=== PATIENT | female | born 1950 | race Caucasian/White ===

== ENCOUNTER 2024-09-19 17:59 | Emergency (ER) | payer MEDICARE, BC, SELFPAY ==
[2024-09-19 18:16] VITALS: BP 142/82; PULSE 77; RESP 18; TEMP 36.6; O2SAT 99
--- NOTE | 2024-09-19 18:19 | EKG_ITS ---
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 [place]) Order Number: [id number] Reading MD: Jim Meyer ([facility] [place]) Measurements Intervals [place] Rate: 68 P: 35 ME: 155 QRS: 8 QRSD: 140 T: 16 QT: 427 QTc: 454 Interpretive Statements SINUS RHYTHM RIGHT BUNDLE BRANCH BLOCK [120+ ms QRS DURATION, UPRIGHT V1, 40+ ms S IN I/aVL/V4/V5/V6] No previous ECG available for comparison /store/S0/[id number].pdf
--- NOTE | 2024-09-19 18:19 | XR_ITS ---
Examination: PA lateral chest 2 views Technique: Upright PA lateral chest 2 views Exam date and time: September 19, 2024 at 1940 6:00 PM Indications: Chest pain today. Findings: Prominent opacity in the right lower lung zone obscuring detail right cardiac contour Normal heart size Left lung clear Impression: Prominent dense consolidation in the right middle lobe most consistent with pneumonia, underlying pulmonary mass not excluded Consider CT chest post intravenous contrast follow-up
--- NOTE | 2024-09-19 18:21 | EDRME_ITS ---
Rapid Medical Screening Exam [facility] Arrival date/time: 09/19/24 17:59 74-year-old female past medical history of liver disease on blood thinner with recent surgical procedure at [facility] presents to the emergency department complaining of right upper quadrant abdominal mass. Patient reports contacted [facility] and was advised to go to the emergency department to rule out internal bleed. Chief Complaint: Abdominal Pain Vital signs: Vital Signs Temperature 97.8 F 09/19/24 18:16 Pulse Rate 77 09/19/24 18:16 Respiratory Rate 18 09/19/24 18:16 Blood Pressure 142/82 H 09/19/24 18:16 Pulse Oximetry (%) 99 09/19/24 18:16 Oxygen Delivery Method Room Air 09/19/24 18:16 Vital signs reviewed by provider: Yes
[2024-09-19 19:36] LABS: Collection Type, Urine Clean Catch
[2024-09-19 19:45] LABS: Bacteria,Urine Rare; Bilirubin,Urine Negative (Negative); Blood,Urine Negative (Negative); Clarity,Urine Clear (Clear/Hazy); Color,Urine Yellow (Lt Yel-Yel); Glucose, Urine Negative (Negative); Hyaline Casts,Urine < 1 /hpf (0-1); Ketones,Urine Negative (Negative); Leukocyte Esterase,Urine Negative (Negative); Nitrite,Urine Negative (Negative); Protein,Urine Negative (Neg - Trace); RBC,Urine 3 /hpf (0-3); Specific Gravity,Urine 1.023 (1.001-1.035); Squamous Epithelial Cell,Urine 1 /hpf (0-5); Urobilinogen,Urine Negative mg/dL (0.0-1.0); WBC,Urine 13 /hpf (0-5)
[2024-09-19 19:51] LABS: Culture Indicated,Urine Yes
[2024-09-19 20:01] VITALS: BP 139/64; PULSE 70; RESP 20; TEMP 36.6; O2SAT 99
[2024-09-19 20:03] VITALS: BMI 26.6
--- NOTE | 2024-09-19 20:22 | EDNOTE_ITS ---
ED General RME/HPI General Chief complaint: Abdominal Pain Stated complaint: POST PORTAL VEIN SURGEY COMPLICATIONS FRI AT [facility] Time Seen by Provider: 09/19/24 20:14 Arrival date/time: 09/19/24 17:59 CC: Mild nausea with mild swelling of the right upper quadrant HPI patient was recently discharged from [facility] 1 week ago for portal duct stent, as well as a splenic vein stent secondary to cirrhosis. The patient was also given an iron infusion x 2 before being discharged to drive back to [place]. Patient has been unremarkable in recovery until today when the patient states she can started to feel mild nausea without any diarrhea or vomiting and noticed that there was a mild enlargement on her abdomen. Patient called [facility] speaking to the mold shaker Connie Menjivar [phone] who advised her to come to the emergency room for a workup and to be called back with the results. The patient is currently awake alert oriented x 3 no focal deficits not in any acute distress. 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 RME / HPI RME / HPI narrative: 09/19/24 17:59 74-year-old female past medical history of liver disease on blood thinner with recent surgical procedure at [facility] presents to the emergency department complaining of right upper quadrant abdominal mass. Patient reports contacted [facility] and was advised to go to the emergency department to rule out internal bleed. Related Data Home Medications ?Medication ?Instructions ?Recorded ?Confirmed Diphenoxylate Hcl/Atrop Sulf * 1 tab GT QIDPRN ##0 08/23/10 (LOMOTIL *) HYDROCODONE BITARTRATE/APAP 1 tab GT Q4-6HRPRN ##1 08/23/10 (VICODIN 5/500) clonazepam 0.5 mg tablet (Klonopin) 0.5 mg PO BID ##1 08/23/10 Allergies Allergy/AdvReac Type Severity Reaction Status Date / Time Sulfa (Sulfonamide Allergy Intermediate Rash Verified 09/19/24 18:03 Antibiotics) Review of Systems Review of Systems Narrative Review of Systems: GEN: No fever, no chills, no weight loss EYES: No discharge, no visual changes, no pain HEENT: No ear pain, no congestion, no sore throat PULM: No shortness of breath, no cough, no congestion CV: No chest pain, no dyspnea on exertion, no palpitations GI: + nausea, no vomiting, no diarrhea, no pain, no constipation : No frequency, no urgency, no dysuria MUSC/SKEL: No joint pain, no back pain SKIN: No rash PSYCH: No hallucinations, no depression HEME/LYMPH: No easy bleeding or bruising tendencies NEURO: No weakness, no headache Past Medical History Past Medical History CARDIAC: Negative Congestive Heart Failure RESPIRATORY: Negative Chronic Obstructive Pulmonary Disease (COPD) GENITOURINARY: Negative Renal Disease ENT: Positive Cataracts ENDOCRINE: Positive Hypothyroidism; Negative Diabetes Mellitus Type 1 or Diabetes Mellitus Type 2 HEMATOLOGIC: Positive Anemia PSYCHO/SOCIAL: Positive Depression and Anxiety OTHER HISTORY: Negative Anesthesia Reactions Surgical History SURGICAL: Positive Abdominal Surgery, Gastric Bypass Surgery and of Back Surgery Social History SMOKING STATUS: Never smoker ED Exam Narrative Physical exam: [General: Not in any acute distress Head normocephalic HEENT: Within acceptable limits Neck is supple nontender Chest equal chest rise nontender to palpation Respiratory: Clear to auscultation no wheezes crackles or rubs CV: Rate rhythm is regular no murmurs rubs or clicks Abdomen is distended secondary to body habitus mild subtle enlargement to the right upper quadrant, soft, mild right upper quadrant tenderness with palpation no reflexive guarding no rebound tenderness. Back: No CVA tenderness no spinous process tenderness from cervical spine thoracic and lumbar spine Skin: Intact no petechiae rash induration ulceration or crepitus Extremities: Moving all extremity against resistance cap refill less than 2 seconds neurosensory intact. No lower extremity edema. Neuro: Awake alert oriented x3 Glascow coma 15 no focal deficits] Course Quality Measures none Orders Category Date Time Status CT Screening NOW Care 09/19/24 22:38 Completed EKG (ED ONLY) *Do not use* NOW Care 09/19/24 18:19 Completed Insert IV NOW Care 09/19/24 20:[address] abdomen pelvis w con Stat Exams 09/19/24 22:38 Completed EKG (ED Only) Stat Exams 09/19/24 18:19 Draft XR chest 2V Stat Exams 09/19/24 18:19 Completed B-Type Natriuretic Peptide Stat Lab 09/19/24 20:34 Completed CBC Stat Lab 09/19/24 20:34 Completed Comprehensive Metabolic Panel Stat Lab 09/19/24 20:34 Completed LDH (Lactate Dehydrogenase) Stat Lab 09/19/24 20:34 Completed Magnesium Stat Lab 09/19/24 20:34 Completed Partial Thromboplastin Time Stat Lab 09/19/24 20:34 Completed Prothrombin Time with INR Stat Lab 09/19/24 20:34 Completed Troponin I Stat Lab 09/19/24 20:34 Completed Urinalysis, C/S if Indicated Stat Lab 09/19/24 18:53 Completed Urine Culture Stat Lab 09/19/24 18:53 Received Vital Signs Vital signs: Vital Signs Temperature 97.8 F 09/19/24 18:16 Pulse Rate 77 09/19/24 18:16 Respiratory Rate 18 09/19/24 18:16 Blood Pressure 142/82 H 09/19/24 18:16 Pulse Oximetry (%) 99 09/19/24 18:16 Oxygen Delivery Method Room Air 09/19/24 18:16 [facility] Patient data External records reviewed:: [facility] previous records Clinical information provided by:: patient Social determinants that could affect healthcare access:: none Patient has the following chronic illnesses:: Cirrhosis, read recent portal vein dilation, and stent placed in the splenic vein. How is presenting disease/condition affected by chronic disease/condition?: u neffected by Evaluation data The following diagnostics were reviewed and interpreted by me:: lab results and radiology exam(s) Lab and/or radiology exams considered but not ordered:: EKG performed at 1835 shows a ventricular rate of 68 ME interval 155 QRS of 140 QTc of 444 this is sinus rhythm right bundle branch block. No old EKG for comparison. Interpretation Summary: See call note Medications Medications considered but not ordered:: See quad note Medication administrations:: None Consultations Consultation(s) initiated? (list below): No Diagnosis Differential Diagnosis ED Complaint MDM: Cirrhosis portal hypertension Most likely diagnosis given after review of the tests above:: Cirrhosis anemia Admission Indicated Admission indicated?: indicated Explain why admission is indicated or not indicated:: Stable for outpatient follow-up Admission Request Was there a request for admission?: No Disposition Plan Disposition Plan: Discharge Discharge Attestation Discharge Attestation: The patient and all family members were given an opportunity to ask questions and understood the discharge instructions. Discharge instructions specifically effects, indications for sooner follow up or return to the emergency department, and the expected course of current diagnosis. Patient condition: Stable Medical Decision Making Differential Diagnosis Differential Diagnosis: Cirrhosis portal hypertension Lab Data 09/19/24 20:34 09/19/24 20:34 Labs: Lab Results 09/19/24 09/19/24 Range/Units 18:53 20:34 WBC 3.6 (3.6-11.0) Thou/mm3 RBC 3.80 L (4.00-5.20) Miln/mm3 Hgb 9.1 L (12.0-16.0) g/dL Hct 30.3 L (36.0-46.0) % MCV 80 (80-100) fL MCH 23.9 L (25.0-35.0) pg MCHC 30.0 L (31.0-37.0) g/dl RDW Std Deviation 44.0 (36.4-46.3) fL Plt Count 120 L (140-440) Thou/mm3 Neut % (Auto) 79 (37-80) % Lymph % (Auto) 9 L (10-50) % Ware % (Auto) 8 (0-12) % Eos % (Auto) 4 (0-10) % Baso % (Auto) 1 (0-2.5) % Neut # (Auto) 2.8 (1.8-7.7) Thou/mm3 Lymph # (Auto) 0.3 L (1.0-4.8) Thou/mm3 Ware # (Auto) 0.3 (0.0-0.8) Thou/mm3 Eos # (Auto) 0.1 (0.0-0.5) Thou/mm3 Baso # (Auto) 0.0 (0.0-0.2) Thou/mm3 Immature Gran # (Auto) 0.01 H (0.00-0.00) Thou/mm3 Absolute Nucleated RBC 0.00 (0.00-0.00) Thou/mm3 Immature Gran % 0 (0-0) % Nucleated RBC % 0 (0) /100 WBC PT 11.4 (9.0-12.2) Seconds INR 1.0 (0.9-1.3) APTT 24.9 (22.0-36.0) Seconds Sodium 140 (136-145) mMol/L Potassium 4.4 (3.4-5.1) mMol/L Chloride 107 (98-107) mMol/L Carbon Dioxide 26.8 (20.0-31.0) mMol/L Anion Gap 6 L (7-16) BUN 21 (9-23) mg/dL Creatinine 0.9 (0.6-1.3) mg/dL Estim Creat Clear Calc 58.4 L (>60) mL/min eGFR > 60 (60 - ) See Note BUN/Creatinine Ratio 23 H (12-20) Ratio Glucose 91 (74-106) mg/dL Calculated Osmolality 282 (275-295) Calcium 9.8 (8.3-10.6) mg/dL Corrected Calcium 9.8 (8.5-10.1) mg/dL Magnesium 1.9 (1.6-2.6) mg/dL Total Bilirubin 0.8 (0.3-1.2) mg/dL AST 41 H (0-34) U/L ALT 25 (10-49) U/L Alkaline Phosphatase 115 (46-116) U/L Lactate Dehydrogenase 315 H (120-246) U/L Troponin I < 0.020 (0.0-0.045) ng/mL B-Natriuretic Peptide 163 H (0-100) pg/mL Total Protein 7.0 (5.7-8.2) gm/dL Albumin 4.1 (3.4-4.8) gm/dL Globulin 2.9 (2.3-3.5) gm/dL Albumin/Globulin Ratio 1.4 (1.2-2.2) Ur Collection Type Clean Catch Urine Color Yellow (Lt Yel-Yel) Urine Clarity Clear (Clear/Hazy) Urine pH 6.0 (5.0-7.0) Ur Specific [place] 1.023 (1.001-1.035) Urine Protein Negative (Neg - Trace) Urine Glucose (UA) Negative (Negative) Urine Ketones Negative (Negative) Urine Blood Negative (Negative) Urine Nitrite Negative (Negative) Urine Bilirubin Negative (Negative) Urine Urobilinogen (Auto) Negative (0.0-1.0) mg/dL Ur Leukocyte Esterase Negative (Negative) Urine RBC 3 (0-3) /hpf Urine WBC 13 H (0-5) /hpf Ur Squamous Epith Cells 1 (0-5) /hpf Urine Bacteria Rare (None) Hyaline Casts < 1 (0-1) /hpf Ur Culture Indicated? Yes Discharge Plan Plan Patient Disposition: HOME (Self Care) Patient condition on transfer: Stable Prescriptions/Referrals Prescriptions/Med Rec: No Action Diphenoxylate Hcl/Atrop Sulf * (LOMOTIL *) 1 TAB tablet 1 tab GT QIDPRN Qty: 0 HYDROCODONE BITARTRATE/APAP (VICODIN 5/500) 1 TAB tablet 1 tab GT Q4-6HRPRN Qty: 1 clonazepam [Klonopin] 0.5 MG tablet 0.5 mg PO BID Qty: 1 Referrals: Ted Anton MD [Primary Care Provider] - In 1 week Problem List Clinical Impression: Abdominal pain, Cirrhosis, Anemia, chronic disease, Thrombocytopenia Patient/Caregiver Discharge Instructions Education Materials: ED Anemia Type Not Specified, ED Cirrhosis Additional Instructions: Follow-up with your PMD in 2-3 days for recheck. You can continue with your normal video visit with Dr. Preciado on the . Feel free to return to the emergency department sooner if symptoms worsen or for any problems Print Language: Upper Sorbian Stand Alone Forms: [employer] Award Info., Patient Portal Info Letter Attestation Attestation The patient was seen by the midlevel practitioner. I, the co-signing physician, was present during the entire ER visit. While I did not physically examine the patient, I was available for consultation as needed.
[2024-09-19 21:02] LABS: Basophils % (Auto) 1 % (0-2.5); Eosinophils # (Auto) 0.1 Thou/mm3 (0.0-0.5); Eosinophils % (Auto) 4 % (0-10); Hematocrit 30.3 % (36.0-46.0); Hemoglobin 9.1 g/dL (12.0-16.0); Immature Granulocytes % (Auto) 0 % (0-0); Immature Granulocytes Auto 0.01 Thou/mm3 (0.00-0.00); Lymphocytes # (Auto) 0.3 Thou/mm3 (1.0-4.8); Lymphocytes % (Auto) 9 % (10-50); Mean Corpuscular Hemoglobin 23.9 pg (25.0-35.0); Mean Corpuscular Volume 80 fL (80-100); Monocytes # (Auto) 0.3 Thou/mm3 (0.0-0.8); Monocytes % (Auto) 8 % (0-12); Neutrophils # (Auto) 2.8 Thou/mm3 (1.8-7.7); Neutrophils % (Auto) 79 % (37-80); Nucleated Red Blood Cell % 0 /100 WBC (0); Platelet Count 120 Thou/mm3 (140-440); White Blood Count 3.6 Thou/mm3 (3.6-11.0)
[2024-09-19 21:18] LABS: Partial Thromboplastin Time 24.9 Seconds (22.0-36.0); Prothrombin Time 11.4 Seconds (9.0-12.2)
[2024-09-19 21:22] LABS: B-Type Natriuretic Peptide 163 pg/mL (0-100)
[2024-09-19 22:15] LABS: Alanine Aminotransferase 25 U/L (10-49); Albumin, Serum 4.1 gm/dL (3.4-4.8); Albumin/Globulin Ratio 1.4 (1.2-2.2); Alkaline Phosphatase 115 U/L (46-116); Anion Gap 6 (7-16); Aspartate Amino Transferase 41 U/L (0-34); BUN/Creatinine Ratio 23 Ratio (12-20); Bilirubin,Total 0.8 mg/dL (0.3-1.2); Blood Urea Nitrogen 21 mg/dL (9-23); Calcium 9.8 mg/dL (8.3-10.6); Calcium (Corrected) 9.8 mg/dL (8.5-10.1); Carbon Dioxide 26.8 mMol/L (20.0-31.0); Chloride 107 mMol/L (98-107); Creatinine (Component) 0.9 mg/dL (0.6-1.3); Estimated Creatinine Clearance 58.4 mL/min (>60); Globulin 2.9 gm/dL (2.3-3.5); Glucose 91 mg/dL (74-106); Magnesium 1.9 mg/dL (1.6-2.6); Osmolality,Calculated 282 (275-295); Potassium 4.4 mMol/L (3.4-5.1); Sodium 140 mMol/L (136-145); Troponin I < 0.020 ng/mL (0.0-0.045); eGFR > 60 See Note
--- NOTE | 2024-09-19 22:38 | XR_ITS ---
Examination: CT abdomen with intravenous contrast CT pelvis with intravenous contrast 2-D coronal reconstructions 2-D sagittal reconstructions Date and time of exam:September 19, 2024 at 11:12 PM Indications: History post portal vein surgery last week, abdominal pain, splenic artery stenting right-sided pain and swelling. CTDI: vol (mGy) 10.61 DLP: (mGycm) 610 Technique: Multiple axial sections of the abdomen and pelvis have been obtained. 64 slice high-resolution scanner used. 3 mm axial sections have been obtained, post intravenous injection 60 cc [id number] 2-D sagittal, coronal reconstructions obtained. Low dose protocols were performed. One or more of the following dose reduction techniques were used; automated exposure control, adjustment of the mA and/or KV according to patient size, use of iterative reconstruction technique. Findings: Atelectasis versus pneumonia in the right middle lobe Large right pleural effusion with atelectasis right lower lobe Liver irregular in contour with surgical clips Mild ascites Cholelithiasis Significant splenomegaly also with surgical clips Splenic vein stent which appears patent however this is not a CTA study Aorta normal size No hydronephrosis Diffuse wall thickening involving the colon, hepatic colopathy pattern Aorta is not enlarged No pelvic mass Urinary bladder intact Anasarca Severe osteopenia with advanced degenerative disc disease L4-L5, L5-S1 Impression: Atelectasis versus pneumonia in the right middle lobe Large right pleural effusion Cirrhosis Mild ascites Significant splenomegaly Splenic vein stent which appears patent however this is not a CTA study Hepatic colopathy Cholelithiasis
[2024-09-19 23:26] VITALS: BP 121/70; PULSE 71; RESP 17; TEMP 36.7; O2SAT 100
--- NOTE | 2024-09-19 23:50 | EDNOTE_ITS ---
Emergency Room Addendum Addendum Narrative: 220: Care assumed from Gui Roberts NP. Past medical, surgical, social and family history reviewed. Vitals and home medications reviewed. Results and treatment plan discussed. I will assume the care of the patient at this time and will follow the patient, pending CT abdomen pelvis. Please refer to the emergency department record for history and examination. 74yo female presents to the ED for a chief complaint of abdominal fullness. Patient states she has had persistent abdominal pain since she drove home from [place] 2-3 days ago, reporting she developed abdominal fullness. She called the impregnator operator from [place], and was told to come to the ED for evaluation. Patient does not have a post-op appointment until 10/02/[address] Preciado. Physical exam by me shows patient under no acute distress at this time. 0045: Spoke with Dr. Connie Menjivar, impregnator operator from [facility], regarding consultation and reviewing results. Discussed patient?s HPI, PMHx, lab and/or radiology results. Treatment plan was discussed. States the patient is stable to be discharged home and can continue with her f/u appointment as scheduled. RADIOLOGY RESULTS: [facility] Report Signed Patient: WADE DEE. Record#: [id number] Birthdate: 1950 Age/Sex: 74 / F Location: [facility] Attending Dr: Ordering Physician: Matti Rodriguez MD Date of Service: 09/19/24 Procedure(s): CT abdomen pelvis w con Accession Number(s): [id number] cc: Matti Rodriguez MD; Meño Cortes MD; Ted Anton MD~ Examination: CT abdomen with intravenous contrast CT pelvis with intravenous contrast 2-D coronal reconstructions 2-D sagittal reconstructions Date and time of exam:September 19, 2024 at 11:12 PM Indications: History post portal vein surgery last week, abdominal pain, splenic artery stenting right-sided pain and swelling. CTDI: vol (mGy) 10.61 DLP: (mGycm) 610 Technique: Multiple axial sections of the abdomen and pelvis have been obtained. 64 slice high-resolution scanner used. 3 mm axial sections have been obtained, post intravenous injection 60 cc [id number] 2-D sagittal, coronal reconstructions obtained. Low dose protocols were performed. One or more of the following dose reduction techniques were used; automated exposure control, adjustment of the mA and/or KV according to patient size, use of iterative reconstruction technique. Findings: Atelectasis versus pneumonia in the right middle lobe Large right pleural effusion with atelectasis right lower lobe Liver irregular in contour with surgical clips Mild ascites Cholelithiasis Significant splenomegaly also with surgical clips Splenic vein stent which appears patent however this is not a CTA study Aorta normal size No hydronephrosis Diffuse wall thickening involving the colon, hepatic colopathy pattern Aorta is not enlarged No pelvic mass Urinary bladder intact Anasarca Severe osteopenia with advanced degenerative disc disease L4-L5, L5-S1 Impression: Atelectasis versus pneumonia in the right middle lobe Large right pleural effusion Cirrhosis Mild ascites Significant splenomegaly Splenic vein stent which appears patent however this is not a CTA study Hepatic colopathy Cholelithiasis Dictated By: Meño Cortes MD Signed By: <Electronically signed by Meño Cortes MD in [place]> 09/19/24 [id number]
[2024-09-20 00:55] LABS: LDH (Lactate Dehydrogenase) 315 U/L (120-246)
[2024-09-20 01:10] VITALS: BP 111/60; PULSE 72; RESP 18; TEMP 36.7; O2SAT 99
== END 2024-09-20 01:25 | disposition home or self-care (01) ==
PROVIDERS: Emergency Provider Emergency Medicine; PCP Family Medicine
DX: K74.60 Unspecified cirrhosis of liver (principal); D69.6 Thrombocytopenia, unspecified; D63.8 Anemia in other chronic diseases classified elsewhere; J90 Pleural effusion, not elsewhere classified; R18.8 Other ascites; R16.1 Splenomegaly, not elsewhere classified; K80.20 Calculus of gallbladder without cholecystitis without obstruction; I45.10 Unspecified right bundle-branch block
CPT/HCPCS: 36415; 71046; 74177; 80053; 81001; 83615; 83735; 83880; 84484; 85025; 85610; 85730; 87086; 93005; 99284; 99285; A4649; Q9967

== ENCOUNTER 2024-11-14 11:54 | Inpatient (IN) | payer MEDICARE, BC, SELFPAY ==
[2024-11-14] VITALS (8 sets, daily range): BP systolic 118–169; BP diastolic 62–97; PULSE 77–92; RESP 17–26; TEMP 36.2–38.2; O2SAT 91–99; BMI 25.8
--- NOTE | 2024-11-14 12:09 | PD.EDURI ---
Upper Respiratory Inf. RME/HPI General Chief Complaint: Flu Like Symptoms Stated Complaint: SOB, COUGH, FEVER X5DAYS Time Seen by Provider: 11/14/24 12:03 Arrival date/time: 11/14/24 11:54 RME / HPI RME / HPI Narrative: This section includes all my notes and documentations, including HPI, PE, and ED course.? Kelvin Boogie MD HPI: 74-year-old female here with about a week history of worsening cough, productive cough, purulent sputum, and dyspnea. With fever and chills and bodyaches and malaise. No other complaints. ROS: All negative except as documented in HPI. Physical Exam: General:? Alert and oriented.? Hacking cough noted with hypoxia needing oxygen. Eyes:? Conjunctivae and lids clear.? ENT:? No nasal congestion.??Pharynx normal. TM normal bilaterally. Neck:? Supple.? Heart:? RRR.? Lungs: Mild respiratory distress.? Moderately decreased air movement with bilateral rales. Abdomen:? Soft with equivocal tenderness, difficult to localize. Legs:? No clubbing, cyanosis, edema.? Skin:? Warm and dry.?? Neuro:? Alert and oriented X 3.?? I reviewed all diagnostic test results. My interpretation of the EKG is?sinus rhythm with no acute ST?T changes. My interpretation of the chest x-ray is bilateral infiltrates. My review of the CT scan report is?no PE. Blood tests and urine tests?remarkable for WBC 13, D-dimer 2970. At this point, diagnoses include?acute respiratory failure with hypoxia and pneumonia. Treatment here included?Rocephin and Zithromax and Tylenol and morphine. Significant improvement not noted. I discussed the case with our hospitalist.? About the presentation and exam and diagnostics and treatments here.? And need of further care in the hospital.? Will accept the patient. Kelvin Boogie MD Related Data Home Medications ?Medication ?Instructions ?Recorded ?Confirmed Diphenoxylate Hcl/Atrop Sulf * 1 tab GT QIDPRN ##0 08/23/10 (LOMOTIL *) HYDROCODONE BITARTRATE/APAP 1 tab GT Q4-6HRPRN ##1 08/23/10 (VICODIN 5/500) clonazepam 0.5 mg tablet (Klonopin) 0.5 mg PO BID ##1 08/23/10 Allergies Allergy/AdvReac Type Severity Reaction Status Date / Time Sulfa (Sulfonamide Allergy Intermediate Rash Verified 11/14/24 11:57 Antibiotics) Review of Systems Review of Systems Systems Reviewed: All systems reviewed, normal except as documented Past Medical History Past Medical History ENT: Positive Cataracts ENDOCRINE: Positive Hypothyroidism HEMATOLOGIC: Positive Anemia PSYCHO/SOCIAL: Positive Depression and Anxiety Surgical History SURGICAL: Positive Abdominal Surgery and Gastric Bypass Surgery Social History SMOKING STATUS: Never smoker ED Exam Narrative Physical exam: As noted in HPI Course Quality Measures none Orders Category Date Time Status Bedside COVID-19 Antigen Test NOW Care 11/14/24 12:17 Active Bedside Influenza A&B Antigen Test NOW Care 11/14/24 12:17 Active COVID-19 Screening Questionnaire NOW Care 11/14/24 17:[address] Screening NOW Care 11/14/24 16:[address] Screening NOW Care 11/14/24 16:05 Active Decision to Admit X1 Care 11/14/24 17:11 Active EKG (ED ONLY) *Do not use* NOW Care 11/14/24 12:17 Completed Saline [Insert IV] NOW Care 11/14/24 12:17 Active Straight [In and Out Catheter] X1 Care 11/14/24 15:[address] abdomen pelvis w con Stat Exams 11/14/24 16:[address] angio chest Stat Exams 11/14/24 16:05 Completed EKG (ED Only) Stat Exams 11/14/24 12:17 Draft XR chest 1V portable Stat Exams 11/14/24 12:17 Completed ABG [Arterial Blood Gas] Stat Lab 11/14/24 13:16 Completed BNP [B-Type Natriuretic Peptide] Stat Lab 11/14/24 15:14 Completed CBC Stat Lab 11/14/24 15:14 Completed CMP [Comprehensive Metabolic Panel] Stat Lab 11/14/24 15:14 Completed D-Dimer Stat Lab 11/14/24 15:14 Completed Magnesium Stat Lab 11/14/24 15:14 Completed TSH [Thyroid Stimulating Hormone] Stat Lab 11/14/24 15:14 Completed Troponin I Stat Lab 11/14/24 15:14 Completed UA, C/S IF [Urinalysis, C/S if Indicated] Stat Lab 11/14/24 16:52 Completed Acetaminophen Ivpb [Ofirmev Inj] Med 11/14/24 17:10 Active 1,000 mg in 100 ml IV NOW Azithromycin Inj [Zithromax Inj] 500 mg Med 11/14/24 13:33 Discontinued Sodium Chloride 0.9% 250 ml [Ns] 250 ml IV X1 Ketorolac Inj [Toradol Inj] Med 11/14/24 17:10 Discontinued 7.5 mg IVP X1 ONE Morphine Inj Med 11/14/24 16:32 Discontinued 4 mg IVP X1 ONE Ondansetron Inj [Zofran Inj] Med 11/14/24 16:32 Discontinued 4 mg IV X1 ONE Sodium Chloride 0.9% 1000 ml [Ns] 1,000 ml Med 11/14/24 16:32 Active IV 999 mls/hr cefTRIAXone [Rocephin] 1,000 mg Med 11/14/24 13:33 Discontinued Sodium Chloride 0.9% (P) [Ns 0.9% (P)] 50 ml IV X1 Vital Signs Vital signs: Vital Signs Temperature 98.4 F 11/14/24 12:10 Pulse Rate 80 11/14/24 12:10 Respiratory Rate 20 11/14/24 12:10 Blood Pressure 136/82 H 11/14/24 12:10 Pulse Oximetry (%) 91 L 11/14/24 12:10 Oxygen Delivery Method Room Air 11/14/24 12:10 Pulse ox is 91% on room air which is adequate. Upper Respiratory Infection Patient data External records reviewed:: [facility] previous records (I reviewed ED visit on 09/19/2024) Clinical information provided by:: patient and spouse Social determinants that could affect healthcare access:: none Patient has the following chronic illnesses:: See chart How is presenting disease/condition affected by chronic disease/condition?: uneffected by Evaluation data The following diagnostics were reviewed and interpreted by me:: lab results, radiology exam(s) and EKG tracing(s) (My interpretation of the EKG is: Sinus rhythm (84 bpm) with nonspecific ST-T changes. Kelvin Boogie MD) Lab and/or radiology exams considered but not ordered:: None Interpretation Summary: Acute respiratory failure and pneumonia Medications / Prescriptions Medications or Prescriptions considered but not ordered:: None Medication administrations:: Medication Administration History Sodium Chloride (Ns) 1,000 mls @ 999 mls/hr IV .Q1H1M ONE Stop: 11/14/24 17:32 Acetaminophen (Ofirmev Inj) 1,000 mg in 100 mls @ 250 mls/hr IV NOW ONE Stop: 11/14/24 17:33 Last Admin: 11/14/24 17:20 Dose: 250 mls/hr Documented By: SALLY Discontinued Medications Azithromycin 500 mg/ Sodium (Chloride) 250 mls @ 250 mls/hr IV X1 ONE Stop: 11/14/24 14:32 Last Admin: 11/14/24 17:19 Dose: 250 mls/hr Documented By: SALLY Ceftriaxone Sodium 1,000 mg/ (Sodium Chloride) 50 mls @ 100 mls/hr IV X1 ONE Stop: 11/14/24 14:02 Last Admin: 11/14/24 15:11 Dose: 100 mls/hr Documented By: SALLY Ketorolac Tromethamine (Ketorolac Inj 30 Mg/Ml Vial) 7.5 mg IVP X1 ONE Stop: 11/14/24 17:11 Morphine Sulfate (Morphine Sulf Inj 10 Mg/Ml Vial) 4 mg IVP X1 ONE Stop: 11/14/24 16:33 Last Admin: 11/14/24 17:19 Dose: 4 mg Documented By: SALLY Ondansetron HCl (Ondansetron Inj 2 Mg/Ml Inj 2 Ml) 4 mg IV X1 ONE; Protocol Stop: 11/14/24 16:33 Rocephin and Zithromax and Tylenol and morphine Consultations Consultation(s) initiated? (list below): Yes Consultation #1 (Physician, Specialty, Details): I spoke with hospitalist team regarding admission. Time: 17:10 Diagnosis Upper Respiratory Differential Diagnosis: upper respiratory infection, viral infection, bronchitis, influenza and other (Pneumonia, COVID, [place], PE, CHF) Most likely diagnosis given after review of the tests above:: Respiratory failure and pneumonia Admission Indicated Admission indicated?: indicated Explain why admission is indicated or not indicated:: Respiratory failure with hypoxia and pneumonia Admission Request Was there a request for admission?: Yes Admission Attestation Admission request attestation: Discussed case with [] from Hospitalist service regarding admission. Discussed patients ED course, exam findings, labs, and radiology results. The Hospitalist [agrees,declines] to accept the patient for admission. Disposition Plan Disposition Plan: Admit Discharge Plan Plan Patient Disposition: Admit Acute Care w/in Hospital Prescriptions/Referrals Prescriptions/Med Rec: No Action Diphenoxylate Hcl/Atrop Sulf * (LOMOTIL *) 1 TAB tablet 1 tab GT QIDPRN Qty: 0 HYDROCODONE BITARTRATE/APAP (VICODIN 5/500) 1 TAB tablet 1 tab GT Q4-6HRPRN Qty: 1 clonazepam [Klonopin] 0.5 MG tablet 0.5 mg PO BID Qty: 1 Referrals: Ted Anton MD [Primary Care Provider] - In 1 week Problem List Clinical Impression: Acute respiratory failure with hypoxia, Pneumonia Patient/Caregiver Discharge Instructions Print Language: Tajik Stand Alone Forms: [employer] Award Info., Patient Portal Info Letter
--- NOTE | 2024-11-14 12:17 | XR_ITS ---
Examination: PA chest single view TECHNIQUE: Upright PA chest single view Exam date and time: October 14, 2025 1229 hours Comparison September 09, 2024 INDICATIONS: Shortness of breath chest pain beginning 2 weeks ago. FINDINGS: Bilateral pneumonia, severe in the left lung Large right pleural effusion Normal heart size Prominent osteopenia IMPRESSION: Extensive bilateral pneumonia Large right pleural effusion
--- NOTE | 2024-11-14 12:17 | EKG_ITS ---
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
[2024-11-14 13:21] LABS: Base Excess -3 (-3-3); HCO3 20 mEq/L (20-26); Inspired O2, VO2 Liters 3 L/min; O2 Saturation 95 % (91-98); PCO2 27 mmHg (32.0-48.0); PO2 68 mmHg (83-108); pH, Arterial 7.47 (7.35-7.45)
[2024-11-14 13:22] LABS: Allen Test Performed/OK; Puncture Site Right Femoral
[2024-11-14] MEDS: cefTRIAXone 1,000 MG in SODIUM CHLORIDE 0.9% (P) 50 ML 100 MG IV (15:11)
[2024-11-14 15:25] LABS: Basophils # (Auto) 0.1 Thou/mm3 (0.0-0.2); Basophils % (Auto) 0 % (0-2.5); Eosinophils # (Auto) 0.3 Thou/mm3 (0.0-0.5); Eosinophils % (Auto) 3 % (0-10); Hematocrit 28.5 % (36.0-46.0); Hemoglobin 9.3 g/dL (12.0-16.0); Immature Granulocytes % (Auto) 2 % (0-0); Immature Granulocytes Auto 0.27 Thou/mm3 (0.00-0.00); Lymphocytes # (Auto) 0.4 Thou/mm3 (1.0-4.8); Lymphocytes % (Auto) 3 % (10-50); Mean Corpuscular HGB Conc 32.6 g/dl (31.0-37.0); Mean Corpuscular Hemoglobin 25.6 pg (25.0-35.0); Mean Corpuscular Volume 79 fL (80-100); Monocytes # (Auto) 0.6 Thou/mm3 (0.0-0.8); Monocytes % (Auto) 4 % (0-12); Neutrophils # (Auto) 11.5 Thou/mm3 (1.8-7.7); Neutrophils % (Auto) 88 % (37-80); Nucleated Red Blood Cell # 0.02 Thou/mm3 (0.00-0.00); Nucleated Red Blood Cell % 0 /100 WBC (0); Platelet Count 262 Thou/mm3 (140-440); RDW Standard Deviation 54.7 fL (36.4-46.3); Red Blood Count 3.63 Miln/mm3 (4.00-5.20)
[2024-11-14 15:39] LABS: B-Type Natriuretic Peptide 74 pg/mL (0-100)
[2024-11-14 15:43] LABS: Alanine Aminotransferase 49 U/L (10-49); Albumin, Serum 3.5 gm/dL (3.4-4.8); Alkaline Phosphatase 266 U/L (46-116); Anion Gap 10 (7-16); Aspartate Amino Transferase 47 U/L (0-34); BUN/Creatinine Ratio 43 Ratio (12-20); Bilirubin,Total 0.7 mg/dL (0.3-1.2); Blood Urea Nitrogen 39 mg/dL (9-23); Calcium (Corrected) 9.4 mg/dL (8.5-10.1); Carbon Dioxide 22.3 mMol/L (20.0-31.0); Chloride 98 mMol/L (98-107); Creatinine (Component) 0.9 mg/dL (0.6-1.3); D-Dimer 2970 ng/mL (<600); Estimated Creatinine Clearance 57.6 mL/min (>60); Globulin 3.5 gm/dL (2.3-3.5); Glucose 98 mg/dL (74-106); Magnesium 2.3 mg/dL (1.6-2.6); Osmolality,Calculated 270 (275-295); Potassium 4.4 mMol/L (3.4-5.1); Sodium 130 mMol/L (136-145); Thyroid Stimulating Hormone 4.11 uIU/mL (0.55-4.78); Troponin I < 0.020 ng/mL (0.0-0.045); eGFR > 60 See Note
--- NOTE | 2024-11-14 16:05 | XR_ITS ---
Examination: CT abdomen with intravenous contrast CT pelvis with intravenous contrast 2-D coronal reconstructions 2-D sagittal reconstructions Date and time of exam:November 14, 2024 1607 hours INDICATIONS: Generalized abdominal pain today. CTDI: vol (mGy) 10.1 DLP: (mGycm) 600 Technique: Multiple axial sections of the abdomen and pelvis have been obtained. 64 slice high-resolution scanner used. 3 mm axial sections have been obtained, post intravenous injection 100 cc Isovue-370 2-D sagittal, coronal reconstructions obtained. Low dose protocols were performed. One or more of the following dose reduction techniques were used; automated exposure control, adjustment of the mA and/or KV according to patient size, use of iterative reconstruction technique. Findings: Cirrhosis, liver nodular in contour Mild ascites Cholelithiasis Mild splenomegaly Patent splenic vein stent Aorta normal size No hydronephrosis Diffuse wall thickening involving the colon, hepatic colopathy pattern Fluid-filled small bowel loops with wall thickening, hepatic enteropathy pattern No bowel obstruction 10 mm umbilical hernia containing fluid No diverticulitis Intact urinary bladder Severe osteopenia Advanced disc narrowing L5-S1 Advanced narrowing hip joints IMPRESSION: Cirrhosis Mild splenomegaly Mild ascites Cholelithiasis Hepatic colopathy Hepatic enteropathy No bowel obstruction
--- NOTE | 2024-11-14 16:05 | XR_ITS ---
Examination: CTA chest with intravenous contrast 2-D reconstructions 3-D reconstructions, vascular Date and time of exam: November 14, 2024 1607 hours INDICATIONS: Onset SOB chest pain today CTDI: vol (mGy) 8.52 DLP: (mGycm) 300 Technique: Multiple axial sections of the thorax have been obtained. 3 mm slice thickness, from below the hemidiaphragms to above the apices of the lungs. Mediastinal and lung density settings have been obtained. 2-D sagittal and coronal reconstructions. 3-D angiographic renderings, 3-D volume renderings, 3D post processing, vascular maximum intensity projections obtained. Contrast administered is 100 cc Isovue-370. Low dose protocols were performed. One or more of the following dose reduction techniques were used; automated exposure control, adjustment of the mA and/or KV according to patient size, use of iterative reconstruction technique. Findings: No thoracic aortic aneurysm dilatation or dissection No pulmonary artery emboli Large right pleural effusion Extensive opacities throughout both lungs Dense consolidation versus pulmonary mass in the right lower lobe, coronal image 51, measuring 6 x 5.8 cm Cirrhosis Splenic vein stent No pancreatic mass IMPRESSION: Negative for pulmonary artery emboli Large right pleural effusion Extensive pneumonic consolidation bilaterally Dense consolidation versus pulmonary mass in the right lower lobe, 6 x 5.8 cm, follow-up chest imaging during treatment recommended Cirrhosis
[2024-11-14 17:11] LABS: Collection Type, Urine Clean Catch
[2024-11-14 17:16] LABS: Bilirubin,Urine 1+ (Negative); Blood,Urine Trace (Negative); Clarity,Urine Clear (Clear/Hazy); Color,Urine Yellow (Lt Yel-Yel); Culture Indicated,Urine Not Indicated; Glucose, Urine Negative (Negative); Ketones,Urine 2+ (Negative); Leukocyte Esterase,Urine Negative (Negative); Nitrite,Urine Negative (Negative); Protein,Urine 1+ (Neg - Trace); RBC,Urine 2 /hpf (0-3); Specific Gravity,Urine 1.029 (1.001-1.035); Squamous Epithelial Cell,Urine < 1 /hpf (0-5); WBC,Urine < 1 /hpf (0-5)
[2024-11-14] MEDS: AZITHROMYCIN INJ 500 MG in SODIUM CHLORIDE 0.9% 250 ML 250 ML 250 MG IV (17:19)
[2024-11-14] MEDS: MORPHINE SULF INJ 10 MG/ML VIAL 4 MG IVP (17:19)
[2024-11-14] MEDS: ACETAMINOPHEN IVPB 1,000 MG/100 ML VIAL 250 MG IV (17:20)
[2024-11-14] MEDS: KETOROLAC INJ 30 MG/ML VIAL 7.5 MG IVP (17:46)
[2024-11-14] MEDS: SODIUM CHLORIDE 0.9% 1000 ML 1,000 ML 999 ML IV (17:46)
[2024-11-14] MEDS: ONDANSETRON INJ 2 MG/ML INJ 2 ML 4 MG IV (17:46)
--- NOTE | 2024-11-14 17:59 | ESHP_ITS ---
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 She was prescribed LASIX which she takes daily. However she discontinued taking LASIX 2 weeks ago secondary to frequent urination. Apparently, about a week ago she started developing weakness, fever and chills, any new cough. Her last thoracentesis was about a month ago. Last paracentesis was about 2 months ago. She follows up with [facility] hepatology. 2 years ago. She was admitted for liver transplant however [facility] did not believe patient had cirrhosis at that time, she was not a candidate for liver transplant, she was treated for hepatic vein thrombosis at that time. Denies headaches, loss of consciousness, chest pain, sick exposure, recent travel, abdominal pain, N/V/D/C, abnormal bleed, dysuria or hematuria. ED COURSE: T 100.8, HR 92, BP 169/89, RR 22, satting mid 90s on 6 L NC. ABG pH 7.47, pCO2 27, PaO2 68, bicarb 23. WBC 13, Hgb 9.3 around baseline, PLT 262. Sodium 130, creatinine 0.9, AST 47, ALT 49, ALP 266. Troponin negative, BNP 74, EKG sinus rhythm without acute ST changes. CXR extensive bilateral pneumonia, large right pleural effusion. CT AP cirrhosis, mild splenomegaly, mild ascites, cholelithiasis. CTA chest right large pleural effusion, extensive bilateral pneumonic consolidation, dense consolidation versus pulmonary mass in right lower lobe measuring 6X 5.8 cm, cirrhosis. Patient was given 1 L normal saline bolus, and AZITHROMYCIN times X1 plus VANCOMYCIN X1. Patient admitted to hospital service for AHRF in settings of pneumonia and pleural effusion. PMHx: Liver disease, possible cirrhosis PSHx: s/p stenting of hepatic vein and splenic vein MEDS: Pending med rec, patient says she is on blood thinner and LASIX ALLERGIES: SULFA DRUG rash SH: Denies alcohol, tobacco or drug use Exam Vital Signs Temp Pulse Resp BP Pulse Ox O2 Del Method O2 Flow Rate 100.8 F H 92 22 H 169/89 H 95 Nasal Cannula 6 11/14/24 17:02 11/14/24 17:02 11/14/24 17:02 11/14/24 17:02 11/14/24 17:02 11/14/24 17:02 11/14/24 17:02 Narrative Exam GENERAL * Ill-appearing elderly female, in moderate distress, speaks in short sentences, on nasal cannula 7 L HEENT * NCAT.?SHELLY. Oral mucosa is moist. Patent Nares NECK * Supple, nontender, no thyromegaly, no meningismus, no JVD, no step offs CHEST * Tachycardic, regular rhythm, no m/g/r * Coarse breath sound bilaterally, crackles of right lung, no wheezing. * Symmetrical chest rise. No intercostal subcostal retraction * Atraumatic, nontender, no crepitus, symmetrical expansion. ABDOMEN * Soft, flat, nontender. No guarding/rebound tenderness/masses. * Bowel sounds presents EXTREMITIES * Nontender, no cyanosis. * Bilateral lower extremity 2+ pitting edema SKIN * Warm and dry, no jaundice/rashes. NEUROMUSCULAR * No lumbar or midline, no CVA, no paraspinal muscle spasm or tenderness. * Moves all 4 extremities well, with full ROM and good CSM. * MARTIN x4, CN II-XII grossly intact. * No focal neurologic deficits. PSYCHIATRY * Normal mood and affect, cooperative, no SI or HI or hallucinations. Results: Labs 11/14/24 15:14 11/14/24 15:14 Labs: Short CBC 11/14/24 Range/Units 15:14 WBC 13.0 H (3.6-11.0) Thou/mm3 Hgb 9.3 L (12.0-16.0) g/dL Hct 28.5 L (36.0-46.0) % Plt Count 262 (140-440) Thou/mm3 BMP 11/14/24 15:14 Sodium 130 L Potassium 4.4 Chloride 98 Carbon Dioxide 22.3 BUN 39 H Creatinine 0.9 Glucose 98 Calcium 9.0 Cardiac Enzymes 11/14/24 Range/Units 15:14 Troponin I < 0.020 (0.0-0.045) ng/mL Liver Function 11/14/24 Range/Units 15:14 Total Bilirubin 0.7 (0.3-1.2) mg/dL AST 47 H (0-34) U/L ALT 49 (10-49) U/L Alkaline Phosphatase 266 H (46-116) U/L Albumin 3.5 (3.4-4.8) gm/dL Urine 11/14/24 Range/Units 16:52 Urine Color Yellow (Lt Yel-Yel) Urine Clarity Clear (Clear/Hazy) Urine pH 6.0 (5.0-7.0) Ur Specific [place] 1.029 (1.001-1.035) Urine Protein 1+ A (Neg - Trace) Urine Glucose (UA) Negative (Negative) ABG Interpretation ABG results: 11/14/24 13:16 ABG pH 7.47 H ABG pCO2 27 L ABG pO2 68 L ABG HCO3 20 ABG O2 Saturation 95 ABG Base Excess -3 Quality Measures Quality Measures none Advance care planning discussed with:: patient Medications Home Medications and Allergies Home Medications ?Medication ?Instructions ?Recorded ?Confirmed ?Type Diphenoxylate Hcl/Atrop Sulf * 1 tab GT QIDPRN ##0 08/23/10 History (LOMOTIL *) HYDROCODONE BITARTRATE/APAP 1 tab GT Q4-6HRPRN ##1 08/23/10 History (VICODIN 5/500) clonazepam 0.5 mg tablet (Klonopin) 0.5 mg PO BID ##1 08/23/10 History Allergies Allergy/AdvReac Type Severity Reaction Status Date / Time Sulfa (Sulfonamide Allergy Intermediate Rash Verified 11/14/24 11:57 Antibiotics) Visit Medications Acetaminophen (Acetaminophen 325 Mg Tablet) 650 mg PO Q6H PRN PRN Reason: PAIN SCALE 1-3 (mild Stop: 12/14/24 17:46 Acetaminophen (Acetaminophen 325 Mg Tablet) 650 mg PO Q6H PRN PRN Reason: Fever >100 Stop: 12/14/24 17:46 Hydrocodone Bitart/Acetaminophen (Hydrocodone/Apap 10/325 Tab) 1 tab PO Q4HR PRN PRN Reason: PAIN SCALE 7-10 (Severe Stop: 11/19/24 17:46 Azithromycin (Azithromycin 250 Mg Tablet) 250 mg PO QDAY YOAN Stop: 11/22/24 08:59 Ceftriaxone Sodium/Dextrose (Rocephin/D5w 1gm Iv Premix) 50 mls @ 100 mls/hr IV QDAY YOAN Stop: 11/21/24 17:59 Ondansetron HCl (Ondansetron Inj 2 Mg/Ml Inj 2 Ml) 4 mg IV Q6H PRN; Protocol PRN Reason: NAUSEA OR VOMITING Stop: 12/14/24 17:46 Oxycodone/Acetaminophen (Oxycodone/Apap 5/325 Tablet) 1 tab PO Q6H PRN PRN Reason: PAIN SCALE 4-6 (Moderate Stop: 11/19/24 17:46 Pantoprazole Sodium (Pantoprazole Inj 40 Mg Vial) 40 mg IVP QDAY [facility] Stop: 12/15/24 08:59 Discontinued Medications Azithromycin 500 mg/ Sodium (Chloride) 250 mls @ 250 mls/hr IV X1 ONE Stop: 11/14/24 14:32 Last Admin: 11/14/24 17:19 Dose: 250 mls/hr Ceftriaxone Sodium 1,000 mg/ (Sodium Chloride) 50 mls @ 100 mls/hr IV X1 ONE Stop: 11/14/24 14:02 Last Admin: 11/14/24 15:11 Dose: 100 mls/hr Sodium Chloride (Ns) 1,000 mls @ 999 mls/hr IV .Q1H1M ONE Stop: 11/14/24 17:32 Last Admin: 11/14/24 17:46 Dose: 999 mls/hr Acetaminophen (Ofirmev Inj) 1,000 mg in 100 mls @ 250 mls/hr IV NOW ONE Stop: 11/14/24 17:33 Last Admin: 11/14/24 17:20 Dose: 250 mls/hr Ketorolac Tromethamine (Ketorolac Inj 30 Mg/Ml Vial) 7.5 mg IVP X1 ONE Stop: 11/14/24 17:11 Last Admin: 11/14/24 17:46 Dose: 7.5 mg Morphine Sulfate (Morphine Sulf Inj 10 Mg/Ml Vial) 4 mg IVP X1 ONE Stop: 11/14/24 16:33 Last Admin: 11/14/24 17:19 Dose: 4 mg Ondansetron HCl (Ondansetron Inj 2 Mg/Ml Inj 2 Ml) 4 mg IV X1 ONE; Protocol Stop: 11/14/24 16:33 Last Admin: 11/14/24 17:46 Dose: 4 mg Assessment & Plan Plan In summary: 74-year-old female with PMHx of liver cirrhosis?, Hepatic vein thrombosis, 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 She was admitted for AHRF secondary to sepsis pneumonia and right pleural effusion. She was given 1 L normal saline bolus. We started ANTIBIOTICS. Will continue with self fluids. Holding LASIX in settings of sepsis. Pending right thoracentesis and pleural analysis. Acute hypoxemic respiratory failure Sepsis 2/2 extensive bilateral pneumonia Large right-sided pleural effusion Respiratory alkalosis Presenting with worsening SOB, productive cough, fever and chills. SOB started 2 weeks ago when patient stopped taking her home dose LASIX. She states she was tired of having to pee frequently. Cough started about a week ago and became productive since. Met sepsis on admission with fever, tachycardia, tachypnea, and leukocytosis, with pneumonia. CXR and CTA showed large right-sided pleural effusion, extensive pneumonia, consolidation, dense mass versus pulmonary mass in the lower lobe 6x5.8 cm, no pulmonary embolism. ABG showed respiratory alkalosis with pH 7.47, pCO2 27, pO2 68, bicarb 23. Currently on 6 L NC. ED give 1 L normal saline. Will hold off on more fluids for sepsis given pleural effusion and ascites. Will hold home LASIX as well. ? Admission telemetry ? Holding home LASIX in settings of sepsis ? Continue AZITHROMYCIN (11/14 to [present]) ? Continue CEFTRIAXONE (11/14 to [present]) ? DuoNebs ? Oxygen PRN ? Pending pancultures: Blood, sputum, urine ? Pending paracentesis with fluid analysis ? Liver cirrhosis Mild ascites Hx of hepatic vein thrombosis S/p stenting of hepatic/splenic vein Frequent thoracentesis and paracentesis Previously suspected liver cirrhosis. Patient was admitted for liver transplant at [facility] 2 years ago however she was found to have thrombosis of hepatic vein for which she under went stenting along with stenting of splenic vein. No transplant was done at the time. Since patient has been having frequent thoracentesis and paracentesis. She continued on LASIX which she electively stopped taking 2 weeks ago. Workup showed AST 47, ALT 49, ALP 266. Lactic dehydrogenase 48. Imaging showed cirrhosis and mild splenomegaly along with cholelithiasis. 2+ pitting edema bilateral lower extremity on exam. No jaundice. No scleral icterus. Nontender abdomen, less likely SBP. ? Holding LASIX in settings of sepsis ? Pending paracentesis and fluid analysis ? Consider GI consult Mild hyponatremia Sodium 130, likely in settings of volume depletion. ? Daily CMP Health maintenance Diet: NPO GI prophylaxis: Not indicated DVT prophylaxis: SCDs Antibiotics: CEFTRIAXONE, AZITHROMYCIN CODE STATUS: Full code Disposition: Pending pneumonia improvement, thoracentesis. Patient case was discussed with attending, Kong Wiggins MD and senior residents Dr. Petersen and Dr. Porter. Julius Ocasio DO PGYI Attending Provider Attestation/Addendum I reviewed labs, imaging, EKG, home medications and prior available records. Face to face evaluation was performed by me. I have personally examined the patient and discussed assessment and plan with the IM team. I reviewed the resident note and agree with the plan with exceptions as below. Sepsis Acute hypoxic respiratory failure Extensive right-sided pneumonia Possible pulmonary mass Large right-sided pleural effusion Portal vein thrombosis status post stenting Start IV ceftriaxone/azithromycin IR guided pleurocentesis. Hold Eliquis prior to the procedure Trend WBC Follow-up cultures Wean off oxygen as tolerated Repeat imaging studies to check interval changes of the possible mass Follow-up with hepatology as outpatient
[2024-11-14 18:22] LABS: LDH (Lactate Dehydrogenase) 448 U/L (120-246)
[2024-11-14] MEDS: ALBUTEROL/IPRATROPIUM (Duoneb) RT SOL 3 ML NEBU INH (20:02)
--- NOTE | 2024-11-14 20:02 | PC.NURSE ---
IV was US guided
--- NOTE | 2024-11-14 20:18 | PC.RT ---
No Sputum induction done due to Pt's presence of abdominal hernia. RN and MD made aware. Specimen cup left at bedside for any productive cough that the Patient may have.
[2024-11-14] MEDS: cefTRIAXone/D5w 1gm IV premix 50 ML IV (20:21)
[2024-11-15] VITALS (11 sets, daily range): BP systolic 108–155; BP diastolic 57–98; PULSE 70–99; RESP 17–31; TEMP 36.3–37.1; O2SAT 94–99; BMI 27.3
--- NOTE | 2024-11-15 | XR_ITS ---
Examination: AP chest single view TECHNIQUE: AP portable chest single view Exam date and time: November 15, 2024 1325 hours Comparison September 12, 2024 INDICATIONS: Post right thoracentesis FINDINGS: No pneumothorax post thoracentesis Extensive bilateral lung opacity Normal heart size The osseous structures are intact IMPRESSION: No pneumothorax post right thoracentesis
[2024-11-15] MEDS: ALBUTEROL/IPRATROPIUM (Duoneb) RT SOL 3 ML NEBU INH ×3 (00:06→20:32)
[2024-11-15 06:44] LABS: Basophils # (Auto) 0.1 Thou/mm3 (0.0-0.2); Basophils % (Auto) 1 % (0-2.5); Eosinophils # (Auto) 0.5 Thou/mm3 (0.0-0.5); Eosinophils % (Auto) 3 % (0-10); Hematocrit 27.7 % (36.0-46.0); Hemoglobin 8.9 g/dL (12.0-16.0); Immature Granulocytes % (Auto) 3 % (0-0); Immature Granulocytes Auto 0.41 Thou/mm3 (0.00-0.00); Lymphocytes # (Auto) 0.4 Thou/mm3 (1.0-4.8); Lymphocytes % (Auto) 3 % (10-50); Mean Corpuscular HGB Conc 32.1 g/dl (31.0-37.0); Mean Corpuscular Hemoglobin 25.7 pg (25.0-35.0); Mean Corpuscular Volume 80 fL (80-100); Monocytes # (Auto) 0.6 Thou/mm3 (0.0-0.8); Monocytes % (Auto) 4 % (0-12); Neutrophils # (Auto) 12.1 Thou/mm3 (1.8-7.7); Neutrophils % (Auto) 87 % (37-80); Nucleated Red Blood Cell # 0.03 Thou/mm3 (0.00-0.00); Nucleated Red Blood Cell % 0 /100 WBC (0); Platelet Count 271 Thou/mm3 (140-440); RDW Standard Deviation 56.1 fL (36.4-46.3); Red Blood Count 3.46 Miln/mm3 (4.00-5.20); White Blood Count 13.9 Thou/mm3 (3.6-11.0)
[2024-11-15 07:17] LABS: Alanine Aminotransferase 42 U/L (10-49); Albumin, Serum 3.3 gm/dL (3.4-4.8); Alkaline Phosphatase 290 U/L (46-116); Anion Gap 10 (7-16); Aspartate Amino Transferase 43 U/L (0-34); BUN/Creatinine Ratio 37 Ratio (12-20); Bilirubin,Total 0.5 mg/dL (0.3-1.2); Blood Urea Nitrogen 33 mg/dL (9-23); Calcium 8.7 mg/dL (8.3-10.6); Calcium (Corrected) 9.3 mg/dL (8.5-10.1); Carbon Dioxide 20.4 mMol/L (20.0-31.0); Chloride 101 mMol/L (98-107); Creatinine (Component) 0.9 mg/dL (0.6-1.3); Estimated Creatinine Clearance 59.1 mL/min (>60); Globulin 3.4 gm/dL (2.3-3.5); Glucose 98 mg/dL (74-106); Magnesium 2.1 mg/dL (1.6-2.6); Osmolality,Calculated 269 (275-295); Potassium 4.1 mMol/L (3.4-5.1); Sodium 131 mMol/L (136-145); Total Protein 6.7 gm/dL (5.7-8.2); eGFR > 60 See Note
[2024-11-15] MEDS: PANTOPRAZOLE INJ 40 MG VIAL IVP (08:32)
[2024-11-15] MEDS: AZITHROMYCIN 250 MG TABLET PO (08:32)
[2024-11-15] MEDS: cefTRIAXone/D5w 1gm IV premix 50 ML IV (08:36)
[2024-11-15 09:46] LABS: INR 1.2 (0.9-1.3); Prothrombin Time 12.6 Seconds (9.0-12.2)
[2024-11-15] MEDS: HYDROcodone/APAP 10/325 TAB PO (10:57)
--- NOTE | 2024-11-15 14:39 | ESPR_ITS ---
Documentation for date of: 11/15/24 Subjective Subjective Interval history: No acute overnight events. Continue on a 5L NC, still tachypneic. Denies fever, chills, headaches, chest pain, worsening sob, cough, GI or urinary symptoms. Exam Vital Signs Temp Pulse Resp BP Pulse Ox O2 Del Method O2 Flow Rate 97.4 F 80 19 122/60 95 Nasal Cannula 5 11/15/24 12:00 11/15/24 12:00 11/15/24 12:00 11/15/24 12:11/15/24 12:11/15/24 12:11/15/24 12:00 Narrative Exam GENERAL * Ill-appearing elderly female, in moderate distress, speaks in short sentences, on nasal cannula 7 L HEENT * NCAT.?SHELLY. Oral mucosa is moist. Patent Nares NECK * Supple, nontender, no thyromegaly, no meningismus, no JVD, no step offs CHEST * Tachycardic, regular rhythm, no m/g/r * Tachypneic, coarse breath sound bilaterally, crackles of right lung, no wheezing. * Symmetrical chest rise. No intercostal subcostal retraction * Atraumatic, nontender, no crepitus, symmetrical expansion. ABDOMEN * Soft, flat, nontender. No guarding/rebound tenderness/masses. * Bowel sounds presents EXTREMITIES * Nontender, no cyanosis. * Bilateral lower extremity 1+ pitting edema SKIN * Warm and dry, no jaundice/rashes. NEUROMUSCULAR * No lumbar or midline, no CVA, no paraspinal muscle spasm or tenderness. * Moves all 4 extremities well, with full ROM and good CSM. * MARTIN x4, CN II-XII grossly intact. * No focal neurologic deficits. PSYCHIATRY * Normal mood and affect, cooperative, no SI or HI or hallucinations. Objective Labs 11/15/24 05:10 11/16/24 04:47 Labs: Laboratory Results - last 24 hr 11/14/24 11/14/24 11/15/24 15:14 16:52 05:10 WBC 13.0 H 13.9 H RBC 3.63 L 3.46 L Hgb 9.3 L 8.9 L Hct 28.5 L 27.7 L MCV 79 L 80 MCH 25.6 25.7 MCHC 32.6 32.1 RDW Std Deviation 54.7 H 56.1 H Plt Count 262 271 Neut % (Auto) 88 H 87 H Lymph % (Auto) 3 L 3 L [place] % (Auto) 4 4 Eos % (Auto) 3 3 Baso % (Auto) 0 1 Neut # (Auto) 11.5 H 12.1 H Lymph # (Auto) 0.4 L 0.4 L [place] # (Auto) 0.6 0.6 Eos # (Auto) 0.3 0.5 Baso # (Auto) 0.1 0.1 Immature Gran # (Auto) 0.27 H 0.41 H Absolute Nucleated RBC 0.02 H 0.03 H Immature Gran % 2 H 3 H Nucleated RBC % 0 0 PT INR D-Dimer 2970 H Sodium 130 L 131 L Potassium 4.4 4.1 Chloride 98 101 Carbon Dioxide 22.3 20.4 Anion Gap 10 10 BUN 39 H 33 H Creatinine 0.9 0.9 Estim Creat Clear Calc 57.6 L 59.1 L eGFR > 60 > 60 BUN/Creatinine Ratio 43 H 37 H Glucose 98 98 Calculated Osmolality 270 L 269 L Calcium 9.0 8.7 Corrected Calcium 9.4 9.3 Phosphorus 3.0 Magnesium 2.3 2.1 Total Bilirubin 0.7 0.5 AST 47 H 43 H ALT 49 42 Alkaline Phosphatase 266 H 290 H D Lactate Dehydrogenase 448 H Troponin I < 0.020 B-Natriuretic Peptide 74 Total Protein 7.0 6.7 Albumin 3.5 3.3 L Globulin 3.5 3.4 Albumin/Globulin Ratio 1.0 L 1.0 L TSH 4.11 Ur Collection Type Clean Catch Urine Color Yellow Urine Clarity Clear Urine pH 6.0 Ur Specific [place] 1.029 Urine Protein 1+ A Urine Glucose (UA) Negative Urine Ketones 2+ A Urine Blood Trace Urine Nitrite Negative Urine Bilirubin 1+ A Urine Urobilinogen (Auto) 2.0 Ur Leukocyte Esterase Negative Urine RBC 2 Urine WBC < 1 Ur Squamous Epith Cells < 1 Urine Bacteria None Ur Culture Indicated? Not Indicated 11/15/24 09:03 WBC RBC Hgb Hct MCV MCH MCHC RDW Std Deviation Plt Count Neut % (Auto) Lymph % (Auto) [place] % (Auto) Eos % (Auto) Baso % (Auto) Neut # (Auto) Lymph # (Auto) [place] # (Auto) Eos # (Auto) Baso # (Auto) Immature Gran # (Auto) Absolute Nucleated RBC Immature Gran % Nucleated RBC % PT 12.6 H INR 1.2 D-Dimer Sodium Potassium Chloride Carbon Dioxide Anion Gap BUN Creatinine Estim Creat Clear Calc eGFR BUN/Creatinine Ratio Glucose Calculated Osmolality Calcium Corrected Calcium Phosphorus Magnesium Total Bilirubin AST ALT Alkaline Phosphatase Lactate Dehydrogenase Troponin I B-Natriuretic Peptide Total Protein Albumin Globulin Albumin/Globulin Ratio TSH Ur Collection Type Urine Color Urine Clarity Urine pH Ur Specific [place] Urine Protein Urine Glucose (UA) Urine Ketones Urine Blood Urine Nitrite Urine Bilirubin Urine Urobilinogen (Auto) Ur Leukocyte Esterase Urine RBC Urine WBC Ur Squamous Epith Cells Urine Bacteria Ur Culture Indicated? ABG Interpretation ABG results: 11/14/24 13:16 ABG pH 7.47 H ABG pCO2 27 L ABG pO2 68 L ABG HCO3 20 ABG O2 Saturation 95 ABG Base Excess -3 Quality Measures Quality Measures none Advance care planning discussed with:: patient Assessment & Plan Assessment Current Active Medications: Generic Name Dose Route Start Last Admin Trade Name Freq PRN Reason Stop Dose Admin Acetaminophen 650 mg 11/14/24 17:47 Acetaminophen 325 Mg Tablet PO 12/14/24 17:46 Q6H PRN PAIN SCALE 1-3 (mild Acetaminophen 650 mg 11/14/24 17:47 Acetaminophen 325 Mg Tablet PO 12/14/24 17:46 Q6H PRN Fever >100 Hydrocodone Bitart/Acetaminophen 1 tab 11/14/24 17:47 11/15/24 10:57 Hydrocodone/Apap 10/325 Tab PO 11/19/24 17:46 1 tab Q4HR PRN Administration PAIN SCALE 7-10 (Severe Albuterol/Ipratropium 3 ml 11/14/24 19:00 11/15/24 07:04 Albuterol/Ipratropium (Duoneb) Rt Janene 3 Ml Nebu INH 12/14/24 18:59 3 ml Q6HRRT YOAN Administration Azithromycin 250 mg 11/15/24 09:00 11/15/24 08:32 Azithromycin 250 Mg Tablet PO 11/22/24 08:59 250 mg QDAY YOAN Administration Ceftriaxone Sodium/Dextrose 50 mls @ 100 mls/hr 11/14/24 18:00 11/15/24 09:06 Rocephin/D5w 1gm Iv Premix IV 11/21/24 17:59 Infused QDAY YOAN Infusion Levothyroxine Sodium 125 mcg 11/16/24 06:00 Levothyroxine Sodium 125 Mcg Tablet PO 12/16/24 05:59 ACBR YOAN Ondansetron HCl 4 mg 11/14/24 17:47 Ondansetron Inj 2 Mg/Ml Inj 2 Ml IV 12/14/24 17:46 Q6H PRN NAUSEA OR VOMITING Protocol Oxycodone/Acetaminophen 1 tab 11/14/24 17:47 Oxycodone/Apap 5/325 Tablet PO 11/19/24 17:46 Q6H PRN PAIN SCALE 4-6 (Moderate Pantoprazole Sodium 40 mg 11/15/24 09:00 11/15/24 08:32 Pantoprazole Inj 40 Mg Vial IVP 12/15/24 08:59 40 mg QDAY YOAN Administration Plan In summary: 74-year-old female with PMHx of liver cirrhosis?, Hepatic vein thrombosis, 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 She was admitted for AHRF secondary to sepsis pneumonia and right pleural effusion. She was given 1 L normal saline bolus. We started ANTIBIOTICS. Will continue with self fluids. Holding LASIX in settings of sepsis.. Completed right thoracentesis with 2 L fluid removed. Acute hypoxemic respiratory failure Sepsis 2/2 extensive bilateral pneumonia Large right-sided pleural effusion Respiratory alkalosis Presenting with worsening SOB, productive cough, fever and chills. SOB started 2 weeks ago when patient stopped taking her home dose LASIX. She states she was tired of having to pee frequently. Cough started about a week ago and became productive since. Met sepsis on admission with fever, tachycardia, tachypnea, and leukocytosis, with pneumonia. CXR and CTA showed large right-sided pleural effusion, extensive pneumonia, consolidation, dense mass versus pulmonary mass in the lower lobe 6x5.8 cm, no pulmonary embolism. ABG showed respiratory alkalosis with pH 7.47, pCO2 27, pO2 68, bicarb 23. Currently on 6 L NC. ED give 1 L normal saline. Will hold off on more fluids for sepsis given pleural effusion and ascites. Will hold home LASIX as well. 2 L fluid removed with right thoracentesis. ? Holding home LASIX in settings of sepsis ? Continue AZITHROMYCIN (11/14 to [present]) ? Continue CEFTRIAXONE (11/14 to [present]) ? DuoNebs ? Oxygen PRN ? Pending pancultures: Blood, sputum, urine ? Pending paracentesis with fluid analysis ? Pending repeat CXR prior to discharge to evaluate pulmonary density. ? Liver cirrhosis Mild ascites Hx of hepatic vein thrombosis S/p stenting of hepatic/splenic vein Frequent thoracentesis and paracentesis Previously suspected liver cirrhosis. Patient was admitted for liver transplant at [facility] 2 years ago however she was found to have thrombosis of hepatic vein for which she under went stenting along with stenting of splenic vein. No transplant was done at the time. Since patient has been having frequent thoracentesis and paracentesis. She continued on LASIX which she electively stopped taking 2 weeks ago. Workup showed AST 47, ALT 49, ALP 266. Lactic dehydrogenase 48. Imaging showed cirrhosis and mild splenomegaly along with cholelithiasis. 2+ pitting edema bilateral lower extremity on exam. No jaundice. No scleral icterus. Nontender abdomen, less likely SBP. ? Resumed home ELIQUIS 5 mg BID ? Resumed home LASIX 20 mg daily ? Holding home SPIRONOLACTONE until blood pressure allows ? Pending fluid analysis ? Consider GI consult Hypothyroidism ? Continue home LEVOTHYROXINE 125 mcg AC BR Mild hyponatremia Sodium 130, likely in settings of volume depletion. ? Daily CMP Health maintenance Diet: NPO GI prophylaxis: Not indicated DVT prophylaxis: SCDs Antibiotics: CEFTRIAXONE, AZITHROMYCIN CODE STATUS: Full code Disposition: Pending pneumonia improvement, thoracentesis. Patient case was discussed with attending, Brien Love MD and senior residents Dr. Petersen and Dr. Porter. Julius Ocasio, DO PGYI Senior Resident Attestation: The patient reported doing little better this morning, but wanted to go home. The patient was taken to IR and about 2.05 L of pleural fluid was removed from right lower hemithorax. Pleural fluid analysis was transudative. We will continue the patient on Lasix 20 mg daily and was started on spironolactone 25 mg daily at night. The patient continues to be on 3 to 4 L NC. We will continue the patient on ceftriaxone and azithromycin. Cultures are pending. I discussed with and supervised the research program intern physician involved in the care of this patient. I personally saw and examined the patient and discussed the assessment and plan with the entire medicine team, including my attending. I agree with the assessment and plan as documented above. Lionel Porter MD PGY2 Internal Medicine Attending Provider Attestation/Addendum I have examined the patient, reviewed labs and imaging findings, discussed the case with the resident(s), and reviewed entered orders. I agree with the plan of care as outlined in this note, with these additional summaries/recommendations: Patient seen at bedside. No acute overnight events. Patient was seen post right thoracentesis and reports significant improvement in her shortness of breath. 2049 pleural fluid removed and sent for analysis. Patient reports she usually gets thoracentesis once monthly in [place]. Patient was also noted to have extensive bilateral pneumonia most likely secondary to gram-negative rods and continue IV antibiotics. Leukocytosis still present and repeat hematology panel in AM. Imaging noted dense consolidation versus pulmonary mass in right lower lobe 6X 5.8 cm and we will repeat chest x-ray prior to discharge to evaluate for clearing. 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 Preciado precipitation equipment tender at [facility]. 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 Per patient she has received liver biopsies. Patient also has history of hepatic vein thrombosis and resume home Eliquis. We will reinstitute home medicines Lasix and spironolactone at lower doses and patient should follow-up for outpatient titration. Blood, urine, and pleural fluid cultures pending. Dr. Love
[2024-11-15 15:13] LABS: Pleural Fluid WBC 201 /cmm
--- NOTE | 2024-11-15 15:16 | PC.SS ---
Initial assessment: this is 74 year old female admitted for dyspnea, pnemonia. Patient appeared alert and oriented. Patient lives at home with her . Patient confirmed demographic information. Patient assigned her , Kishore Headley as her alternate medical decision maker. Patient currently on 4L of oxygen. Patient denies use of DME at home, denies having home O2. No preferred DME vendor if O2 is needed before discharge. Patient informs she has been non-ambulatory for the last two weeks. Patient states she is followed by Dr. Ted Anton for primary care. Patient pharmacy is [facility] in [place]. Patient plans to return home upon discharge. Family able to assist transporting home. D/c plan: Home Contact: spouse, Kishore Headley [phone] or daughter Poly [phone]
[2024-11-15 15:17] LABS: Pleural Fluid Appearance Hazy; Pleural Fluid Color Yellow; Pleural Fluid Mononuclear 64 %; Pleural Fluid Polynuclear 36 %; Pleural Fluid RBC 1000 /cmm
--- NOTE | 2024-11-15 15:20 | PC.SS ---
Rounding note: pending thorasenthesis.
[2024-11-15 15:35] LABS: Amylase,Pleural Fluid 29 IU/L; Glucose,Pleural Fluid 111 mg/dL; LDH,Pleural Fluid 57 IU/L; Protein Total,Pleural Fluid < 2.0 g/dL
[2024-11-15 17:39] LABS: LDH (Lactate Dehydrogenase) 454 U/L (120-246)
--- NOTE | 2024-11-15 17:54 | XR_ITS ---
Examination: Ultrasound guided right thoracentesis Ultrasound right hemithorax Exam date and time: November 15 2024 to 36 hours INDICATIONS: Chest pain this week, dense consolidation versus pulmonary mass in the right lower lobe on CT chest November 14, 2024, recurrent large right pleural effusions, shortness of breath today TECHNIQUE AND FINDINGS: Grayscale sonographic images right hemithorax Large right pleural effusion Informed consent provided. Timeout performed. Skin prepped over the posterior right chest and sterile drape applied hand hygiene ultrasound sterile technique Utilizing ultrasonographic guidance 5 [place] catheter placed in the right pleural space 2050 cc pleural fluid removed IMPRESSION: Successful ultrasound-guided right thoracentesis, 2050 cc pleural fluid removed
[2024-11-15] MEDS: ACETAMINOPHEN 325 MG TABLET 650 MG PO (19:22)
[2024-11-16] VITALS (16 sets, daily range): BP systolic 113–127; BP diastolic 61–69; PULSE 76–103; RESP 17–29; TEMP 36.1–37.1; O2SAT 93–100
[2024-11-16] MEDS: ALBUTEROL/IPRATROPIUM (Duoneb) RT SOL 3 ML NEBU INH ×4 (01:02→19:22)
[2024-11-16] MEDS: HYDROcodone/APAP 10/325 TAB PO ×2 (05:00→16:53)
[2024-11-16] MEDS: LEVOTHYROXINE SODIUM 125 MCG TABLET PO (05:01)
[2024-11-16 06:22] LABS: Basophils # (Auto) 0.1 Thou/mm3 (0.0-0.2); Basophils % (Auto) 1 % (0-2.5); Eosinophils # (Auto) 0.5 Thou/mm3 (0.0-0.5); Eosinophils % (Auto) 4 % (0-10); Hematocrit 27.6 % (36.0-46.0); Hemoglobin 8.9 g/dL (12.0-16.0); Immature Granulocytes % (Auto) 2 % (0-0); Immature Granulocytes Auto 0.26 Thou/mm3 (0.00-0.00); Lymphocytes # (Auto) 0.4 Thou/mm3 (1.0-4.8); Lymphocytes % (Auto) 4 % (10-50); Mean Corpuscular HGB Conc 32.2 g/dl (31.0-37.0); Mean Corpuscular Hemoglobin 25.8 pg (25.0-35.0); Mean Corpuscular Volume 80 fL (80-100); Monocytes # (Auto) 0.5 Thou/mm3 (0.0-0.8); Monocytes % (Auto) 5 % (0-12); Neutrophils # (Auto) 9.2 Thou/mm3 (1.8-7.7); Neutrophils % (Auto) 84 % (37-80); Nucleated Red Blood Cell # 0.03 Thou/mm3 (0.00-0.00); Nucleated Red Blood Cell % 0 /100 WBC (0); Platelet Count 186 Thou/mm3 (140-440); RDW Standard Deviation 56.1 fL (36.4-46.3); Red Blood Count 3.45 Miln/mm3 (4.00-5.20); White Blood Count 10.9 Thou/mm3 (3.6-11.0)
[2024-11-16 07:16] LABS: Alanine Aminotransferase 33 U/L (10-49); Albumin, Serum 3.4 gm/dL (3.4-4.8); Albumin/Globulin Ratio 1.1 (1.2-2.2); Alkaline Phosphatase 255 U/L (46-116); Anion Gap 12 (7-16); Aspartate Amino Transferase 39 U/L (0-34); BUN/Creatinine Ratio 41 Ratio (12-20); Bilirubin,Total 0.4 mg/dL (0.3-1.2); Blood Urea Nitrogen 29 mg/dL (9-23); Calcium 8.5 mg/dL (8.3-10.6); Carbon Dioxide 20.2 mMol/L (20.0-31.0); Chloride 100 mMol/L (98-107); Creatinine (Component) 0.7 mg/dL (0.6-1.3); Estimated Creatinine Clearance 76.2 mL/min (>60); Globulin 3.2 gm/dL (2.3-3.5); Glucose 106 mg/dL (74-106); Magnesium 2.3 mg/dL (1.6-2.6); Osmolality,Calculated 270 (275-295); Potassium 4.8 mMol/L (3.4-5.1); Sodium 132 mMol/L (136-145); Total Protein 6.6 gm/dL (5.7-8.2); eGFR > 60 See Note
[2024-11-16] MEDS: PANTOPRAZOLE INJ 40 MG VIAL IVP (09:19)
--- NOTE | 2024-11-16 09:22 | ESPR_ITS ---
<Statement entered by Adriane Petersen MD - 11/16/24 18:31> Patient examined bedside this morning, we tried ambulatory oxygen on, she desaturates to 80s might need home oxygen. pending blood and urine culture , will continue iv antibiotics , repeat xr tomorrow morning and DC her with home O2 . I discussed with and supervised my co-resident involved in the care of this patient. I agree with the assessment and plan as documented above. Adriane Petersen,PGY-3 Disclaimer: Despite multiple revisions, due to the dictation software being used, the document below may not be free of grammatical errors including phonetic/typographic errors. However, this does not deter from our commitment to providing health care in the patient's best interest in mind Documentation for date of: 11/16/24 Subjective Subjective Interval history: No acute overnight events. Continued on 5 L nasal cannula, reports improvement in respiratory effort. Tolerating oral intake without nausea, vomiting or constipation. Denies fever, chills, headaches, chest pain, sob, cough, GI or urinary symptoms. Exam Vital Signs Temp Pulse Resp BP Pulse Ox O2 Del Method O2 Flow Rate 98.8 F 89 20 127/65 99 Nasal Cannula 5 11/16/24 08:00 11/16/24 08:00 11/16/24 08:00 11/16/24 08:00 11/16/24 08:00 11/16/24 08:00 11/16/24 08:00 Narrative Exam GENERAL * Ill-appearing elderly female, in moderate distress, speaks in short sentences, on nasal cannula 7 L HEENT * NCAT.?SHELLY. Oral mucosa is moist. Patent Nares NECK * Supple, nontender, no thyromegaly, no meningismus, no JVD, no step offs CHEST * RRR, no m/g/r * Tachypneic, coarse breath sounds bilaterally, left basilar crackles. No wheezing * Symmetrical chest rise. No intercostal subcostal retraction * Atraumatic, nontender, no crepitus, symmetrical expansion. ABDOMEN * Soft, flat, nontender. No guarding/rebound tenderness/masses. * Bowel sounds presents EXTREMITIES * Nontender, no cyanosis. * Trace edema bilateral lower extremity SKIN * Warm and dry, no jaundice/rashes. NEUROMUSCULAR * No lumbar or midline, no CVA, no paraspinal muscle spasm or tenderness. * Moves all 4 extremities well, with full ROM and good CSM. * MARTIN x4, CN II-XII grossly intact. * No focal neurologic deficits. PSYCHIATRY * Normal mood and affect, cooperative, no SI or HI or hallucinations. Objective Labs 11/17/24 04:09 11/17/24 04:09 Labs: Laboratory Results - last 24 hr 11/15/24 11/15/24 11/16/24 09:03 13:30 04:47 WBC 10.9 RBC 3.45 L Hgb 8.9 L Hct 27.6 L MCV 80 MCH 25.8 MCHC 32.2 RDW Std Deviation 56.1 H Plt Count 186 D Neut % (Auto) 84 H Lymph % (Auto) 4 L [place] % (Auto) 5 Eos % (Auto) 4 Baso % (Auto) 1 Neut # (Auto) 9.2 H Lymph # (Auto) 0.4 L [place] # (Auto) 0.5 Eos # (Auto) 0.5 Baso # (Auto) 0.1 Immature Gran # (Auto) 0.26 H Absolute Nucleated RBC 0.03 H Immature Gran % 2 H Nucleated RBC % 0 PT 12.6 H INR 1.2 Sodium 132 L Potassium 4.8 D Chloride 100 Carbon Dioxide 20.2 Anion Gap 12 BUN 29 H Creatinine 0.7 Estim Creat Clear Calc 76.2 eGFR > 60 BUN/Creatinine Ratio 41 H Glucose 106 Calculated Osmolality 270 L Calcium 8.5 Corrected Calcium 9.0 Phosphorus 3.0 Magnesium 2.3 Total Bilirubin 0.4 AST 39 H ALT 33 Alkaline Phosphatase 255 H D Lactate Dehydrogenase 454 H Total Protein 6.6 Albumin 3.4 Globulin 3.2 Albumin/Globulin Ratio 1.1 L Pleural Color Yellow Pleural Appearance Hazy Pleural WBC 201 Pleural RBC 1000 Pleural Polynuclear WBC 36 Pleural Mononuclear WBC 64 Pleural Total Protein < 2.0 Pleural LDH 57 Pleural Glucose 111 Pleural Amylase 29 ABG Interpretation ABG results: 11/14/24 13:16 ABG pH 7.47 H ABG pCO2 27 L ABG pO2 68 L ABG HCO3 20 ABG O2 Saturation 95 ABG Base Excess -3 Quality Measures Quality Measures none Advance care planning discussed with:: patient Assessment & Plan Assessment Current Active Medications: Generic Name Dose Route Start Last Admin Trade Name Freq PRN Reason Stop Dose Admin Acetaminophen 650 mg 11/14/24 17:47 11/15/24 19:22 Acetaminophen 325 Mg Tablet PO 12/14/24 17:46 650 mg Q6H PRN Administration PAIN SCALE 1-3 (mild Acetaminophen 650 mg 11/14/24 17:47 Acetaminophen 325 Mg Tablet PO 12/14/24 17:46 Q6H PRN Fever >100 Hydrocodone Bitart/Acetaminophen 1 tab 11/14/24 17:47 11/16/24 05:00 Hydrocodone/Apap 10/325 Tab PO 11/19/24 17:46 1 tab Q4HR PRN Administration PAIN SCALE 7-10 (Severe Albuterol/Ipratropium 3 ml 11/14/24 19:00 11/16/24 06:35 Albuterol/Ipratropium (Duoneb) Rt Janene 3 Ml Nebu INH 12/14/24 18:59 3 ml Q6HRRT YOAN Administration Apixaban 5 mg 11/16/24 09:00 Apixaban 2.5 Mg Tablet PO 12/07/24 08:59 BID YOAN Azithromycin 250 mg 11/15/24 09:00 11/15/24 08:32 Azithromycin 250 Mg Tablet PO 11/22/24 08:59 250 mg QDAY YOAN Administration Furosemide 20 mg 11/16/24 09:00 Furosemide 20 Mg Tablet PO 12/16/24 08:59 QAM YOAN Ceftriaxone Sodium/Dextrose 50 mls @ 100 mls/hr 11/14/24 18:00 11/15/24 09:06 Rocephin/D5w 1gm Iv Premix IV 11/21/24 17:59 Infused QDAY YOAN Infusion Levothyroxine Sodium 125 mcg 11/16/24 06:00 11/16/24 05:01 Levothyroxine Sodium 125 Mcg Tablet PO 12/16/24 05:59 125 mcg ACBR YOAN Administration Ondansetron HCl 4 mg 11/14/24 17:47 Ondansetron Inj 2 Mg/Ml Inj 2 Ml IV 12/14/24 17:46 Q6H PRN NAUSEA OR VOMITING Protocol Oxycodone/Acetaminophen 1 tab 11/14/24 17:47 Oxycodone/Apap 5/325 Tablet PO 11/19/24 17:46 Q6H PRN PAIN SCALE 4-6 (Moderate Pantoprazole Sodium 40 mg 11/15/24 09:00 11/15/24 08:32 Pantoprazole Inj 40 Mg Vial IVP 12/15/24 08:59 40 mg QDAY YOAN Administration Spironolactone 25 mg 11/16/24 21:00 Spironolactone 25 Mg Tablet PO 12/16/24 20:59 HS [facility] Plan In summary: 74-year-old female with PMHx of liver cirrhosis?, Hepatic vein thrombosis, 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 She was admitted for AHRF secondary to sepsis pneumonia and right pleural effusion. Sepsis resolved. S/p thoracentesis right lung, 2 L transudative pleural fluid removed. Oxygen requirement improving, on 5 L NC. Continued with diuresis and ANTIBIOTICS. Acute hypoxemic respiratory failure (improving) Sepsis (resolved) Extensive bilateral pneumonia (improving) Large right-sided pleural effusion Respiratory alkalosis Presenting with worsening SOB, productive cough, fever and chills. SOB started 2 weeks ago when patient stopped taking her home dose LASIX. She states she was tired of having to pee frequently. Cough started about a week ago and became productive since. Met sepsis on admission with fever, tachycardia, tachypnea, and leukocytosis, with pneumonia. CXR and CTA showed large right-sided pleural effusion, extensive pneumonia, consolidation, dense mass versus pulmonary mass in the lower lobe 6x5.8 cm, no pulmonary embolism. ABG showed respiratory alkalosis. S/p right Thora, 2 L transudative (as expected settings of active hepatopathy) fluid removed. Oxygenation improving, currently on 5 L. Not dyspneic. Left basal crackles on exam. Trace edema of lower extremity. Management as below. Overall 2.2 L fluid positive. Will likely benefit from diuresis at this point since sepsis have resolved. ? Continue LASIX to 20 mg daily ? Continue SPIRONOLACTONE 25 mg daily ? Continue AZITHROMYCIN (11/14 to [present]) ? Continue CEFTRIAXONE (11/14 to [present]) ? DuoNebs ? Oxygen PRN ? Pending pancultures: Blood, sputum, urine ? Pending repeat CXR prior to discharge to evaluate pulmonary density. ? Liver cirrhosis Mild ascites Hx of hepatic vein thrombosis S/p stenting of hepatic/splenic vein Frequent thoracentesis and paracentesis Previously suspected liver cirrhosis. Patient was admitted for liver transplant at [facility] 2 years ago however she was found to have thrombosis of hepatic vein for which she under went stenting along with stenting of splenic vein. No transplant was done at the time. Since patient has been having frequent thoracentesis and paracentesis. She was on LASIX which she electively stopped taking 2 weeks ago. Workup showed AST 47, ALT 49, ALP 266. Lactic dehydrogenase 48. Imaging showed cirrhosis and mild splenomegaly along with cholelithiasis. No jaundice. No scleral icterus. Nontender abdomen, less likely SBP. LE edema, improving with LASIX. ? Continue home ELIQUIS 5 mg BID ? Continue LASIX and SPIRONOLACTONE as above Hypothyroidism ? Continue home LEVOTHYROXINE 125 mcg AC BR Mild hyponatremia (improving) Sodium 130, likely in settings of volume depletion. Currently sodium 132. ? Daily CMP Health maintenance Diet: NPO GI prophylaxis: Not indicated DVT prophylaxis: SCDs Antibiotics: CEFTRIAXONE, AZITHROMYCIN CODE STATUS: Full code Disposition: Pending pneumonia improvement, thoracentesis. Patient case was discussed with attending, Brien Love MD and senior residents Dr. Petersen and Dr. Porter. Julius Ocasio DO PGYI Attending Provider Attestation/Addendum I have examined the patient, reviewed labs and imaging findings, discussed the case with the resident(s), and reviewed entered orders. I agree with the plan of care as outlined in this note, with these additional summaries/recommendations: Patient seen at bedside. No acute overnight events. Today patient went for ambulation test and noted to desat to mid 80s as well as at rest in bed. Patient is status post right thoracentesis. 2049 pleural fluid removed and sent for analysis indicating transudative effusion most likely secondary to liver disease. Patient reports she usually gets thoracentesis once monthly in [place]. Patient was also noted to have extensive bilateral pneumonia most likely secondary to gram-negative rods and continue IV antibiotics. Imaging noted dense consolidation versus pulmonary mass in right lower lobe 6X 5.8 cm and we will repeat chest x-ray the am to evaluate clearing. 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 Preciado building maintenance engineer at [facility]. 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 Per patient she has received liver biopsies. Patient also has history of hepatic vein thrombosis and continue home Eliquis. Continue home Lasix and spironolactone. Blood cultures show no growth at 24 hours. Urine culture pending. Pleural fluid Gram stain pending. Given patient has extensive bilateral pneumonia and still requiring oxygen we will keep patient hospitalized for continued IV antibiotics and follow-up final culture results. Repeat hematology and chemistry panel in AM. Dr. Love
[2024-11-16] MEDS: Furosemide 20 MG TABLET PO (09:24)
[2024-11-16] MEDS: cefTRIAXone/D5w 1gm IV premix 50 ML IV (09:24)
[2024-11-16] MEDS: AZITHROMYCIN 250 MG TABLET PO (09:24)
[2024-11-16] MEDS: APIXABAN 2.5 MG TABLET 5 MG PO ×2 (09:24→21:01)
--- NOTE | 2024-11-16 09:43 | PC.SS ---
SS follow up: attempted contact with patient's spouse, no answer and voicemail provided.
--- NOTE | 2024-11-16 09:44 | PC.NURSE ---
Pt ambulating on RA O2SATS 87%. Pt ambulating on 1L O2 SATS 95%
--- NOTE | 2024-11-16 11:45 | PC.NURSE ---
Pt asleep on 1L O2 SATS 81%. Turned O2 to 3L while sleeping, O2 SATS 96%. Dr. Love notified.
[2024-11-16] MEDS: SPIRONOLACTONE 25 MG TABLET PO (21:01)
[2024-11-17] VITALS (14 sets, daily range): BP systolic 118–130; BP diastolic 65–88; PULSE 75–97; RESP 18–33; TEMP 36.3–36.6; O2SAT 93–100; BMI 27.4
[2024-11-17] MEDS: ALBUTEROL/IPRATROPIUM (Duoneb) RT SOL 3 ML NEBU INH ×4 (00:58→19:31)
[2024-11-17] MEDS: HYDROcodone/APAP 10/325 TAB PO ×2 (04:02→16:38)
[2024-11-17 05:49] LABS: Basophils # (Auto) 0.1 Thou/mm3 (0.0-0.2); Basophils % (Auto) 0 % (0-2.5); Eosinophils # (Auto) 0.8 Thou/mm3 (0.0-0.5); Eosinophils % (Auto) 5 % (0-10); Hematocrit 29.9 % (36.0-46.0); Hemoglobin 9.6 g/dL (12.0-16.0); Immature Granulocytes % (Auto) 3 % (0-0); Immature Granulocytes Auto 0.42 Thou/mm3 (0.00-0.00); Lymphocytes # (Auto) 0.7 Thou/mm3 (1.0-4.8); Lymphocytes % (Auto) 4 % (10-50); Mean Corpuscular HGB Conc 32.1 g/dl (31.0-37.0); Mean Corpuscular Hemoglobin 25.5 pg (25.0-35.0); Mean Corpuscular Volume 79 fL (80-100); Monocytes # (Auto) 0.6 Thou/mm3 (0.0-0.8); Monocytes % (Auto) 4 % (0-12); Neutrophils # (Auto) 13.8 Thou/mm3 (1.8-7.7); Neutrophils % (Auto) 84 % (37-80); Nucleated Red Blood Cell # 0.02 Thou/mm3 (0.00-0.00); Nucleated Red Blood Cell % 0 /100 WBC (0); Platelet Count 325 Thou/mm3 (140-440); RDW Standard Deviation 55.3 fL (36.4-46.3); Red Blood Count 3.77 Miln/mm3 (4.00-5.20); White Blood Count 16.3 Thou/mm3 (3.6-11.0)
[2024-11-17 06:31] LABS: Alanine Aminotransferase 19 U/L (10-49); Albumin, Serum 3.6 gm/dL (3.4-4.8); Alkaline Phosphatase 272 U/L (46-116); Anion Gap 12 (7-16); Aspartate Amino Transferase 31 U/L (0-34); BUN/Creatinine Ratio 30 Ratio (12-20); Bilirubin,Total 0.5 mg/dL (0.3-1.2); Blood Urea Nitrogen 24 mg/dL (9-23); Calcium 8.8 mg/dL (8.3-10.6); Calcium (Corrected) 9.1 mg/dL (8.5-10.1); Carbon Dioxide 23.5 mMol/L (20.0-31.0); Chloride 97 mMol/L (98-107); Creatinine (Component) 0.8 mg/dL (0.6-1.3); Estimated Creatinine Clearance 66.7 mL/min (>60); Globulin 3.6 gm/dL (2.3-3.5); Glucose 75 mg/dL (74-106); Magnesium 2.2 mg/dL (1.6-2.6); Osmolality,Calculated 267 (275-295); Phosphorous 3.1 mg/dL (2.4-5.1); Sodium 132 mMol/L (136-145); Total Protein 7.2 gm/dL (5.7-8.2); eGFR > 60 See Note
--- NOTE | 2024-11-17 07:00 | XR_ITS ---
Examination: AP chest single view Technique one AP portable semiupright chest single view Exam date and time: November 17, 2024 0645 hrs. Comparison November 14, 2024 Indications: Congestion shortness of breath beginning 2 weeks ago,, severe bilateral pneumonia ARDS pattern on chest film November 14, 2024 Findings: Worsening severe bilateral lung opacity No major cardiac enlargement Significant fluid layered along the right lateral thoracic wall Significant osteopenia Impression: Worsening severe bilateral lung opacity, pneumonia ARDS pattern
[2024-11-17] MEDS: LEVOTHYROXINE SODIUM 125 MCG TABLET PO (08:55)
[2024-11-17] MEDS: Furosemide 20 MG TABLET PO (08:56)
[2024-11-17] MEDS: APIXABAN 2.5 MG TABLET 5 MG PO ×2 (08:56→20:05)
[2024-11-17] MEDS: AZITHROMYCIN 250 MG TABLET PO (08:56)
[2024-11-17] MEDS: cefTRIAXone/D5w 1gm IV premix 50 ML IV (08:56)
[2024-11-17] MEDS: PANTOPRAZOLE INJ 40 MG VIAL IVP (08:56)
[2024-11-17 13:51] LABS: Cocci Serology, IgM Positive (Negative)
[2024-11-17 13:52] LABS: Cocid Sro, CF/ID (UCD) NO CHG* See Sep Rpt
--- NOTE | 2024-11-17 14:47 | PC.SS ---
Rounding note: pulmonary for consulting of patient.
--- NOTE | 2024-11-17 15:41 | PD.RESPRO ---
Documentation for date of: 11/17/24 Subjective Subjective Interval history: Patient was examined bedside this morning, chest x-ray this morning shows worsening pneumonia and ARDS pattern. Dr. Head criminal research specialist consulted appreciate recommendation. Clinically improving her oxygen requirement decreasing. Exam Vital Signs Temp Pulse Resp BP Pulse Ox O2 Del Method O2 Flow Rate 97.7 F 83 33 H 126/80 100 Nasal Cannula 2 11/17/24 12:00 11/17/24 13:15 11/17/24 13:15 11/17/24 12:00 11/17/24 13:15 11/17/24 12:00 11/17/24 13:15 Narrative Exam GENERAL: Comfortable adult seen resting comfortably in hospital bed, mild anxious HEENT: Normocephalic, atraumatic. Pupils are equal and reactive. Oral mucosa is moist. NECK: Supple, nontender, no JVD CHEST: Symmetrical, atraumatic and with equal expansion ,Nontender on palpation CARDIOVASCULAR: Heart regular rhythm & rate. S1/S2. no murmur or gallop rub or extra beats. LUNGS: coarse breath sounds bilaterally, left basilar crackles. No wheezing ABDOMEN: Soft, flat, nontender to palpation, no guarding or rebound tenderness. Active and normal bowel sounds. EXTREMITIES:Moves all 4 extremities,No B/L LE edema. SKIN: Warm and dry, no jaundice or rashes noted. NEURO: Patient is AO x 3, Cranial nerves II through XII grossly intact. There is no focal neurologic deficits noted. PSYCHIATRIC: Patient is in normal mood, cooperative, no SI or HI or hallucinations. Objective Labs 11/17/24 04:09 11/17/24 04:09 Labs: Laboratory Results - last 24 hr 11/17/24 11/17/24 04:09 11:00 WBC 16.3 H D RBC 3.77 L Hgb 9.6 L Hct 29.9 L MCV 79 L MCH 25.5 MCHC 32.1 RDW Std Deviation 55.3 H Plt Count 325 D Neut % (Auto) 84 H Lymph % (Auto) 4 L [place] % (Auto) 4 Eos % (Auto) 5 Baso % (Auto) 0 Neut # (Auto) 13.8 H Lymph # (Auto) 0.7 L [place] # (Auto) 0.6 Eos # (Auto) 0.8 H Baso # (Auto) 0.1 Immature Gran # (Auto) 0.42 H Absolute Nucleated RBC 0.02 H Immature Gran % 3 H Nucleated RBC % 0 Sodium 132 L Potassium 4.0 D Chloride 97 L Carbon Dioxide 23.5 Anion Gap 12 BUN 24 H Creatinine 0.8 Estim Creat Clear Calc 66.7 eGFR > 60 BUN/Creatinine Ratio 30 H Glucose 75 Calculated Osmolality 267 L Calcium 8.8 Corrected Calcium 9.1 Phosphorus 3.1 Magnesium 2.2 Total Bilirubin 0.5 AST 31 ALT 19 Alkaline Phosphatase 272 H Total Protein 7.2 Albumin 3.6 Globulin 3.6 H Albumin/Globulin Ratio 1.0 L Coccidioides IgM Ab Positive A ABG Interpretation ABG results: 11/14/24 13:16 ABG pH 7.47 H ABG pCO2 27 L ABG pO2 68 L ABG HCO3 20 ABG O2 Saturation 95 ABG Base Excess -3 Quality Measures Quality Measures none Advance care planning discussed with:: patient Assessment & Plan Assessment Current Active Medications: Generic Name Dose Route Start Last Admin Trade Name Freq PRN Reason Stop Dose Admin Acetaminophen 650 mg 11/14/24 17:47 11/15/24 19:22 Acetaminophen 325 Mg Tablet PO 12/14/24 17:46 650 mg Q6H PRN Administration PAIN SCALE 1-3 (mild Acetaminophen 650 mg 11/14/24 17:47 Acetaminophen 325 Mg Tablet PO 12/14/24 17:46 Q6H PRN Fever >100 Hydrocodone Bitart/Acetaminophen 1 tab 11/14/24 17:47 11/17/24 04:02 Hydrocodone/Apap 10/325 Tab PO 11/19/24 17:46 1 tab Q4HR PRN Administration PAIN SCALE 7-10 (Severe Albuterol/Ipratropium 3 ml 11/14/24 19:00 11/17/24 13:30 Albuterol/Ipratropium (Duoneb) Rt Janene 3 Ml Nebu INH 12/14/24 18:59 3 ml Q6HRRT YOAN Administration Apixaban 5 mg 11/16/24 09:00 11/17/24 08:56 Apixaban 2.5 Mg Tablet PO 12/07/24 08:59 5 mg BID YOAN Administration Azithromycin 250 mg 11/15/24 09:00 11/17/24 08:56 Azithromycin 250 Mg Tablet PO 11/22/24 08:59 250 mg QDAY YOAN Administration Furosemide 20 mg 11/16/24 09:00 11/17/24 08:56 Furosemide 20 Mg Tablet PO 12/16/24 08:59 20 mg QAM YOAN Administration Ceftriaxone Sodium/Dextrose 50 mls @ 100 mls/hr 11/14/24 18:00 11/17/24 08:56 Rocephin/D5w 1gm Iv Premix IV 11/21/24 17:59 100 mls/hr QDAY YOAN Administration Levothyroxine Sodium 125 mcg 11/16/24 06:00 11/17/24 08:55 Levothyroxine Sodium 125 Mcg Tablet PO 12/16/24 05:59 125 mcg ACBR YOAN Administration Ondansetron HCl 4 mg 11/14/24 17:47 Ondansetron Inj 2 Mg/Ml Inj 2 Ml IV 12/14/24 17:46 Q6H PRN NAUSEA OR VOMITING Protocol Oxycodone/Acetaminophen 1 tab 11/14/24 17:47 Oxycodone/Apap 5/325 Tablet PO 11/19/24 17:46 Q6H PRN PAIN SCALE 4-6 (Moderate Pantoprazole Sodium 40 mg 11/15/24 09:00 11/17/24 08:56 Pantoprazole Inj 40 Mg Vial IVP 12/15/24 08:59 40 mg QDAY YOAN Administration Spironolactone 50 mg 11/17/24 21:00 Spironolactone 25 Mg Tablet PO 12/17/24 20:59 HS YOAN Plan In summary: 74-year-old female with PMHx of liver cirrhosis?, Hepatic vein thrombosis, 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 She was admitted for AHRF secondary to sepsis pneumonia and right pleural effusion. Sepsis resolved. S/p thoracentesis right lung, 2 L transudative pleural fluid removed. Oxygen requirement improving, on 5 L NC. Continued with diuresis and ANTIBIOTICS. Acute hypoxemic respiratory failure (improving) Sepsis (resolved) Extensive bilateral pneumonia Large right-sided pleural effusion s/p thoracocentesis Respiratory alkalosis Presenting with worsening SOB, productive cough, fever and chills. SOB started 2 weeks ago when patient stopped taking her home dose LASIX. She states she was tired of having to pee frequently. Cough started about a week ago and became productive since. Met sepsis on admission with fever, tachycardia, tachypnea, and leukocytosis, with pneumonia. CXR and CTA showed large right-sided pleural effusion, extensive pneumonia, consolidation, dense mass versus pulmonary mass in the lower lobe 6x5.8 cm, no pulmonary embolism. ABG showed respiratory alkalosis. S/p right Thora, 2 L transudative (as expected settings of active hepatopathy) fluid removed. Oxygenation improving, currently on 2 L. Not dyspneic. Left basal crackles on exam. Trace edema of lower extremity. Management as below. ? Continue LASIX to 20 mg daily ? Continue SPIRONOLACTONE 50 mg daily ? Continue AZITHROMYCIN (11/14 to [present]) ? Continue CEFTRIAXONE (11/14 to [present]) ? DuoNebs ? Oxygen PRN ? Blood culture and urine culture were negative -Repeat chest Xray today showed worsening B/l pneumonia ARDS pattern. -Final Gram stain pending. -Pending cocci -Consulted Dr Head pulmolologist , pending ress #Leucocytosis -today her wbc was 16.3, most likely reactive , she did not had any raise in temprature. -Will continue to monitor , clinically doing better ? Liver cirrhosis Mild ascites Hx of hepatic vein thrombosis S/p stenting of hepatic/splenic vein Frequent thoracentesis and paracentesis Previously suspected liver cirrhosis. Patient was admitted for liver transplant at [facility] 2 years ago however she was found to have thrombosis of hepatic vein for which she under went stenting along with stenting of splenic vein. No transplant was done at the time. Since patient has been having frequent thoracentesis and paracentesis. She was on LASIX which she electively stopped taking 2 weeks ago. Workup showed AST 47, ALT 49, ALP 266. Lactic dehydrogenase 48. Imaging showed cirrhosis and mild splenomegaly along with cholelithiasis. No jaundice. No scleral icterus. Nontender abdomen, less likely SBP. LE edema, improving with LASIX. 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 Preciado back hand at [facility]. ? Continue home ELIQUIS 5 mg BID ? Continue LASIX and SPIRONOLACTONE as above Hypothyroidism ? Continue home LEVOTHYROXINE 125 mcg AC BR Mild hyponatremia (improving) Sodium 130, likely in settings of volume depletion. Currently sodium 132. ? Daily CMP Health maintenance Diet: Regular GI prophylaxis: Not indicated DVT prophylaxis: SCDs Antibiotics: CEFTRIAXONE, AZITHROMYCIN CODE STATUS: Full code Disposition: Pending pneumonia improvement, s/p thoracentesis, pulm reccs Discussed the patient with my attending Dr Ivan Petersen MD,PGY-3 Attending Provider Attestation/Addendum I have examined the patient, reviewed labs and imaging findings, discussed the case with the resident(s), and reviewed entered orders. I agree with the plan of care as outlined in this note, with these additional summaries/recommendations: Patient seen at bedside. No acute overnight events. Patient reports some improvement in her shortness of breath. Patient failed ambulation 02 test yesterday and appears to desat even at rest requiring 1-4L NC at times. Repeat CXR today showed worsening severe bilateral lung opacities with ARDS pattern. Findings discussed with pulmonology and likely findings are secondary to pleural fluid. Patient's WBC count was also noted to increase today and for these reasons patient will remain hospitalized. Case management arranging home oxygen. Patient is status post right thoracentesis. 2049 pleural fluid removed and sent for analysis indicating transudative effusion most likely secondary to liver disease. Patient reports she usually gets thoracentesis once monthly in [place]. Patient was also noted to have extensive bilateral pneumonia most likely secondary to gram-negative rods and continue IV antibiotics. 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 Preciado back hand at [facility]. 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 Per patient she has received liver biopsies that were negative for cirrhosis. Patient also has history of hepatic vein thrombosis and continue home Eliquis. Continue home Lasix and spironolactone. Blood cultures show no growth at 48 hours. Urine culture no growth. Pleural fluid Gram stain & cx pending. Repeat hematology and chemistry panel in AM. Dr. Love
[2024-11-17] MEDS: SPIRONOLACTONE 25 MG TABLET 50 MG PO (20:05)
[2024-11-18] VITALS (13 sets, daily range): BP systolic 111–122; BP diastolic 55–67; PULSE 72–88; RESP 16–36; TEMP 36.1–36.9; O2SAT 90–100; BMI 27.4; BMI 27.3
[2024-11-18] MEDS: ALBUTEROL/IPRATROPIUM (Duoneb) RT SOL 3 ML NEBU INH ×4 (01:00→18:43)
[2024-11-18] MEDS: LEVOTHYROXINE SODIUM 125 MCG TABLET PO (05:08)
[2024-11-18 06:31] LABS: Basophils # (Auto) 0.1 Thou/mm3 (0.0-0.2); Basophils % (Auto) 0 % (0-2.5); Eosinophils # (Auto) 0.8 Thou/mm3 (0.0-0.5); Eosinophils % (Auto) 6 % (0-10); Hematocrit 24.8 % (36.0-46.0); Hemoglobin 7.9 g/dL (12.0-16.0); Immature Granulocytes % (Auto) 2 % (0-0); Immature Granulocytes Auto 0.24 Thou/mm3 (0.00-0.00); Lymphocytes # (Auto) 0.5 Thou/mm3 (1.0-4.8); Lymphocytes % (Auto) 4 % (10-50); Mean Corpuscular HGB Conc 31.9 g/dl (31.0-37.0); Mean Corpuscular Hemoglobin 25.3 pg (25.0-35.0); Mean Corpuscular Volume 80 fL (80-100); Monocytes # (Auto) 0.7 Thou/mm3 (0.0-0.8); Monocytes % (Auto) 5 % (0-12); Neutrophils # (Auto) 11.6 Thou/mm3 (1.8-7.7); Neutrophils % (Auto) 84 % (37-80); Nucleated Red Blood Cell % 0 /100 WBC (0); Platelet Count 241 Thou/mm3 (140-440); RDW Standard Deviation 55.4 fL (36.4-46.3); Red Blood Count 3.12 Miln/mm3 (4.00-5.20)
[2024-11-18 07:03] LABS: Alanine Aminotransferase 23 U/L (10-49); Albumin, Serum 3.1 gm/dL (3.4-4.8); Alkaline Phosphatase 229 U/L (46-116); Anion Gap 7 (7-16); Aspartate Amino Transferase 24 U/L (0-34); BUN/Creatinine Ratio 27 Ratio (12-20); Bilirubin,Total 0.5 mg/dL (0.3-1.2); Blood Urea Nitrogen 19 mg/dL (9-23); Calcium 8.1 mg/dL (8.3-10.6); Calcium (Corrected) 8.8 mg/dL (8.5-10.1); Carbon Dioxide 25.5 mMol/L (20.0-31.0); Chloride 98 mMol/L (98-107); Creatinine (Component) 0.7 mg/dL (0.6-1.3); Estimated Creatinine Clearance 76.2 mL/min (>60); Globulin 3.2 gm/dL (2.3-3.5); Glucose 99 mg/dL (74-106); Osmolality,Calculated 263 (275-295); Potassium 4.4 mMol/L (3.4-5.1); Sodium 130 mMol/L (136-145); Total Protein 6.3 gm/dL (5.7-8.2); eGFR > 60 See Note
--- NOTE | 2024-11-18 07:53 | ESPR_ITS ---
Documentation for date of: 11/18/24 Subjective Subjective Interval history: No acute overnight events. Continued on 2 L NC. Reports improvement in breathing. Denies fever, chills, headaches, chest pain, worsening sob, cough, GI or urinary symptoms. Exam Vital Signs Temp Pulse Resp BP Pulse Ox O2 Del Method O2 Flow Rate 97.8 F 81 30 H 117/59 L 99 Nasal Cannula 2 11/18/24 04:00 11/18/24 06:57 11/18/24 06:57 11/18/24 04:00 11/18/24 06:57 11/18/24 04:00 11/18/24 06:57 Narrative Exam GENERAL * Ill-appearing elderly female, in moderate distress, speaks in short sentences, on nasal cannula 7 L HEENT * NCAT.?SHELLY. Oral mucosa is moist. Patent Nares NECK * Supple, nontender, no thyromegaly, no meningismus, no JVD, no step offs CHEST * RRR, no m/g/r * Tachypneic, improving coarse breath sounds bilaterally, left basilar crackles. No wheezing * Symmetrical chest rise. No intercostal subcostal retraction * Atraumatic, nontender, no crepitus, symmetrical expansion. ABDOMEN * Soft, flat, nontender. No guarding/rebound tenderness/masses. * Bowel sounds presents EXTREMITIES * Nontender, no cyanosis. * No lower extremity edema SKIN * Warm and dry, no jaundice/rashes. NEUROMUSCULAR * No lumbar or midline, no CVA, no paraspinal muscle spasm or tenderness. * Moves all 4 extremities well, with full ROM and good CSM. * MARTIN x4, CN II-XII grossly intact. * No focal neurologic deficits. PSYCHIATRY * Normal mood and affect, cooperative, no SI or HI or hallucinations. Objective Labs 11/19/24 04:26 11/19/24 04:26 Labs: Laboratory Results - last 24 hr 11/17/24 11/18/24 11:00 06:00 WBC 14.0 H RBC 3.12 L Hgb 7.9 L Hct 24.8 L MCV 80 MCH 25.3 MCHC 31.9 RDW Std Deviation 55.4 H Plt Count 241 D Neut % (Auto) 84 H Lymph % (Auto) 4 L [place] % (Auto) 5 Eos % (Auto) 6 Baso % (Auto) 0 Neut # (Auto) 11.6 H Lymph # (Auto) 0.5 L [place] # (Auto) 0.7 Eos # (Auto) 0.8 H Baso # (Auto) 0.1 Immature Gran # (Auto) 0.24 H Absolute Nucleated RBC 0.00 Immature Gran % 2 H Nucleated RBC % 0 Sodium 130 L Potassium 4.4 Chloride 98 Carbon Dioxide 25.5 Anion Gap 7 BUN 19 Creatinine 0.7 Estim Creat Clear Calc 76.2 eGFR > 60 BUN/Creatinine Ratio 27 H Glucose 99 Calculated Osmolality 263 L Calcium 8.1 L Corrected Calcium 8.8 Phosphorus 3.0 Magnesium 2.0 Total Bilirubin 0.5 AST 24 ALT 23 Alkaline Phosphatase 229 H D Total Protein 6.3 Albumin 3.1 L D Globulin 3.2 Albumin/Globulin Ratio 1.0 L Coccidioides IgM Ab Positive A ABG Interpretation ABG results: 11/14/24 13:16 ABG pH 7.47 H ABG pCO2 27 L ABG pO2 68 L ABG HCO3 20 ABG O2 Saturation 95 ABG Base Excess -3 Quality Measures Quality Measures none Advance care planning discussed with:: patient Assessment & Plan Assessment Current Active Medications: Generic Name Dose Route Start Last Admin Trade Name Freq PRN Reason Stop Dose Admin Acetaminophen 650 mg 11/14/24 17:47 11/15/24 19:22 Acetaminophen 325 Mg Tablet PO 12/14/24 17:46 650 mg Q6H PRN Administration PAIN SCALE 1-3 (mild Acetaminophen 650 mg 11/14/24 17:47 Acetaminophen 325 Mg Tablet PO 12/14/24 17:46 Q6H PRN Fever >100 Hydrocodone Bitart/Acetaminophen 1 tab 11/14/24 17:47 11/17/24 16:38 Hydrocodone/Apap 10/325 Tab PO 11/19/24 17:46 1 tab Q4HR PRN Administration PAIN SCALE 7-10 (Severe Albuterol/Ipratropium 3 ml 11/14/24 19:00 11/18/24 06:57 Albuterol/Ipratropium (Duoneb) Rt Janene 3 Ml Nebu INH 12/14/24 18:59 3 ml Q6HRRT YOAN Administration Apixaban 5 mg 11/16/24 09:00 11/17/24 20:05 Apixaban 2.5 Mg Tablet PO 12/07/24 08:59 5 mg BID YOAN Administration Azithromycin 250 mg 11/15/24 09:00 11/17/24 08:56 Azithromycin 250 Mg Tablet PO 11/22/24 08:59 250 mg QDAY YOAN Administration Furosemide 20 mg 11/16/24 09:00 11/17/24 08:56 Furosemide 20 Mg Tablet PO 12/16/24 08:59 20 mg QAM YOAN Administration Ceftriaxone Sodium/Dextrose 50 mls @ 100 mls/hr 11/14/24 18:00 11/17/24 09:26 Rocephin/D5w 1gm Iv Premix IV 11/21/24 17:59 Infused QDAY YOAN Infusion Levothyroxine Sodium 125 mcg 11/16/24 06:00 11/18/24 05:08 Levothyroxine Sodium 125 Mcg Tablet PO 12/16/24 05:59 125 mcg ACBR YOAN Administration Ondansetron HCl 4 mg 11/14/24 17:47 Ondansetron Inj 2 Mg/Ml Inj 2 Ml IV 12/14/24 17:46 Q6H PRN NAUSEA OR VOMITING Protocol Oxycodone/Acetaminophen 1 tab 11/14/24 17:47 Oxycodone/Apap 5/325 Tablet PO 11/19/24 17:46 Q6H PRN PAIN SCALE 4-6 (Moderate Pantoprazole Sodium 40 mg 11/15/24 09:00 11/17/24 08:56 Pantoprazole Inj 40 Mg Vial IVP 12/15/24 08:59 40 mg QDAY YOAN Administration Spironolactone 50 mg 11/17/24 21:00 11/17/24 20:05 Spironolactone 25 Mg Tablet PO 12/17/24 20:59 50 mg HS YOAN Administration Plan In summary: 74-year-old female with PMHx of liver cirrhosis?, Hepatic vein thrombosis, 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 She was admitted for AHRF secondary to sepsis pneumonia and right pleural effusion. Sepsis resolved. S/p thoracentesis right lung, 2 L transudative pleural fluid removed. Continued on 2 L nasal cannula. Positive cocci IgM. Started FLUCONAZOLE, continued ANTIBIOTICS. No overnight events Afebrile, normotensive, HR normal, tachypneic at 30, 99% on 2 L NC WBC 16 > 14, Hgb 7.9, PLT okay. Sodium 130 Output not recorded, shows 5 L positive Acute hypoxemic respiratory failure (improving) Sepsis (resolved) Extensive bilateral pneumonia Large right-sided pleural effusion s/p thoracocentesis Respiratory alkalosis Presenting with worsening SOB, productive cough, fever and chills. SOB started 2 weeks ago when patient stopped taking her home dose LASIX. CXR and CTA showed large right-sided pleural effusion, extensive pneumonia, consolidation, dense mass versus pulmonary mass in the lower lobe 6x5.8 cm, no pulmonary embolism. S/p right thoracentesis with 2 L transudative (as expected settings of active hepatopathy) fluid removed. Oxygen demand improving currently on 2 L NC. 11/17 CXR showed worsening bilateral pneumonia, ARDS pattern 48-hour blood culture negative, pleural fluid culture pending Cocci IgM positive, started FLUCONAZOLE 400 daily ? Started FLUCONAZOLE 400 mg daily ? Continue LASIX to 20 mg daily ? Continue SPIRONOLACTONE 50 mg daily ? Continue AZITHROMYCIN (11/14 to [present]) ? Continue CEFTRIAXONE (11/14 to [present]) ? Continue TESSALON q.8h. PRN for cough ? Continue DuoNebs ? Continue oxygen PRN ? Blood culture and urine culture were negative. ? Physical therapy ? Pending repeat chest x-ray 11/19 ? Liver cirrhosis Mild ascites Hx of hepatic vein thrombosis S/p stenting of hepatic/splenic vein Frequent thoracentesis and paracentesis Previously suspected liver cirrhosis. Patient was admitted for liver transplant at [facility] 2 years ago however she was found to have thrombosis of hepatic vein for which she under went stenting along with stenting of splenic vein. No transplant was done at the time. Since patient has been having frequent thoracentesis and paracentesis. She was on LASIX which she electively stopped taking 2 weeks ago. Workup showed AST 47, ALT 49, ALP 266. Lactic dehydrogenase 48. Imaging showed cirrhosis and mild splenomegaly along with cholelithiasis. No jaundice. No scleral icterus. Nontender abdomen, less likely SBP. LE edema, improving with LASIX. 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 ? Continue home ELIQUIS 5 mg BID ? Continue LASIX and SPIRONOLACTONE as above ? Upper GI bleed Reports dark sticky stool. Hgb 9.7 on admission, then 7.9 today. ? Pending FOBT Hypothyroidism ? Continue home LEVOTHYROXINE 125 mcg AC BR Mild hyponatremia (improving) Sodium 130, likely in settings of volume depletion. Currently sodium 132. ? Daily CMP Health maintenance Diet: Regular GI prophylaxis: Not indicated DVT prophylaxis: SCDs Antibiotics: CEFTRIAXONE, AZITHROMYCIN CODE STATUS: Full code Disposition: Pending pneumonia improvement, s/p thoracentesis, FOBT Patient case was discussed with attending, Brien Love MD and senior resident Dr. Porter. Julius Ocasio DO PGYI Attending Provider Attestation/Addendum I have examined the patient, reviewed labs and imaging findings, discussed the case with the resident(s), and reviewed entered orders. I agree with the plan of care as outlined in this note, with these additional summaries/recommendations: Patient seen at bedside. No acute overnight events. Patient reports some improvement in shortness of breath although significant tachypnea present and intermittently into the 30s at times. Repeat CXR today yesterday revealed worsening severe bilateral lung opacities with ARDS pattern. Findings discussed with pulmonology and likely findings are secondary to pleural fluid. Patient's WBC count was also noted to increase with minor improvement today. Case management arranging home oxygen. Patient endorsing significant weakness and will obtain PT evalulation. Patient is status post right thoracentesis. 2049 pleural fluid removed and sent for analysis indicating transudative effusion most likely secondary to liver disease. Patient reports she usually gets thoracentesis once monthly in [place]. Pleural fluid cx pending and will follow- up results when available. Patient was also noted to have extensive bilateral pneumonia most likely secondary to gram-negative rods and continue IV antibiotics. 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 Per patient she has received liver biopsies that were negative for cirrhosis. Patient also has history of hepatic vein thrombosis and continue home Eliquis. Continue home Lasix and spironolactone. Blood cultures show no growth at 48 hours. Urine culture no growth. Pleural fluid Gram stain & cx pending. Patient was noted to have significant drop in hemoglobin today to 7.9 from 9.6 and FOBT pending. Repeat hematology and chemistry panel in AM. Dr. Love
[2024-11-18] MEDS: FLUCONAZOLE 100 MG TABLET 400 MG PO (08:58)
[2024-11-18] MEDS: FUROSEMIDE INJ 10 MG/ML VIAL 2 ML 20 MG IVP (08:58)
[2024-11-18] MEDS: APIXABAN 2.5 MG TABLET 5 MG PO (08:58)
[2024-11-18] MEDS: SPIRONOLACTONE 25 MG TABLET 50 MG PO ×3 (08:58→21:10)
[2024-11-18] MEDS: cefTRIAXone/D5w 1gm IV premix 50 ML IV (08:58)
[2024-11-18] MEDS: AZITHROMYCIN 250 MG TABLET PO (08:58)
[2024-11-18] MEDS: PANTOPRAZOLE INJ 40 MG VIAL IVP (08:59)
[2024-11-18] MEDS: ACETAMINOPHEN 325 MG TABLET 650 MG PO (14:01)
[2024-11-18] MEDS: BENZONATATE 100 MG CAPSULE 200 MG PO (14:01)
[2024-11-18 20:26] LABS: OBS Card Lot # 22002; OBS Developer Lot # 23003; OBS Performed By buncc1; OBS QC OK? Yes; Occult Blood, Stool Positive (Negative)
[2024-11-19] VITALS (18 sets, daily range): BP systolic 108–130; BP diastolic 56–69; PULSE 68–81; RESP 16–33; TEMP 36.2–36.5; O2SAT 92–100; BMI 27.3
[2024-11-19] MEDS: ALBUTEROL/IPRATROPIUM (Duoneb) RT SOL 3 ML NEBU INH ×4 (00:10→18:49)
[2024-11-19 05:36] LABS: Basophils % (Auto) 0 % (0-2.5); Eosinophils # (Auto) 0.9 Thou/mm3 (0.0-0.5); Eosinophils % (Auto) 7 % (0-10); Hematocrit 24.9 % (36.0-46.0); Immature Granulocytes % (Auto) 1 % (0-0); Immature Granulocytes Auto 0.15 Thou/mm3 (0.00-0.00); Lymphocytes # (Auto) 0.4 Thou/mm3 (1.0-4.8); Lymphocytes % (Auto) 3 % (10-50); Mean Corpuscular HGB Conc 31.3 g/dl (31.0-37.0); Mean Corpuscular Hemoglobin 25.4 pg (25.0-35.0); Mean Corpuscular Volume 81 fL (80-100); Monocytes # (Auto) 0.6 Thou/mm3 (0.0-0.8); Monocytes % (Auto) 5 % (0-12); Neutrophils % (Auto) 83 % (37-80); Nucleated Red Blood Cell % 0 /100 WBC (0); Platelet Count 226 Thou/mm3 (140-440); RDW Standard Deviation 56.9 fL (36.4-46.3); Red Blood Count 3.07 Miln/mm3 (4.00-5.20); White Blood Count 12.1 Thou/mm3 (3.6-11.0)
[2024-11-19 05:37] LABS: Hemoglobin 7.8 g/dL (12.0-16.0)
[2024-11-19] MEDS: LEVOTHYROXINE SODIUM 125 MCG TABLET PO (05:37)
[2024-11-19] MEDS: SPIRONOLACTONE 25 MG TABLET 50 MG PO ×3 (05:38→21:04)
[2024-11-19] MEDS: ACETAMINOPHEN 325 MG TABLET 650 MG PO ×2 (05:53→21:02)
[2024-11-19 06:06] LABS: Alanine Aminotransferase 21 U/L (10-49); Albumin, Serum 3.2 gm/dL (3.4-4.8); Albumin/Globulin Ratio 0.9 (1.2-2.2); Alkaline Phosphatase 214 U/L (46-116); Anion Gap 8 (7-16); Aspartate Amino Transferase 40 U/L (0-34); BUN/Creatinine Ratio 24 Ratio (12-20); Bilirubin,Total 0.4 mg/dL (0.3-1.2); Blood Urea Nitrogen 19 mg/dL (9-23); Calcium 8.4 mg/dL (8.3-10.6); Carbon Dioxide 26.7 mMol/L (20.0-31.0); Chloride 98 mMol/L (98-107); Creatinine (Component) 0.8 mg/dL (0.6-1.3); Estimated Creatinine Clearance 66.7 mL/min (>60); Globulin 3.4 gm/dL (2.3-3.5); Glucose 91 mg/dL (74-106); Osmolality,Calculated 268 (275-295); Phosphorous 3.8 mg/dL (2.4-5.1); Potassium 4.8 mMol/L (3.4-5.1); Sodium 133 mMol/L (136-145); Total Protein 6.6 gm/dL (5.7-8.2); eGFR > 60 See Note
--- NOTE | 2024-11-19 07:00 | XR_ITS ---
Examination: AP chest single view Technique: AP portable upright chest single view Exam date and time: November 19, 2024 0648 hrs. Comparison November 17, 2024 Indications: Shortness of breath today. Findings: Severe bilateral lung opacity, edema and/or pneumonia Significant layering right pleural fluid Mild enlargement cardiac contour Prominent vascular congestion Impression: Extensive bilateral pulmonary edema and/or pneumonia, clinical correlation advised Again noted significant layered right pleural fluid
--- NOTE | 2024-11-19 07:59 | ESPR_ITS ---
Documentation for date of: 11/19/24 Subjective Subjective Interval history: No acute overnight events. Patient currently n.p.o. for EGD later to rule out active GI bleed. Otherwise respiration is better, on 2 L NC, no shortness of breath, satting okay. Denies fever, chills, headaches, chest pain, sob, cough, GI or urinary symptoms. Exam Vital Signs Temp Pulse Resp BP Pulse Ox O2 Del Method O2 Flow Rate 97.6 F 73 20 124/62 98 Nasal Cannula 2 11/19/24 07:32 11/19/24 07:32 11/19/24 07:32 11/19/24 07:32 11/19/24 07:32 11/19/24 07:32 11/19/24 07:32 Narrative Exam GENERAL * Ill-appearing elderly female, in moderate distress, speaks in short sentences, on nasal cannula 7 L HEENT * NCAT.?SHELLY. Oral mucosa is moist. Patent Nares NECK * Supple, nontender, no thyromegaly, no meningismus, no JVD, no step offs CHEST * RRR, no m/g/r * Bibasilar crackles, no wheezing * Symmetrical chest rise. No intercostal subcostal retraction * Atraumatic, nontender, no crepitus, symmetrical expansion. ABDOMEN * Soft, flat, nontender. No guarding/rebound tenderness/masses. * Bowel sounds presents EXTREMITIES * Nontender, no cyanosis. * No lower extremity edema SKIN * Warm and dry, no jaundice/rashes. NEUROMUSCULAR * No lumbar or midline, no CVA, no paraspinal muscle spasm or tenderness. * Moves all 4 extremities well, with full ROM and good CSM. * MARTIN x4, CN II-XII grossly intact. * No focal neurologic deficits. PSYCHIATRY * Normal mood and affect, cooperative, no SI or HI or hallucinations. Objective Labs 11/20/24 04:49 11/20/24 04:49 Labs: Laboratory Results - last 24 hr 11/18/24 11/19/24 18:00 04:26 WBC 12.1 H RBC 3.07 L Hgb 7.8 L Hct 24.9 L MCV 81 MCH 25.4 MCHC 31.3 RDW Std Deviation 56.9 H Plt Count 226 Neut % (Auto) 83 H Lymph % (Auto) 3 L [place] % (Auto) 5 Eos % (Auto) 7 Baso % (Auto) 0 Neut # (Auto) 10.0 H Lymph # (Auto) 0.4 L [place] # (Auto) 0.6 Eos # (Auto) 0.9 H Baso # (Auto) 0.0 Immature Gran # (Auto) 0.15 H Absolute Nucleated RBC 0.00 Immature Gran % 1 H Nucleated RBC % 0 Sodium 133 L Potassium 4.8 Chloride 98 Carbon Dioxide 26.7 Anion Gap 8 BUN 19 Creatinine 0.8 Estim Creat Clear Calc 66.7 eGFR > 60 BUN/Creatinine Ratio 24 H Glucose 91 Calculated Osmolality 268 L Calcium 8.4 Corrected Calcium 9.0 Phosphorus 3.8 Magnesium 2.0 Total Bilirubin 0.4 AST 40 H ALT 21 Alkaline Phosphatase 214 H Total Protein 6.6 Albumin 3.2 L Globulin 3.4 Albumin/Globulin Ratio 0.9 L Stool Occult Blood Positive A ABG Interpretation ABG results: 11/14/24 13:16 ABG pH 7.47 H ABG pCO2 27 L ABG pO2 68 L ABG HCO3 20 ABG O2 Saturation 95 ABG Base Excess -3 Quality Measures Quality Measures none Advance care planning discussed with:: patient Assessment & Plan Assessment Current Active Medications: Generic Name Dose Route Start Last Admin Trade Name Freq PRN Reason Stop Dose Admin Acetaminophen 650 mg 11/14/24 17:47 11/19/24 05:53 Acetaminophen 325 Mg Tablet PO 12/14/24 17:46 650 mg Q6H PRN Administration PAIN SCALE 1-3 (mild Acetaminophen 650 mg 11/14/24 17:47 Acetaminophen 325 Mg Tablet PO 12/14/24 17:46 Q6H PRN Fever >100 Albuterol/Ipratropium 3 ml 11/14/24 19:00 11/19/24 07:00 Albuterol/Ipratropium (Duoneb) Rt Janene 3 Ml Nebu INH 12/14/24 18:59 3 ml Q6HRRT YOAN Administration Apixaban 5 mg 11/16/24 09:00 11/18/24 20:49 Apixaban 2.5 Mg Tablet PO 12/07/24 08:59 Not Given BID YOAN Azithromycin 250 mg 11/15/24 09:00 11/18/24 08:58 Azithromycin 250 Mg Tablet PO 11/22/24 08:59 250 mg QDAY YOAN Administration Benzonatate 200 mg 11/18/24 09:58 11/18/24 14:01 Benzonatate 100 Mg Capsule PO 12/18/24 09:57 200 mg Q8HR PRN Administration COUGH Protocol Fluconazole 400 mg 11/18/24 09:00 11/18/24 08:58 Fluconazole 100 Mg Tablet PO 11/25/24 08:59 400 mg QDAY YOAN Administration Furosemide 40 mg 11/19/24 09:00 Furosemide 40 Mg Tablet PO 12/18/24 08:59 QAM YOAN Ceftriaxone Sodium/Dextrose 50 mls @ 100 mls/hr 11/14/24 18:00 11/18/24 08:58 Rocephin/D5w 1gm Iv Premix IV 11/21/24 17:59 100 mls/hr QDAY YOAN Administration Levothyroxine Sodium 125 mcg 11/16/24 06:00 11/19/24 05:37 Levothyroxine Sodium 125 Mcg Tablet PO 12/16/24 05:59 125 mcg ACBR YOAN Administration Ondansetron HCl 4 mg 11/14/24 17:47 Ondansetron Inj 2 Mg/Ml Inj 2 Ml IV 12/14/24 17:46 Q6H PRN NAUSEA OR VOMITING Protocol Pantoprazole Sodium 40 mg 11/15/24 09:00 11/18/24 08:59 Pantoprazole Inj 40 Mg Vial IVP 12/15/24 08:59 40 mg QDAY YOAN Administration Spironolactone 50 mg 11/18/24 08:15 11/19/24 05:38 Spironolactone 25 Mg Tablet PO 12/18/24 08:14 50 mg TID YOAN Administration Plan In summary: 74-year-old female with PMHx of liver cirrhosis?, Hepatic vein thrombosis, 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 She was admitted for AHRF secondary to sepsis pneumonia and right pleural effusion. Sepsis resolved. S/p thoracentesis right lung, 2 L transudative pleural fluid removed. Continued on 2 L nasal cannula. Positive cocci IgM. Continued on FLUCONAZOLE and ANTIBIOTICS. Pending EGD for positive FOBT. Holding ELIQUIS in settings of GI bleed. Appreciate recommendations from GI. Acute hypoxemic respiratory failure (improving) Sepsis (resolved) Extensive bilateral pneumonia Large right-sided pleural effusion s/p thoracocentesis Respiratory alkalosis Presenting with worsening SOB, productive cough, fever and chills. SOB started 2 weeks ago when patient stopped taking her home dose LASIX. CXR and CTA showed large right-sided pleural effusion, extensive pneumonia, consolidation, dense mass versus pulmonary mass in the lower lobe 6x5.8 cm, no pulmonary embolism. S/p right thoracentesis with 2 L transudative (as expected settings of active hepatopathy) fluid removed. Oxygen demand improving currently on 2 L NC. 11/17 CXR showed worsening bilateral pneumonia, ARDS pattern 48-hour blood culture negative, pleural fluid culture pending Cocci IgM positive, started FLUCONAZOLE 400 daily Repeat CXR showed significant right pleural effusion as well as pneumonia. ? Started FLUCONAZOLE 400 mg daily ? Continue LASIX to 20 mg daily ? Continue SPIRONOLACTONE 50 mg daily ? Continue AZITHROMYCIN (11/14 to [present]) ? Continue CEFTRIAXONE (11/14 to [present]) ? Continue TESSALON q.8h. PRN for cough ? Continue DuoNebs ? Continue oxygen PRN ? Blood culture and urine culture were negative. ? Physical therapy Acute GI bleed Reports dark sticky stool. Hgb 9.7 on admission, then 7.8 today. FOBT positive. GI consulted. ? Started OCTREOTIDE drip (11/19 to [present]) ? Started PROTONIX BID ? EGD with Dr. Moore later today ? Liver cirrhosis Mild ascites Hx of hepatic vein thrombosis S/p stenting of hepatic/splenic vein Frequent thoracentesis and paracentesis Previously suspected liver cirrhosis. Patient was admitted for liver transplant at [facility] 2 years ago however she was found to have thrombosis of hepatic vein for which she under went stenting along with stenting of splenic vein. No transplant was done at the time. Since patient has been having frequent thoracentesis and paracentesis. She was on LASIX which she electively stopped taking 2 weeks ago. Workup showed AST 47, ALT 49, ALP 266. Lactic dehydrogenase 48. Imaging showed cirrhosis and mild splenomegaly along with cholelithiasis. No jaundice. No scleral icterus. Nontender abdomen, less likely SBP. LE edema, improving with LASIX. 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 Preciado ui application developer at [facility]. ? HOLDING home ELIQUIS 5 mg BID ? Continue LASIX and SPIRONOLACTONE as above Hypothyroidism ? Continue home LEVOTHYROXINE 125 mcg AC BR Mild hyponatremia (improving) Sodium 130, likely in settings of volume depletion. Currently sodium 132. ? Daily CMP Health maintenance Diet: Regular GI prophylaxis: Not indicated DVT prophylaxis: SCDs Antibiotics: CEFTRIAXONE, AZITHROMYCIN CODE STATUS: Full code Disposition: Pending EGD Patient case was discussed with attending, Brien Love MD and senior resident Dr. Petersen. Julius Ocasio DO PGYI Attending Provider Attestation/Addendum I have examined the patient, reviewed labs and imaging findings, discussed the case with the resident(s), and reviewed entered orders. I agree with the plan of care as outlined in this note, with these additional summaries/recommendations: Patient seen at bedside. No acute overnight events. Patient has had down down- trending hemoglobin and FOBT was obtained which is positive. We will consult gastroenterology, recommendations appreciated. Patient made NPO, hold anticoagulation, START PPI, Octreotide gtt, and IV rocephin. Patient reports some improvement in shortness of breath. Repeat CXR today again shows extensive bl pneumonia and right pleural effusion appears to be reaccumulating. Leukocytosis improving. Case management arranging home oxygen. Patient endorsing significant weakness and will obtain PT evaluation. Patient is status post right thoracentesis. 2049 pleural fluid removed and sent for analysis indicating transudative effusion most likely secondary to liver disease. Patient reports she usually gets thoracentesis once monthly in [place]. Pleural fluid cx pending and will follow-up results when available. Patient was also noted to have extensive bilateral pneumonia most likely secondary to gram- negative rods and continue IV antibiotics. 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 Preciado ui application developer at [facility]. 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 Per patient she has received liver biopsies that were negative for cirrhosis. Patient also has history of hepatic vein thrombosis and hold home Eliquis for now. Continue home Lasix and spironolactone. Blood cultures show no growth at 48 hours. Urine culture no growth. Pleural fluid Gram stain & cx pending. Repeat hematology and chemistry panel in AM. Dr. Love
[2024-11-19] MEDS: cefTRIAXone/D5w 1gm IV premix 50 ML IV (08:19)
[2024-11-19] MEDS: FLUCONAZOLE 100 MG TABLET 400 MG PO (08:20)
[2024-11-19] MEDS: Furosemide 40 MG TABLET PO (08:20)
[2024-11-19] MEDS: AZITHROMYCIN 250 MG TABLET PO (08:20)
[2024-11-19] MEDS: PANTOPRAZOLE INJ 40 MG VIAL IVP (08:20)
--- NOTE | 2024-11-19 10:55 | ESCONSULT_ITS ---
HPI Data of Consult Requesting Physician: Biren Love MD Primary Care Provider: Ted Anton MD Consult Narrative Reason for consult: Dropping hemoglobin hematocrit to 7.9 and 24.8 chronic liver disease ascite History of present illness: 74 years of female who was admitted on 11/14/2023 with acute hypoxic respiratory failure bilateral pneumonia fluid retention She has a history of chronic liver disease/cirrhosis requiring frequent thoracentesis and paracentesis She stopped taking her diuretic such as Lasix about 2 weeks ago as she was having frequent urination and then start getting weaker shortness of breath Came into the emergency room where she had a CT scan of the abdomen pelvis done with contrast which showed ascites patent hepatic and splenic vein stent and ascites Chest x-ray also shows bilateral pneumonia and extensive right pleural effusion He was followed at [facility] and had a stenting done there she was considered for a liver test at 1 point but then [facility] decided that she is not bleeding a transplant at the moment cc:: cc: Brien Love MD Review of Systems Review of Systems Systems Reviewed: All systems reviewed, normal except as documented Past Medical History Surgical History OTHER SURGICAL HX: As in the history of present illness Meds Home Medications and Allergies Home Medications ?Medication ?Instructions ?Recorded ?Confirmed ?Type HYDROCODONE BITARTRATE/APAP 1 tab GT Q4-6HRPRN ##1 08/23/10 11/14/24 History (VICODIN 5/500) apixaban 5 mg tablet (Eliquis) 5 mg PO BID 11/14/24 11/14/24 History Allergies Allergy/AdvReac Type Severity Reaction Status Date / Time Sulfa (Sulfonamide Allergy Intermediate Rash Verified 11/14/24 11:57 Antibiotics) Exam Vital Signs Temp Pulse Resp BP Pulse Ox O2 Del Method O2 Flow Rate 97.6 F 73 20 124/62 98 Nasal Cannula 2 11/19/24 07:32 11/19/24 08:20 11/19/24 07:32 11/19/24 08:20 11/19/24 07:32 11/19/24 07:32 11/19/24 07:32 Constitutional Comments: Chronically ill-appearing patient Routine Respiratory Exam Comments: Decreased breath sounds at the bases Routine Abdominal Exam Comments: Soft nontender positive ascites Results Labs 11/20/24 04:49 11/20/24 04:49 Labs: Short CBC 11/19/24 Range/Units 04:26 WBC 12.1 H (3.6-11.0) Thou/mm3 Hgb 7.8 L (12.0-16.0) g/dL Hct 24.9 L (36.0-46.0) % Plt Count 226 (140-440) Thou/mm3 BMP 11/19/24 04:26 Sodium 133 L Potassium 4.8 Chloride 98 Carbon Dioxide 26.7 BUN 19 Creatinine 0.8 Glucose 91 Calcium 8.4 Liver Function 11/19/24 Range/Units 04:26 Total Bilirubin 0.4 (0.3-1.2) mg/dL AST 40 H (0-34) U/L ALT 21 (10-49) U/L Alkaline Phosphatase 214 H (46-116) U/L Albumin 3.2 L (3.4-4.8) gm/dL ABG Interpretation ABG results: 11/14/24 13:16 ABG pH 7.47 H ABG pCO2 27 L ABG pO2 68 L ABG HCO3 20 ABG O2 Saturation 95 ABG Base Excess -3 Assessment and Plan Additional Assessment & Plan Additional Plan: # Posthemorrhagic anemia Will schedule upper endoscopy with possible therapeutic intervention under intravenous moderate sedation which has been scheduled for tomorrow consent has been obtained # 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
[2024-11-19] MEDS: OCTREOTIDE ACET INJ 1,000 MCG in SODIUM CHLORIDE 0.9% 100 ML 5.1 MCG IV (12:03)
[2024-11-19] MEDS: BENZONATATE 100 MG CAPSULE 200 MG PO (21:04)
[2024-11-19] MEDS: PANTOPRAZOLE INJ 40 MG VIAL IV (21:09)
[2024-11-20] VITALS (24 sets, daily range): BP systolic 98–126; BP diastolic 53–70; PULSE 6–85; RESP 16–28; TEMP 36.1–36.7; O2SAT 93–100; BMI 26.9
[2024-11-20] MEDS: ALBUTEROL/IPRATROPIUM (Duoneb) RT SOL 3 ML NEBU INH ×4 (00:33→19:07)
[2024-11-20] MEDS: ACETAMINOPHEN 325 MG TABLET 650 MG PO (05:54)
[2024-11-20] MEDS: SPIRONOLACTONE 25 MG TABLET 50 MG PO (05:55)
[2024-11-20] MEDS: LEVOTHYROXINE SODIUM 125 MCG TABLET PO (05:55)
[2024-11-20 05:56] LABS: Basophils % (Auto) 0 % (0-2.5); Eosinophils % (Auto) 12 % (0-10); Hematocrit 23.6 % (36.0-46.0); Immature Granulocytes % (Auto) 1 % (0-0); Lymphocytes # (Auto) 0.4 Thou/mm3 (1.0-4.8); Lymphocytes % (Auto) 4 % (10-50); Mean Corpuscular HGB Conc 30.9 g/dl (31.0-37.0); Mean Corpuscular Hemoglobin 24.7 pg (25.0-35.0); Mean Corpuscular Volume 80 fL (80-100); Monocytes # (Auto) 0.6 Thou/mm3 (0.0-0.8); Monocytes % (Auto) 7 % (0-12); Neutrophils # (Auto) 6.4 Thou/mm3 (1.8-7.7); Neutrophils % (Auto) 75 % (37-80); Nucleated Red Blood Cell % 0 /100 WBC (0); Platelet Count 217 Thou/mm3 (140-440); Red Blood Count 2.95 Miln/mm3 (4.00-5.20); White Blood Count 8.5 Thou/mm3 (3.6-11.0)
[2024-11-20] MEDS: BENZONATATE 100 MG CAPSULE 200 MG PO (05:56)
[2024-11-20 05:57] LABS: Hemoglobin 7.3 g/dL (12.0-16.0)
[2024-11-20 06:21] LABS: Alanine Aminotransferase 17 U/L (10-49); Albumin, Serum 2.9 gm/dL (3.4-4.8); Albumin/Globulin Ratio 0.8 (1.2-2.2); Alkaline Phosphatase 194 U/L (46-116); Anion Gap 9 (7-16); Aspartate Amino Transferase 27 U/L (0-34); BUN/Creatinine Ratio 20 Ratio (12-20); Bilirubin,Total 0.4 mg/dL (0.3-1.2); Blood Urea Nitrogen 20 mg/dL (9-23); Calcium 8.3 mg/dL (8.3-10.6); Calcium (Corrected) 9.2 mg/dL (8.5-10.1); Carbon Dioxide 26.1 mMol/L (20.0-31.0); Chloride 98 mMol/L (98-107); Globulin 3.5 gm/dL (2.3-3.5); Glucose 133 mg/dL (74-106); Osmolality,Calculated 270 (275-295); Phosphorous 4.1 mg/dL (2.4-5.1); Potassium 4.4 mMol/L (3.4-5.1); Sodium 133 mMol/L (136-145); Total Protein 6.4 gm/dL (5.7-8.2); eGFR 60 See Note
--- NOTE | 2024-11-20 08:04 | ESPR_ITS ---
Documentation for date of: 11/20/24 Subjective Subjective Interval history: No acute overnight events. EGD yesterday was rescheduled for today. Currently n.p.o. Denies new complaints. Denies fever, chills, headaches, chest pain, sob, cough, GI or urinary symptoms. Denies fever, chills, headaches, chest pain, sob, cough, GI or urinary symptoms. Exam Vital Signs Temp Pulse Resp BP Pulse Ox O2 Del Method O2 Flow Rate 97.7 F 71 20 109/58 L 100 Room Air 2 11/20/24 04:00 11/20/24 07:19 11/20/24 07:19 11/20/24 05:55 11/20/24 07:19 11/20/24 04:00 11/20/24 07:19 Narrative Exam GENERAL * Ill-appearing elderly female, in moderate distress, speaks in short sentences, on nasal cannula 7 L HEENT * NCAT.?SHELLY. Oral mucosa is moist. Patent Nares NECK * Supple, nontender, no thyromegaly, no meningismus, no JVD, no step offs CHEST * RRR, no m/g/r * Bibasilar crackles present, no wheezing * Symmetrical chest rise. No intercostal subcostal retraction * Atraumatic, nontender, no crepitus, symmetrical expansion. ABDOMEN * Soft, flat, nontender. No guarding/rebound tenderness/masses. * Bowel sounds presents EXTREMITIES * Nontender, no cyanosis. * No lower extremity edema SKIN * Warm and dry, no jaundice/rashes. NEUROMUSCULAR * No lumbar or midline, no CVA, no paraspinal muscle spasm or tenderness. * Moves all 4 extremities well, with full ROM and good CSM. * MARTIN x4, CN II-XII grossly intact. * No focal neurologic deficits. PSYCHIATRY * Normal mood and affect, cooperative, no SI or HI or hallucinations. Objective Labs 11/21/24 04:40 11/21/24 04:40 Labs: Laboratory Results - last 24 hr 11/20/24 04:49 WBC 8.5 RBC 2.95 L Hgb 7.3 L Hct 23.6 L MCV 80 MCH 24.7 L MCHC 30.9 L RDW Std Deviation 56.0 H Plt Count 217 Neut % (Auto) 75 Lymph % (Auto) 4 L [place] % (Auto) 7 Eos % (Auto) 12 H Baso % (Auto) 0 Neut # (Auto) 6.4 Lymph # (Auto) 0.4 L [place] # (Auto) 0.6 Eos # (Auto) 1.0 H Baso # (Auto) 0.0 Immature Gran # (Auto) 0.10 H Absolute Nucleated RBC 0.00 Immature Gran % 1 H Nucleated RBC % 0 Sodium 133 L Potassium 4.4 Chloride 98 Carbon Dioxide 26.1 Anion Gap 9 BUN 20 Creatinine 1.0 Estim Creat Clear Calc 53.0 L eGFR 60 BUN/Creatinine Ratio 20 Glucose 133 H Calculated Osmolality 270 L Calcium 8.3 Corrected Calcium 9.2 Phosphorus 4.1 Magnesium 2.0 Total Bilirubin 0.4 AST 27 ALT 17 Alkaline Phosphatase 194 H D Total Protein 6.4 Albumin 2.9 L Globulin 3.5 Albumin/Globulin Ratio 0.8 L ABG Interpretation ABG results: 11/14/24 13:16 ABG pH 7.47 H ABG pCO2 27 L ABG pO2 68 L ABG HCO3 20 ABG O2 Saturation 95 ABG Base Excess -3 Quality Measures Quality Measures none Advance care planning discussed with:: patient Assessment & Plan Assessment Current Active Medications: Generic Name Dose Route Start Last Admin Trade Name Freq PRN Reason Stop Dose Admin Acetaminophen 650 mg 11/14/24 17:47 11/20/24 05:54 Acetaminophen 325 Mg Tablet PO 12/14/24 17:46 650 mg Q6H PRN Administration PAIN SCALE 1-3 (mild Acetaminophen 650 mg 11/14/24 17:47 Acetaminophen 325 Mg Tablet PO 12/14/24 17:46 Q6H PRN Fever >100 Albuterol/Ipratropium 3 ml 11/14/24 19:00 11/20/24 07:18 Albuterol/Ipratropium (Duoneb) Rt Janene 3 Ml Nebu INH 12/14/24 18:59 3 ml Q6HRRT YOAN Administration Azithromycin 250 mg 11/15/24 09:00 11/19/24 08:20 Azithromycin 250 Mg Tablet PO 11/22/24 08:59 250 mg QDAY YOAN Administration Benzonatate 200 mg 11/18/24 09:58 11/20/24 05:56 Benzonatate 100 Mg Capsule PO 12/18/24 09:57 200 mg Q8HR PRN Administration COUGH Protocol Fluconazole 400 mg 11/18/24 09:00 11/19/24 08:20 Fluconazole 100 Mg Tablet PO 11/25/24 08:59 400 mg QDAY YOAN Administration Furosemide 40 mg 11/19/24 09:00 11/19/24 08:20 Furosemide 40 Mg Tablet PO 12/18/24 08:59 40 mg QAM YOAN Administration Ceftriaxone Sodium/Dextrose 50 mls @ 100 mls/hr 11/14/24 18:00 11/19/24 08:19 Rocephin/D5w 1gm Iv Premix IV 11/21/24 17:59 100 mls/hr QDAY YOAN Administration Octreotide Acetate 1,000 mcg/ 102 mls @ 5.1 mls/hr 11/19/24 10:56 11/19/24 12:03 Sodium Chloride IV 11/24/24 10:56 50 mcg/hr .Q20H YOAN 5.1 mls/hr Administration Protocol 50 MCG/HR Levothyroxine Sodium 125 mcg 11/16/24 06:00 11/20/24 05:55 Levothyroxine Sodium 125 Mcg Tablet PO 12/16/24 05:59 125 mcg ACBR YOAN Administration Ondansetron HCl 4 mg 11/14/24 17:47 Ondansetron Inj 2 Mg/Ml Inj 2 Ml IV 12/14/24 17:46 Q6H PRN NAUSEA OR VOMITING Protocol Pantoprazole Sodium 40 mg 11/19/24 21:00 11/19/24 21:09 Pantoprazole Inj 40 Mg Vial IV 12/19/24 20:59 40 mg BID YOAN Administration Spironolactone 50 mg 11/18/24 08:15 11/20/24 05:55 Spironolactone 25 Mg Tablet PO 12/18/24 08:14 50 mg TID YOAN Administration Plan In summary: 74-year-old female with PMHx of liver cirrhosis?, Hepatic vein thrombosis, 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 She was admitted for AHRF secondary to sepsis pneumonia and right pleural effusion. Sepsis resolved. S/p thoracentesis right lung, 2 L transudative pleural fluid removed. Continued on 2 L nasal cannula. Positive cocci IgM. Continued on FLUCONAZOLE and ANTIBIOTICS. I spoke with lab who reported that pleural fluid culture still pending. Will likely have results tomorrow or the following day. Acute hypoxemic respiratory failure (improving) Sepsis (resolved) Extensive bilateral pneumonia Large right-sided pleural effusion s/p thoracocentesis Respiratory alkalosis Presenting with worsening SOB, productive cough, fever and chills. SOB started 2 weeks ago when patient stopped taking her home dose LASIX. CXR and CTA showed large right-sided pleural effusion, extensive pneumonia, consolidation, dense mass versus pulmonary mass in the lower lobe 6x5.8 cm, no pulmonary embolism. S/p right thoracentesis with 2 L transudative (as expected settings of active hepatopathy) fluid removed. Oxygen demand improving currently on 2 L NC. 11/17 CXR showed worsening bilateral pneumonia, ARDS pattern 48-hour blood culture negative, pleural fluid culture pending Cocci IgM positive, started FLUCONAZOLE 400 daily Repeat CXR showed significant right pleural effusion as well as pneumonia. Afebrile, leukocytosis resolved. ? Started FLUCONAZOLE 400 mg daily ? Continue LASIX to 20 mg daily ? Continue SPIRONOLACTONE 50 mg daily ? Continue AZITHROMYCIN (11/14 to [present]) ? Continue CEFTRIAXONE (11/14 to [present]) ? Continue TESSALON q.8h. PRN for cough ? Continue DuoNebs ? Continue oxygen PRN ? Blood culture and urine culture were negative. ? Physical therapy Acute GI bleed Reports dark sticky stool. Hgb 9.7 on admission, then 7.8 today. FOBT positive. GI consulted. ? Started OCTREOTIDE drip (11/19 to [present]) ? Started PROTONIX BID ? EGD with Dr. Moore later today ? Liver cirrhosis Mild ascites Hx of hepatic vein thrombosis S/p stenting of hepatic/splenic vein Frequent thoracentesis and paracentesis Previously suspected liver cirrhosis. Patient was admitted for liver transplant at [facility] 2 years ago however she was found to have thrombosis of hepatic vein for which she under went stenting along with stenting of splenic vein. No transplant was done at the time. Since patient has been having frequent thoracentesis and paracentesis. She was on LASIX which she electively stopped taking 2 weeks ago. Workup showed AST 47, ALT 49, ALP 266. Lactic dehydrogenase 48. Imaging showed cirrhosis and mild splenomegaly along with cholelithiasis. No jaundice. No scleral icterus. Nontender abdomen, less likely SBP. LE edema, improving with LASIX. 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 Preciado lint cleaner at [facility]. ? HOLDING home ELIQUIS 5 mg BID ? Continue LASIX and SPIRONOLACTONE as above Hypothyroidism ? Continue home LEVOTHYROXINE 125 mcg AC BR Mild hyponatremia (improving) Sodium 130, likely in settings of volume depletion. Currently sodium 132. ? Daily CMP Health maintenance Diet: Regular GI prophylaxis: Not indicated DVT prophylaxis: SCDs Antibiotics: CEFTRIAXONE, AZITHROMYCIN CODE STATUS: Full code Disposition: Pending EGD Patient case was discussed with attending, Brien Love MD and senior resident Dr. Charlotte Ocasio, PGYI Senior Resident Attestation: The patient reported doing okay, as usual. She denied any severe SOB, chest pain, lightheadedness, headache, any fever or chills. Physical exam was again significant for decreased breath sound over bibasilar lung lozano. Vitals were stable. Her labs were significant for white count trending down to 7.3. The patient is undergoing EGD this evening with GI Dr. Moore. 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 Will continue to monitor daily labs. The patient is still pending culture of pleural fluid. I discussed with and supervised the merchandising intern physician involved in the care of this patient. I personally saw and examined the patient and discussed the assessment and plan with the entire medicine team, including my attending. I agree with the assessment and plan as documented above. Lionel Porter MD PGY2 Internal Medicine Attending Provider Attestation/Addendum I have examined the patient, reviewed labs and imaging findings, discussed the case with the resident(s), and reviewed entered orders. I agree with the plan of care as outlined in this note, with these additional summaries/recommendations: Patient seen at bedside. No acute overnight events. Hemoglobin continues to down-trend and FOBT positive. Gastroenterology consulted with plans for EGD todat 11/20. NPO, hold anticoagulation, PPI, Octreotide gtt, and IV rocephin. Patient reports some improvement in shortness of breath. Repeat CXR showed extensive bl pneumonia and right pleural effusion appears to be reaccumulating. Leukocytosis improving and now resolved. Case management arranging home oxygen.. Patient is status post right thoracentesis. 2049 pleural fluid removed and sent for analysis indicating transudative effusion most likely secondary to liver disease. Patient reports she usually gets thoracentesis once monthly in [place]. Pleural fluid cx pending and will follow-up results when available. Patient was also noted to have extensive bilateral pneumonia most likely secondary to gram-negative rods and continue IV antibiotics. 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 Preciado lint cleaner at [facility]. 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 Per patient she has received liver biopsies that were negative for cirrhosis. Patient also has history of hepatic vein thrombosis and hold home Eliquis for now. Continue home Lasix and spironolactone. Blood cultures show no growth at 48 hours. Urine culture no growth. Pleural fluid Gram stain & cx pending. Repeat hematology and chemistry panel in AM. Dr. Love
[2024-11-20] MEDS: Furosemide 40 MG TABLET PO (08:11)
[2024-11-20] MEDS: FLUCONAZOLE 100 MG TABLET 400 MG PO (08:11)
[2024-11-20] MEDS: AZITHROMYCIN 250 MG TABLET PO (08:11)
[2024-11-20] MEDS: PANTOPRAZOLE INJ 40 MG VIAL IV ×2 (08:12→20:56)
[2024-11-20] MEDS: cefTRIAXone/D5w 1gm IV premix 50 ML IV (08:12)
[2024-11-20] MEDS: OCTREOTIDE ACET INJ 1,000 MCG in SODIUM CHLORIDE 0.9% 100 ML 5.1 MCG IV (09:05)
--- NOTE | 2024-11-20 15:34 | SUR.PHASEI ---
1534 Patient arrived to recovery, report received from Casie RESENDIZ
--- NOTE | 2024-11-20 16:05 | SUR.PHASEI ---
1558 Report given to Lucy RN, patient meets discharge criteria from recovery, drowsy and resting with her eye closed, on oxygen 5L via nasal cannula, breathing unlabored, vital signs stable, denies pain, patient eating ice chips; tolerating well 1605 Patient transported via gurney to room 361 without incident, patient able to stand and ambulate from rney to bed with stand by assist, Lucy ramos RN in room and assisted with positioning patient comfortably in bed, patient sister and at bedside with Lucy ramos remainded in room when this investigative writer left patients room
[2024-11-20] MEDS: SUCRALFATE SUSP 1 GM/10 ML UDC PO ×2 (16:26→20:56)
--- NOTE | 2024-11-20 21:04 | PC.NURSE ---
97% O2 sat on 3L/min/nc- Decreased to 2L/min.
[2024-11-21] VITALS (12 sets, daily range): BP systolic 96–117; BP diastolic 57–62; PULSE 64–74; RESP 16–27; TEMP 36.2–36.6; O2SAT 92–100
[2024-11-21] MEDS: MG HYD/AL HYD/SIME (Maalox Reg) SUSP 30 ML UDC 15 ML PO ×4 (00:19→09:54)
[2024-11-21] MEDS: SPIRONOLACTONE 25 MG TABLET 50 MG PO ×2 (00:19→06:05)
[2024-11-21] MEDS: ALBUTEROL/IPRATROPIUM (Duoneb) RT SOL 3 ML NEBU INH (00:23)
[2024-11-21] MEDS: ACETAMINOPHEN 325 MG TABLET 650 MG PO (02:36)
--- NOTE | 2024-11-21 02:40 | PC.NURSE ---
97% O2 sat on 3L/min/nc- Decreased to 1L/min.
[2024-11-21 05:46] LABS: Basophils % (Auto) 1 % (0-2.5); Eosinophils # (Auto) 1.3 Thou/mm3 (0.0-0.5); Eosinophils % (Auto) 14 % (0-10); Hematocrit 24.3 % (36.0-46.0); Immature Granulocytes % (Auto) 1 % (0-0); Immature Granulocytes Auto 0.07 Thou/mm3 (0.00-0.00); Lymphocytes # (Auto) 0.4 Thou/mm3 (1.0-4.8); Lymphocytes % (Auto) 5 % (10-50); Mean Corpuscular HGB Conc 31.7 g/dl (31.0-37.0); Mean Corpuscular Hemoglobin 25.4 pg (25.0-35.0); Mean Corpuscular Volume 80 fL (80-100); Monocytes # (Auto) 0.7 Thou/mm3 (0.0-0.8); Monocytes % (Auto) 8 % (0-12); Neutrophils # (Auto) 6.4 Thou/mm3 (1.8-7.7); Neutrophils % (Auto) 72 % (37-80); Nucleated Red Blood Cell % 0 /100 WBC (0); Platelet Count 265 Thou/mm3 (140-440); RDW Standard Deviation 55.7 fL (36.4-46.3); Red Blood Count 3.03 Miln/mm3 (4.00-5.20); White Blood Count 8.9 Thou/mm3 (3.6-11.0)
[2024-11-21 05:52] LABS: Hemoglobin 7.7 g/dL (12.0-16.0)
[2024-11-21] MEDS: LEVOTHYROXINE SODIUM 125 MCG TABLET PO (06:05)
[2024-11-21] MEDS: SUCRALFATE SUSP 1 GM/10 ML UDC PO ×2 (06:06→11:49)
[2024-11-21 06:36] LABS: Alanine Aminotransferase 14 U/L (10-49); Albumin, Serum 3.1 gm/dL (3.4-4.8); Albumin/Globulin Ratio 0.9 (1.2-2.2); Alkaline Phosphatase 185 U/L (46-116); Anion Gap 11 (7-16); Aspartate Amino Transferase 15 U/L (0-34); BUN/Creatinine Ratio 19 Ratio (12-20); Bilirubin,Total 0.4 mg/dL (0.3-1.2); Blood Urea Nitrogen 19 mg/dL (9-23); Calcium 8.4 mg/dL (8.3-10.6); Calcium (Corrected) 9.1 mg/dL (8.5-10.1); Carbon Dioxide 26.3 mMol/L (20.0-31.0); Chloride 98 mMol/L (98-107); Estimated Creatinine Clearance 52.8 mL/min (>60); Globulin 3.4 gm/dL (2.3-3.5); Glucose 95 mg/dL (74-106); Magnesium 1.8 mg/dL (1.6-2.6); Osmolality,Calculated 272 (275-295); Phosphorous 3.6 mg/dL (2.4-5.1); Potassium 4.1 mMol/L (3.4-5.1); Sodium 135 mMol/L (136-145); Total Protein 6.5 gm/dL (5.7-8.2); eGFR 60 See Note
--- NOTE | 2024-11-21 07:57 | PD.RESPRO ---
Documentation for date of: 11/21/24 Exam Vital Signs Temp Pulse Resp BP Pulse Ox O2 Del Method O2 Flow Rate 97.4 F 70 22 H 96/57 L 93 L Nasal Cannula 2 11/21/24 04:00 11/21/24 07:51 11/21/24 07:42 11/21/24 06:05 11/21/24 07:42 11/21/24 04:00 11/21/24 07:42 Objective Labs 11/21/24 04:40 11/21/24 04:40 Labs: Laboratory Results - last 24 hr 11/21/24 04:40 WBC 8.9 RBC 3.03 L Hgb 7.7 L Hct 24.3 L MCV 80 MCH 25.4 MCHC 31.7 RDW Std Deviation 55.7 H Plt Count 265 D Neut % (Auto) 72 Lymph % (Auto) 5 L [place] % (Auto) 8 Eos % (Auto) 14 H Baso % (Auto) 1 Neut # (Auto) 6.4 Lymph # (Auto) 0.4 L [place] # (Auto) 0.7 Eos # (Auto) 1.3 H Baso # (Auto) 0.0 Immature Gran # (Auto) 0.07 H Absolute Nucleated RBC 0.00 Immature Gran % 1 H Nucleated RBC % 0 Sodium 135 L Potassium 4.1 Chloride 98 Carbon Dioxide 26.3 Anion Gap 11 BUN 19 Creatinine 1.0 Estim Creat Clear Calc 52.8 L eGFR 60 BUN/Creatinine Ratio 19 Glucose 95 Calculated Osmolality 272 L Calcium 8.4 Corrected Calcium 9.1 Phosphorus 3.6 Magnesium 1.8 Total Bilirubin 0.4 AST 15 ALT 14 Alkaline Phosphatase 185 H Total Protein 6.5 Albumin 3.1 L Globulin 3.4 Albumin/Globulin Ratio 0.9 L ABG Interpretation ABG results: 11/14/24 13:16 ABG pH 7.47 H ABG pCO2 27 L ABG pO2 68 L ABG HCO3 20 ABG O2 Saturation 95 ABG Base Excess -3 Quality Measures Quality Measures none Assessment & Plan Assessment Current Active Medications: Generic Name Dose Route Start Last Admin Trade Name Freq PRN Reason Stop Dose Admin Acetaminophen 650 mg 11/14/24 17:47 11/21/24 02:36 Acetaminophen 325 Mg Tablet PO 12/14/24 17:46 650 mg Q6H PRN Administration PAIN SCALE 1-3 (mild Acetaminophen 650 mg 11/14/24 17:47 Acetaminophen 325 Mg Tablet PO 12/14/24 17:46 Q6H PRN Fever >100 Al Hydrox/Mg Hydrox/Simethicone 15 ml 11/20/24 22:00 11/21/24 06:06 Mg Hyd/Al Hyd/Eryn (Maalox Reg) Susp 30 Ml Udc PO 12/20/24 21:59 15 ml Q4HR YOAN Administration Albuterol/Ipratropium 3 ml 11/14/24 19:00 11/21/24 07:41 Albuterol/Ipratropium (Duoneb) Rt Janene 3 Ml Nebu INH 12/14/24 18:59 Not Given Q6HRRT YOAN Benzonatate 200 mg 11/18/24 09:58 11/20/24 05:56 Benzonatate 100 Mg Capsule PO 12/18/24 09:57 200 mg Q8HR PRN Administration COUGH Protocol Fluconazole 400 mg 11/18/24 09:00 11/20/24 08:11 Fluconazole 100 Mg Tablet PO 11/25/24 08:59 400 mg QDAY YOAN Administration Furosemide 40 mg 11/19/24 09:00 11/20/24 08:11 Furosemide 40 Mg Tablet PO 12/18/24 08:59 40 mg QAM YOAN Administration Ceftriaxone Sodium/Dextrose 50 mls @ 100 mls/hr 11/14/24 18:00 11/20/24 08:12 Rocephin/D5w 1gm Iv Premix IV 11/21/24 17:59 100 mls/hr QDAY YOAN Administration Levothyroxine Sodium 125 mcg 11/16/24 06:00 11/21/24 06:05 Levothyroxine Sodium 125 Mcg Tablet PO 12/16/24 05:59 125 mcg ACBR YOAN Administration Ondansetron HCl 4 mg 11/14/24 17:47 Ondansetron Inj 2 Mg/Ml Inj 2 Ml IV 12/14/24 17:46 Q6H PRN NAUSEA OR VOMITING Protocol Pantoprazole Sodium 40 mg 11/19/24 21:00 11/20/24 20:56 Pantoprazole Inj 40 Mg Vial IV 12/19/24 20:59 40 mg BID YOAN Administration Spironolactone 50 mg 11/18/24 08:15 11/21/24 06:05 Spironolactone 25 Mg Tablet PO 12/18/24 08:14 50 mg TID YOAN Administration Sucralfate 1 gm 11/20/24 17:00 11/21/24 06:06 Sucralfate Susp 1 Gm/10 Ml Udc PO 12/20/24 16:59 1 gm QID YOAN Administration Plan In summary: 74-year-old female with PMHx of liver cirrhosis?, Hepatic vein thrombosis, 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 She was admitted for AHRF secondary to sepsis pneumonia and right pleural effusion. Sepsis resolved. S/p thoracentesis right lung, 2 L transudative pleural fluid removed. Continued on 2 L nasal cannula. Positive cocci IgM. Continued on FLUCONAZOLE and ANTIBIOTICS. BP 96/57, HR 70, RR 20, 93% on 2 L Hgb 7.3 > 7.7, CMP okay, no new micro EGD showed esophagitis, 1+ esophageal varices, 3 ulcers, no visible bleed Continue PROTONIX 40 BID, MAALOX 15 q.4 hours, SUCRALFATE suspension 1 g QID, peptic ulcer diet Acute hypoxemic respiratory failure (improving) Sepsis (resolved) Extensive bilateral pneumonia Large right-sided pleural effusion s/p thoracocentesis Respiratory alkalosis Presenting with worsening SOB, productive cough, fever and chills. SOB started 2 weeks ago when patient stopped taking her home dose LASIX. CXR and CTA showed large right-sided pleural effusion, extensive pneumonia, consolidation, dense mass versus pulmonary mass in the lower lobe 6x5.8 cm, no pulmonary embolism. S/p right thoracentesis with 2 L transudative (as expected settings of active hepatopathy) fluid removed. Oxygen demand improving currently on 2 L NC. 11/17 CXR showed worsening bilateral pneumonia, ARDS pattern 48-hour blood culture negative, pleural fluid culture pending Cocci IgM positive, started FLUCONAZOLE 400 daily Repeat CXR showed significant right pleural effusion as well as pneumonia. Afebrile, leukocytosis resolved. ? Started FLUCONAZOLE 400 mg daily ? Continue LASIX to 20 mg daily ? Continue SPIRONOLACTONE 50 mg daily ? Continue AZITHROMYCIN (11/14 to [present]) ? Continue CEFTRIAXONE (11/14 to [present]) ? Continue TESSALON q.8h. PRN for cough ? Continue DuoNebs ? Continue oxygen PRN ? Blood culture and urine culture were negative. ? Physical therapy Acute GI bleed improving Reports dark sticky stool. Hgb 9.7 on admission, currently stable around 7.8. FOBT positive. EGD showed esophagitis, 1+ esophageal varices, 3 ulcers, no visible bleed. OCTREOTIDE discontinued. GI recommendations as below: Okay to resume ELIQUIS. ? Continue PROTONIX BID ? Continue SUCRALFATE suspension 1 g QID ? Continue MAALOX 15 mg Q4H ? Peptic ulcer diet ? Liver cirrhosis Mild ascites Hx of hepatic vein thrombosis S/p stenting of hepatic/splenic vein Frequent thoracentesis and paracentesis Previously suspected liver cirrhosis. Patient was admitted for liver transplant at [facility] 2 years ago however she was found to have thrombosis of hepatic vein for which she under went stenting along with stenting of splenic vein. No transplant was done at the time. Since patient has been having frequent thoracentesis and paracentesis. She was on LASIX which she electively stopped taking 2 weeks ago. Workup showed AST 47, ALT 49, ALP 266. Lactic dehydrogenase 48. Imaging showed cirrhosis and mild splenomegaly along with cholelithiasis. No jaundice. No scleral icterus. Nontender abdomen, less likely SBP. LE edema, improving with LASIX. 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 Preciado heat treater at [facility]. ? Continue home ELIQUIS 5 mg BID ? Continue LASIX and SPIRONOLACTONE as above Hypothyroidism ? Continue home LEVOTHYROXINE 125 mcg AC BR Mild hyponatremia (improving) Sodium 130, likely in settings of volume depletion. Currently sodium 132. ? Daily CMP Health maintenance Diet: Peptic ulcer diet GI prophylaxis: Not indicated DVT prophylaxis: ELIQUIS Antibiotics: CEFTRIAXONE, AZITHROMYCIN CODE STATUS: Full code Disposition: Pending EGD Patient case was discussed with attending, Brien Love MD and senior resident Dr. Charlotte Ocasio, PGYI
[2024-11-21] MEDS: PANTOPRAZOLE INJ 40 MG VIAL IV (09:05)
[2024-11-21] MEDS: FLUCONAZOLE 100 MG TABLET 400 MG PO (09:05)
[2024-11-21] MEDS: cefTRIAXone/D5w 1gm IV premix 50 ML IV (09:05)
[2024-11-21] MEDS: APIXABAN 2.5 MG TABLET 5 MG PO (09:06)
[2024-11-21] MEDS: Furosemide 40 MG TABLET PO (09:06)
--- NOTE | 2024-11-21 09:23 | XR_ITS ---
Examination: AP chest single view Technique one AP portable upright chest single view Exam date and time: November 21, 2024 0931 hours Comparison November 19, 2024 INDICATIONS: Shortness of breath today, history pneumonia ARDS FINDINGS: Severe bilateral lung opacity again noted Pulmonary mass right lower lobe again depicted, please see the CT chest report November 14, 2024 Normal heart size Significant osteopenia IMPRESSION: No significant change in severe bilateral pneumonia ARDS pattern Pulmonary mass right lower lobe, please see the CT chest report November 14, 2024
--- NOTE | 2024-11-21 09:26 | PC.NURSE ---
Resting sp02 room air 85% Resting sp02 2L NC 94%
--- NOTE | 2024-11-21 10:10 | PC.SS ---
SS follow up: patient will need home oxygen. No preferred DME vendor. Patient's spouse at bed side requesting shower chair, informed him medicare does not cover shower equipment would need to be purchased privately, spouse verbalized understanding. Spouse is requesting home health for physical therapy, no preferred agency.
--- NOTE | 2024-11-21 10:13 | PC.SS ---
Addendum entered by LILLY Coley 11/21/24 12:27: Confirmed DME delivered at bed side. Addendum entered by LILLY Coley 11/21/24 11:30: [facility] DME booked. Confirmed with Ana at [facility], DME in route to patient. Addendum entered by LILLY Coley 11/21/24 10:43: DME referral sent. Pending delivery for DME. Original Note: Patient will need home oxygen before hospital discharge. OXYGEN Patient is discharged in a chronic stable state and has been treated optimally and has other respiratory needs. Oxygen has been ordered due to Acute hypoxemic respiratory failure.
--- NOTE | 2024-11-21 13:21 | ESDS_ITS ---
Planned Discharge Date 11/21/24 DS: Providers Provider Date of admission: 11/14/24 17:47 Primary care physician: Ted Anton MD Admitting Provider: Kong Wiggins MD Attending Provider on Admission: Brien Love MD Consults: 11/17/24 13:28 Consult to Pulmonology Routine Comment: ARDS vs Pulm edema Consulting Provider: Atif Head I 11/18/24 13:07 Referral Physical Therapy Urgent Comment: Physician Instructions: 11/19/24 08:04 Consult to Gastroenterology Routine Comment: Consulting Provider: Emery Moore Attending Provider on DC: Brien Love MD Discharging Provider: Brien Love MD DS: Diagnosis Problem List Completed Was Problem List Reviewed/Reconciled?: Yes Hospital Course Hospital Course Hospital course: This is a pleasant 74-year-old female with PMHx of liver cirrhosis?, Hepatic vein thrombosis, 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 She was admitted for AHRF secondary to sepsis pneumonia and right pleural effusion. CXR revealed extensive bilateral pneumonia, large right pleural effusion. CT AP cirrhosis, mild splenomegaly, mild ascites, cholelithiasis. CTA chest right large pleural effusion, extensive bilateral pneumonic consolidation, dense consolidation versus pulmonary mass in right lower lobe measuring 6X 5.8 cm, cirrhosis. Sepsis resolved. S/p thoracentesis right lung, 2 L transudative pleural fluid removed, and continued on home LASIX and SPIRONOLACTONE. She tested positive for cocci IgM and started on FLUCONAZOLE, completed full course of ANTIBIOTICS. Influenza and COVID were negative. Blood plus urine cultures and pleural fluid showed no growth after 7 days. Continued afebrile, leukocytosis resolved. She was on 1 L nasal cannula at the time of discharge, satting in mid 90s, without shortness of breath. She will continue home oxygen and FLUCONAZOLE She underwent EGD for acute anemia, positive FOBT, which showed esophagitis, 1+ esophageal varices, 3 ulcers, no visible bleed. A biopsy was taken. She will follow-up with GI, Dr. Moore, outpatient. PATIENT INSTRUCTIONS: Please follow-up with your Primary Care Physician within 1 week of discharge, please ask for labs for valley fever from hospital Please follow-up with GI Dr. Moore within 10 days of discharge for discussing biopsy result Please follow-up with Dr. Anton for reevaluation, possible continued thoracentesis. You have been started on: -Pantoprazole 40 Mg twice daily, please take this medicine 45 minutes to 1 hour before food -Carafate 1 g / 5 mL 4 times daily, please take this medicine 15 to 30 minutes before food -Maalox 15 mL 3 times daily after meals -Fluconazole 400 Mg daily Continue with all other medicines as prescribed Recommended to return back to emergency department if your symptoms persist or does not improve ADMISSION DIAGNOSES: Acute hypoxemic respiratory failure (improving) Sepsis (resolved) Extensive bilateral pneumonia Large right-sided pleural effusion s/p thoracocentesis Respiratory alkalosis Acute GI bleed improving Chronic liver disease Mild ascites Hx of hepatic vein thrombosis S/p stenting of hepatic/splenic vein Frequent thoracentesis and paracentesis Hypothyroidism Mild hyponatremia Patient case was discussed with attending, Brien Love MD and senior residents Dr. Petersen and Dr. Porter. Julius Ocasio, PGYI Senior Resident Attestation: I discussed with and supervised the kinesiology internship physician involved in the care of this patient. I personally saw and examined the patient and discussed the assessment and plan with the entire medicine team, including my attending. I agree with the discharge plan as documented above. Lionel Porter MD PGY2 Internal Medicine Time Spent with Patient Time attestation: Total time spent providing and/or coordinating discharge services: Greater than 35 minutes. Home Health Home Health Referral Orders: 11/21/24 10:36 Home Health Referral Routine Reason For Exam: PT Home-Bound The patient must either because of illness or injury, need the aid of supportive devices such as crutches, canes, wheelchairs, and walkers; the use of special transportation; or the assistance of another person in order to leave their place of residence; OR have a condition such that leaving his or her home is medically contraindicated. In addition, the patient also meets the following criteria: patient is normally unable to leave the home and leaving home requires considerable taxing effort. Addendum to Home Health Certification Practitioner's Certification: I certify that the patient has been under my care in the hospital and the care of attending physician (see below). We had a [id number] encounter on (see date below). My clinical findings indicate that the patient is home bound per the above criteria and the Home Health Services noted in these orders are medically necessary. The primary reason for the [id number] encounter is related to the fact that the patient requires home health services. Date Certifying [id number] Physician Encounter: 11/14/24 Physician's Name who will Assume Oversight for Services: Ted Anton Physician's Phone No.who will Assume Oversight for Service: FINGER [employer]S ASSEMBLER - Community Resources: No PT to Evaluate: Yes PT to evaluate and provide a treatmnet plan to increase patient's mobility and strength. Wound Care: No IV Therapy: No RN Safety Evaluation: Yes RN to evaluate and create a plan of care that will produce positive outcomes. Palliative Treatment: No Palliative treatment and evaluate the need for hospice. Home Health Aide - Personal Care: Yes Home Health Aide to assist with any ADL's. Exam Vital Signs Temp Pulse Resp BP Pulse Ox O2 Del Method O2 Flow Rate 97.1 F 64 23 H 111/58 L 92 L Nasal Cannula 2 11/21/24 12:00 11/21/24 12:11 11/21/24 12:00 11/21/24 12:00 11/21/24 12:00 11/21/24 12:11/21/24 12:00 Narrative Exam GENERAL * Ill-appearing elderly female, in moderate distress, speaks in short sentences, on nasal cannula 7 L HEENT * NCAT.?SHELLY. Oral mucosa is moist. Patent Nares NECK * Supple, nontender, no thyromegaly, no meningismus, no JVD, no step offs CHEST * RRR, no m/g/r * Bibasilar crackles present, no wheezing * Symmetrical chest rise. No intercostal subcostal retraction * Atraumatic, nontender, no crepitus, symmetrical expansion. ABDOMEN * Soft, flat, nontender. No guarding/rebound tenderness/masses. * Bowel sounds presents EXTREMITIES * Nontender, no cyanosis. * No lower extremity edema SKIN * Warm and dry, no jaundice/rashes. NEUROMUSCULAR * No lumbar or midline, no CVA, no paraspinal muscle spasm or tenderness. * Moves all 4 extremities well, with full ROM and good CSM. * MARTIN x4, CN II-XII grossly intact. * No focal neurologic deficits. PSYCHIATRY * Normal mood and affect, cooperative, no SI or HI or hallucinations. Discharge Plan Plan Patient Disposition: Home w/HOME HEALTH Disposition Comment: Home health for PT Care Plan Goals: Please follow-up with your Primary Care Physician within 1 week of discharge, please ask for labs for valley fever from hospital Please follow-up with GI Dr. Moore within 10 days of discharge for discussing biopsy result Please follow-up with Dr. Anton for reevaluation, possible continued thoracentesis. You have been started on: -Pantoprazole 40 Mg twice daily, please take this medicine 45 minutes to 1 hour before food -Carafate 1 g / 5 mL 4 times daily, please take this medicine 15 to 30 minutes before food -Maalox 15 mL 3 times daily after meals -Fluconazole 400 Mg daily Continue with all other medicines as prescribed Recommended to return back to emergency department if your symptoms persist or does not improve Prescriptions/Referrals Prescriptions/Med Rec: New levothyroxine 150 mcg Tablet 150 mcg PO ACBR 30 Days Qty: 30 0RF furosemide [Lasix] 40 mg tablet 40 mg PO QDAY 30 Days Qty: 30 0RF spironolactone 50 mg tablet 50 mg PO TID Qty: 90 0RF fluconazole 200 mg tablet 400 mg PO QDAY 30 Days Qty: 60 3RF alum-mag hydroxide-simeth [Mag-Al Plus] 200-200-20 mg/5 mL Suspension 15 ml PO TID Qty: 1800 0RF sucralfate 100 mg/mL Suspension 1 g PO QID Qty: 1000 2RF pantoprazole 40 mg tablet,delayed release (DR/EC) 40 mg PO QDAY Qty: 60 1RF Continued HYDROCODONE BITARTRATE/APAP (VICODIN 5/500) 1 TAB tablet 1 tab GT Q4-6HRPRN Qty: 1 Eliquis 5 mg Tablet 5 mg PO BID Referrals: Emery Moore MD [Physician] - Ted Anton MD [Primary Care Provider] - Patient/Caregiver Discharge Instructions Discharge Activity: activity as tolerated Education Materials: Esophageal Ulcer, Thoracentesis Dc, Upper GI Endoscopy, When You Have Pneumonia Print Language: French Stand Alone Forms: [employer] Award Info., Patient Portal Info Letter Discharge Order Discharge Orders: Discharge (Routine); Ordered 11/21/24 Ordered By: Lionel Porter Quality Discharge Quality Measures VTE prophylaxis
--- NOTE | 2024-11-21 21:53 | ESPR_ITS ---
Documentation for date of: 11/21/24 Subjective Subjective Interval history: Late entry for the note Case discussed with internal medicine team Hemoglobin hematocrit 7.7 and 24.3 Okay to discharge patient home on the current meds Exam Vital Signs Temp Pulse Resp BP Pulse Ox O2 Del Method O2 Flow Rate 97.1 F 64 23 H 111/58 L 92 L Nasal Cannula 2 11/21/24 12:00 11/21/24 12:11 11/21/24 12:00 11/21/24 12:00 11/21/24 12:00 11/21/24 12:00 11/21/24 12:00 Objective Labs 11/21/24 04:40 11/21/24 04:40 Labs: Laboratory Results - last 24 hr 11/21/24 04:40 WBC 8.9 RBC 3.03 L Hgb 7.7 L Hct 24.3 L MCV 80 MCH 25.4 MCHC 31.7 RDW Std Deviation 55.7 H Plt Count 265 D Neut % (Auto) 72 Lymph % (Auto) 5 L [place] % (Auto) 8 Eos % (Auto) 14 H Baso % (Auto) 1 Neut # (Auto) 6.4 Lymph # (Auto) 0.4 L [place] # (Auto) 0.7 Eos # (Auto) 1.3 H Baso # (Auto) 0.0 Immature Gran # (Auto) 0.07 H Absolute Nucleated RBC 0.00 Immature Gran % 1 H Nucleated RBC % 0 Sodium 135 L Potassium 4.1 Chloride 98 Carbon Dioxide 26.3 Anion Gap 11 BUN 19 Creatinine 1.0 Estim Creat Clear Calc 52.8 L eGFR 60 BUN/Creatinine Ratio 19 Glucose 95 Calculated Osmolality 272 L Calcium 8.4 Corrected Calcium 9.1 Phosphorus 3.6 Magnesium 1.8 Total Bilirubin 0.4 AST 15 ALT 14 Alkaline Phosphatase 185 H Total Protein 6.5 Albumin 3.1 L Globulin 3.4 Albumin/Globulin Ratio 0.9 L Impressions Impression: # Anastomotic site ulceration Okay to discharge patient home to be followed by the PCP ABG Interpretation ABG results: 11/14/24 13:16 ABG pH 7.47 H ABG pCO2 27 L ABG pO2 68 L ABG HCO3 20 ABG O2 Saturation 95 ABG Base Excess -3 Assessment & Plan A&P Narrative # Posthemorrhagic anemia Will schedule upper endoscopy with possible therapeutic intervention under intravenous moderate sedation which has been scheduled for tomorrow consent has been obtained # Chronic liver disease status post 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
--- NOTE | 2024-11-22 09:05 | PC.CM ---
Addendum entered by Brendan Paiz RN 11/22/24 09:12: [facility] accepted the pt. Booked [facility]. Pending start of care date. Original Note: No preference of HH agency per SS notes. HH referral sent on [facility]. Awaiting responses. Pending Start of care date.
--- NOTE | 2024-11-22 17:22 | PC.CM ---
Noemy KRAUSE sent message to [facility] for start of care date.
--- NOTE | 2024-11-23 12:40 | PC.CM ---
Patient was opened [facility] for resumption of care on 11/22.
== END 2024-11-21 14:45 | disposition home health service (06) | DRG 871 ==
LOC: SERX 17:11 → SERHOLD 18:59 → S3NX 20:43
PROVIDERS: Specialist; Student in an Organized Health Care Education/Training Program; Admitting Provider Student in an Organized Health Care Education/Training Program; Emergency Provider Emergency Medicine; PCP Family Medicine; Visit Provider Student in an Organized Health Care Education/Training Program
PROC: 0DB38ZX Excision of Lower Esophagus, Via Natural or Artificial Opening Endoscopic, Diagnostic (ICD-10-PCS; CPT 43239; principal; 2024-11-20 15:00)
DX: A41.9 Sepsis, unspecified organism (principal); I85.11 Secondary esophageal varices with bleeding; J18.9 Pneumonia, unspecified organism; J96.01 Acute respiratory failure with hypoxia; E87.1 Hypo-osmolality and hyponatremia; J91.8 Pleural effusion in other conditions classified elsewhere; R18.8 Other ascites; E87.3 Alkalosis; E86.9 Volume depletion, unspecified; K74.60 Unspecified cirrhosis of liver; E03.9 Hypothyroidism, unspecified; Z79.890 Hormone replacement therapy; K20.90 Esophagitis, unspecified without bleeding; Z86.718 Personal history of other venous thrombosis and embolism; D50.0 Iron deficiency anemia secondary to blood loss (chronic); K80.20 Calculus of gallbladder without cholecystitis without obstruction
CPT/HCPCS: 36415; 36600; 71045; 71275; 74177; 80053; 81001; 82150; 82270; 82803; 82945; 83615; 83735; 83880; 84100; 84157; 84443; 84484; 85025; 85379; 85610; 86635; 87040; 87070; 87075; 87086; 87205; 87400; 87811; 89051; 93005; 93225; 94640; 94664; 96365; 96366; 96367; 99285; A4649; A9270; C1729; J0131; J0456; J0696; J1200; J1885; J1940; J2250; J2270; J2354; J2405; J2470; J3010; J7030; J7050; Q9967

== ENCOUNTER → 2024-12-13 | Outpatient (CLI) | payer MEDICARE, BC, SELFPAY ==
[2024-12-13 17:02] LABS: Collection Type, Urine Clean Catch
[2024-12-13 17:35] LABS: Basophils # (Auto) 0.1 Thou/mm3 (0.0-0.2); Basophils % (Auto) 2 % (0-2.5); Eosinophils # (Auto) 0.4 Thou/mm3 (0.0-0.5); Eosinophils % (Auto) 9 % (0-10); Hematocrit 30.9 % (36.0-46.0); Hemoglobin 9.5 g/dL (12.0-16.0); Immature Granulocytes % (Auto) 0 % (0-0); Immature Granulocytes Auto 0.01 Thou/mm3 (0.00-0.00); Lymphocytes # (Auto) 0.6 Thou/mm3 (1.0-4.8); Lymphocytes % (Auto) 13 % (10-50); Mean Corpuscular HGB Conc 30.7 g/dl (31.0-37.0); Mean Corpuscular Hemoglobin 25.2 pg (25.0-35.0); Mean Corpuscular Volume 82 fL (80-100); Monocytes # (Auto) 0.5 Thou/mm3 (0.0-0.8); Monocytes % (Auto) 10 % (0-12); Neutrophils # (Auto) 3.2 Thou/mm3 (1.8-7.7); Neutrophils % (Auto) 66 % (37-80); Nucleated Red Blood Cell % 0 /100 WBC (0); Platelet Count 199 Thou/mm3 (140-440); RDW Standard Deviation 55.7 fL (36.4-46.3); Red Blood Count 3.77 Miln/mm3 (4.00-5.20); White Blood Count 4.8 Thou/mm3 (3.6-11.0)
[2024-12-13 17:49] LABS: Bilirubin,Urine Negative (Negative); Blood,Urine Negative (Negative); Clarity,Urine Clear (Clear/Hazy); Color,Urine Yellow (Lt Yel-Yel); Culture Indicated,Urine Not Indicated; Glucose, Urine Negative (Negative); Hyaline Casts,Urine < 1 /hpf (0-1); Ketones,Urine Negative (Negative); Leukocyte Esterase,Urine Negative (Negative); Nitrite,Urine Negative (Negative); Protein,Urine Negative (Neg - Trace); RBC,Urine < 1 /hpf (0-3); Specific Gravity,Urine 1.022 (1.001-1.035); Squamous Epithelial Cell,Urine < 1 /hpf (0-5); Urobilinogen,Urine Negative mg/dL (0.0-1.0); WBC,Urine 3 /hpf (0-5)
[2024-12-13 18:00] LABS: Sed Rate (ESR) 81 mm/hr (0-30)
[2024-12-13 18:09] LABS: Alanine Aminotransferase 19 U/L (10-49); Albumin, Serum 3.6 gm/dL (3.4-4.8); Alkaline Phosphatase 176 U/L (46-116); Anion Gap 11 (7-16); Aspartate Amino Transferase 23 U/L (0-34); BUN/Creatinine Ratio 25 Ratio (12-20); Bilirubin,Total 0.4 mg/dL (0.3-1.2); Blood Urea Nitrogen 28 mg/dL (9-23); Calcium 8.9 mg/dL (8.3-10.6); Calcium (Corrected) 9.2 mg/dL (8.5-10.1); Carbon Dioxide 27.9 mMol/L (20.0-31.0); Chloride 101 mMol/L (98-107); Creatinine (Component) 1.1 mg/dL (0.6-1.3); Globulin 3.7 gm/dL (2.3-3.5); Glucose 62 mg/dL (74-106); Osmolality,Calculated 282 (275-295); Potassium 4.1 mMol/L (3.4-5.1); Sodium 140 mMol/L (136-145); Total Protein 7.3 gm/dL (5.7-8.2); eGFR 53 See Note
[2024-12-14 12:02] LABS: Cocci Serology, IgM Positive (Negative)
[2024-12-14 12:03] LABS: Cocid Sro, CF/ID (UCD) NO CHG* See Sep Rpt
== END | disposition home or self-care (01) ==
LOC: SLDO 16:24
PROVIDERS: PCP Family Medicine; Referring Provider Family Medicine; Visit Provider Family Medicine
DX: J18.9 Pneumonia, unspecified organism (principal); K74.69 Other cirrhosis of liver; D64.9 Anemia, unspecified; I95.9 Hypotension, unspecified
CPT/HCPCS: 36415; 80053; 81001; 85025; 85652; 86635; 87086

== ENCOUNTER 2025-01-04 09:26 | Inpatient (IN) | payer MEDICARE, BC, SELFPAY ==
[2025-01-04] VITALS (9 sets, daily range): BP systolic 101–132; BP diastolic 70–92; PULSE 63–86; RESP 16–20; TEMP 36.3–36.6; O2SAT 94–100; BMI 22.6; BMI 21.2
--- NOTE | 2025-01-04 09:27 | PC.NURSE ---
PT BIB [facility] FOR NEAR SYNCOPE AND HYPOTENSION. PT WAS PLACED ON MONITOR AND EKG. PT HAS HISTORY OF SURGERY 2 WEEKS AGO FOR RENAL STENT. 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 PT FELL 2 WEEKS AGO WITH ANOTHER SYNCOPAL EPISODE AND HIT HEAD WITH LOC. PT HAS A CONTUSION TO FOREHEAD, RIGHT TEMPORAL, AND RIGHT POSTERIOR FOREARM HAS AN ABRASION FROM PREVIOUS FALL.
--- NOTE | 2025-01-04 10:16 | XR_ITS ---
Examination: AP chest single view Technique one AP portable upright chest single view Exam date and time: January 04, 2025 1023 hrs. Indications: Onset chest pain today Findings: Mild elevation left hemidiaphragm Normal heart size Mild interstitial scarring at the right lung base No lobar pneumonia or pulmonary edema Prominent osteopenia Impression: No pneumonia or pulmonary edema
--- NOTE | 2025-01-04 10:47 | PD.EDWEAK ---
ED Weakness RME/HPI General Chief complaint: Syncope / Near Syncope Stated complaint: SYNCOPE Time Seen by Provider: 01/04/25 10:15 Arrival date/time: 01/04/25 09:26 RME / HPI RME / HPI Narrative: 74 year old female with history of bariatric surgery 20 years ago, hepatic vein thrombosis, s/p stenting of hepatic/splenic vein, frequent paracentesis/thoracentesis presents to the ED BIBA from home for evaluation of global weakness. Accompanied by syncopal episodes that occur shortly after standing from a sitting position. States she last fell 5 days ago. Reports history of postural hypotension and is followed by PCP Dr. Anton. Patient additionally reports weight loss, unable to specify amount lost, stating food is not appetizing . Denies chest pain, cough, shortness of breath, abdominal pain, vomiting, diarrhea, or urinary symptoms. Related Data Home Medications ?Medication ?Instructions ?Recorded ?Confirmed HYDROCODONE BITARTRATE/APAP 1 tab GT Q4-6HRPRN ##1 08/23/10 01/04/25 (VICODIN 5/500) apixaban 5 mg tablet (Eliquis) 5 mg PO BID 11/14/24 01/04/25 SLOW FE See Rx Instructions .Route .COMPLEX 01/04/25 01/04/25 levothyroxine 150 mcg tablet 150 mcg PO QDAY 01/04/25 01/04/25 midodrine 5 mg tablet 5 mg PO TID 01/04/25 01/04/25 spironolactone 50 mg tablet 25 mg PO .COMPLEX 01/04/25 01/04/25 Previous Rx's ?Medication ?Instructions ?Recorded aluminum-mag hydroxide-simethicone 15 ml PO TID #1,800 mL 11/20/24 200 mg-200 mg-20 mg/5 mL oral susp (Mag-Al Plus) fluconazole 200 mg tablet 400 mg (2 x 200 mg) PO QDAY 30 11/20/24 days #60 tabs pantoprazole 40 mg tablet,delayed 40 mg PO QDAY #60 tabs 11/20/24 release sucralfate 100 mg/mL oral 1 g (10 mL) PO QID #1,000 mL 11/20/24 suspension Allergies Allergy/AdvReac Type Severity Reaction Status Date / Time Sulfa (Sulfonamide Allergy Intermediate Rash Verified 01/04/25 09:33 Antibiotics) Iodinated Contrast Media Allergy Verified 01/04/25 09:33 Review of Systems Review of Systems Narrative Review of Systems: Constitutional: DENIES; Fevers Eyes: DENIES; Loss of vision Head/Ear/Nose: DENIES; Loss of hearing Throat: DENIES; Dysphagia Cardiovascular: SEE HPI +syncope. DENIES; Chest pain, dyspnea Respiratory: DENIES; Shortness of breath Gastrointestinal: DENIES; Rectal bleeding or melena. Genitourinary: DENIES; Dysuria (painful or difficult urination) Musculoskeletal: DENIES; Arthralgia (pain in a joint),; Skin: DENIES; Rash Neurological: SEE HPI +global weakness. DENIES; Loss of function or movement Psychiatric: DENIES; recent major life stressor, emotional problem, illicit drug use or abuse Endocrinology: SEE HPI +weight loss. Hematologic/Lymphatic: DENIES; Abnormal bruising Allergic/Immunologic: DENIES; Urticaria (hives) Past Medical History Past Medical History NEUROLOGIC: Negative Neurological Disorders or Seizures CARDIAC: Negative Cardiac Disorders or Congestive Heart Failure RESPIRATORY: Positive Respiratory Disorders (+ [facility] ( [facility]) 11/2024) and Pneumonia; Negative Chronic Obstructive Pulmonary Disease (COPD) or Asthma GASTROINTESTINAL: Positive Gastrointestinal Disorders (Possible cirrhosis.) GENITOURINARY: Positive Genitourinary Disorders (RENAL STENT IN RENAL VEIN); Negative Renal Disease MUSCULOSKELETAL: Negative Musculoskeletal Disorders ENT: Negative Cataracts ENDOCRINE: Positive Endocrine Disorders and Hypothyroidism; Negative Diabetes Mellitus Type 1 or Diabetes Mellitus Type 2 HEMATOLOGIC: Positive Blood Disorders and Anemia; Negative Sickle Cell Disease PSYCHO/SOCIAL: Positive Depression and Anxiety OTHER HISTORY: Positive Blood Transfusion Reaction; Negative Blood Transfusions or Anesthesia Reactions Surgical History SURGICAL: Positive Abdominal Surgery and Gastric Bypass Surgery Social History SMOKING STATUS: Never smoker ED Exam Narrative Physical exam: Physical Exam: General: The vital signs were reviewed. Cachectic looking patient's blood pressure is 116 lying flat and sits up with drops to 95 on the gurney. The patient is non-toxic, in no apparent distress and appears healthy with a patent airway, no respiratory distress and has no apparent circulatory problems. Head & Scalp: Normocephalic, atraumatic. Face: Appears normal and is without lesions, deformity. Ears: Left external pinna appears normal. Right external pinna appears normal. Eyes: The sclera is anicteric. No obvious photophobia. The Left and Right Orbit/Lid/Conjunctiva appears normal without swelling, discoloration or injection. Nose: The nose is without deformity, discharge or tenderness; Throat: Appears normal. The mucous membranes are pink and moist without exudates, redness or mass seen. The tongue appears normal. Neck: The neck is supple and no apparent mass or adenopathy. Chest: The chest wall is normal in size and symmetry and has no chest wall tenderness or crepitus. The patient displays normal ventilator effort without retractions, accessory muscle use and has adequate air movement bilaterally with no wheezes and no rales. Cardiovascular: Regular rate and rhythm; No murmurs, rubs, or gallops; Gastrointestinal: The abdomen appears normal. No obvious hernias or mass. The abdomen is soft and benign, non-distended, with no pain, no guarding and no rebound tenderness. Bowel sounds are present and normal sounding. No CVA tenderness. Genitourinary: Back/Spine: Thin nontender Extremities/Musculoskeletal/lymphatic: The bilateral upper and lower extremities are warm. There is no evidence of arterial insufficiency. There is no evidence of venous insufficiency/edema. The patient spontaneously moves bilateral upper and lower extremities with no pain and no limitation of movement. There is no apparent, injury or trauma. Skin: The skin is warm, dry and intact. No rashes. No petechia. No purpura. No abnormal bruising. The color is appropriate with no cyanosis. Mental status/Psychiatric: Mental status is appropriate for age. The patient has no apparent delusions, visual hallucinations, no apparent audible hallucinations. The patient has no apparent suicidal thoughts/ideation and no apparent homicidal thoughts/ideation. Neurological: The patient is awake, alert, interactive, cordial, cooperative and is oriented to name and situation. The patient follows commands and answers historical question with no impairment. There is no visual disturbance apparent. The pupils are equal and reactive bilaterally with normal eye movements and no diplopia The bilateral upper and lower extremities have normal strength, normal range of motion and normal functioning. The gait, station and balance appear to be baseline with no acute change Course Quality Measures none Orders Category Date Time Status EKG (ED ONLY) *Do not use* NOW Care 01/04/25 10:16 Completed In and Out Catheter X1 Care 01/04/25 12:[address] chest abdomen pelvis wo Stat Exams 01/04/25 16:23 Completed EKG (ED Only) Stat Exams 01/04/25 10:16 Ordered XR chest 1V portable Stat Exams 01/04/25 10:16 Completed B-Type Natriuretic Peptide Stat Lab 01/04/25 10:50 Completed Blood Culture (Lab) Stat Lab 01/04/25 10:50 Received CBC Stat Lab 01/04/25 10:50 Results Comprehensive Metabolic Panel Stat Lab 01/04/25 10:50 Completed Drug Screen,Urine Stat Lab 01/04/25 12:47 Completed Lactate (Lactic Acid) Stat Lab 01/04/25 10:50 Completed Lipase Stat Lab 01/04/25 10:50 Completed Magnesium Stat Lab 01/04/25 10:50 Completed Path Review Blood Smear Stat Lab 01/04/25 10:50 Results Troponin I Stat Lab 01/04/25 10:50 Completed Urinalysis Stat Lab 01/04/25 12:47 Completed Urinalysis, C/S if Indicated Stat Lab 01/04/25 12:47 Completed Venous Blood Gas Stat Lab 01/04/25 10:50 Completed Aspirin Med 01/04/25 10:15 Discontinued 325 mg PO X1 ONE Ringers Lactated 1000 ml [Lactated Ringers] 1,000 ml Med 01/04/25 16:04 Discontinued IV 999 mls/hr Sodium Chloride 0.9% 1000 ml [Ns] 1,000 ml Med 01/04/25 16:04 Discontinued IV 150 mls/hr Vital Signs Vital signs: Vital Signs Temperature 97.7 F 01/04/25 09:37 Pulse Rate 69 01/04/25 09:37 Respiratory Rate 20 01/04/25 09:37 Blood Pressure 123/89 H 01/04/25 09:37 Pulse Oximetry (%) 100 01/04/25 09:37 Oxygen Delivery Method Room Air 01/04/25 09:37 Pulse ox is 100% on room air which is adequate. Weakness MDM Narrative MDM Narrative:: IJaci am scribing for and in the presence of Dr. Vitale. Patient is a 74-year-old comes in with episode of slumping over and weakness and on arrival she states she has history of postural hypotension unfortunately patient been losing weight for the last 6 months 30 pounds and appears cachectic. The etiology this is unclear. Should be noted that this patient has a complex history with some complication of bariatric surgery 25 years ago in [place] with Dr. Bradley. Evidently there was some complication and they were concerned about cirrhosis. But evidently they consider doing a TIPS procedure but found that the pressures were equalized in the portal vein thrombosis which they believed was present was minimal or not a serious issue. Patient has also recently found to have a small pleural effusion that was worked up and then was started on diuretics. Etiology of this is unclear. Extensive review of the chart and the labs reveals no explanation for her cachexia weight loss white count came back at 6.7 hemoglobin 11.4 platelet count is 168,000. VBG pH of 7.57 pCO2 of 24 consistent with a respiratory alkalosis. Sodium 133 potassium 4.4 chloride 94 BUN is acutely elevated at 74 and was normal to 3 weeks ago. Creatinine is acutely elevated at 2.4 and was 1.12 weeks ago. Calcium is elevated 13.0 was normal to 3 weeks ago. Magnesium is 2.7 today. Lipase is 61 urinalysis is got 6 white cells otherwise negative urine drug screen came back negative. Chest x-ray has no acute finding. There is no mass lesion seen. There are some COPD looking changes with no evidence of effusion at this time there is no pneumonia or infiltrate seen. This was read by myself. Dr Taylor was called and will be consulting. Hospitalist was contacted and they will be admitting for hypercalcemia. Patient data External records reviewed:: [facility] previous records (I reviewed admission from 11/14/2024 through 11/22/2024 for AHRF secondary to sepsis pneumonia and right pleural effusion. ) and EMS form Clinical information provided by:: patient Social determinants that could affect healthcare access:: none Patient has the following chronic illnesses:: hepatic vein thrombosis, s/p stenting of hepatic/splenic vein, frequent paracentesis/thoracentesis How is presenting disease/condition affected by chronic disease/condition?: exacerbated by Evaluation data The following diagnostics were reviewed and interpreted by me:: lab results, radiology exam(s) and EKG tracing(s) (Sinus rhythm, rate right bundle branch block, rate 66, no STEMI ) Lab and/or radiology exams considered but not ordered:: None Interpretation Summary: Ordering Physician: Giovany Vitale MD Date of Service: 01/04/25 Procedure(s): XR chest 1V portable Accession Number(s): [id number] cc: Giovany Vitale MD; Meño Cortes MD~ Examination: AP chest single view Technique one AP portable upright chest single view Exam date and time: January 04, 2025 1023 hrs. Indications: Onset chest pain today Findings: Mild elevation left hemidiaphragm Normal heart size Mild interstitial scarring at the right lung base No lobar pneumonia or pulmonary edema Prominent osteopenia Impression: No pneumonia or pulmonary edema Dictated By: Meño Cortes MD Signed By: <Electronically signed by Meño Cortes MD in OV> 01/04/25 1045 Medications / Prescriptions Medications or Prescriptions considered but not ordered:: None Medication administrations:: Medication Administration History Al Hydrox/Mg Hydrox/Simethicone (Mg Hyd/Al Hyd/Eryn (Maalox Reg) Susp 30 Ml Udc) 15 ml PO TID YOAN Stop: 02/03/25 21:59 Apixaban (Apixaban 2.5 Mg Tablet) 5 mg PO BID YOAN Stop: 01/25/25 20:59 Fluconazole (Fluconazole 100 Mg Tablet) 400 mg PO QDAY YOAN Stop: 01/11/25 18:29 Sodium Chloride (Ns) 1,000 mls @ 100 mls/hr IV .Q10H YOAN Stop: 01/05/25 14:53 Levothyroxine Sodium 125 mcg/ (Levothyroxine Sodium 25 mcg) 150 mcg PO ACBR YOAN Stop: 02/04/25 05:59 Megestrol Acetate (Megestrol Acet Susp 400 Mg/10 Ml Udc) 200 mg PO BID YOAN Stop: 02/03/25 20:59 Midodrine (Midodrine 5 Mg Tablet) 5 mg PO TID YOAN Stop: 02/03/25 21:59 Ondansetron HCl (Ondansetron Inj 2 Mg/Ml Inj 2 Ml) 4 mg IV Q6H PRN; Protocol PRN Reason: NAUSEA OR VOMITING Stop: 02/03/25 18:10 Pantoprazole Sodium (Pantoprazole Inj 40 Mg Vial) 40 mg IVP QDAY YOAN Stop: 02/03/25 18:14 Last Admin: 01/04/25 18:34 Dose: 40 mg Documented By: [facility] Discontinued Medications Aspirin (Aspirin 325 Mg Tablet) 325 mg PO X1 ONE Stop: 01/04/25 10:16 Last Admin: 01/04/25 12:05 Dose: Not Given Documented By: KDTarah Non-Admin Reason: Cancelled by Provider Lactated Ringer's (Lactated Ringers) 1,000 mls @ 999 mls/hr IV .Q1H1M ONE Stop: 01/04/25 17:04 Last Infusion: 01/04/25 18:14 Dose: Infused Documented By: Admin: 01/04/25 16:15 Dose: 999 mls/hr Documented By: BD Sodium Chloride (Ns) 1,000 mls @ 150 mls/hr IV .Q6H40M ONE Stop: 01/04/25 22:43 Last Admin: 01/04/25 18:14 Dose: 150 mls/hr Documented By: [facility] Sodium Chloride (Ns) 1,000 mls @ 75 mls/hr IV .[id number] YOAN Stop: 01/05/25 20:54 See above Consultations Consultation(s) initiated? (list below): Yes Consultation #1 (Physician, Specialty, Details): I spoke with utilization review specialist Dr. Taylor. Discussed patients PMHx, HPI, ED course, exam findings, labs, results. She agrees to consult. Time: 15:45 Consultation #2 (Physician, Specialty, Details): I spoke with resident Dr. King working with Dr. Robles. Discussed patients PMHx, HPI, ED course, exam findings, labs, and radiology results. The hospitalist agree to accept the patient for admission. Diagnosis Weakness Differential Diagnosis: acute myocardial infarction, anemia, hypoglycemia, hypothyroidism, sepsis and dehydration Most likely diagnosis given after review of the tests above:: Hypercalcemia Abnormal weight loss Cachexia Postural hypotension Admission Indicated Admission indicated?: indicated Admission Request Was there a request for admission?: Yes Admission Attestation Admission request attestation: Discussed case with [] from Hospitalist service regarding admission. Discussed patients ED course, exam findings, labs, and radiology results. The Hospitalist [agrees,declines] to accept the patient for admission. Disposition Plan Disposition Plan: Admit Critical Care Time Critical Care Time Critical Care Time: Yes Total Critical Care Time (min.): 50 Attestation: The high probability of sudden, clinically significant deterioration in the patient's condition required the highest level of my preparedness to intervene urgently. The services I provided to this patient were to treat and/or prevent clinically significant deterioration. Services included the following: chart data review, reviewing nursing notes and/or old charts, documentation time, internal consultant collaboration regarding findings and treatment options, medication orders and management, direct patient care, vital sign assessments and ordering, interpreting and reviewing diagnostic studies and lab tests. Aggregate critical care time includes only time during which I was engaged in work directly related to the patient's care, as described above, whether at bedside or elsewhere in the Emergency Department. It did not include time spent performing other reported procedures or the services of residents, students, nurses or physician assistants. Discharge Plan Plan Patient Disposition: Admit Acute Care w/in Hospital Disposition Comment: Hospitalist admit Dr Taylor to consult Problem List Clinical Impression: Hypercalcemia, Abnormal weight loss, Cachexia, Postural hypotension, Acute kidney injury, Acute dehydration
[2025-01-04 11:09] LABS: Basophils # (Auto) 0.1 Thou/mm3 (0.0-0.2); Basophils % (Auto) 1 % (0-2.5); Eosinophils # (Auto) 0.2 Thou/mm3 (0.0-0.5); Eosinophils % (Auto) 3 % (0-10); Hematocrit 34.9 % (36.0-46.0); Hemoglobin 11.4 g/dL (12.0-16.0); Immature Granulocytes % (Auto) 0 % (0-0); Immature Granulocytes Auto 0.02 Thou/mm3 (0.00-0.00); Lymphocytes # (Auto) 0.5 Thou/mm3 (1.0-4.8); Lymphocytes % (Auto) 7 % (10-50); Mean Corpuscular HGB Conc 32.7 g/dl (31.0-37.0); Mean Corpuscular Hemoglobin 26.1 pg (25.0-35.0); Mean Corpuscular Volume 80 fL (80-100); Monocytes # (Auto) 0.6 Thou/mm3 (0.0-0.8); Monocytes % (Auto) 9 % (0-12); Neutrophils # (Auto) 5.4 Thou/mm3 (1.8-7.7); Neutrophils % (Auto) 80 % (37-80); Nucleated Red Blood Cell % 0 /100 WBC (0); Platelet Count 168 Thou/mm3 (140-440); RDW Standard Deviation 50.9 fL (36.4-46.3); Red Blood Count 4.37 Miln/mm3 (4.00-5.20); White Blood Count 6.7 Thou/mm3 (3.6-11.0)
[2025-01-04 11:11] LABS: Lactate (Lactic Acid) 1.9 mMol/L (0.4-2.0)
[2025-01-04 11:53] LABS: B-Type Natriuretic Peptide 32 pg/mL (0-100)
[2025-01-04 12:08] LABS: Alanine Aminotransferase < 7 U/L (10-49); Albumin, Serum 4.6 gm/dL (3.4-4.8); Albumin/Globulin Ratio 1.1 (1.2-2.2); Alkaline Phosphatase 137 U/L (46-116); Anion Gap 15 (7-16); Aspartate Amino Transferase 19 U/L (0-34); BUN/Creatinine Ratio 31 Ratio (12-20); Bilirubin,Total 0.6 mg/dL (0.3-1.2); Blood Urea Nitrogen 74 mg/dL (9-23); Carbon Dioxide 24.2 mMol/L (20.0-31.0); Chloride 94 mMol/L (98-107); Creatinine (Component) 2.4 mg/dL (0.6-1.3); Estimated Creatinine Clearance 19.8 mL/min (>60); Globulin 4.1 gm/dL (2.3-3.5); Glucose 123 mg/dL (74-106); Lipase 61 U/L (12-53); Magnesium 2.7 mg/dL (1.6-2.6); Osmolality,Calculated 289 (275-295); Potassium 4.4 mMol/L (3.4-5.1); Sodium 133 mMol/L (136-145); Total Protein 8.7 gm/dL (5.7-8.2); Troponin I < 0.020 ng/mL (0.0-0.045); eGFR 21 See Note
--- NOTE | 2025-01-04 12:35 | PC.NURSE ---
AT BEDSIDE AND PROVIDED MEDICATION HE STATED HES CONCERNED THE LAST TIMES SHE HAD A SYNCOPE EPISODE WAS NOT USUAL HE STATED THAT HER BACK ARCHED AND THAT HER HANDS STIFFENED AND WENT TO SIDE WHAT HE FEELS AND LOOKS LIKE A SEIZURE.
--- NOTE | 2025-01-04 12:40 | PC.LAC ---
NOTIFIED DR. TOBIAS OF CONCERN THAT HER LAST SYNCOPE EPISODES HE STATED LOOKED A SEIZURE
[2025-01-04 12:50] LABS: Collection Type, Urine Clean Catch; Squamous Epithelial Cell,Urine 0 /hpf (0-5)
[2025-01-04 13:01] LABS: Bacteria,Urine Rare; Bilirubin,Urine Negative (Negative); Blood,Urine Negative (Negative); Clarity,Urine Clear (Clear/Hazy); Color,Urine Yellow (Lt Yel-Yel); Culture Indicated,Urine Not Indicated; Glucose, Urine Negative (Negative); Hyaline Casts,Urine < 1 /hpf (0-1); Ketones,Urine 1+ (Negative); Leukocyte Esterase,Urine Negative (Negative); Nitrite,Urine Negative (Negative); Protein,Urine Trace (Neg - Trace); RBC,Urine 1 /hpf (0-3); Specific Gravity,Urine 1.022 (1.001-1.035); Urobilinogen,Urine Negative mg/dL (0.0-1.0); WBC,Urine 6 /hpf (0-5)
[2025-01-04 13:04] LABS: Amphetamine/Methamp Scrn,U Negative (Negative); Barbiturate Screen,Urine Negative (Negative); Benzodiazepines Screen,Urine Negative (Negative); Benzoylecgonine Screen, Ur Negative (Negative); Fentanyl Screen,Urine Negative (Negative); Opiate Screen,Urine Negative (Negative); THC Screen,Urine Negative (Negative)
[2025-01-04 13:41] LABS: Base Excess, Venous 1 (-3-3); O2 Saturation, Venous 79 % (96-97); PCO2, Venous 24 mmHg (36-56); PO2, Venous 46 mmHg (15-58); pH, Venous 7.57 (7.33-7.66)
--- NOTE | 2025-01-04 15:54 | PC.NURSE ---
PT FULLY AWAKE AND ORIENTED
[2025-01-04] MEDS: RINGERS LACTATED 1000 ML 1,000 ML 999 ML IV (16:15)
--- NOTE | 2025-01-04 16:23 | XR_ITS ---
Examination: CT chest, without intravenous contrast. CT abdomen, without intravenous contrast. CT pelvis, without intravenous contrast. 2-D sagittal and coronal reconstructions. 3-D reconstructions. Date and time of exam:January 04, 2025 1630 hrs. Indications: Weight loss hypercalcemia, 40 pound weight loss in 5 months CTDI vol (mgy) 6.40 DLP (MGycm)167 Technique: Multiple CT images, 3.0 mm slice thickness, obtained chest, abdomen, pelvis, with the high-resolution 64 slice scanner.. Sagittal and coronal 2-D reconstructions are obtained. 3-D reconstructions Low dose protocols were performed. One or more of the following dose reduction techniques were used; automated exposure control, adjustment of the mA and/or KV according to patient size, use of iterative reconstruction technique. Findings: AP dimension ascending thoracic aorta 3.3 cm Pulmonary artery segments are not enlarged No paratracheal tracheobronchial or bronchopulmonary adenopathy 4 mm pulmonary nodule right upper lobe image 113 2 mm pulmonary nodule left lower lobe image 179 Dilated bronchi with parenchymal disease in the lateral right lung for instance image 218 5 mm pleural-based nodule right lower lobe image 237 2 mm pulmonary nodule right lower lobe image 2 7 Liver irregular in contour, multiple opacities in the liver unclear etiology Splenomegaly, 13 cm AP dimension Gastric sutures Multiple gallstones No pancreatic mass Splenic vascular stent No hydronephrosis 22 mm fat-containing umbilical hernia defect No bowel obstruction Diffuse wall thickening involving the colon No diverticulitis Abundant stool in the rectosigmoid Prominent thickening of the contracted urinary bladder wall, at least 11 mm Severe osteopenia with advanced disc narrowing L5-S1 Impression: Pulmonary nodular infectious disease in the right lung and bilateral subcentimeter pulmonary nodules, all of which may be infectious, follow-up imaging suggested Primary hepatocellular disease No splenomegaly Cholelithiasis Nonspecific diffuse colitis pattern Thickening of urinary bladder wall, differential would include cystitis
--- NOTE | 2025-01-04 16:23 | PC.NURSE ---
NOTIFIED DR. TOBIAS THAT PT STATED SHE IS ALLERGIC TO CONTRAST. HE WILL CANCEL CT WITH CONTRAST
--- NOTE | 2025-01-04 16:57 | PC.CC ---
Patient is a 74 year-old female who presents to the hospital for Syncope. Noemy KRAUSE made [id number] contact with patient. ASW introduced self, role, and reason for visit. Patient appeared alert and oriented to self, location, and situation. Patient was pleasant and engaged in initial assessment. Patient confirmed information on demographics and reports to living at home with her , Kishore Headley . Patient reports that should something happen to her her medical decision maker would be her . At home patient has been using a walker for the past 5 days as she is struggling with ambulation. Patient needs assistance with completing her ADLs. Patient's has been assisting with ADLs. Patient receives primary care with Ted Anton and her pharmacy of choice is [facility]. Upon discharge the patient plans to return back home. management services technician to follow up with any discharge needs.
--- NOTE | 2025-01-04 17:24 | ESHP_ITS ---
<Statement entered by Keron King MD - 01/05/25 08:58> Senior Resident Attestation: I supervised/discussed management plan with grad intern physician Dr. Alanis, and was involved in the care of this patient. I personally saw and examined the patient and discussed the assessment and plan with the entire medicine team, including my attending. I agree with the assessment and plan as documented. Patient is a 74 years old female with history of cirrhosis, hepatic vein stenting and multiple paracenthesis was admitted due to syncope and near syncope episodes work up. Patient's care was discussed with attending physician, Dr. Robles. Keron King MD PGY-2. Documentation for date of: 01/04/25 HPI History of Present Illness History of present illness: Alma Rosa is a 74 y/o female with PMHx liver cirrhosis?, Hepatic vein thrombosis, s/p stenting of hepatic/splenic vein with recurrent stent failure, frequent paracentesis/thoracentesis, on LASIX who comes in for an evaluation of syncope and generalized weakness that has been going on for about a month since her last discharge in early November. She reports stop since her last discharge in November she has been feeling weak and has been trouble getting up without passing out. She says that she has a history of orthostatic hypotension and has been trying to get up slowly using midodrine as needed. She says that she uses a walker as well. She endorses a 40 pound weight loss within the past 5 months. She says she is passed out several times within the past month. She also says that she hit her head couple of days ago when trying to get up from the restroom. She says prior to arrival she had a syncopal episode but not fall or hit her head. She endorses poor oral intake for a while now and says that she does not crave any food. She says she tries to drink a lot of liquids, and drink protein shakes but does not crave to eat food. She has no chest pain, NVD, shortness of breath at this time. No other complaints at this time. ED Course: She arrived to the ED and normotensive was, afebrile and unremarkable vitals. She was worked up and was found to have a white count of 6.7, hemoglobin 9.4, sodium 133, potassium 4.4, chloride 94, bicarb of 24, BUN/creatinine of 74 2.4, glucose of 123, lactate of 1.9, calcium of 13, magnesium 2.7, lipase 61. Urinalysis was done and was unremarkable. U tox is negative. She was given a 2 L bolus, medicine was consulted and patient was admitted to floors PMHx: As above Surgical Hx: Bariatric surgery in [place] 27 y/o ago, Hepatic stent and splenic stent Allergies: Sulfa and Iodine Meds: Protonix 40 mg, Eliquis 5 mg twice daily, midodrine 5 mg 3 times daily, Synthroid 150 mcg daily, Lasix 40 mg once a day, Diflucan 200 mg twice a day, spironolactone 25 mg 3 times a day, Carafate 1 g 4 times a day, Slow Fe 45 mg Family Hx: Brother of prostate cancer at 75 years old, dad of a heart attack at 65 year old, mother lived until 99 years old Social Hx: Lives in [place], moved to [place]. 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 Has never been a heavy drinker, no smoking history, no history of drug use. Tries to eat all her most meals at home, however does not eat much nowadays. Lives with her in [place] and he takes care of her. Review of Systems Review of Systems Narrative Review of Systems: Constitutional: No fever, chills, + fatigue, + weakness, + weight loss HEENT: No eye pain, vision loss, ear pain, hearing loss, dysphagia, Cardiovascular: No chest pain, palpitations, edema, pain with walking Respiratory: No cough, shortness of breath, wheezing GI: No NVD, abdominal pain, constipation, blood in stool, loss of appetite, heartburn Extremities: No presence of pitting edema MSK: No back pain, joint pain, joint swelling Neuro: No dizziness, numbness, weakness, headaches, seizures, tremors, +syncope Psych: No anxiety, depression Exam Vital Signs Temp Pulse Resp BP Pulse Ox O2 Del Method 97.7 F 73 18 122/74 100 Room Air 01/04/25 16:13 01/04/25 16:13 01/04/25 16:13 01/04/25 16:13 01/04/25 16:13 01/04/25 16:13 Narrative Exam General: AAOx3, frail elderly woman, is covered in blankets, appears to be weak, looks older than she is, little musculature, her voice is not that strong HEENT: Alopecia and hair thinning diffusely, dry mucous membranes, conjunctiva clear, EOMI, PERRLA, clavicles present pronouncedly as patient has little muscle Cardiovascular: S1, S2, radial pulses +2 bilat, RRR, Pulmonary: CTAB bilat no cough, no wheezing GI: No tenderness to light or deep palpitation, no guarding, rigidity, rebound tenderness or distension Extremities: No presence of trace or pitting edema in lower extremities bilaterally, dorsalis pedis pulses +2 bilaterally Neuro: AAOx3, no focal motor or sensory deficits in the UE or LE bilat Psych: Cooperative. Results: Labs 01/05/25 04:41 01/05/25 04:41 Labs: Short CBC 01/04/25 Range/Units 10:50 WBC 6.7 (3.6-11.0) Thou/mm3 Hgb 11.4 L (12.0-16.0) g/dL Hct 34.9 L (36.0-46.0) % Plt Count 168 D (140-440) Thou/mm3 BMP 01/04/25 10:50 Sodium 133 L Potassium 4.4 Chloride 94 L Carbon Dioxide 24.2 BUN 74 H Creatinine 2.4 H Glucose 123 H Calcium 13.0 H* Cardiac Enzymes 01/04/25 Range/Units 10:50 Troponin I < 0.020 (0.0-0.045) ng/mL Liver Function 01/04/25 Range/Units 10:50 Total Bilirubin 0.6 (0.3-1.2) mg/dL AST 19 (0-34) U/L ALT < 7 L (10-49) U/L Alkaline Phosphatase 137 H (46-116) U/L Albumin 4.6 (3.4-4.8) gm/dL Urine 01/04/25 Range/Units 12:47 Urine Color Yellow (Lt Yel-Yel) Urine Clarity Clear (Clear/Hazy) Urine pH 5.0 (5.0-7.0) Ur Specific [place] 1.022 (1.001-1.035) Urine Protein Trace (Neg - Trace) Urine Glucose (UA) Negative (Negative) ABG Interpretation ABG results: 01/04/25 10:50 VBG pH 7.57 VBG pCO2 24 L VBG pO2 46 VBG Base Excess 1 Quality Measures Quality Measures none Advance care planning discussed with:: patient and spouse Medications Home Medications and Allergies Home Medications ?Medication ?Instructions ?Recorded ?Confirmed ?Type HYDROCODONE BITARTRATE/APAP 1 tab GT Q4-6HRPRN ##1 23/0801/04/25 History (VICODIN 5/500) apixaban 5 mg tablet (Eliquis) 5 mg PO BID 11/14/24 History SLOW FE See Rx Instructions .Route . COMPLEX 01/04/25 01/04/25 History levothyroxine 150 mcg tablet 150 mcg PO QDAY 01/04/25 01/04/25 History midodrine 5 mg tablet 5 mg PO TID 01/04/25 5 History spironolactone 50 mg tablet 25 mg PO .COMPLEX 01/04/25 01/04/25 History Allergies Allergy/AdvReac Type Severity Reaction Status Date / Time Sulfa (Sulfonamide Allergy Intermediate Rash Verified 01/04/25 09:33 Antibiotics) Iodinated Contrast Media Allergy Verified 01/04/25 09:33 Visit Medications Sodium Chloride (Ns) 1,000 mls @ 150 mls/hr IV .Q6H40M ONE Stop: 01/04/25 22:43 Discontinued Medications Aspirin (Aspirin 325 Mg Tablet) 325 mg PO X1 ONE Stop: 01/04/25 10:16 Last Admin: 01/04/25 12:05 Dose: Not Given Lactated Ringer's (Lactated Ringers) 1,000 mls @ 999 mls/hr IV .Q1H1M ONE Stop: 01/04/25 17:04 Last Admin: 01/04/25 16:15 Dose: 999 mls/hr Assessment & Plan Plan Assessment Alma Rosa is a 74 y/o female with PMHx liver cirrhosis?, Hepatic vein thrombosis, 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 #Syncope #History of orthostatic hypotension #Generalized weakness #Failure to thrive Patient reports she has been having syncopal episodes mainly with getting up Endorses a history of orthostatic hypotension Takes midodrine for this Patient has lost over 40 pounds within the past 5 months Patient has very poor oral intake Syncope likely related to poor oral intake and orthostatic hypotension Plan: ? Referral to registered dietitian ? Referral to physical therapy ? NS maintenance fluids ? Megace ? Midodrine 5 mg 3 times daily ? Orthostatics #TIAN #Hypercalcemia Likely prerenal Patient endorses very poor oral intake and no desire to eat Patient has lost a lot of weight roughly 40 pounds in the past 5 months At this point we need to rule out possible malignancy causes for hypercalcemia Given bolus in ED Plan: ? Continue with normal saline 100 cc an hour ? Avoid nephrotoxic agents ? Renally dose medicines ? 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 Resumed Diflucan for 400 mg daily #History of pulmonary mass, R lobe #History of pleural effusion Seen on chest CTA in November 2024 6 x 5.8 for dimensions This could be a culprit of hypercalcemia Will need to evaluate the pulmonary mass if still present or has enlarged Had thoracentesis on last admission and had 2000 cc removed Previous pleural effusion appears to be transudative in nature considering lights criteria Plan: ? CT CAP #History of hypothyroidism Chronic Plan: ? Resumed home Synthroid 150 mcg daily #History of liver cirrhosis #History of bariatric surgery #History of hepatic vein thrombosis status post failed hepatic and splenic vein stenting #History of recurrent paracentesis and thoracentesis Sees Dr. Preciado hepatology at [facility] Was apparently on liver transplant list at some point, however is not getting a liver transplant at this point Plan: ? Resumed home Eliquis 5 mg twice a day ? Will consider GI consult ? Registered dietitian referral #Normocytic anemia Unsure if patient is having iron deficiency or anemia of chronic disease Patient does have history of bariatric surgery and also has poor oral intake Anemia is multifactorial at this point and will require further workup Hemoglobin is 11.5 today, however baseline appears to be around 8 or 9, this number is elevated due to patient being dehydrated Plan: ? Trend CBC ? Follow-up peripheral blood smear #Health Maintenance Disposition: Med telemetry DVT prophylaxis: Eliquis GI prophylaxis: Protonix Diet: Regular CODE STATUS: Full Patient seen and care discussed with my senior resident, Dr. King , and my attending physician, Dr. Margaret Alanis, PGY-1 Attending Provider Attestation/Addendum I have discussed and was present for the essential components of the history, physical examination, diagnosis, and treatment plan with the resident. I agree with the patient's care as documented by the resident and amended herein by me. Philip Robles DO. Although this document has been carefully reviewed, there may still be some phonetic and other typographical errors. These errors are purely grammatical due to imperfections in the software program and should not be construed in any way to compromise the substance of the patient's medical care during this visit.
[2025-01-04] MEDS: SODIUM CHLORIDE 0.9% 1000 ML 1,000 ML 150 ML IV (18:14)
--- NOTE | 2025-01-04 18:20 | PC.NURSE ---
given juice to drink. pharmacy called for protonix
[2025-01-04] MEDS: PANTOPRAZOLE INJ 40 MG VIAL IVP (18:34)
--- NOTE | 2025-01-04 18:42 | PRELIM_ITS ---
CT scan of the chest, abdomen and pelvis without intravenous contrast (axial sections with sagittal and coronal reformats) January 04, 2025 at 1630 hours Clinical History: Weight loss, hypercalcemia. Comparison: No prior study is available for comparison. Findings: Few 2-3 mm nodular infiltrates noted in the right upper and lower lobe. Bronchiectatic changes along with subsegmental atelectasis noted in right lower lobe. There is no pleural effusion or pneumothorax. The aorta is unremarkable on this noncontrast study. No evidence of mediastinal mass or lymphadenopathy. There is no pericardial effusion. The liver, spleen, adrenals and kidneys are unremarkable on this noncontrast study. Few Small radio opacities noted in the liver.Multiple calculi are noted within the gallbladder, without evidence of gallbladder wall thickening or pericholecystic fluid. Splenic vein stent noted. Pancreas is atrophic. Postoperative changes noted in stomach. No evidence of bowel obstruction. The appendix is not definitively visualized; however, there is no evidence of inflammatory process in the right lower quadrant to suggest appendicitis. Diffuse circumferential wall thickening noted involving colon with wall thick ness measuring up to 5 mm. There is mild pericolonic fat stranding noted. The urinary bladder is unremarkable. There is no free fluid or free air. The osseous structures are unremarkable. Impression: 1. Findings are suggestive of colitis. Recommend clinical correlation. 2. Few 2-3 mm nodular infiltrates noted in right upper And lower lobe. Possibility of infectious etiology cannot be excluded. 3. Other findings as described above. Report Electronically Signed By: Terry Ham 01/04/2025 6:42:06 PM [EST]
[2025-01-04 18:56] LABS: Glucose Estimated Average 123 mg/dL (80-131); Hemoglobin A1C 5.9 % Hgb (4.8-6.0)
[2025-01-04 19:03] LABS: Parathyroid Hormone Intact 13.2 pg/ml (18.5-88.0)
[2025-01-04 19:04] LABS: Ammonia 13 uMol/L (11-32)
--- NOTE | 2025-01-04 19:19 | PD.NEPHCONS ---
History of Present Illness Data of Consult Consult date: 01/04/25 Requesting Physician: Dale Robles DO Primary Care Provider: Ted Anton MD Consult Narrative Reason for consult: TIAN, hypercalcemia History of present illness: Informant Ms. Headley is a 74 y/o lady who is a patient of Dr. 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 presented to the emergency department with significant weakness, syncopal episode. Patient stated since she got discharged a month ago she has been having trouble eating as she has no appetite, has been feeling extremely fatigued and tired with orthostatic hypotension-on midodrine as needed. She also stated because she is not able to eat anything lost 40 pounds in the last 6 months. Did fall few times in the last 1 month. In the emergency department blood sugar 143. Blood pressure 123/89, heart rate 86. WBC 6.7, hemoglobin 11.4, platelets 168. Sodium 133, potassium 4.4, BUN 74, creatinine 2.4, GFR 21, A1c 5.9, calcium 813, LFTs normal, albumin 4.6, globulin 4.1 urinalysis shows ketones. Urine protein/creatinine normal urine sodium 37.9 with a chloride less than 20. Urine tox screen negative. Chest x-ray negative. CT chest abdomen and pelvis showed pulmonary nodules (has history of valley fever), splenic vascular stent, cirrhosis, cystitis. Patient was given 2 L normal saline. Meds: Protonix 40 mg, Eliquis 5 mg twice daily, midodrine 5 mg 3 times daily, Synthroid 150 mcg daily, Lasix 40 mg once a day, Diflucan 200 mg twice a day, spironolactone 25 mg 3 times a day, Carafate 1 g 4 times a day, Slow Fe 45 mg Brother had heart attack. Patient had gastric bypass surgery 25 years ago. Admitted to medical team. Renal consultation requested for acute renal failure, hypercalcemia Spoke to primary team-will start workup for malignancy due to weight loss. cc:: cc: Dale Robles DO Review of Systems Review of Systems Narrative Review of Systems: CONSTITUTIONAL: Complaining of significant fatigue, weight loss HEENT: Denies any visual disturbances or hearing problems. CARDIOVASCULAR: Patient denies any chest pain, shortness of breath, swelling in the lower extremities. PULMONARY: Patient denies any shortness of breath, cough. GASTROINTESTINAL: Patient denies any abdominal pain, constipation, nausea, vomiting, diarrhea. Complaining of decreased appetite GENITOURINARY: Patient denies any urinary symptoms of burning or frequency or hematuria, denies any form in the urine. SKIN: Denies any rash. MUSCULOSKELETAL: Complaining of gait imbalance, frequent falls NEUROLOGICAL: Denies any neurological problems of strokes, seizures or confusion. Denies any memory problems. PSYCHIATRIC: Denies any depression or anxiety. LYMPHATICS : No lymphadenopathy Past Medical History Past Medical History NEUROLOGIC: Negative Neurological Disorders or Seizures CARDIAC: Negative Cardiac Disorders or Congestive Heart Failure RESPIRATORY: Positive Respiratory Disorders and Pneumonia; Negative Chronic Obstructive Pulmonary Disease (COPD) or Asthma GASTROINTESTINAL: Positive Gastrointestinal Disorders GENITOURINARY: Positive Genitourinary Disorders; Negative Renal Disease MUSCULOSKELETAL: Negative Musculoskeletal Disorders ENT: Negative Cataracts ENDOCRINE: Positive Endocrine Disorders and Hypothyroidism; Negative Diabetes Mellitus Type 1 or Diabetes Mellitus Type 2 HEMATOLOGIC: Positive Blood Disorders and Anemia; Negative Sickle Cell Disease PSYCHO/SOCIAL: Positive Depression and Anxiety OTHER HISTORY: Positive Blood Transfusion Reaction; Negative Blood Transfusions, Anesthesia Reactions or Cancer Surgical History SURGICAL: Positive Abdominal Surgery and Gastric Bypass Surgery Social History SMOKING STATUS: Never smoker SECOND HAND EXPOSURE: No Meds Home Medications and Allergies Home Medications ?Medication ?Instructions ?Recorded ?Confirmed ?Type HYDROCODONE BITARTRATE/APAP 1 tab GT Q4-6HRPRN ##1 08/23/10 01/04/25 History (VICODIN 5/500) apixaban 5 mg tablet (Eliquis) 5 mg PO BID 11/14/24 01/04/25 History SLOW FE See Rx Instructions .Route .COMPLEX 01/04/25 01/04/25 History levothyroxine 150 mcg tablet 150 mcg PO QDAY 01/04/25 01/04/25 History midodrine 5 mg tablet 5 mg PO TID 01/04/25 01/04/25 History spironolactone 50 mg tablet 25 mg PO .COMPLEX 01/04/25 01/04/25 History Allergies Allergy/AdvReac Type Severity Reaction Status Date / Time Sulfa (Sulfonamide Allergy Intermediate Rash Verified 01/04/25 09:33 Antibiotics) Iodinated Contrast Media Allergy Verified 01/04/25 09:33 Exam Vital Signs Temp Pulse Resp BP Pulse Ox O2 Del Method 36.3 C 86 18 121/72 94 L Room Air 01/04/25 20:26 01/04/25 21:40 01/04/25 20:26 01/04/25 21:40 01/04/25 20:26 01/04/25 20:26 Narrative Exam GENERAL APPEARANCE: Patient currently seen in emergency department. Sick looking. Seems to have lost weight. at bedside. Dry mucosa. NECK: Neck supple, no JVD or bruit CARDIOVASCULAR: Heart regular, no murmurs LUNGS/CHEST: Chest clear to auscultation. No rales, rhonchi, wheezing ABDOMEN: Soft, nontender, nondistended. No masses. Normal bowel sounds. Gastric bypass surgery. EXTREMITIES: No edema, clubbing or cyanosis. SKIN: Skin exam normal without any rashes MUSCULOSKELETAL: In bed NEUROLOGICAL : No neurological deficits. Alert and awake Results Labs 01/04/25 10:50 01/04/25 10:50 Labs: Short CBC 01/04/25 Range/Units 10:50 WBC 6.7 (3.6-11.0) Thou/mm3 Hgb 11.4 L (12.0-16.0) g/dL Hct 34.9 L (36.0-46.0) % Plt Count 168 D (140-440) Thou/mm3 BMP 01/04/25 10:50 Sodium 133 L Potassium 4.4 Chloride 94 L Carbon Dioxide 24.2 BUN 74 H Creatinine 2.4 H Glucose 123 H Calcium 13.0 H* Cardiac Enzymes 01/04/25 Range/Units 10:50 Troponin I < 0.020 (0.0-0.045) ng/mL Liver Function 01/04/25 Range/Units 10:50 Total Bilirubin 0.6 (0.3-1.2) mg/dL AST 19 (0-34) U/L ALT < 7 L (10-49) U/L Alkaline Phosphatase 137 H (46-116) U/L Albumin 4.6 (3.4-4.8) gm/dL Urine 01/04/25 Range/Units 12:47 Urine Color Yellow (Lt Yel-Yel) Urine Clarity Clear (Clear/Hazy) Urine pH 5.0 (5.0-7.0) Ur Specific [place] 1.022 (1.001-1.035) Urine Protein Trace (Neg - Trace) Urine Glucose (UA) Negative (Negative) ABG Interpretation ABG results: 01/04/25 10:50 VBG pH 7.57 VBG pCO2 24 L VBG pO2 46 VBG Base Excess 1 Assessment & Plan Assessment and plan (1) Acute kidney injury: Status: Acute Assessment and plan: Acute kidney injury secondary to prerenal azotemia. Patient's stated that she has not been eating or drinking for the last few days. Patient apparently lost more than 40 pounds in the last [address] abdomen showed no hydronephrosis. Hypercalcemia can cause a prerenal state from a polyuria. Continue with IV fluids with strict monitoring of urine output. (2) Acute dehydration: Status: Acute Assessment and plan: Patient clinically looks rather dehydrated. Continue with IV fluids (3) Hypercalcemia: Status: Acute Assessment and plan: Hypercalcemia of of 13.2 with a normal calcium 2 weeks ago. Suspect related to dehydration and immobilization. Intact PTH 13 which is appropriate suppression for hypercalcemia. CT chest showed nodules-suspect from the previous valley fever. CT abdomen and pelvis no malignancy except liver cirrhosis. Continue with IV fluids. (4) Abnormal weight loss: Status: Acute Assessment and plan: Malignancy workup pending. globulins are very high. Protein electrophoresis ordered. (5) Postural hypotension: Status: Acute Assessment and plan: Probably related to dehydration-rule out adrenal problem. No history of diabetes. Check TSH and cortisol levels. Patient on midodrine. Additional Assessment & Plan Additional Plan: Thank you Philip for allowing me to participate in the care of Ms. St
[2025-01-04 19:27] LABS: Carcinoembryonic Antigen 1.6 ng/mL (0.0-5.0)
[2025-01-04] MEDS: FLUCONAZOLE 100 MG TABLET 400 MG PO (20:22)
[2025-01-04] MEDS: APIXABAN 2.5 MG TABLET 5 MG PO (20:23)
[2025-01-04] MEDS: MEGESTROL ACET SUSP 400 MG/10 ML UDC 200 MG PO (20:23)
[2025-01-04] MEDS: MG HYD/AL HYD/SIME (Maalox Reg) SUSP 30 ML UDC 15 ML PO (21:30)
[2025-01-04 22:15] LABS: Chloride,Urine Random < 20.0 mMol/L (55.0-125.0); Creatinine,Random Urine 203 mg/dL (30-125); Potassium,Urine Random 55 mMol/L (12-62); Protein Total, Random Urine 30 mg/dL (1-14); Sodium,Urine Random 37.9 mMol/L (20.0-110.0)
[2025-01-05] VITALS (9 sets, daily range): BP systolic 109–137; BP diastolic 58–71; PULSE 60–69; RESP 16–20; TEMP 35.9–36.6; O2SAT 97–99; BMI 21.1; BMI 13.0
[2025-01-05] MEDS: SODIUM CHLORIDE 0.9% 1000 ML 1,000 ML 100 ML IV ×2 (03:22→14:15)
[2025-01-05] MEDS: MIDODRINE 5 MG TABLET PO (05:59)
[2025-01-05] MEDS: MG HYD/AL HYD/SIME (Maalox Reg) SUSP 30 ML UDC 15 ML PO ×3 (05:59→21:00)
[2025-01-05] MEDS: LEVOTHYROXINE SODIUM 125 MCG, LEVOTHYROXINE SODIUM 25 MCG 150 MCG PO (05:59)
[2025-01-05 06:58] LABS: Basophils % (Auto) 1 % (0-2.5); Eosinophils # (Auto) 0.2 Thou/mm3 (0.0-0.5); Eosinophils % (Auto) 6 % (0-10); Hematocrit 29.8 % (36.0-46.0); Hemoglobin 9.6 g/dL (12.0-16.0); Immature Granulocytes % (Auto) 0 % (0-0); Lymphocytes # (Auto) 0.6 Thou/mm3 (1.0-4.8); Lymphocytes % (Auto) 16 % (10-50); Mean Corpuscular HGB Conc 32.2 g/dl (31.0-37.0); Mean Corpuscular Hemoglobin 25.9 pg (25.0-35.0); Mean Corpuscular Volume 81 fL (80-100); Monocytes # (Auto) 0.4 Thou/mm3 (0.0-0.8); Monocytes % (Auto) 10 % (0-12); Neutrophils # (Auto) 2.6 Thou/mm3 (1.8-7.7); Neutrophils % (Auto) 67 % (37-80); Nucleated Red Blood Cell % 0 /100 WBC (0); Platelet Count 129 Thou/mm3 (140-440); RDW Standard Deviation 51.2 fL (36.4-46.3); White Blood Count 3.8 Thou/mm3 (3.6-11.0)
[2025-01-05 07:19] LABS: Vitamin D 25 Hydroxy Total 35.2 ng/mL (7.3-40.2)
[2025-01-05 07:36] LABS: Alanine Aminotransferase < 7 U/L (10-49); Albumin, Serum 4.1 gm/dL (3.4-4.8); Albumin/Globulin Ratio 1.1 (1.2-2.2); Alkaline Phosphatase 118 U/L (46-116); Anion Gap 11 (7-16); Aspartate Amino Transferase 21 U/L (0-34); BUN/Creatinine Ratio 34 Ratio (12-20); Bilirubin,Total 0.5 mg/dL (0.3-1.2); Blood Urea Nitrogen 64 mg/dL (9-23); Calcium 11.7 mg/dL (8.3-10.6); Calcium (Corrected) 11.7 mg/dL (8.5-10.1); Carbon Dioxide 26.1 mMol/L (20.0-31.0); Cardiac Risk Estimate 4.3 RATIO (3.7-5.6); Chloride 98 mMol/L (98-107); Cholesterol 214 mg/dL (132-200); Creatinine (Component) 1.9 mg/dL (0.6-1.3); Estimated Creatinine Clearance 25.1 mL/min (>60); Free T4 (Free Thyroxine) 2.09 ng/dL (0.89-1.76); Globulin 3.6 gm/dL (2.3-3.5); Glucose 83 mg/dL (74-106); HDL Cholesterol 50 mg/dL (40-60); LDL Cholesterol,Calculated 147 mg/dL (0-130); Magnesium 2.3 mg/dL (1.6-2.6); Osmolality,Calculated 287 (275-295); Potassium 4.1 mMol/L (3.4-5.1); Sodium 135 mMol/L (136-145); Thyroid Stimulating Hormone 1.04 uIU/mL (0.55-4.78); Total Protein 7.7 gm/dL (5.7-8.2); Triglycerides 86 mg/dL (30-150); eGFR 28 See Note
[2025-01-05 07:46] LABS: INR 1.2 (0.9-1.3); Partial Thromboplastin Time 28.1 Seconds (22.0-36.0); Prothrombin Time 13.2 Seconds (9.0-12.2)
--- NOTE | 2025-01-05 08:29 | ECHO_ITS ---
Transthoracic Echo Report Ht (in): 66 Wt (lb): 131 Exam Location: Echo Lab Status: Inpatient Trim Sawyer: IGOR Bolton^^^^ Indications: Procedure Performed: BP: 122 / 74 HR: 62 Technical Quality: Fair MEASUREMENTS (Male / Female) Normal Values 2D ECHO LV Diastolic Diameter PLAX 4.3 cm 4.2 - 5.9 / 3.9 - 5.3 cm LV Systolic Diameter PLAX 2.8 cm IVS Diastolic Thickness 0.8 cm 0.6 - 1.0 / 0.6 - 0.9 cm LVPW Diastolic Thickness 0.8 cm 0.6 - 1.0 / 0.6 - 0.9 cm LV Relative Wall Thickness 0.4 LVOT Diameter 1.6 cm Aortic Root Diameter 2.7 cm LA Systolic Diameter LX 3.1 cm 3.0 - 4.0 / 2.7 - 3.8 cm LV Ejection Fraction MOD BP 62.5 % >= 55 % LV Cardiac Index MOD BP 1476.9 cm?/min?m? LV Ejection Fraction MOD 4C 67.1 % LV Cardiac Index MOD 4C 2051.2 cm?/min?m? LV Ejection Fraction 4C AL 68.0 % LV Cardiac Index 4C AL 2167.0 cm?/min?m? LV Ejection Fraction MOD 2C 58.8 % LV Cardiac Index MOD 2C 1051.7 cm?/min?m? LV Ejection Fraction 2C AL 59.7 % LV Cardiac Index 2C AL 1056.2 cm?/min?m? LA Volume Index 21.6 cm?/m? 16 - 28 cm?/m? Ascending Aorta Diameter 2.8 cm DOPPLER AV Peak Velocity 149.0 cm/s AV Peak Gradient 8.9 mmHg AV Mean Gradient 6.0 mmHg AV Velocity Time Integral 27.6 cm LVOT Peak Velocity 120.0 cm/s LVOT Peak Gradient 5.8 mmHg LVOT Velocity Time Integral 29.9 cm LVOT Cardiac Index 2242.1 cm?/min?m? AV Area Cont Eq vti 2.2 cm? AV Area Cont Eq pk 1.6 cm? MV Area PHT 1.7 cm? Mitral E Point Velocity 59.7 cm/s Mitral A Point Velocity 99.9 cm/s Mitral E to A Ratio 0.6 LV E' Lateral Velocity 8.2 cm/s Mitral E to LV E' Lateral Ratio 7.3 LV E' Septal Velocity 8.5 cm/s Mitral E to LV E' Septal Ratio 7.0 TR Peak Velocity 175.0 cm/s TR Peak Gradient 12.3 mmHg PV Peak Velocity 112.0 cm/s PV Peak Gradient 5.0 mmHg RVOT Peak Velocity 68.7 cm/s FINDINGS Left Ventricle Normal left ventricular size, wall thickness, systolic function with no obvious regional wall motion abnormalities.there is grade I diastolic dysfunction of the left ventricle (impaired relaxation pattern). The left ventricular ejection fraction is normal, estimated at 60-65%. Right Ventricle The right ventricle is normal in size and systolic function. The estimated right ventricular systolic pressure, 18 mmHg. Left Atrium The left atrium is normal by two-dimensional, color flow and Doppler imaging with no structural abnormalities, no thrombus formation present. Right Atrium The right atrium is normal by two-dimensional imaging, color flow and Doppler imaging with no structural abnormalities, no thrombus formation present. Atrial Septum The interatrial septum appears normal with no evidence of a shunt. Aorta The aorta is normal by two-dimensional, color flow and Doppler interrogation. Mitral Valve Mild mitral regurgitation. Mild mitral annular calcification. Aortic Valve The aortic valve is trileaflet and normal to two-dimensional, color flow and Doppler interrogation. Tricuspid Valve There is mild tricuspid valve regurgitation. Pulmonic Valve Trivial pulmonic valve regurgitation. Vessels The pulmonary artery appears normal. The inferior vena cava pulmonary and hepatic veins appear normal. Pericardium The pericardium is normal by two-dimensional imaging. There is no significant pericardial effusion. CONCLUSIONS Indication: Syncope Normal LV size and function with an EF of 60 to 65%. Normal diastolic function. Normal RV size and function. Normal RVSP. Trace MR and TR. Shaquille Purdy (Electronically Signed) Final Date: 05 January 2025 16:37
[2025-01-05] MEDS: PANTOPRAZOLE INJ 40 MG VIAL IVP (09:05)
[2025-01-05] MEDS: FLUCONAZOLE 100 MG TABLET 400 MG PO (09:05)
[2025-01-05] MEDS: MEGESTROL ACET SUSP 400 MG/10 ML UDC 200 MG PO ×2 (09:06→20:57)
[2025-01-05] MEDS: APIXABAN 2.5 MG TABLET 5 MG PO ×2 (09:16→20:56)
--- NOTE | 2025-01-05 09:17 | PC.NURSE ---
Notified Dr. King of patients platelets. ok to give eliquis.
--- NOTE | 2025-01-05 10:42 | ESPR_ITS ---
Documentation for date of: 01/05/25 Subjective Subjective Interval history: Patient seen at bedside. No acute overnight events. She reports that she is doing much better today, attributes to being hydrated. She denies lightheadedness or dizziness. Orthostatic vitals positive with a 20 mmHg decrease in diastolic blood pressure. Labs reviewed, creatinine improved with IV fluids. Nephro evaluated patient, pending protein electrophoresis results. Will continue to hydrate patient, pending echocardiogram and reevaluate. Exam Vital Signs Temp Pulse Resp BP Pulse Ox O2 Del Method 96.6 F L 64 17 124/59 L 98 Room Air 01/05/25 07:34 01/05/25 07:34 01/05/25 07:34 01/05/25 07:34 01/05/25 07:34 01/05/25 07:34 Narrative Exam GENERAL: AAOX3 NEURO: DISTILLERY MANAGER grossly intact, moves extremities x4 HEENT: Moist mucosa. Eyes open, symmetrical, & clear CARDIO: No chest pain on palpation. Heart RRR, no obvious murmurs PULM: No noted coughing/dyspnea. Lungs CTA B/L GI: Abdomen soft, nondistended, no pain on palpation. BSx4 URO/TRUCK HOP:: No further abnormalities noted. SKIN/MSK/EXT: No wounds/rashes/edema/amputations, no pain on palpation. Pedal pulses present B/L Objective Labs 01/05/25 04:41 01/05/25 04:41 Labs: Laboratory Results - last 24 hr 01/04/25 01/04/25 01/04/25 10:50 12:47 18:34 WBC 6.7 RBC 4.37 Hgb 11.4 L Hct 34.9 L MCV 80 MCH 26.1 MCHC 32.7 RDW Std Deviation 50.9 H Plt Count 168 D Neut % (Auto) 80 Lymph % (Auto) 7 L [place] % (Auto) 9 Eos % (Auto) 3 Baso % (Auto) 1 Neut # (Auto) 5.4 Lymph # (Auto) 0.5 L [place] # (Auto) 0.6 Eos # (Auto) 0.2 Baso # (Auto) 0.1 Immature Gran # (Auto) 0.02 H Absolute Nucleated RBC 0.00 Immature Gran % 0 Nucleated RBC % 0 PT INR APTT VBG pH 7.57 VBG pCO2 24 L VBG pO2 46 VBG O2 Sat (Sagar) 79 L VBG Base Excess 1 Sodium 133 L Potassium 4.4 Chloride 94 L Carbon Dioxide 24.2 Anion Gap 15 BUN 74 H Creatinine 2.4 H Estim Creat Clear Calc 19.8 L eGFR 21 L BUN/Creatinine Ratio 31 H Glucose [address] Glu mg/dL 123 Hemoglobin A1c 5.9 Calculated Osmolality 289 Lactic Acid 1.9 Calcium 13.0 H* Corrected Calcium 13.0 H Phosphorus Magnesium 2.7 H Total Bilirubin 0.6 AST 19 ALT < 7 L Alkaline Phosphatase 137 H Ammonia 13 Troponin I < 0.020 B-Natriuretic Peptide 32 Total Protein 8.7 H Albumin 4.6 Globulin 4.1 H Albumin/Globulin Ratio 1.1 L Triglycerides Cholesterol LDL Cholesterol, Calc HDL Cholesterol Cholesterol/HDL Ratio Lipase 61 H Carcinoembryonic Ag 1.6 CA 125 Antigen 20.0 25-OH Vitamin D Total TSH Free T4 PTH Intact 13.2 L Ur Collection Type Clean Catch Urine Color Yellow Urine Clarity Clear Urine pH 5.0 Ur Specific [place] 1.022 Urine Protein Trace Urine Glucose (UA) Negative Urine Ketones 1+ A Urine Blood Negative Urine Nitrite Negative Urine Bilirubin Negative Urine Urobilinogen (Auto) Negative Ur Leukocyte Esterase Negative Urine RBC 1 Urine WBC 6 H Ur Squamous Epith Cells 0 Urine Bacteria Rare Hyaline Casts < 1 Ur Culture Indicated? Not Indicated Ur Random Creatinine U Random Total Protein Ur Random Sodium Ur Random Potassium Ur Random Chloride Urine Opiates Screen Negative Urine Fentanyl Screen Negative Ur Barbiturates Screen Negative U Amphetamin/Meth Scrn Negative U Benzodiazepines Scrn Negative U Cocaine Metab Screen Negative U Marijuana (THC) Screen Negative 01/04/25 01/05/25 21:35 04:41 WBC 3.8 D RBC 3.70 L Hgb 9.6 L Hct 29.8 L MCV 81 MCH 25.9 MCHC 32.2 RDW Std Deviation 51.2 H Plt Count 129 L D Neut % (Auto) 67 Lymph % (Auto) 16 [place] % (Auto) 10 Eos % (Auto) 6 Baso % (Auto) 1 Neut # (Auto) 2.6 Lymph # (Auto) 0.6 L [place] # (Auto) 0.4 Eos # (Auto) 0.2 Baso # (Auto) 0.0 Immature Gran # (Auto) 0.00 Absolute Nucleated RBC 0.00 Immature Gran % 0 Nucleated RBC % 0 PT 13.2 H INR 1.2 APTT 28.1 VBG pH VBG pCO2 VBG pO2 VBG O2 Sat (Sagar) VBG Base Excess Sodium 135 L Potassium 4.1 Chloride 98 Carbon Dioxide 26.1 Anion Gap 11 BUN 64 H Creatinine 1.9 H D Estim Creat Clear Calc 25.1 L eGFR 28 L BUN/Creatinine Ratio 34 H Glucose [address] Glu mg/dL Hemoglobin A1c Calculated Osmolality 287 Lactic Acid Calcium 11.7 H Corrected Calcium 11.7 H Phosphorus 3.0 Magnesium 2.3 Total Bilirubin 0.5 AST 21 ALT < 7 L Alkaline Phosphatase 118 H Ammonia Troponin I B-Natriuretic Peptide Total Protein 7.7 Albumin 4.1 D Globulin 3.6 H Albumin/Globulin Ratio 1.1 L Triglycerides 86 Cholesterol 214 H LDL Cholesterol, Calc 147 H HDL Cholesterol 50 Cholesterol/HDL Ratio 4.3 Lipase Carcinoembryonic Ag CA 125 Antigen 25-OH Vitamin D Total 35.2 TSH 1.04 Free T4 2.09 H PTH Intact Ur Collection Type Urine Color Urine Clarity Urine pH Ur Specific [place] Urine Protein Urine Glucose (UA) Urine Ketones Urine Blood Urine Nitrite Urine Bilirubin Urine Urobilinogen (Auto) Ur Leukocyte Esterase Urine RBC Urine WBC Ur Squamous Epith Cells Urine Bacteria Hyaline Casts Ur Culture Indicated? Ur Random Creatinine 203 H U Random Total Protein 30 H Ur Random Sodium 37.9 Ur Random Potassium 55 Ur Random Chloride < 20.0 L Urine Opiates Screen Urine Fentanyl Screen Ur Barbiturates Screen U Amphetamin/Meth Scrn U Benzodiazepines Scrn U Cocaine Metab Screen U Marijuana (THC) Screen ABG Interpretation ABG results: 01/04/25 10:50 VBG pH 7.57 VBG pCO2 24 L VBG pO2 46 VBG Base Excess 1 Quality Measures Quality Measures none Advance care planning discussed with:: patient Assessment & Plan Assessment Current Active Medications: Generic Name Dose Route Start Last Admin Trade Name Freq PRN Reason Stop Dose Admin Al Hydrox/Mg Hydrox/Simethicone 15 ml 01/04/25 22:00 01/05/25 05:59 Mg Hyd/Al Hyd/Eryn (Maalox Reg) Susp 30 Ml Udc PO 02/03/25 21:59 15 ml TID YOAN Administration Apixaban 5 mg 01/04/25 21:00 01/05/25 09:16 Apixaban 2.5 Mg Tablet PO 01/25/25 20:59 5 mg BID YOAN Administration Atorvastatin Calcium 20 mg 01/05/25 21:00 Atorvastatin Calcium 20 Mg Tablet PO 02/04/25 20:59 HS YOAN Fluconazole 400 mg 01/04/25 18:30 01/05/25 09:05 Fluconazole 100 Mg Tablet PO 01/11/25 18:29 400 mg QDAY YOAN Administration Sodium Chloride 1,000 mls @ 100 mls/hr 01/05/25 09:13 Ns IV 01/05/25 19:12 .Q10H ONE Megestrol Acetate 200 mg 01/04/25 21:00 01/05/25 09:06 Megestrol Acet Susp 400 Mg/10 Ml Udc PO 02/03/25 20:59 200 mg BID YOAN Administration Midodrine 5 mg 01/04/25 22:00 01/05/25 05:59 Midodrine 5 Mg Tablet PO 02/03/25 21:59 5 mg TID YOAN Administration Ondansetron HCl 4 mg 01/04/25 18:11 Ondansetron Inj 2 Mg/Ml Inj 2 Ml IV 02/03/25 18:10 Q6H PRN NAUSEA OR VOMITING Protocol Pantoprazole Sodium 40 mg 01/04/25 18:15 01/05/25 09:05 Pantoprazole Inj 40 Mg Vial IVP 02/03/25 18:14 40 mg QDAY YOAN Administration Plan Alma Rosa is a 74 y/o female with PMHx liver cirrhosis?, Hepatic vein thrombosis, 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 #Syncope #History of orthostatic hypotension #Generalized weakness Patient reports she has been having syncopal episodes mainly with getting up Endorses a history of orthostatic hypotension for which she takes midodrine 5mg TID as needed Patient reports that she has lost over 40 pounds within the past 5 months, attributes it to poor oral intake Syncope likely related to poor oral intake and orthostatic hypotension 01/05/2025: Orthostatics positive, pending echocardiogram Plan: ?Continue NS maintenance fluids - Encourage oral intake ?Continue Megace ? Midodrine 5 mg 3 times daily ? Follow up echo #TIAN #Hypercalcemia Likely prerenal Patient endorses very poor oral intake and no desire to eat Patient has lost a lot of weight roughly 40 pounds in the past 5 months At this point we need to rule out possible malignancy causes for hypercalcemia Given bolus in ED 01/05/- Corrected calcium today is at 11.7 Plan: ? Continue with normal saline 100 cc an hour ? Avoid nephrotoxic agents ? Renally dose medicines ? 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 Resumed Diflucan for 400 mg daily #History of pulmonary mass, R lobe #History of pleural effusion Seen on chest CTA in November 2024 6 x 5.8 for dimensions This could be a culprit of hypercalcemia Will need to evaluate the pulmonary mass if still present or has enlarged Had thoracentesis on last admission and had 2000 cc removed Previous pleural effusion appears to be transudative in nature considering lights criteria 01/05: CT CAP reviewed subcentimeter pulmonary nodules but no determinate mass Plan: ? Follow up imaging if needed, possibly outpatient #History of hypothyroidism Takes levothyroxine 150mcg at home Free T4 elevated at 2.09. Plan: ? Will hold levothyroxine for now #History of liver cirrhosis #History of bariatric surgery #History of hepatic vein thrombosis status post failed hepatic and splenic vein stenting #History of recurrent paracentesis and thoracentesis Sees Dr. Preciado hepatology at [facility] Was apparently on liver transplant list at some point, however is not getting a liver transplant at this point Plan: ? Resumed home Eliquis 5 mg twice a day ? Will consider GI consult ? Registered dietitian referral #Normocytic anemia Unsure if patient is having iron deficiency or anemia of chronic disease Patient does have history of bariatric surgery and also has poor oral intake Anemia is multifactorial at this point and will require further workup Hemoglobin is 11.5 today, however baseline appears to be around 8 or 9, this number is elevated due to patient being dehydrated Plan: ? Trend CBC ? Follow-up peripheral blood smear #Health Maintenance Disposition: Med telemetry DVT prophylaxis: Eliquis GI prophylaxis: Protonix Diet: Regular CODE STATUS: Full Case was discussed with Dr Jane PGY-2 and attending physician, Dr Margaret Moyer MD PGY-1 Disclaimer: This note was dictated by speech recognition. Minor errors in health and fitness instructor may be present due to voice recognition software. Attending Provider Attestation/Addendum I have discussed and was present for the essential components of the history, physical examination, diagnosis, and treatment plan with the resident. I agree with the patient's care as documented by the resident and amended herein by me. Philip Robles DO. Patient seen and evaluated this AM. No acute events overnight, vital signs stable, patient afebrile, significant labs include a WBC of 3.8 which is a slight downtrend from yesterday, hemoglobin 9.6 down from 11.4 however no obvious signs of bleeding, platelet count 129 down from 168, sodium potassium within normal limits, BUN 64, creatinine improved to 1.9, corrected calcium improved to 11.7 today after copious fluid administration, free T4 is elevated at 2.09 hence her levothyroxine has been held, may be contributing to some of her weight loss. Her cocci is positive as she was diagnosed in November 2024 presently on fluconazole, malignancy workup is pending, free kappa light chains ordered, cortisol ordered, CA 19-9, SPEP, UPEP etc. Nephrology is on board, appreciate recommendations. Will continue IVF at this time presently on NS 100 mL/h. Will continue monitor closely Although this document has been carefully reviewed, there may still be some phonetic and other typographical errors. These errors are purely grammatical due to imperfections in the software program and should not be construed in any way to compromise the substance of the patient's medical care during this visit.
--- NOTE | 2025-01-05 11:53 | ESPR_ITS ---
Documentation for date of: 01/05/25 Subjective Subjective Interval history: Informant Ms. Headley is a 74 y/o lady who is a patient of Dr. 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 presented to the emergency department with significant weakness, syncopal episode. Patient stated since she got discharged a month ago she has been having trouble eating as she has no appetite, has been feeling extremely fatigued and tired with orthostatic hypotension-on midodrine as needed. She also stated because she is not able to eat anything lost 40 pounds in the last 6 months. Did fall few times in the last 1 month. In the emergency department blood sugar 143. Blood pressure 123/89, heart rate 86. WBC 6.7, hemoglobin 11.4, platelets 168. Sodium 133, potassium 4.4, BUN 74, creatinine 2.4, GFR 21, A1c 5.9, calcium 813, LFTs normal, albumin 4.6, globulin 4.1 urinalysis shows ketones. Urine protein/creatinine normal urine sodium 37.9 with a chloride less than 20. Urine tox screen negative. Chest x- ray negative. CT chest abdomen and pelvis showed pulmonary nodules (has history of valley fever), splenic vascular stent, cirrhosis, cystitis. Patient was given 2 L normal saline. Meds: Protonix 40 mg, Eliquis 5 mg twice daily, midodrine 5 mg 3 times daily, Synthroid 150 mcg daily, Lasix 40 mg once a day, Diflucan 200 mg twice a day, spironolactone 25 mg 3 times a day, Carafate 1 g 4 times a day, Slow Fe 45 mg Brother had heart attack. Patient had gastric bypass surgery 25 years ago. Admitted to medical team. Renal consultation requested for acute renal failure, hypercalcemia Spoke to primary team-will start workup for malignancy due to weight loss. 01/05/2025 patient currently seen in medical floor. More alert and awake. She is feeling much stronger today.Blood pressure acceptable. Patient started to make urine WBC 3.8, hemoglobin 9.6, platelets 129. Sodium 135, potassium 4.1, BUN 64, creatinine 1.9, calcium 11.7, phosphorus 3, LFTs normal, total cholesterol 214, LDL 147 so far tumor markers negative, vitamin D normal PTH significantly suppressed at 13.2 urine sodium 37.9 with a chloride less than 20 cocci IgM positive echocardiogram showed ejection fraction 60 [address] chest abdomen pelvis showed pulmonary nodules consistent with her old valley fever. No malignancy noted on IV fluids.. Review of Systems Review of Systems Narrative Review of Systems: CONSTITUTIONAL: Complaining of significant fatigue, weight loss HEENT: Denies any visual disturbances or hearing problems. CARDIOVASCULAR: Patient denies any chest pain, shortness of breath, swelling in the lower extremities. PULMONARY: Patient denies any shortness of breath, cough. GASTROINTESTINAL: Patient denies any abdominal pain, constipation, nausea, vomiting, diarrhea. Complaining of decreased appetite GENITOURINARY: Patient denies any urinary symptoms of burning or frequency or hematuria, denies any form in the urine. SKIN: Denies any rash. MUSCULOSKELETAL: Complaining of gait imbalance, frequent falls NEUROLOGICAL: Denies any neurological problems of strokes, seizures or confusion. Denies any memory problems. PSYCHIATRIC: Denies any depression or anxiety. LYMPHATICS : No lymphadenopathy Exam Vital Signs Temp Pulse Resp BP Pulse Ox O2 Del Method 35.9 C L 60 20 127/69 99 Room Air 01/05/25 11:46 01/05/25 11:46 01/05/25 11:46 01/05/25 11:46 01/05/25 11:46 01/05/25 11:46 Narrative Exam GENERAL APPEARANCE: Patient currently seen in medical floor NECK: Neck supple, no JVD or bruit CARDIOVASCULAR: Heart regular, no murmurs LUNGS/CHEST: Chest clear to auscultation. No rales, rhonchi, wheezing ABDOMEN: Soft, nontender, nondistended. No masses. Normal bowel sounds. Gastric bypass surgery. EXTREMITIES: No edema, clubbing or cyanosis. SKIN: Skin exam normal without any rashes MUSCULOSKELETAL: In bed NEUROLOGICAL : No neurological deficits. Alert and awake Objective Labs 01/06/25 05:19 01/06/25 05:19 Labs: Laboratory Results - last 24 hr 01/04/25 01/04/25 01/04/25 10:50 12:47 18:34 WBC RBC Hgb Hct MCV MCH MCHC RDW Std Deviation Plt Count Neut % (Auto) Lymph % (Auto) [place] % (Auto) Eos % (Auto) Baso % (Auto) Neut # (Auto) Lymph # (Auto) [place] # (Auto) Eos # (Auto) Baso # (Auto) Immature Gran # (Auto) Absolute Nucleated RBC Immature Gran % Nucleated RBC % PT INR APTT VBG pH 7.57 VBG pCO2 24 L VBG pO2 46 VBG O2 Sat (Sagar) 79 L VBG Base Excess 1 Sodium 133 L Potassium 4.4 Chloride 94 L Carbon Dioxide 24.2 Anion Gap 15 BUN 74 H Creatinine 2.4 H Estim Creat Clear Calc 19.8 L eGFR 21 L BUN/Creatinine Ratio 31 H Glucose [address] Glu mg/dL 123 Hemoglobin A1c 5.9 Calculated Osmolality 289 Calcium 13.0 H* Corrected Calcium 13.0 H Phosphorus Magnesium 2.7 H Total Bilirubin 0.6 AST 19 ALT < 7 L Alkaline Phosphatase 137 H Ammonia 13 Troponin I < 0.020 B-Natriuretic Peptide 32 Total Protein 8.7 H Albumin 4.6 Globulin 4.1 H Albumin/Globulin Ratio 1.1 L Triglycerides Cholesterol LDL Cholesterol, Calc HDL Cholesterol Cholesterol/HDL Ratio Lipase 61 H Carcinoembryonic Ag 1.6 CA 125 Antigen 20.0 25-OH Vitamin D Total TSH Free T4 PTH Intact 13.2 L Ur Collection Type Clean Catch Urine Color Yellow Urine Clarity Clear Urine pH 5.0 Ur Specific [place] 1.022 Urine Protein Trace Urine Glucose (UA) Negative Urine Ketones 1+ A Urine Blood Negative Urine Nitrite Negative Urine Bilirubin Negative Urine Urobilinogen (Auto) Negative Ur Leukocyte Esterase Negative Urine RBC 1 Urine WBC 6 H Ur Squamous Epith Cells 0 Urine Bacteria Rare Hyaline Casts < 1 Ur Culture Indicated? Not Indicated Ur Random Creatinine U Random Total Protein Ur Random Sodium Ur Random Potassium Ur Random Chloride Urine Opiates Screen Negative Urine Fentanyl Screen Negative Ur Barbiturates Screen Negative U Amphetamin/Meth Scrn Negative U Benzodiazepines Scrn Negative U Cocaine Metab Screen Negative U Marijuana (THC) Screen Negative 01/04/25 01/05/25 21:35 04:41 WBC 3.8 D RBC 3.70 L Hgb 9.6 L Hct 29.8 L MCV 81 MCH 25.9 MCHC 32.2 RDW Std Deviation 51.2 H Plt Count 129 L D Neut % (Auto) 67 Lymph % (Auto) 16 [place] % (Auto) 10 Eos % (Auto) 6 Baso % (Auto) 1 Neut # (Auto) 2.6 Lymph # (Auto) 0.6 L [place] # (Auto) 0.4 Eos # (Auto) 0.2 Baso # (Auto) 0.0 Immature Gran # (Auto) 0.00 Absolute Nucleated RBC 0.00 Immature Gran % 0 Nucleated RBC % 0 PT 13.2 H INR 1.2 APTT 28.1 VBG pH VBG pCO2 VBG pO2 VBG O2 Sat (Sagar) VBG Base Excess Sodium 135 L Potassium 4.1 Chloride 98 Carbon Dioxide 26.1 Anion Gap 11 BUN 64 H Creatinine 1.9 H D Estim Creat Clear Calc 25.1 L eGFR 28 L BUN/Creatinine Ratio 34 H Glucose [address] Glu mg/dL Hemoglobin A1c Calculated Osmolality 287 Calcium 11.7 H Corrected Calcium 11.7 H Phosphorus 3.0 Magnesium 2.3 Total Bilirubin 0.5 AST 21 ALT < 7 L Alkaline Phosphatase 118 H Ammonia Troponin I B-Natriuretic Peptide Total Protein 7.7 Albumin 4.1 D Globulin 3.6 H Albumin/Globulin Ratio 1.1 L Triglycerides 86 Cholesterol 214 H LDL Cholesterol, Calc 147 H HDL Cholesterol 50 Cholesterol/HDL Ratio 4.3 Lipase Carcinoembryonic Ag CA 125 Antigen 25-OH Vitamin D Total 35.2 TSH 1.04 Free T4 2.09 H PTH Intact Ur Collection Type Urine Color Urine Clarity Urine pH Ur Specific [place] Urine Protein Urine Glucose (UA) Urine Ketones Urine Blood Urine Nitrite Urine Bilirubin Urine Urobilinogen (Auto) Ur Leukocyte Esterase Urine RBC Urine WBC Ur Squamous Epith Cells Urine Bacteria Hyaline Casts Ur Culture Indicated? Ur Random Creatinine 203 H U Random Total Protein 30 H Ur Random Sodium 37.9 Ur Random Potassium 55 Ur Random Chloride < 20.0 L Urine Opiates Screen Urine Fentanyl Screen Ur Barbiturates Screen U Amphetamin/Meth Scrn U Benzodiazepines Scrn U Cocaine Metab Screen U Marijuana (THC) Screen ABG Interpretation ABG results: 01/04/25 10:50 VBG pH 7.57 VBG pCO2 24 L VBG pO2 46 VBG Base Excess 1 Assessment & Plan Assessment and plan (1) Acute kidney injury: Status: Acute (2) Acute dehydration: Status: Acute (3) Hypercalcemia: Status: Acute (4) Abnormal weight loss: Status: Acute (5) Postural hypotension: Status: Acute Additional Assessment & Plan Additional Plan: (1) Acute kidney injury: Status: Acute Assessment and plan: Acute kidney injury secondary to prerenal azotemia. Patient's stated that she has not been eating or drinking for the last few days. Patient apparently lost more than 40 pounds in the last [address] abdomen showed no hydronephrosis. Hypercalcemia can cause a prerenal state from a polyuria. Continue with IV fluids with strict monitoring of urine output. Calcium, creatinine improving (2) Acute dehydration: Status: Acute Assessment and plan: Patient clinically looks rather dehydrated. Continue with IV fluids (3) Hypercalcemia: Status: Acute Assessment and plan: Hypercalcemia of of 13.2 with a normal calcium 2 weeks ago. Suspect related to dehydration and immobilization. Doubt malignancy. Intact PTH 13 which is appropriate suppression for hypercalcemia. Vitamin D normal. CT chest showed nodules-suspect from the previous valley fever. CT abdomen and pelvis no malignancy except liver cirrhosis. Continue with IV fluids. (4) Abnormal weight loss: Status: Acute Assessment and plan: Malignancy workup pending. globulins are very high. Protein electrophoresis ordered. (5) Postural hypotension: Status: Acute Assessment and plan: Probably related to dehydration-rule out adrenal problem. No history of diabetes. TSH normal. Patient on midodrine. Might need stockings. Thank you Philip for allowing me to participate in the care of Ms. St Quality - progress note Quality Measures Quality Measures: VTE prophylaxis Reason for Continued Stay Reason for Continued Stay: further monitoring
[2025-01-05 17:37] LABS: Path Review Blood Smear Sent to Pathologist
[2025-01-05] MEDS: ATORVASTATIN CALCIUM 20 MG TABLET PO (20:56)
[2025-01-06] VITALS (8 sets, daily range): BP systolic 112–135; BP diastolic 61–82; PULSE 60–82; RESP 16–20; TEMP 36.2–37; O2SAT 97–99
--- NOTE | 2025-01-06 04:06 | PC.NURSE ---
Pt is complaining that she was not able to sleep because of the noise from the suction wall for her purewick and pt is asking if she can have Dale Catheter. Explained to pt that she can use bedpan if she need to go, however pt is so hesitant and said that she is not comfortable using the bedpan. Pt is too weak to use the bedside commode. Notify MD Aaron of the pt' complaint. New order received.
[2025-01-06] MEDS: MG HYD/AL HYD/SIME (Maalox Reg) SUSP 30 ML UDC 15 ML PO ×3 (05:28→21:01)
[2025-01-06 06:06] LABS: Basophils % (Auto) 1 % (0-2.5); Eosinophils # (Auto) 0.2 Thou/mm3 (0.0-0.5); Eosinophils % (Auto) 7 % (0-10); Hemoglobin 8.9 g/dL (12.0-16.0); Immature Granulocytes % (Auto) 0 % (0-0); Immature Granulocytes Auto 0.01 Thou/mm3 (0.00-0.00); Lymphocytes # (Auto) 0.4 Thou/mm3 (1.0-4.8); Lymphocytes % (Auto) 14 % (10-50); Mean Corpuscular HGB Conc 31.8 g/dl (31.0-37.0); Mean Corpuscular Hemoglobin 26.1 pg (25.0-35.0); Mean Corpuscular Volume 82 fL (80-100); Monocytes # (Auto) 0.4 Thou/mm3 (0.0-0.8); Monocytes % (Auto) 12 % (0-12); Neutrophils # (Auto) 2.1 Thou/mm3 (1.8-7.7); Neutrophils % (Auto) 66 % (37-80); Nucleated Red Blood Cell % 0 /100 WBC (0); Platelet Count 86 Thou/mm3 (140-440); RDW Standard Deviation 51.6 fL (36.4-46.3); Red Blood Count 3.41 Miln/mm3 (4.00-5.20); White Blood Count 3.1 Thou/mm3 (3.6-11.0)
[2025-01-06 06:32] LABS: Alanine Aminotransferase < 7 U/L (10-49); Albumin, Serum 3.5 gm/dL (3.4-4.8); Albumin/Globulin Ratio 1.1 (1.2-2.2); Alkaline Phosphatase 103 U/L (46-116); Anion Gap 7 (7-16); Aspartate Amino Transferase 18 U/L (0-34); BUN/Creatinine Ratio 27 Ratio (12-20); Bilirubin,Total 0.4 mg/dL (0.3-1.2); Blood Urea Nitrogen 41 mg/dL (9-23); Calcium 10.5 mg/dL (8.3-10.6); Calcium (Corrected) 10.9 mg/dL (8.5-10.1); Carbon Dioxide 25.6 mMol/L (20.0-31.0); Chloride 107 mMol/L (98-107); Creatinine (Component) 1.5 mg/dL (0.6-1.3); Estimated Creatinine Clearance 31.7 mL/min (>60); Globulin 3.1 gm/dL (2.3-3.5); Glucose 90 mg/dL (74-106); Osmolality,Calculated 289 (275-295); Phosphorous 2.2 mg/dL (2.4-5.1); Potassium 4.2 mMol/L (3.4-5.1); Sodium 140 mMol/L (136-145); Total Protein 6.6 gm/dL (5.7-8.2); eGFR 37 See Note
[2025-01-06] MEDS: APIXABAN 2.5 MG TABLET 5 MG PO ×2 (08:22→20:38)
[2025-01-06] MEDS: FLUCONAZOLE 100 MG TABLET 400 MG PO (08:23)
[2025-01-06] MEDS: MEGESTROL ACET SUSP 400 MG/10 ML UDC 200 MG PO ×2 (08:23→20:39)
[2025-01-06] MEDS: PANTOPRAZOLE INJ 40 MG VIAL IVP (08:23)
--- NOTE | 2025-01-06 10:11 | PC.SS ---
Addendum entered by Alana Broussard 01/06/25 10:41: SS provided pt with choices for short term rehab. SS provided support as pt was very emotional during encounter. Pt inquired on private home givers, Community Resource list was provided and highlighted. Pt would like to discuss options with and family and will get back to SS Original Note: AYAKA referral was submitted for Short term rehab: [facility], [facility], and [facility] have accepted. Considering facilities are [facility] and [facility].
--- NOTE | 2025-01-06 10:13 | PC.SS ---
[place] LVL-1 completed and downloaded
--- NOTE | 2025-01-06 10:38 | ESPR_ITS ---
Documentation for date of: 01/06/25 Subjective Subjective Interval history: Ms. Headley is a 74 y/o lady who is a patient of Dr. 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 presented to the emergency department with significant weakness, syncopal episode. Patient stated since she got discharged a month ago she has been having trouble eating as she has no appetite, has been feeling extremely fatigued and tired with orthostatic hypotension-on midodrine as needed. She also stated because she is not able to eat anything lost 40 pounds in the last 6 months. Did fall few times in the last 1 month. In the emergency department blood sugar 143. Blood pressure 123/89, heart rate 86. WBC 6.7, hemoglobin 11.4, platelets 168. Sodium 133, potassium 4.4, BUN 74, creatinine 2.4, GFR 21, A1c 5.9, calcium 813, LFTs normal, albumin 4.6, globulin 4.1 urinalysis shows ketones. Urine protein/creatinine normal urine sodium 37.9 with a chloride less than 20. Urine tox screen negative. Chest x- ray negative. CT chest abdomen and pelvis showed pulmonary nodules (has history of valley fever), splenic vascular stent, cirrhosis, cystitis. Patient was given 2 L normal saline. Meds: Protonix 40 mg, Eliquis 5 mg twice daily, midodrine 5 mg 3 times daily, Synthroid 150 mcg daily, Lasix 40 mg once a day, Diflucan 200 mg twice a day, spironolactone 25 mg 3 times a day, Carafate 1 g 4 times a day, Slow Fe 45 mg Brother had heart attack. Patient had gastric bypass surgery 25 years ago. Admitted to medical team. Renal consultation requested for acute renal failure, hypercalcemia Spoke to primary team-will start workup for malignancy due to weight loss. 01/05/2025 patient currently seen in medical floor. More alert and awake. She is feeling much stronger today.Blood pressure acceptable. Patient started to make urine WBC 3.8, hemoglobin 9.6, platelets 129. Sodium 135, potassium 4.1, BUN 64, creatinine 1.9, calcium 11.7, phosphorus 3, LFTs normal, total cholesterol 214, LDL 147 so far tumor markers negative, vitamin D normal PTH significantly suppressed at 13.2 urine sodium 37.9 with a chloride less than 20 cocci IgM positive echocardiogram showed ejection fraction 60 to 65%. [address] chest abdomen pelvis showed pulmonary nodules consistent with her old valley fever. No malignancy noted on IV fluids. 01/06/2025 Patient patient was seen and examined with the physical therapy at bedside No acute overnight events Reported that she is feeling good. Physical therapy at bedside reported that she is not able to stand even for 5 seconds due to dizziness Vitals are stable. No orthostatic drop is noted on blood pressure monitoring Labs showed WBC 3.1, Hb 8.9, BUN 41, creatinine 1.5, corrected calcium 10.9, phosphorus 2.2 Encouraged to take plenty amount of oral fluids and continue megestrol Exam Vital Signs Temp Pulse Resp BP Pulse Ox O2 Del Method 97.3 F 70 16 125/82 97 Room Air 01/06/25 08:00 01/06/25 08:00 01/06/25 08:00 01/06/25 08:00 01/06/25 08:00 01/06/25 08:00 Narrative Exam General: Awake. Patient lost weight HEENT: Normocephalic, atraumatic, mucous membranes moist. Heart: Regular rate and rhythm, no murmurs. Lungs: Clear to auscultation with no wheezing or crackles. Abdomen: Soft, nondistended, nontender, positive bowel sounds. ?No guarding or rebound tenderness. Neurologic: Alert and oriented x3, no gross neurological deficit, and patient able to move all 4 extremities. Extremities: No edema. Skin: No rash or ecchymoses. Objective Labs 01/07/25 04:45 01/07/25 04:45 Labs: Laboratory Results - last 24 hr 01/04/25 01/06/25 10:50 05:19 WBC 3.1 L RBC 3.41 L Hgb 8.9 L Hct 28.0 L MCV 82 MCH 26.1 MCHC 31.8 RDW Std Deviation 51.6 H Plt Count 86 L D Neut % (Auto) 66 Lymph % (Auto) 14 [place] % (Auto) 12 Eos % (Auto) 7 Baso % (Auto) 1 Neut # (Auto) 2.1 Lymph # (Auto) 0.4 L [place] # (Auto) 0.4 Eos # (Auto) 0.2 Baso # (Auto) 0.0 Immature Gran # (Auto) 0.01 H Absolute Nucleated RBC 0.00 Immature Gran % 0 Nucleated RBC % 0 Smear Path Review Sent to Pathologist Sodium 140 Potassium 4.2 Chloride 107 Carbon Dioxide 25.6 Anion Gap 7 BUN 41 H Creatinine 1.5 H Estim Creat Clear Calc 31.7 L eGFR 37 L BUN/Creatinine Ratio 27 H Glucose 90 Calculated Osmolality 289 Calcium 10.5 Corrected Calcium 10.9 H Phosphorus 2.2 L Magnesium 2.0 Total Bilirubin 0.4 AST 18 ALT < 7 L Alkaline Phosphatase 103 Total Protein 6.6 Albumin 3.5 D Globulin 3.1 Albumin/Globulin Ratio 1.1 L ABG Interpretation ABG results: 01/04/25 10:50 VBG pH 7.57 VBG pCO2 24 L VBG pO2 46 VBG Base Excess 1 Quality Measures Quality Measures none Advance care planning discussed with:: patient Assessment & Plan Assessment Current Active Medications: Generic Name Dose Route Start Last Admin Trade Name Evangelist PRN Reason Stop Dose Admin Al Hydrox/Mg Hydrox/Simethicone 15 ml 01/04/25 22:00 01/06/25 05:28 Mg Hyd/Al Hyd/Eryn (Maalox Reg) Susp 30 Ml Udc PO 02/03/25 21:59 15 ml TID YOAN Administration Apixaban 5 mg 01/04/25 21:00 01/06/25 08:22 Apixaban 2.5 Mg Tablet PO 01/25/25 20:59 5 mg BID YOAN Administration Atorvastatin Calcium 20 mg 01/05/25 21:00 01/05/25 20:56 Atorvastatin Calcium 20 Mg Tablet PO 02/04/25 20:59 20 mg HS YOAN Administration Fluconazole 400 mg 01/04/25 18:30 01/06/25 08:23 Fluconazole 100 Mg Tablet PO 01/11/25 18:29 400 mg QDAY YOAN Administration Fludrocortisone Acetate 0.1 mg 01/06/25 10:15 Fludrocortisone Acetate 0.1 Mg Tablet PO 02/05/25 10:14 QDAY YOAN Megestrol Acetate 200 mg 01/04/25 21:00 01/06/25 08:23 Megestrol Acet Susp 400 Mg/10 Ml Udc PO 02/03/25 20:59 200 mg BID YOAN Administration Midodrine 5 mg 01/05/25 10:59 Midodrine 5 Mg Tablet PO 02/03/25 21:59 TID PRN SBP <95 Ondansetron HCl 4 mg 01/04/25 18:11 Ondansetron Inj 2 Mg/Ml Inj 2 Ml IV 02/03/25 18:10 Q6H PRN NAUSEA OR VOMITING Protocol Pantoprazole Sodium 40 mg 01/04/25 18:15 01/06/25 08:23 Pantoprazole Inj 40 Mg Vial IVP 02/03/25 18:14 40 mg QDAY YOAN Administration Plan Ms. Headley is a 74 y/o lady who is a patient of Dr. 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, frequent paracentesis/thoracentesis, on diuretics presented to the emergency department with significant weakness, syncopal episode and admitted for acute kidney injury secondary to hypercalcemia likely from dehydration # Acute kidney injury, resolving Likely prerenal in the setting of decreased oral intake -Patient reported that she lost 40 pounds in the last 5 to 6 months and lost 9 pounds in the last 1 week -Patient was diagnosed with valley fever and is on fluconazole -At the time of admission, corrected calcium is 13 which could cause polyuria leading to dehydration and prerenal acute kidney injury -CT abdomen showed no hydronephrosis. -Patient was treated with IV fluids since the time of admission and calcium levels continue to downtrend -25-hydroxy vitamin D found to be normal, PTH mildly decreased Plan -Encouraged to take plenty of oral fluids -Continue to monitor renal functions -Avoid nephrotoxic medications and renally dose medications # Hypercalcemia, resolving Ddx: Dehydration and TIAN versus immobilization versus granulomatous disease versus malignancy -Corrected calcium at the time of admission is 13 -25-hydroxy vitamin D is within normal limits, PTH 13.2 -1, 25 dihydroxy vitamin D, serum protein electrophoresis was ordered-pending results Plan -As the calcium levels continues to trend downward, will monitor for now -Will follow-up with pending lab values -Continue intake of plenty of oral fluids # Hypophosphatemia -Phosphorus as of 01/06/2025 is 2.2 -Neutra-Phos is given -Will monitor renal functions # Cachexia # Failure to thrive # Chronic normocytic normochromic anemia -Patient had history of poor oral intake and significant weight loss over last 6 to 8 months -Patient was diagnosed with valley fever, which could be causing this -CT abdomen and chest was done to rule out malignancy, did not see any findings suggestive of malignancy -Will follow-up with serum electrophoresis Plan -started on Megace -Recommended high-protein diet -Continue fluconazole #Syncope #History of orthostatic hypotension #Generalized weakness #History of valley fever #History of pulmonary mass, R lobe #History of pleural effusion #History of hypothyroidism #History of liver cirrhosis #History of bariatric surgery #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 Claudia Gill, PGY1 Attending Provider Attestation/Addendum Patient seen and examined with resident physician Dr. Landis. Note reviewed, agree with findings and recommendations. Hypercalcemia secondary to immobilization and dehydration//from valley fever seems to be improving with fluids. Continue present management
--- NOTE | 2025-01-06 11:47 | PD.RESPRO ---
Documentation for date of: 01/06/25 Subjective Subjective Interval history: No overnight events. Patient seen examined at bedside. Patient reports weakness and poor appetite, but denies chest pain, shortness of breath, abdominal pain, lightheadedness. Encouraged oral intake. Patient was tearful, expressed fear regarding potential cancer. Discussed results of workup thus far to the patient, explained that we believe cancer was less likely but needed to be ruled out, questions answered to patient's satisfaction. Initiating fludrocortisone for potential adrenal insufficiency secondary to valley fever, malnutrition. Pending SNF authorization. Exam Vital Signs Temp Pulse Resp BP Pulse Ox O2 Del Method 97.3 F 70 16 125/82 97 Room Air 01/06/25 08:00 01/06/25 08:00 01/06/25 08:00 01/06/25 08:00 01/06/25 08:00 01/06/25 08:00 Narrative Exam PE: Gen: Well-developed and well-nourished. Cachectic. HEENT: NCAT, PERRLA, EOMI, MMM, anicteric conjunctivae. CVS: normal S1 and S2. RRR. No M/R/G. Resp: CTA B/L. No rhonchi, rales, crackles or wheezing. Abd: soft, non-tender, non-distended. MSK: Good ROM in BUE & BLE. No edema or rash. Neuro: CN II-XII grossly intact. Strength 5/5 in BUE & BLE. Alert and oriented x3. Psych: appropriate mood and affect. Objective Labs 01/06/25 05:19 01/06/25 05:19 Labs: Laboratory Results - last 24 hr 01/04/25 01/06/25 10:50 05:19 WBC 3.1 L RBC 3.41 L Hgb 8.9 L Hct 28.0 L MCV 82 MCH 26.1 MCHC 31.8 RDW Std Deviation 51.6 H Plt Count 86 L D Neut % (Auto) 66 Lymph % (Auto) 14 [place] % (Auto) 12 Eos % (Auto) 7 Baso % (Auto) 1 Neut # (Auto) 2.1 Lymph # (Auto) 0.4 L [place] # (Auto) 0.4 Eos # (Auto) 0.2 Baso # (Auto) 0.0 Immature Gran # (Auto) 0.01 H Absolute Nucleated RBC 0.00 Immature Gran % 0 Nucleated RBC % 0 Smear Path Review Sent to Pathologist Sodium 140 Potassium 4.2 Chloride 107 Carbon Dioxide 25.6 Anion Gap 7 BUN 41 H Creatinine 1.5 H Estim Creat Clear Calc 31.7 L eGFR 37 L BUN/Creatinine Ratio 27 H Glucose 90 Calculated Osmolality 289 Calcium 10.5 Corrected Calcium 10.9 H Phosphorus 2.2 L Magnesium 2.0 Total Bilirubin 0.4 AST 18 ALT < 7 L Alkaline Phosphatase 103 Total Protein 6.6 Albumin 3.5 D Globulin 3.1 Albumin/Globulin Ratio 1.1 L ABG Interpretation ABG results: 01/04/25 10:50 VBG pH 7.57 VBG pCO2 24 L VBG pO2 46 VBG Base Excess 1 Quality Measures Quality Measures VTE prophylaxis Advance care planning discussed with:: patient Assessment & Plan Assessment Current Active Medications: Generic Name Dose Route Start Last Admin Trade Name Freq PRN Reason Stop Dose Admin Al Hydrox/Mg Hydrox/Simethicone 15 ml 01/04/25 22:00 01/06/25 05:28 Mg Hyd/Al Hyd/Eryn (Maalox Reg) Susp 30 Ml Udc PO 02/03/25 21:59 15 ml TID YOAN Administration Apixaban 5 mg 01/04/25 21:00 01/06/25 08:22 Apixaban 2.5 Mg Tablet PO 01/25/25 20:59 5 mg BID YOAN Administration Atorvastatin Calcium 20 mg 01/05/25 21:00 01/05/25 20:56 Atorvastatin Calcium 20 Mg Tablet PO 02/04/25 20:59 20 mg HS YOAN Administration Fluconazole 400 mg 01/04/25 18:30 01/06/25 08:23 Fluconazole 100 Mg Tablet PO 01/11/25 18:29 400 mg QDAY YOAN Administration Fludrocortisone Acetate 0.1 mg 01/06/25 10:15 Fludrocortisone Acetate 0.1 Mg Tablet PO 02/05/25 10:14 QDAY YOAN Megestrol Acetate 200 mg 01/04/25 21:00 01/06/25 08:23 Megestrol Acet Susp 400 Mg/10 Ml Udc PO 02/03/25 20:59 200 mg BID YOAN Administration Midodrine 5 mg 01/05/25 10:59 Midodrine 5 Mg Tablet PO 02/03/25 21:59 TID PRN SBP <95 Ondansetron HCl 4 mg 01/04/25 18:11 Ondansetron Inj 2 Mg/Ml Inj 2 Ml IV 02/03/25 18:10 Q6H PRN NAUSEA OR VOMITING Protocol Pantoprazole Sodium 40 mg 01/04/25 18:15 01/06/25 08:23 Pantoprazole Inj 40 Mg Vial IVP 02/03/25 18:14 40 mg QDAY YOAN Administration Plan Alma Rosa is a 74 y/o female with PMHx liver cirrhosis?, Hepatic vein thrombosis, 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 #Syncope #History of orthostatic hypotension #Generalized weakness Patient reports she has been having syncopal episodes mainly with getting up Endorses a history of orthostatic hypotension for which she takes midodrine 5mg TID as needed Patient reports that she has lost over 40 pounds within the past 5 months, attributes it to poor oral intake Syncope likely related to poor oral intake and orthostatic hypotension 01/05/2025: Orthostatics positive Echocardiogram unremarkable. Concern for adrenal insufficiency given orthostatic hypotension, potential causes include valley fever, malnutrition due to poor p.o. intake. -Encourage oral intake -Continue Megace -Midodrine 5 mg 3 times daily -Fludrocortisone 0.1 mg p.o. daily #TIAN #Hypercalcemia Likely prerenal Patient endorses very poor oral intake and no desire to eat Patient has lost a lot of weight roughly 40 pounds in the past 5 months Given bolus in ED - Corrected calcium today is at 11.7. Calcium continues to improve. -Avoid nephrotoxic agents -Renally dose medicines -Urine lytes and creatinine -Nephrology consulted, appreciate recommendations #History of valley fever Diagnosed on previous admission IgM and IgG positive -Resumed Diflucan for 400 mg daily #History of pulmonary mass, R lobe #History of pleural effusion Seen on chest CTA in November 2024, This could be a culprit of hypercalcemia. Had thoracentesis on last admission and had 2000 cc removed, appears to be transudative in nature considering lights criteria 01/05: CT CAP reviewed subcentimeter pulmonary nodules but no determinate mass. Suspect infectious nodules due to cocci. -Follow up imaging if needed, possibly outpatient #History of hypothyroidism Takes levothyroxine 150mcg at home Free T4 elevated at 2.09. -Will hold levothyroxine for now #History of liver cirrhosis #History of bariatric surgery #History of hepatic vein thrombosis status post failed hepatic and splenic vein stenting #History of recurrent paracentesis and thoracentesis Sees Dr. Preciado hepatology at [facility] Was apparently on liver transplant list at some point, however is not getting a liver transplant at this point -Resumed home Eliquis 5 mg twice a day -Will consider GI consult -Registered dietitian referral #Normocytic anemia Unsure if patient is having iron deficiency or anemia of chronic disease Patient does have history of bariatric surgery and also has poor oral intake Anemia is multifactorial at this point and will require further workup Hemoglobin is 11.5 today, however baseline appears to be around 8 or 9, this number is elevated due to patient being dehydrated -Trend CBC -Follow-up peripheral blood smear Disposition: Med telemetry DVT prophylaxis: Eliquis GI prophylaxis: Protonix Diet: Regular CODE STATUS: Full Plan of care discussed with attending Dr. Bennett. Andrew Waite MD PGY-1 Attending Provider Attestation/Addendum Discussed with Dr. Taylor we will start fludrocortisone. Patient is alert and oriented. Denies chest pain and no headache. I discussed with and supervised the resident physician who took care of this patient. I agree with the assessment and plan as above.
[2025-01-06] MEDS: FLUDROCORTISONE ACETATE 0.1 MG TABLET PO (13:18)
[2025-01-06] MEDS: NAPH,KPH MBDB 1 PACKET (1.5 GM) PO (14:08)
[2025-01-06] MEDS: ATORVASTATIN CALCIUM 20 MG TABLET PO (20:38)
[2025-01-07] VITALS (7 sets, daily range): BP systolic 93–116; BP diastolic 55–65; PULSE 70–83; RESP 16–18; TEMP 36.1–36.9; O2SAT 97–100
[2025-01-07 05:58] LABS: Alanine Aminotransferase 10 U/L (10-49); Albumin, Serum 3.5 gm/dL (3.4-4.8); Albumin/Globulin Ratio 1.1 (1.2-2.2); Alkaline Phosphatase 109 U/L (46-116); Anion Gap 9 (7-16); Aspartate Amino Transferase 20 U/L (0-34); BUN/Creatinine Ratio 24 Ratio (12-20); Bilirubin,Total 0.4 mg/dL (0.3-1.2); Blood Urea Nitrogen 33 mg/dL (9-23); Calcium 10.5 mg/dL (8.3-10.6); Calcium (Corrected) 10.9 mg/dL (8.5-10.1); Carbon Dioxide 22.8 mMol/L (20.0-31.0); Chloride 108 mMol/L (98-107); Creatinine (Component) 1.4 mg/dL (0.6-1.3); Globulin 3.1 gm/dL (2.3-3.5); Glucose 98 mg/dL (74-106); Osmolality,Calculated 286 (275-295); Phosphorous 1.7 mg/dL (2.4-5.1); Potassium 4.2 mMol/L (3.4-5.1); Sodium 140 mMol/L (136-145); Total Protein 6.6 gm/dL (5.7-8.2); eGFR 40 See Note
[2025-01-07] MEDS: MG HYD/AL HYD/SIME (Maalox Reg) SUSP 30 ML UDC 15 ML PO ×3 (05:59→21:16)
[2025-01-07 06:04] LABS: Basophils % (Auto) 1 % (0-2.5); Eosinophils # (Auto) 0.2 Thou/mm3 (0.0-0.5); Eosinophils % (Auto) 6 % (0-10); Hematocrit 27.1 % (36.0-46.0); Immature Granulocytes % (Auto) 0 % (0-0); Immature Granulocytes Auto 0.01 Thou/mm3 (0.00-0.00); Lymphocytes # (Auto) 0.4 Thou/mm3 (1.0-4.8); Lymphocytes % (Auto) 11 % (10-50); Mean Corpuscular HGB Conc 31.7 g/dl (31.0-37.0); Mean Corpuscular Volume 82 fL (80-100); Monocytes # (Auto) 0.4 Thou/mm3 (0.0-0.8); Monocytes % (Auto) 11 % (0-12); Neutrophils # (Auto) 2.6 Thou/mm3 (1.8-7.7); Neutrophils % (Auto) 71 % (37-80); Nucleated Red Blood Cell # 0.03 Thou/mm3 (0.00-0.00); Nucleated Red Blood Cell % 1 /100 WBC (0); Platelet Count 91 Thou/mm3 (140-440); RDW Standard Deviation 52.1 fL (36.4-46.3); Red Blood Count 3.31 Miln/mm3 (4.00-5.20); White Blood Count 3.6 Thou/mm3 (3.6-11.0)
[2025-01-07 06:24] LABS: Hemoglobin 8.6 g/dL (12.0-16.0)
[2025-01-07] MEDS: PANTOPRAZOLE INJ 40 MG VIAL IVP (09:06)
[2025-01-07] MEDS: FLUCONAZOLE 100 MG TABLET 400 MG PO (09:41)
[2025-01-07] MEDS: APIXABAN 2.5 MG TABLET 5 MG PO ×2 (09:43→20:51)
[2025-01-07] MEDS: FLUDROCORTISONE ACETATE 0.1 MG TABLET PO (09:45)
[2025-01-07] MEDS: NAPH,KPH MBDB 1 PACKET (1.5 GM) PO (09:47)
[2025-01-07] MEDS: MEGESTROL ACET SUSP 400 MG/10 ML UDC 200 MG PO ×2 (09:47→20:52)
--- NOTE | 2025-01-07 10:36 | PD.RESPRO ---
Documentation for date of: 01/07/25 Subjective Subjective Interval history: Patient seen today at the bedside fine awake, alert, oriented x 3. at bedside. No overnight events reported. Patient states she wants to go home. Patient states she was able to sit on the bed and having her legs hanging on the edge of the bed without feeling dizzy. Vitals stable at this time. labs significant for improving kidney function. Encouraged increased p.o. intake. Will continue current management at this time. Exam Vital Signs Temp Pulse Resp BP Pulse Ox O2 Del Method 97.0 F 70 17 93/63 97 Room Air 01/07/25 08:00 01/07/25 08:00 01/07/25 08:00 01/07/25 08:00 01/07/25 08:00 01/07/25 08:00 Narrative Exam Physical Exam GENERAL: NAD, AAOx3, cachectic HEENT: Moist mucosa. Eyes open, symmetrical, & clear CARDIO: Heart RRR, no obvious murmurs PULM: No noted coughing/dyspnea CTA B/L, no R/W/R GI: Abdomen soft, nondistended, no pain on palpation. BSx4 SKIN/MSK/EXT: No wounds/rashes/edema/amputations, no pain on palpation. Pedal pulses present B/L NEURO: AAOx3, no focal neuro deficits, able to move all 4 extremities Objective Labs 01/07/25 04:45 01/07/25 04:45 Labs: Laboratory Results - last 24 hr 01/07/25 04:45 WBC 3.6 RBC 3.31 L Hgb 8.6 L Hct 27.1 L MCV 82 MCH 26.0 MCHC 31.7 RDW Std Deviation 52.1 H Plt Count 91 L Neut % (Auto) 71 Lymph % (Auto) 11 [place] % (Auto) 11 Eos % (Auto) 6 Baso % (Auto) 1 Neut # (Auto) 2.6 Lymph # (Auto) 0.4 L [place] # (Auto) 0.4 Eos # (Auto) 0.2 Baso # (Auto) 0.0 Immature Gran # (Auto) 0.01 H Absolute Nucleated RBC 0.03 H Immature Gran % 0 Nucleated RBC % 1 H Sodium 140 Potassium 4.2 Chloride 108 H Carbon Dioxide 22.8 Anion Gap 9 BUN 33 H Creatinine 1.4 H Estim Creat Clear Calc 34.0 L eGFR 40 L BUN/Creatinine Ratio 24 H Glucose 98 Calculated Osmolality 286 Calcium 10.5 Corrected Calcium 10.9 H Phosphorus 1.7 L Magnesium 2.0 Total Bilirubin 0.4 AST 20 ALT 10 Alkaline Phosphatase 109 Total Protein 6.6 Albumin 3.5 Globulin 3.1 Albumin/Globulin Ratio 1.1 L ABG Interpretation ABG results: 01/04/25 10:50 VBG pH 7.57 VBG pCO2 24 L VBG pO2 46 VBG Base Excess 1 Quality Measures Quality Measures VTE prophylaxis Advance care planning discussed with:: patient Assessment & Plan Assessment Current Active Medications: Generic Name Dose Route Start Last Admin Trade Name Freq PRN Reason Stop Dose Admin Al Hydrox/Mg Hydrox/Simethicone 15 ml 01/04/25 22:00 01/07/25 05:59 Mg Hyd/Al Hyd/Eryn (Maalox Reg) Susp 30 Ml Udc PO 02/03/25 21:59 15 ml TID YOAN Administration Apixaban 5 mg 01/04/25 21:00 01/07/25 09:43 Apixaban 2.5 Mg Tablet PO 01/25/25 20:59 5 mg BID YOAN Administration Protocol Atorvastatin Calcium 20 mg 01/05/25 21:00 01/06/25 20:38 Atorvastatin Calcium 20 Mg Tablet PO 02/04/25 20:59 20 mg HS YOAN Administration Fluconazole 400 mg 01/04/25 18:30 01/07/25 09:41 Fluconazole 100 Mg Tablet PO 01/11/25 18:29 400 mg QDAY YOAN Administration Fludrocortisone Acetate 0.1 mg 01/06/25 10:15 01/07/25 09:45 Fludrocortisone Acetate 0.1 Mg Tablet PO 02/05/25 10:14 0.1 mg QDAY YOAN Administration Megestrol Acetate 200 mg 01/04/25 21:00 01/07/25 09:47 Megestrol Acet Susp 400 Mg/10 Ml Udc PO 02/03/25 20:59 200 mg BID YOAN Administration Midodrine 5 mg 01/05/25 10:59 Midodrine 5 Mg Tablet PO 02/03/25 21:59 TID PRN SBP <95 Ondansetron HCl 4 mg 01/04/25 18:11 Ondansetron Inj 2 Mg/Ml Inj 2 Ml IV 02/03/25 18:10 Q6H PRN NAUSEA OR VOMITING Protocol Pantoprazole Sodium 40 mg 01/04/25 18:15 01/07/25 09:06 Pantoprazole Inj 40 Mg Vial IVP 02/03/25 18:14 40 mg QDAY YOAN Administration Plan Alma Rosa is a 74 y/o female with PMHx liver cirrhosis?, Hepatic vein thrombosis, 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 #Syncope #History of orthostatic hypotension #Generalized weakness Patient reports she has been having syncopal episodes mainly with getting up Endorses a history of orthostatic hypotension for which she takes midodrine 5mg TID as needed Patient reports that she has lost over 40 pounds within the past 5 months, attributes it to poor oral intake Syncope likely related to poor oral intake and orthostatic hypotension 01/05/2025: Orthostatics positive Echocardiogram unremarkable. Concern for adrenal insufficiency given orthostatic hypotension, potential causes include valley fever, malnutrition due to poor p.o. intake. -Encourage oral intake -Continue Megace -Midodrine 5 mg 3 times daily -Fludrocortisone 0.1 mg p.o. daily #TIAN-improving #Hypercalcemia-improving Likely prerenal Patient endorses very poor oral intake and no desire to eat Patient has lost a lot of weight roughly 40 pounds in the past 5 months Given bolus in ED - Corrected calcium today is at 11.7. Calcium continues to improve. -Follow-up protein electrophoresis -Avoid nephrotoxic agents -Renally dose medicines -Urine lytes and creatinine -Nephrology consulted, appreciate recommendations #History of valley fever Diagnosed on previous admission IgM and IgG positive -Resumed Diflucan for 400 mg daily #History of pulmonary mass, R lobe #History of pleural effusion Seen on chest CTA in November 2024, This could be a culprit of hypercalcemia. Had thoracentesis on last admission and had 2000 cc removed, appears to be transudative in nature considering lights criteria 01/05: CT CAP reviewed subcentimeter pulmonary nodules but no determinate mass. Suspect infectious nodules due to cocci. -Follow up imaging if needed, possibly outpatient #History of hypothyroidism Takes levothyroxine 150mcg at home Free T4 elevated at 2.09. -Will hold levothyroxine for now #History of liver cirrhosis #History of bariatric surgery #History of hepatic vein thrombosis status post failed hepatic and splenic vein stenting #History of recurrent paracentesis and thoracentesis Sees Dr. Preciado hepatology at [facility] Was apparently on liver transplant list at some point, however is not getting a liver transplant at this point -Resumed home Eliquis 5 mg twice a day -Consider requesting medical records from [facility] -Will consider GI consult -Registered dietitian referral #Normocytic anemia Unsure if patient is having iron deficiency or anemia of chronic disease Patient does have history of bariatric surgery and also has poor oral intake Anemia is multifactorial at this point and will require further workup Hemoglobin is 8.5 -Trend CBC -Follow-up peripheral blood smear Case discussed with my attending Dr. Donald Garcia MD PGY-1 Disposition: Med telemetry DVT prophylaxis: Eliquis GI prophylaxis: Protonix Diet: Regular CODE STATUS: Full Attending Provider Attestation/Addendum Continue treatment for valley fever with Diflucan. The patient was started on fludrocortisone. She is also on midodrine. Patient is alert and oriented. She is alert and oriented. She feels better today. She has no swallowing difficulty. She has good urine output. Minimal bowel movement. I discussed with and supervised the resident physician who took care of this patient. I agree with the assessment and plan as above.
--- NOTE | 2025-01-07 16:16 | PC.SS ---
SS met with pt and her Kishore Headley at bedside to discuss DC options. Kishore expressed the desire to take pt home IF she can at least sit at the edge of the bed and transfer to a chair. Kishore also inquired if he decides to take her home, he would need a hospital bed. They mentioned to SS that pt was previously aligned with Home Health[facility]. Pt requested one more day to make decision on SNF for short term rehab or go home with HH. SS informed pt and Kishore SS will check in with them tomorrow on their choice and follow up with any other needs.
--- NOTE | 2025-01-07 18:31 | PD.NEPHPROG ---
Documentation for date of: 01/07/25 Subjective Subjective Interval history: Informant Ms. Headley is a 74 y/o lady who is a patient of Dr. 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 presented to the emergency department with significant weakness, syncopal episode. Patient stated since she got discharged a month ago she has been having trouble eating as she has no appetite, has been feeling extremely fatigued and tired with orthostatic hypotension-on midodrine as needed. She also stated because she is not able to eat anything lost 40 pounds in the last 6 months. Did fall few times in the last 1 month. In the emergency department blood sugar 143. Blood pressure 123/89, heart rate 86. WBC 6.7, hemoglobin 11.4, platelets 168. Sodium 133, potassium 4.4, BUN 74, creatinine 2.4, GFR 21, A1c 5.9, calcium 813, LFTs normal, albumin 4.6, globulin 4.1 urinalysis shows ketones. Urine protein/creatinine normal urine sodium 37.9 with a chloride less than 20. Urine tox screen negative. Chest x-ray negative. CT chest abdomen and pelvis showed pulmonary nodules (has history of valley fever), splenic vascular stent, cirrhosis, cystitis. Patient was given 2 L normal saline. Meds: Protonix 40 mg, Eliquis 5 mg twice daily, midodrine 5 mg 3 times daily, Synthroid 150 mcg daily, Lasix 40 mg once a day, Diflucan 200 mg twice a day, spironolactone 25 mg 3 times a day, Carafate 1 g 4 times a day, Slow Fe 45 mg Brother had heart attack. Patient had gastric bypass surgery 25 years ago. Admitted to medical team. Renal consultation requested for acute renal failure, hypercalcemia Spoke to primary team-will start workup for malignancy due to weight loss. 01/05/2025 patient currently seen in medical floor. More alert and awake. She is feeling much stronger today.Blood pressure acceptable. Patient started to make urine WBC 3.8, hemoglobin 9.6, platelets 129. Sodium 135, potassium 4.1, BUN 64, creatinine 1.9, calcium 11.7, phosphorus 3, LFTs normal, total cholesterol 214, LDL 147 so far tumor markers negative, vitamin D normal PTH significantly suppressed at 13.2 urine sodium 37.9 with a chloride less than 20 cocci IgM positive echocardiogram showed ejection fraction 60 to 65%. [address] chest abdomen pelvis showed pulmonary nodules consistent with her old valley fever. No malignancy noted on IV fluids.. 01/07/2025 patient currently seen in medical floor. Had a big bowel movement. Still having significant orthostasis with dizzy spells. Added fludrocortisone. On midodrine. Blood pressure 103/65, heart rate 72. Hemoglobin 8.6. Sodium 140, potassium 4.2, bicarbonate 22.8, BUN 33, creatinine 1.4, calcium 10.9, phosphorus 1.7, magnesium 2 Review of Systems Review of Systems Narrative Review of Systems: CONSTITUTIONAL: Complaining of significant fatigue, weight loss HEENT: Denies any visual disturbances or hearing problems. CARDIOVASCULAR: Patient denies any chest pain, shortness of breath, swelling in the lower extremities. PULMONARY: Patient denies any shortness of breath, cough. GASTROINTESTINAL: Patient denies any abdominal pain, nausea, vomiting, diarrhea. Complaining of decreased appetite. Had constipation GENITOURINARY: Patient denies any urinary symptoms of burning or frequency or hematuria, denies any form in the urine. SKIN: Denies any rash. MUSCULOSKELETAL: Complaining of gait imbalance, frequent falls NEUROLOGICAL: Denies any neurological problems of strokes, seizures or confusion. Denies any memory problems. PSYCHIATRIC: Denies any depression or anxiety. LYMPHATICS : No lymphadenopathy Exam Vital Signs Temp Pulse Resp BP Pulse Ox O2 Del Method 36.1 C 72 18 103/65 99 Room Air 01/07/25 16:00 01/07/25 16:00 01/07/25 16:00 01/07/25 16:00 01/07/25 16:01/07/25 16:00 Narrative Exam GENERAL APPEARANCE: Patient currently seen in medical floor NECK: Neck supple, no JVD or bruit CARDIOVASCULAR: Heart regular, no murmurs LUNGS/CHEST: Chest clear to auscultation. No rales, rhonchi, wheezing ABDOMEN: Soft, nontender, nondistended. No masses. Normal bowel sounds. Gastric bypass surgery. EXTREMITIES: No edema, clubbing or cyanosis. SKIN: Skin exam normal without any rashes MUSCULOSKELETAL: In bed NEUROLOGICAL : No neurological deficits. Alert and awake Objective Labs 01/07/25 04:45 01/07/25 04:45 Labs: Laboratory Results - last 24 hr 01/07/25 04:45 WBC 3.6 RBC 3.31 L Hgb 8.6 L Hct 27.1 L MCV 82 MCH 26.0 MCHC 31.7 RDW Std Deviation 52.1 H Plt Count 91 L Neut % (Auto) 71 Lymph % (Auto) 11 [place] % (Auto) 11 Eos % (Auto) 6 Baso % (Auto) 1 Neut # (Auto) 2.6 Lymph # (Auto) 0.4 L [place] # (Auto) 0.4 Eos # (Auto) 0.2 Baso # (Auto) 0.0 Immature Gran # (Auto) 0.01 H Absolute Nucleated RBC 0.03 H Immature Gran % 0 Nucleated RBC % 1 H Sodium 140 Potassium 4.2 Chloride 108 H Carbon Dioxide 22.8 Anion Gap 9 BUN 33 H Creatinine 1.4 H Estim Creat Clear Calc 34.0 L eGFR 40 L BUN/Creatinine Ratio 24 H Glucose 98 Calculated Osmolality 286 Calcium 10.5 Corrected Calcium 10.9 H Phosphorus 1.7 L Magnesium 2.0 Total Bilirubin 0.4 AST 20 ALT 10 Alkaline Phosphatase 109 Total Protein 6.6 Albumin 3.5 Globulin 3.1 Albumin/Globulin Ratio 1.1 L ABG Interpretation ABG results: 01/04/25 10:50 VBG pH 7.57 VBG pCO2 24 L VBG pO2 46 VBG Base Excess 1 Assessment & Plan Assessment and plan (1) Acute kidney injury: Status: Acute (2) Acute dehydration: Status: Acute (3) Hypercalcemia: Status: Acute (4) Abnormal weight loss: Status: Acute (5) Postural hypotension: Status: Acute Additional Assessment & Plan Additional Plan: (1) Acute kidney injury: Status: Acute Assessment and plan: Acute kidney injury secondary to prerenal azotemia. Patient's stated that she has not been eating or drinking for the last few days. Patient apparently lost more than 40 pounds in the last [address] abdomen showed no hydronephrosis. Hypercalcemia can cause a prerenal state from a polyuria. Continue with IV fluids with strict monitoring of urine output. Calcium, creatinine improving-- (2) Acute dehydration: Status: Acute Assessment and plan: increase p.o. intake. Continue with fluids (3) Hypercalcemia: Status: Acute Assessment and plan: Hypercalcemia of of 13.2 with a normal calcium 2 weeks ago. Suspect related to dehydration and immobilization vs cocci. Doubt malignancy. Intact PTH 13 which is appropriate suppression for hypercalcemia. Vitamin D normal. CT chest showed nodules-suspect from the previous valley fever. CT abdomen and pelvis no malignancy except liver cirrhosis. Continue with IV fluids. (4) Abnormal weight loss: Status: Acute Assessment and plan: Malignancy workup pending. globulins are very high. Protein electrophoresis ordered. (5) Postural hypotension: Status: Acute Assessment and plan: Probably related to dehydration-rule out adrenal problem. No history of diabetes. TSH normal. Patient on midodrine. added fludrocortisone.Might need stockings.
--- NOTE | 2025-01-07 20:41 | PC.NURSE ---
Addendum entered by Jesus Tang RN 01/07/25 20:47: Candace Robbins said it is okay to give eliquis tonight. Original Note: Dr. Maria made aware that patients platelet is 91 and pt has eliquis scheduled for tonight. Previous platelet was [address] Maria said he will check patient's chart.
[2025-01-07] MEDS: ATORVASTATIN CALCIUM 20 MG TABLET PO (20:51)
[2025-01-08] VITALS (9 sets, daily range): BP systolic 106–125; BP diastolic 59–69; PULSE 70–90; RESP 15–18; TEMP 36.1–36.7; O2SAT 98–100; BMI 15.0
[2025-01-08] MEDS: MG HYD/AL HYD/SIME (Maalox Reg) SUSP 30 ML UDC 15 ML PO ×3 (05:16→21:04)
[2025-01-08] MEDS: FLUDROCORTISONE ACETATE 0.1 MG TABLET PO (08:47)
[2025-01-08] MEDS: FLUCONAZOLE 100 MG TABLET 400 MG PO (08:47)
[2025-01-08] MEDS: MEGESTROL ACET SUSP 400 MG/10 ML UDC 200 MG PO ×2 (08:48→20:03)
[2025-01-08] MEDS: MIRTAZAPINE 15 MG TABLET PO (08:48)
[2025-01-08] MEDS: PANTOPRAZOLE 40 MG TABLET PO (08:48)
[2025-01-08] MEDS: APIXABAN 2.5 MG TABLET 5 MG PO ×2 (08:48→20:04)
--- NOTE | 2025-01-08 09:31 | PC.NURSE ---
Pts uc results received + for ecoli. Made Dr Glasgow and Dr wilkes aware during rounding this morning no new orders received at this time.
[2025-01-08 10:52] LABS: Basophils % (Auto) 1 % (0-2.5); Eosinophils # (Auto) 0.2 Thou/mm3 (0.0-0.5); Eosinophils % (Auto) 5 % (0-10); Hematocrit 27.5 % (36.0-46.0); Immature Granulocytes % (Auto) 1 % (0-0); Immature Granulocytes Auto 0.02 Thou/mm3 (0.00-0.00); Lymphocytes # (Auto) 0.4 Thou/mm3 (1.0-4.8); Lymphocytes % (Auto) 10 % (10-50); Mean Corpuscular HGB Conc 31.3 g/dl (31.0-37.0); Mean Corpuscular Hemoglobin 25.9 pg (25.0-35.0); Mean Corpuscular Volume 83 fL (80-100); Monocytes # (Auto) 0.3 Thou/mm3 (0.0-0.8); Monocytes % (Auto) 8 % (0-12); Neutrophils # (Auto) 2.9 Thou/mm3 (1.8-7.7); Neutrophils % (Auto) 76 % (37-80); Nucleated Red Blood Cell % 0 /100 WBC (0); Platelet Count 86 Thou/mm3 (140-440); RDW Standard Deviation 54.1 fL (36.4-46.3); Red Blood Count 3.32 Miln/mm3 (4.00-5.20); White Blood Count 3.8 Thou/mm3 (3.6-11.0)
[2025-01-08 10:56] LABS: Hemoglobin 8.6 g/dL (12.0-16.0)
[2025-01-08 11:10] LABS: Alanine Aminotransferase 10 U/L (10-49); Albumin, Serum 3.8 gm/dL (3.4-4.8); Albumin/Globulin Ratio 1.2 (1.2-2.2); Alkaline Phosphatase 117 U/L (46-116); Anion Gap 11 (7-16); Aspartate Amino Transferase 22 U/L (0-34); BUN/Creatinine Ratio 17 Ratio (12-20); Bilirubin,Total 0.5 mg/dL (0.3-1.2); Blood Urea Nitrogen 26 mg/dL (9-23); Calcium 10.5 mg/dL (8.3-10.6); Calcium (Corrected) 10.7 mg/dL (8.5-10.1); Carbon Dioxide 18.1 mMol/L (20.0-31.0); Chloride 108 mMol/L (98-107); Creatinine (Component) 1.5 mg/dL (0.6-1.3); Estimated Creatinine Clearance 31.7 mL/min (>60); Globulin 3.2 gm/dL (2.3-3.5); Glucose 182 mg/dL (74-106); Osmolality,Calculated 283 (275-295); Potassium 4.2 mMol/L (3.4-5.1); Sodium 137 mMol/L (136-145); eGFR 37 See Note
--- NOTE | 2025-01-08 11:25 | ESPR_ITS ---
<Statement entered by Lorie Glasgow MD - 01/08/25 17:00> Patient is a 74-year-old female with past medical history of hepatic vein thrombosis status post stent of hepatic/splenic vein with history of recurrent stent failure, frequent paracentesis/thoracentesis, hypothyroidism who presented to the hospital with syncope and generalized weakness and admitted for further management. Patient's orthostatic vitals continue to be positive. At bedside today, patient was concerned about her reason for her weakness and dizziness. Communicated to patient that symptoms are most likely due to her low appetite the last 5 months as well as her recent infection of coccidiomycosis. Continue with Megace and midodrine, fluconazole, and fludrocortisone. Will add mirtazapine to help with appetite stimulation and depression. Will add a 500 mL NS bolus to help with her blood pressure. Hypercalcemia is improving, and pending [facility] records from previous hospitalizations. Encourage patient to continue working with PT and will continue to replete electrolytes as necessary. I discussed with and supervised the internet consultant physician who took care of this patient. I personally saw and examined the patient and discussed the assessment and plan with the entire medicine team, including my attending Dr. Love, I agree with most of the assessment and plan as documented below Lorie Glasgow M.D. PGY-2 Disclaimer: Despite multiple revisions, due to the dictation software being used, the document bellow may not be free of grammatical errors including phonetic/typographic errors. However, this does not deter from our commitment to providing health care in the patient's best interest in mind. Documentation for date of: 01/08/25 Subjective Subjective Interval history: Patient seen today at the bedside fine awake, alert, oriented x 3. No overnight events reported. Was evaluated by PT was able to stand about 2 times for 20 seconds however later became dizzy. Vital signs stable at this time, blood pressure on the softer side. 500 NS mL bolus given labs at this time unremarkable. Added mirtazapine to help as appetite stimulant as well as antidepressant. Will continue current management at this time. Exam Vital Signs Temp Pulse Resp BP Pulse Ox O2 Del Method 97.0 F 74 15 114/67 100 Room Air 01/08/25 07:44 01/08/25 07:44 01/08/25 07:44 01/08/25 07:44 01/08/25 07:44 01/08/25 07:44 Narrative Exam Physical Exam GENERAL: NAD, AAOx3 HEENT: Moist mucosa. Eyes open, symmetrical, & clear CARDIO: Heart RRR, no obvious murmurs PULM: No noted coughing/dyspnea CTA B/L, no R/W/R GI: Abdomen soft, nondistended, no pain on palpation. BSx4 SKIN/MSK/EXT: No wounds/rashes/edema/amputations, no pain on palpation. Pedal pulses present B/L NEURO: AAOx3, no focal neuro deficits, able to move all 4 extremities Objective Labs 01/09/25 05:00 01/09/25 05:00 Labs: Laboratory Results - last 24 hr 01/08/25 09:57 WBC 3.8 RBC 3.32 L Hgb 8.6 L Hct 27.5 L MCV 83 MCH 25.9 MCHC 31.3 RDW Std Deviation 54.1 H Plt Count 86 L Neut % (Auto) 76 Lymph % (Auto) 10 [place] % (Auto) 8 Eos % (Auto) 5 Baso % (Auto) 1 Neut # (Auto) 2.9 Lymph # (Auto) 0.4 L [place] # (Auto) 0.3 Eos # (Auto) 0.2 Baso # (Auto) 0.0 Immature Gran # (Auto) 0.02 H Absolute Nucleated RBC 0.00 Immature Gran % 1 H Nucleated RBC % 0 Sodium 137 Potassium 4.2 Chloride 108 H Carbon Dioxide 18.1 L Anion Gap 11 BUN 26 H Creatinine 1.5 H Estim Creat Clear Calc 31.7 L eGFR 37 L BUN/Creatinine Ratio 17 Glucose 182 H D Calculated Osmolality 283 Calcium 10.5 Corrected Calcium 10.7 H Total Bilirubin 0.5 AST 22 ALT 10 Alkaline Phosphatase 117 H Total Protein 7.0 Albumin 3.8 Globulin 3.2 Albumin/Globulin Ratio 1.2 ABG Interpretation ABG results: 01/04/25 10:50 VBG pH 7.57 VBG pCO2 24 L VBG pO2 46 VBG Base Excess 1 Quality Measures Quality Measures VTE prophylaxis Advance care planning discussed with:: patient Assessment & Plan Assessment Current Active Medications: Generic Name Dose Route Start Last Admin Trade Name Freq PRN Reason Stop Dose Admin Al Hydrox/Mg Hydrox/Simethicone 15 ml 01/04/25 22:00 01/08/25 05:16 Mg Hyd/Al Hyd/Eryn (Maalox Reg) Susp 30 Ml Udc PO 02/03/25 21:59 15 ml TID YOAN Administration Apixaban 5 mg 01/04/25 21:00 01/08/25 08:48 Apixaban 2.5 Mg Tablet PO 01/25/25 20:59 5 mg BID YOAN Administration Protocol Atorvastatin Calcium 20 mg 01/05/25 21:00 01/07/25 20:51 Atorvastatin Calcium 20 Mg Tablet PO 02/04/25 20:59 20 mg HS YOAN Administration Fluconazole 400 mg 01/04/25 18:30 01/08/25 08:47 Fluconazole 100 Mg Tablet PO 01/11/25 18:29 400 mg QDAY YOAN Administration Fludrocortisone Acetate 0.1 mg 01/06/25 10:15 01/08/25 08:47 Fludrocortisone Acetate 0.1 Mg Tablet PO 02/05/25 10:14 0.1 mg QDAY YOAN Administration Megestrol Acetate 200 mg 01/04/25 21:00 01/08/25 08:48 Megestrol Acet Susp 400 Mg/10 Ml Udc PO 02/03/25 20:59 200 mg BID YOAN Administration Midodrine 5 mg 01/05/25 10:59 Midodrine 5 Mg Tablet PO 02/03/25 21:59 TID PRN SBP <95 Mirtazapine 15 mg 01/08/25 09:00 01/08/25 08:48 Mirtazapine 15 Mg Tablet PO 02/07/25 08:59 15 mg QDAY YOAN Administration Ondansetron HCl 4 mg 01/04/25 18:11 Ondansetron Inj 2 Mg/Ml Inj 2 Ml IV 02/03/25 18:10 Q6H PRN NAUSEA OR VOMITING Protocol Pantoprazole Sodium 40 mg 01/08/25 09:00 01/08/25 08:48 Pantoprazole 40 Mg Tablet PO 02/07/25 08:59 40 mg QDAY YOAN Administration Plan Alma Rosa is a 74 y/o female with PMHx liver cirrhosis?, Hepatic vein thrombosis, 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 #Syncope #History of orthostatic hypotension #Generalized weakness Patient reports she has been having syncopal episodes mainly with getting up Endorses a history of orthostatic hypotension for which she takes midodrine 5mg TID as needed Patient reports that she has lost over 40 pounds within the past 5 months, attributes it to poor oral intake Syncope likely related to poor oral intake and orthostatic hypotension 01/05/2025: Orthostatics positive Echocardiogram unremarkable. Concern for adrenal insufficiency given orthostatic hypotension, potential causes include valley fever, malnutrition due to poor p.o. intake. -Encourage oral intake -500 mL NS bolus given -Continue Megace -Mirtazapine 15 mg p.o. daily added -Midodrine 5 mg 3 times daily -Fludrocortisone 0.1 mg p.o. daily #TIAN-improving #Hypercalcemia-improving Likely prerenal Patient endorses very poor oral intake and no desire to eat Patient has lost a lot of weight roughly 40 pounds in the past 5 months Given bolus in ED - Corrected calcium today is at 11.7. Calcium continues to improve. -Follow-up protein electrophoresis -Avoid nephrotoxic agents -Renally dose medicines -Urine lytes and creatinine -Nephrology consulted, appreciate recommendations #History of valley fever Diagnosed on previous admission IgM and IgG positive -Resumed Diflucan for 400 mg daily #History of pulmonary mass, R lobe #History of pleural effusion Seen on chest CTA in November 2024, This could be a culprit of hypercalcemia. Had thoracentesis on last admission and had 2000 cc removed, appears to be transudative in nature considering lights criteria 01/05: CT CAP reviewed subcentimeter pulmonary nodules but no determinate mass. Suspect infectious nodules due to cocci. -Follow up imaging if needed, possibly outpatient #History of hypothyroidism Takes levothyroxine 150mcg at home Free T4 elevated at 2.09. -Will hold levothyroxine for now #History of liver cirrhosis #History of bariatric surgery #History of hepatic vein thrombosis status post failed hepatic and splenic vein stenting #History of recurrent paracentesis and thoracentesis Sees Dr. Preciado hepatology at [facility] Was apparently on liver transplant list at some point, however is not getting a liver transplant at this point -Resumed home Eliquis 5 mg twice a day -Consider requesting medical records from [facility] -Will consider GI consult -Registered dietitian referral #Normocytic anemia Unsure if patient is having iron deficiency or anemia of chronic disease Patient does have history of bariatric surgery and also has poor oral intake Anemia is multifactorial at this point and will require further workup Hemoglobin is 8.5 -Trend CBC -Follow-up peripheral blood smear Case discussed with my senior Dr. Glasgow PGY-[address] Ivan Garcia MD PGY-1 Disposition: Med telemetry DVT prophylaxis: Eliquis GI prophylaxis: Protonix Diet: Regular CODE STATUS: Full Attending Provider Attestation/Addendum I have examined the patient, reviewed labs and imaging findings, discussed the case with the resident(s), and reviewed entered orders. I agree with the plan of care as outlined in this note, with these additional summaries/recommendations: Patient seen at bedside. No acute overnight events. Patient's orthostatic vital signs continue to be positive. She was able to work with physical therapy but endorsed dizziness and was terminated. Patient was given 500 cc fluid bolus. Patient encouraged to stay hydrated for orthostatic hypotension. We will continue midodrine and recommend compression stockings. Patient was previously empirically started on fluidrocortisone although low suspicion for adrenal insufficiency at this time and will reevaluate in AM about discontinuing. Acute kidney injury continues to improve. Creatinine down to 1.4 and BUN 33. Most likely secondary to prerenal azotemia in the setting of poor oral intake and significant weight loss. Continue to avoid nephrotoxic agents and renally dose medications. Patient has mild hypercalcemia which is likely multifactorial secondary to immobilization versus possible malignancy. We will monitor for now as patient is asymptomatic from hypercalcemia standpoint. Patient has history of pulmonary mass and weight loss and recommend outpatient age-appropriate cancer screening. Patient's pulmonary mass was worked up in the past and patient can continue to follow-up outpatient. Continue Eliquis for history of hepatic vein thrombosis and patient follows Dr. Preciado at [facility]. Dr. Ivan MD
--- NOTE | 2025-01-08 13:33 | PC.SS ---
Follow up note: Patient is refusing SNF. She only wants HH services. Patient's spouse is agreeable with HH services.
--- NOTE | 2025-01-08 16:25 | ESPR_ITS ---
Documentation for date of: 01/08/25 Subjective Subjective Interval history: Ms. Headley is a 74 y/o lady who is a patient of Dr. 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 presented to the emergency department with significant weakness, syncopal episode. Patient stated since she got discharged a month ago she has been having trouble eating as she has no appetite, has been feeling extremely fatigued and tired with orthostatic hypotension-on midodrine as needed. She also stated because she is not able to eat anything lost 40 pounds in the last 6 months. Did fall few times in the last 1 month. In the emergency department blood sugar 143. Blood pressure 123/89, heart rate 86. WBC 6.7, hemoglobin 11.4, platelets 168. Sodium 133, potassium 4.4, BUN 74, creatinine 2.4, GFR 21, A1c 5.9, calcium 813, LFTs normal, albumin 4.6, globulin 4.1 urinalysis shows ketones. Urine protein/creatinine normal urine sodium 37.9 with a chloride less than 20. Urine tox screen negative. Chest x- ray negative. CT chest abdomen and pelvis showed pulmonary nodules (has history of valley fever), splenic vascular stent, cirrhosis, cystitis. Patient was given 2 L normal saline. Meds: Protonix 40 mg, Eliquis 5 mg twice daily, midodrine 5 mg 3 times daily, Synthroid 150 mcg daily, Lasix 40 mg once a day, Diflucan 200 mg twice a day, spironolactone 25 mg 3 times a day, Carafate 1 g 4 times a day, Slow Fe 45 mg Brother had heart attack. Patient had gastric bypass surgery 25 years ago. Admitted to medical team. Renal consultation requested for acute renal failure, hypercalcemia Spoke to primary team-will start workup for malignancy due to weight loss. 01/05/2025 patient currently seen in medical floor. More alert and awake. She is feeling much stronger today.Blood pressure acceptable. Patient started to make urine WBC 3.8, hemoglobin 9.6, platelets 129. Sodium 135, potassium 4.1, BUN 64, creatinine 1.9, calcium 11.7, phosphorus 3, LFTs normal, total cholesterol 214, LDL 147 so far tumor markers negative, vitamin D normal PTH significantly suppressed at 13.2 urine sodium 37.9 with a chloride less than 20 cocci IgM positive echocardiogram showed ejection fraction 60 to 65%. [address] chest abdomen pelvis showed pulmonary nodules consistent with her old valley fever. No malignancy noted on IV fluids. 01/06/2025 Patient patient was seen and examined with the physical therapy at bedside No acute overnight events Reported that she is feeling good. Physical therapy at bedside reported that she is not able to stand even for 5 seconds due to dizziness Vitals are stable. No orthostatic drop is noted on blood pressure monitoring Labs showed WBC 3.1, Hb 8.9, BUN 41, creatinine 1.5, corrected calcium 10.9, phosphorus 2.2 Encouraged to take plenty amount of oral fluids and continue megestrol 01/07/2025 patient currently seen in medical floor. Had a big bowel movement. Still having significant orthostasis with dizzy spells. Added fludrocortisone. On midodrine. Blood pressure 103/65, heart rate 72. Hemoglobin 8.6. Sodium 140, potassium 4.2, bicarbonate 22.8, BUN 33, creatinine 1.4, calcium 10.9, phosphorus 1.7, magnesium 2 Exam Vital Signs Temp Pulse Resp BP Pulse Ox O2 Del Method 97.1 F 80 16 107/62 100 Room Air 01/08/25 12:00 01/08/25 12:00 01/08/25 12:00 01/08/25 12:00 01/08/25 12:00 01/08/25 12:00 Objective Labs 01/09/25 05:00 01/08/25 09:57 Labs: Laboratory Results - last 24 hr 01/08/25 09:57 WBC 3.8 RBC 3.32 L Hgb 8.6 L Hct 27.5 L MCV 83 MCH 25.9 MCHC 31.3 RDW Std Deviation 54.1 H Plt Count 86 L Neut % (Auto) 76 Lymph % (Auto) 10 [place] % (Auto) 8 Eos % (Auto) 5 Baso % (Auto) 1 Neut # (Auto) 2.9 Lymph # (Auto) 0.4 L [place] # (Auto) 0.3 Eos # (Auto) 0.2 Baso # (Auto) 0.0 Immature Gran # (Auto) 0.02 H Absolute Nucleated RBC 0.00 Immature Gran % 1 H Nucleated RBC % 0 Sodium 137 Potassium 4.2 Chloride 108 H Carbon Dioxide 18.1 L Anion Gap 11 BUN 26 H Creatinine 1.5 H Estim Creat Clear Calc 31.7 L eGFR 37 L BUN/Creatinine Ratio 17 Glucose 182 H D Calculated Osmolality 283 Calcium 10.5 Corrected Calcium 10.7 H Total Bilirubin 0.5 AST 22 ALT 10 Alkaline Phosphatase 117 H Total Protein 7.0 Albumin 3.8 Globulin 3.2 Albumin/Globulin Ratio 1.2 ABG Interpretation ABG results: 01/04/25 10:50 VBG pH 7.57 VBG pCO2 24 L VBG pO2 46 VBG Base Excess 1 Quality Measures Quality Measures VTE prophylaxis Advance care planning discussed with:: patient Assessment & Plan Assessment Current Active Medications: Generic Name Dose Route Start Last Admin Trade Name Freq PRN Reason Stop Dose Admin Al Hydrox/Mg Hydrox/Simethicone 15 ml 01/04/25 22:00 01/08/25 14:11 Mg Hyd/Al Hyd/Eryn (Maalox Reg) Susp 30 Ml Udc PO 02/03/25 21:59 15 ml TID YOAN Administration Apixaban 5 mg 01/04/25 21:00 01/08/25 08:48 Apixaban 2.5 Mg Tablet PO 01/25/25 20:59 5 mg BID YOAN Administration Protocol Atorvastatin Calcium 20 mg 01/05/25 21:00 01/07/25 20:51 Atorvastatin Calcium 20 Mg Tablet PO 02/04/25 20:59 20 mg HS YOAN Administration Fluconazole 400 mg 01/04/25 18:30 01/08/25 08:47 Fluconazole 100 Mg Tablet PO 01/11/25 18:29 400 mg QDAY YOAN Administration Fludrocortisone Acetate 0.1 mg 01/06/25 10:15 01/08/25 08:47 Fludrocortisone Acetate 0.1 Mg Tablet PO 02/05/25 10:14 0.1 mg QDAY YOAN Administration Megestrol Acetate 200 mg 01/04/25 21:00 01/08/25 08:48 Megestrol Acet Susp 400 Mg/10 Ml Udc PO 02/03/25 20:59 200 mg BID YOAN Administration Midodrine 5 mg 01/05/25 10:59 Midodrine 5 Mg Tablet PO 02/03/25 21:59 TID PRN SBP <95 Mirtazapine 15 mg 01/08/25 09:00 01/08/25 08:48 Mirtazapine 15 Mg Tablet PO 02/07/25 08:59 15 mg QDAY YOAN Administration Ondansetron HCl 4 mg 01/04/25 18:11 Ondansetron Inj 2 Mg/Ml Inj 2 Ml IV 02/03/25 18:10 Q6H PRN NAUSEA OR VOMITING Protocol Pantoprazole Sodium 40 mg 01/08/25 09:00 01/08/25 08:48 Pantoprazole 40 Mg Tablet PO 02/07/25 08:59 40 mg QDAY YOAN Administration Plan Ms. Headley is a 74 y/o lady who is a patient of Dr. 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, frequent paracentesis/thoracentesis, on diuretics presented to the emergency department with significant weakness, syncopal episode and admitted for acute kidney injury secondary to hypercalcemia likely from dehydration # Acute kidney injury, resolving Likely prerenal in the setting of decreased oral intake -Patient reported that she lost 40 pounds in the last 5 to 6 months and lost 9 pounds in the last 1 week -Patient was diagnosed with valley fever and is on fluconazole -At the time of admission, corrected calcium is 13 which could cause polyuria leading to dehydration and prerenal acute kidney injury -CT abdomen showed no hydronephrosis. -Patient was treated with IV fluids since the time of admission and creatinine levels continue to downtrend -As of 01/08, creat 1.5 -25-hydroxy vitamin D found to be normal, PTH mildly decreased Plan -Encouraged to take plenty of oral fluids -Continue to monitor renal functions -Avoid nephrotoxic medications and renally dose medications # Hypercalcemia, resolving Ddx: Dehydration and TIAN versus immobilization versus granulomatous disease versus malignancy -Corrected calcium at the time of admission is 13 > 3/3 , 10.7 -25-hydroxy vitamin D is within normal limits, PTH 13.2 -1, 25 dihydroxy vitamin D, serum protein electrophoresis was ordered-pending results Plan -As the calcium levels continues to trend downward, will monitor for now -Will follow-up with pending lab values -Continue intake of plenty of oral fluids # Hypophosphatemia -Phosphorus as of 01/06/2025 is 2.2 -Neutra-Phos is given -Will monitor renal functions # Cachexia # Failure to thrive # Chronic normocytic normochromic anemia -Patient had history of poor oral intake and significant weight loss over last 6 to 8 months -Patient was diagnosed with valley fever, which could be causing this -CT abdomen and chest was done to rule out malignancy, did not see any findings suggestive of malignancy -Will follow-up with serum electrophoresis Plan -started on Megace and mirtazapine -Patient was already on midodrine for orthostatic hypotension, fludrocortisone is added -Recommended high-protein diet -Continue fluconazole #Syncope #History of orthostatic hypotension #Generalized weakness #History of valley fever #History of pulmonary mass, R lobe #History of pleural effusion #History of hypothyroidism #History of liver cirrhosis #History of bariatric surgery #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 Claudia Gill, PGY1 Attending Provider Attestation/Addendum Patient seen and examined with resident physician Dr. Landis. Note reviewed, agree with findings and recommendations. Patient more alert and awake. Calcium level seems to be better. Encouraged mobilization, fluids. Patient requesting to go home with home health. Will defer decision to primary team
--- NOTE | 2025-01-08 17:07 | PC.CC ---
Pt entered into [facility], pt is open to [facility]
[2025-01-08] MEDS: SODIUM CHLORIDE 0.9% 500 ML 500 ML 999 ML IV (18:04)
[2025-01-08] MEDS: DiphenhydrAMINE 25 MG CAPSULE PO (19:40)
[2025-01-08] MEDS: ATORVASTATIN CALCIUM 20 MG TABLET PO (20:04)
--- NOTE | 2025-01-08 23:00 | PC.NURSE ---
Pts complained of itchiness all over her body, MD Maria made aware, came and examined the pt, stated to put pts on contact precaution to rule out scabies. MD Maria will put med for pts.
[2025-01-08] MEDS: DiphenhydrAMINE ELIX 25 MG/10 ML UDC PO (23:43)
[2025-01-09] VITALS (13 sets, daily range): BP systolic 106–130; BP diastolic 50–76; PULSE 68–89; RESP 16–18; TEMP 36.2–36.7; O2SAT 95–100; BMI 21.1; BMI 15.0
[2025-01-09] MEDS: MG HYD/AL HYD/SIME (Maalox Reg) SUSP 30 ML UDC 15 ML PO ×3 (05:13→22:20)
[2025-01-09 05:40] LABS: Basophils % (Auto) 1 % (0-2.5); Eosinophils # (Auto) 0.2 Thou/mm3 (0.0-0.5); Eosinophils % (Auto) 5 % (0-10); Hematocrit 25.4 % (36.0-46.0); Immature Granulocytes % (Auto) 0 % (0-0); Immature Granulocytes Auto 0.01 Thou/mm3 (0.00-0.00); Lymphocytes # (Auto) 0.4 Thou/mm3 (1.0-4.8); Lymphocytes % (Auto) 11 % (10-50); Mean Corpuscular HGB Conc 32.3 g/dl (31.0-37.0); Mean Corpuscular Hemoglobin 25.9 pg (25.0-35.0); Mean Corpuscular Volume 80 fL (80-100); Monocytes # (Auto) 0.3 Thou/mm3 (0.0-0.8); Monocytes % (Auto) 9 % (0-12); Neutrophils # (Auto) 2.8 Thou/mm3 (1.8-7.7); Neutrophils % (Auto) 74 % (37-80); Nucleated Red Blood Cell % 0 /100 WBC (0); Platelet Count 86 Thou/mm3 (140-440); RDW Standard Deviation 51.8 fL (36.4-46.3); Red Blood Count 3.16 Miln/mm3 (4.00-5.20); White Blood Count 3.8 Thou/mm3 (3.6-11.0)
[2025-01-09 06:00] LABS: Hemoglobin 8.2 g/dL (12.0-16.0)
[2025-01-09 06:38] LABS: CA 19-9 Antigen* 6 U/mL (<34)
[2025-01-09 06:49] LABS: Alanine Aminotransferase 10 U/L (10-49); Albumin, Serum 3.5 gm/dL (3.4-4.8); Albumin/Globulin Ratio 1.1 (1.2-2.2); Alkaline Phosphatase 108 U/L (46-116); Anion Gap 10 (7-16); Aspartate Amino Transferase 14 U/L (0-34); BUN/Creatinine Ratio 21 Ratio (12-20); Bilirubin,Total 0.4 mg/dL (0.3-1.2); Blood Urea Nitrogen 27 mg/dL (9-23); Calcium 10.2 mg/dL (8.3-10.6); Calcium (Corrected) 10.6 mg/dL (8.5-10.1); Carbon Dioxide 18.1 mMol/L (20.0-31.0); Chloride 111 mMol/L (98-107); Creatinine (Component) 1.3 mg/dL (0.6-1.3); Estimated Creatinine Clearance 36.6 mL/min (>60); Globulin 3.1 gm/dL (2.3-3.5); Glucose 104 mg/dL (74-106); Magnesium 2.1 mg/dL (1.6-2.6); Osmolality,Calculated 282 (275-295); Phosphorous 2.3 mg/dL (2.4-5.1); Potassium 4.4 mMol/L (3.4-5.1); Sodium 139 mMol/L (136-145); Total Protein 6.6 gm/dL (5.7-8.2); eGFR 44 See Note
[2025-01-09] MEDS: MEGESTROL ACET SUSP 400 MG/10 ML UDC 200 MG PO ×2 (08:29→20:35)
[2025-01-09] MEDS: FLUCONAZOLE 100 MG TABLET 400 MG PO (08:29)
[2025-01-09] MEDS: MIRTAZAPINE 15 MG TABLET PO (08:30)
[2025-01-09] MEDS: FLUDROCORTISONE ACETATE 0.1 MG TABLET PO (08:30)
[2025-01-09] MEDS: PANTOPRAZOLE 40 MG TABLET PO (08:30)
[2025-01-09] MEDS: APIXABAN 2.5 MG TABLET 5 MG PO ×2 (08:30→20:34)
--- NOTE | 2025-01-09 10:30 | ESPR_ITS ---
<Statement entered by Lorie Glasgow MD - 01/10/25 05:54> Patient is a 74-year-old female with past medical history of MASLD, hepatic vein thrombosis status post stenting with recurrent failure, gastric bypass frequent paracentesis/thoracentesis, and hypothyroidism who presented with syncope and admitted for further management. Patient has endorsed over 40 pound weight loss in the last 5 months due to poor oral intake. Will increase patient's midodrine dose to 5 mg 3 times daily scheduled to help with physical therapy and her dizziness upon standing. Orthostatic vitals continues to be positive. Will perform a cosyntropin test tomorrow which entails getting a baseline set of labs, giving cosyntropin, and get repeat cortisol levels 30 minutes and 60 minutes later. Will continue with mirtazapine and Megace, and resume fludrocortisone on , 01/11/2025. Will also consult ID for further recommendations. I discussed with and supervised the marketing pr intern physician who took care of this patient. I personally saw and examined the patient and discussed the assessment and plan with the entire medicine team, including my attending Dr. Mcdonough, I agree with most of the assessment and plan as documented below Lorie Glasgow M.D. PGY-2 Disclaimer: Despite multiple revisions, due to the dictation software being used, the document bellow may not be free of grammatical errors including phonetic/typographic errors. However, this does not deter from our commitment to providing health care in the patient's best interest in mind. Documentation for date of: 01/09/25 Subjective Subjective Interval history: Patient seen today at the bedside accompanied by found awake, alert, oriented x 3. No overnight events reported. States appetite has improved and she wants to go home. Vital signs stable at this time. Labs at this time noncontributory. At this time ordered vitamin B12, folate, zinc and orthostatic vitals to continue to evaluate her dizziness and hypotension when sitting up from the bed. Midodrine 5 mg 3 times daily as needed was made scheduled. Patient at home takes levothyroxine 150 however due to patient's significant weight loss in the past months dose was adjusted to 125. Infectious disease Dr Latham was consulted will appreciate any recommendations. Exam Vital Signs Temp Pulse Resp BP Pulse Ox O2 Del Method 97.2 F 69 18 106/50 L 96 Room Air 01/09/25 07:20 01/09/25 07:20 01/09/25 07:20 01/09/25 07:20 01/09/25 07:20 01/09/25 07:20 Narrative Exam Physical Exam GENERAL: NAD, AAOx3, temporal wasting HEENT: Moist mucosa. Eyes open, symmetrical, & clear CARDIO: Heart RRR, no obvious murmurs PULM: No noted coughing/dyspnea CTA B/L, no R/W/R GI: Abdomen soft, nondistended, no pain on palpation. BSx4 SKIN/MSK/EXT: No wounds/rashes/edema/amputations, no pain on palpation. Pedal pulses present B/L NEURO: AAOx3, no focal neuro deficits, able to move all 4 extremities Objective Labs 01/10/25 04:47 01/10/25 04:47 Labs: Laboratory Results - last 24 hr 01/04/25 01/08/25 01/09/25 18:34 09:57 05:00 WBC 3.8 3.8 RBC 3.32 L 3.16 L Hgb 8.6 L 8.2 L Hct 27.5 L 25.4 L MCV 83 80 MCH 25.9 25.9 MCHC 31.3 32.3 RDW Std Deviation 54.1 H 51.8 H Plt Count 86 L 86 L Neut % (Auto) 76 74 Lymph % (Auto) 10 11 [place] % (Auto) 8 9 Eos % (Auto) 5 5 Baso % (Auto) 1 1 Neut # (Auto) 2.9 2.8 Lymph # (Auto) 0.4 L 0.4 L [place] # (Auto) 0.3 0.3 Eos # (Auto) 0.2 0.2 Baso # (Auto) 0.0 0.0 Immature Gran # (Auto) 0.02 H 0.01 H Absolute Nucleated RBC 0.00 0.00 Immature Gran % 1 H 0 Nucleated RBC % 0 0 Sodium 137 139 Potassium 4.2 4.4 Chloride 108 H 111 H Carbon Dioxide 18.1 L 18.1 L Anion Gap 11 10 BUN 26 H 27 H Creatinine 1.5 H 1.3 Estim Creat Clear Calc 31.7 L 36.6 L eGFR 37 L 44 L BUN/Creatinine Ratio 17 21 H Glucose 182 H D 104 D Calculated Osmolality 283 282 Calcium 10.5 10.2 Corrected Calcium 10.7 H 10.6 H Phosphorus 2.3 L Magnesium 2.1 Total Bilirubin 0.5 0.4 AST 22 14 ALT 10 10 Alkaline Phosphatase 117 H 108 Total Protein 7.0 6.6 Albumin 3.8 3.5 Globulin 3.2 3.1 Albumin/Globulin Ratio 1.2 1.1 L CA 19-9 Antigen 6 ABG Interpretation ABG results: 01/04/25 10:50 VBG pH 7.57 VBG pCO2 24 L VBG pO2 46 VBG Base Excess 1 Quality Measures Quality Measures VTE prophylaxis Advance care planning discussed with:: patient Assessment & Plan Assessment Current Active Medications: Generic Name Dose Route Start Last Admin Trade Name Freq PRN Reason Stop Dose Admin Al Hydrox/Mg Hydrox/Simethicone 15 ml 01/04/25 22:00 01/09/25 05:13 Mg Hyd/Al Hyd/Eryn (Maalox Reg) Susp 30 Ml Udc PO 02/03/25 21:59 15 ml TID YOAN Administration Apixaban 5 mg 01/04/25 21:00 01/09/25 08:30 Apixaban 2.5 Mg Tablet PO 01/25/25 20:59 5 mg BID YOAN Administration Protocol Atorvastatin Calcium 20 mg 01/05/25 21:00 01/08/25 20:04 Atorvastatin Calcium 20 Mg Tablet PO 02/04/25 20:59 20 mg HS YONA Administration Calamine 0 ml 01/08/25 23:04 Calamine Lotion 120 Ml Btl TOP 02/07/25 23:03 UD PRN ITCHING Fluconazole 400 mg 01/04/25 18:30 01/09/25 08:29 Fluconazole 100 Mg Tablet PO 01/11/25 18:29 400 mg QDAY YOAN Administration Fludrocortisone Acetate 0.1 mg 01/06/25 10:15 01/09/25 08:30 Fludrocortisone Acetate 0.1 Mg Tablet PO 02/05/25 10:14 0.1 mg QDAY YOAN Administration Levothyroxine Sodium 125 mcg 01/10/25 06:00 Levothyroxine Sodium 125 Mcg Tablet PO 02/09/25 05:59 ACBR YOAN Megestrol Acetate 200 mg 01/04/25 21:00 01/09/25 08:29 Megestrol Acet Susp 400 Mg/10 Ml Udc PO 02/03/25 20:59 200 mg BID YOAN Administration Midodrine 5 mg 01/09/25 10:15 Midodrine 5 Mg Tablet PO 02/08/25 10:14 TID YOAN Mirtazapine 15 mg 01/08/25 09:00 01/09/25 08:30 Mirtazapine 15 Mg Tablet PO 02/07/25 08:59 15 mg QDAY YOAN Administration Ondansetron HCl 4 mg 01/04/25 18:11 Ondansetron Inj 2 Mg/Ml Inj 2 Ml IV 02/03/25 18:10 Q6H PRN NAUSEA OR VOMITING Protocol Pantoprazole Sodium 40 mg 01/08/25 09:00 01/09/25 08:30 Pantoprazole 40 Mg Tablet PO 02/07/25 08:59 40 mg QDAY YOAN Administration Plan Alma Rosa is a 74 y/o female with PMHx liver cirrhosis?, Hepatic vein thrombosis, 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 #Syncope #History of orthostatic hypotension #Generalized weakness #Cachexia #Failure to thrive Patient reports she has been having syncopal episodes mainly with getting up Endorses a history of orthostatic hypotension for which she takes midodrine 5mg TID as needed Patient reports that she has lost over 40 pounds within the past 5 months, attributes it to poor oral intake Syncope likely related to poor oral intake and orthostatic hypotension 01/05/2025: Orthostatics positive Echocardiogram unremarkable. Concern for adrenal insufficiency given orthostatic hypotension, potential causes include valley fever, malnutrition due to poor p.o. intake. 500 mL NS bolus given Vitamin B12 within normal limits, folate levels within normal limits -8 AM cortisol ordered -Orthostatic vitals ordered -Encourage oral intake -Continue Megace -Mirtazapine 15 mg p.o. daily added -Midodrine 5 mg 3 times daily -Fludrocortisone 0.1 mg p.o. daily #TIAN-improving #Hypercalcemia-improving Likely prerenal Patient endorses very poor oral intake and no desire to eat Patient has lost a lot of weight roughly 40 pounds in the past 5 months Given bolus in ED - Corrected calcium today is at 11.7. Calcium continues to improve. -Follow-up protein electrophoresis-pending -Avoid nephrotoxic agents -Renally dose medicines -Nephrology consulted, appreciate recommendations #History of valley fever Diagnosed on previous admission IgM and IgG positive -Resumed Diflucan for 400 mg daily #History of pulmonary mass, R lobe #History of pleural effusion Seen on chest CTA in November 2024, This could be a culprit of hypercalcemia. Had thoracentesis on last admission and had 2000 cc removed, appears to be transudative in nature considering lights criteria 01/05: CT CAP reviewed subcentimeter pulmonary nodules but no determinate mass. Suspect infectious nodules due to cocci. -Follow up imaging if needed, possibly outpatient #History of hypothyroidism Takes levothyroxine 150mcg at home Free T4 elevated at 2.09. 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 Preciado hepatology at [facility] Was apparently on liver transplant list at some point, however is not getting a liver transplant at this point [facility] records requested and reviewed -Resumed home Eliquis 5 mg twice a day #Normocytic anemia Unsure if patient is having iron deficiency or anemia of chronic disease Patient does have history of bariatric surgery and also has poor oral intake Anemia is multifactorial at this point and will require further workup Hemoglobin is 8.5 -Trend CBC -Follow-up peripheral blood smear Case discussed with my senior Dr. Glasgow PGY-[address] Ceasar Garcia MD PGY-1 Disposition: Med telemetry DVT prophylaxis: Eliquis GI prophylaxis: Protonix Diet: Regular CODE STATUS: Full Attending Provider Attestation/Addendum Fern Hunter, , attest that I was physically present for the rhoades portions of the service and evaluated the patient with the resident and I reviewed and discussed the case with the resident and agree with the resident's findings and plans of care as documented above Patient seen and evaluated this AM. at bedside. Per , patient's functional status has been progressively worsening since September. She had been hospitalized for splenic vein throbosis and stent placement at [facility]. 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 Titer was negative in November, but IgM and IgG were positive per chart review. Suspect that it may have been drawn during window period. Repeat titer in December was 1:2. Patient has a history of Sandra-en Y and has also had poor PO intake. She has since lost about 60lbs. She now presents with orthostatic hypotension and has since been started on midodrine and fludrocortisone. BP appears improved today. Suspect that patient's current presenting symptoms may be secondary to adrenal insufficiency in the setting of acute illness vs poor PO intake vs use of fluconazole. Chest CT was reviewed by pulmonology and lungs appear much improved on this admission. She remains on fluconazole at this time. Will do a cosyntropin stimulation test in AM. Baseline cortisol had been drawn on 01/05 prior to the start of fludrocortisone. ACTH, renin and aldosterone labs will also be ordered in AM. Will also consult ID for further recommendations. Plan for possible start of prednisone once stim test is done and OK with ID in the setting of infection.
[2025-01-09 10:33] LABS: Folate 12.79 ng/mL (>5.38); Vitamin B12 240 pg/mL (211-911)
[2025-01-09] MEDS: CITRIC ACID/SODIUM CITR 15 ML UDC (BICITRA) 30 ML PO ×2 (14:19→20:34)
--- NOTE | 2025-01-09 17:45 | PD.RESPRO ---
Documentation for date of: 01/09/25 Subjective Subjective Interval history: Ms. Headley is a 74 y/o lady who is a patient of Dr. 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 presented to the emergency department with significant weakness, syncopal episode. Patient stated since she got discharged a month ago she has been having trouble eating as she has no appetite, has been feeling extremely fatigued and tired with orthostatic hypotension-on midodrine as needed. She also stated because she is not able to eat anything lost 40 pounds in the last 6 months. Did fall few times in the last 1 month. In the emergency department blood sugar 143. Blood pressure 123/89, heart rate 86. WBC 6.7, hemoglobin 11.4, platelets 168. Sodium 133, potassium 4.4, BUN 74, creatinine 2.4, GFR 21, A1c 5.9, calcium 813, LFTs normal, albumin 4.6, globulin 4.1 urinalysis shows ketones. Urine protein/creatinine normal urine sodium 37.9 with a chloride less than 20. Urine tox screen negative. Chest x-ray negative. CT chest abdomen and pelvis showed pulmonary nodules (has history of valley fever), splenic vascular stent, cirrhosis, cystitis. Patient was given 2 L normal saline. Meds: Protonix 40 mg, Eliquis 5 mg twice daily, midodrine 5 mg 3 times daily, Synthroid 150 mcg daily, Lasix 40 mg once a day, Diflucan 200 mg twice a day, spironolactone 25 mg 3 times a day, Carafate 1 g 4 times a day, Slow Fe 45 mg Brother had heart attack. Patient had gastric bypass surgery 25 years ago. Admitted to medical team. Renal consultation requested for acute renal failure, hypercalcemia Spoke to primary team-will start workup for malignancy due to weight loss. 01/05/2025 patient currently seen in medical floor. More alert and awake. She is feeling much stronger today.Blood pressure acceptable. Patient started to make urine WBC 3.8, hemoglobin 9.6, platelets 129. Sodium 135, potassium 4.1, BUN 64, creatinine 1.9, calcium 11.7, phosphorus 3, LFTs normal, total cholesterol 214, LDL 147 so far tumor markers negative, vitamin D normal PTH significantly suppressed at 13.2 urine sodium 37.9 with a chloride less than 20 cocci IgM positive echocardiogram showed ejection fraction 60 to 65%. CT chest abdomen pelvis showed pulmonary nodules consistent with her old valley fever. No malignancy noted on IV fluids. 01/06/2025 Patient patient was seen and examined with the physical therapy at bedside No acute overnight events Reported that she is feeling good. Physical therapy at bedside reported that she is not able to stand even for 5 seconds due to dizziness Vitals are stable. No orthostatic drop is noted on blood pressure monitoring Labs showed WBC 3.1, Hb 8.9, BUN 41, creatinine 1.5, corrected calcium 10.9, phosphorus 2.2 Encouraged to take plenty amount of oral fluids and continue megestrol 01/07/2025 patient currently seen in medical floor. Had a big bowel movement. Still having significant orthostasis with dizzy spells. Added fludrocortisone. On midodrine. Blood pressure 103/65, heart rate 72. Hemoglobin 8.6. Sodium 140, potassium 4.2, bicarbonate 22.8, BUN 33, creatinine 1.4, calcium 10.9, phosphorus 1.7, magnesium 2 01/09/2025 Patient was seen and examined at bedside in the [facility] Still complaining of generalized weakness and fatigue and dizziness Vitals are stable. Labs done showed marked improvement in renal functions with creatinine of 1.3, calcium 10.6 Cortisol levels, serum protein electrophoresis, 1, 25 dihydroxy vitamin D levels are still pending Will continue current management Exam Vital Signs Temp Pulse Resp BP Pulse Ox O2 Del Method 97.2 F 81 18 130/71 96 Room Air 01/09/25 15:47 01/09/25 16:00 01/09/25 15:47 01/09/25 15:47 01/09/25 15:47 01/09/25 15:47 Narrative Exam General: Awake. Cachectic HEENT: Normocephalic, atraumatic, mucous membranes moist. Heart: Regular rate and rhythm, no murmurs. Lungs: Clear to auscultation with no wheezing or crackles. Abdomen: Soft, nondistended, nontender, positive bowel sounds. ?No guarding or rebound tenderness. Neurologic: Alert and oriented x3, no gross neurological deficit, and patient able to move all 4 extremities. Extremities: No edema. Skin: No rash or ecchymoses. Objective Labs 01/09/25 05:00 01/09/25 05:00 Labs: Laboratory Results - last 24 hr 01/04/25 01/09/25 18:34 05:00 WBC 3.8 RBC 3.16 L Hgb 8.2 L Hct 25.4 L MCV 80 MCH 25.9 MCHC 32.3 RDW Std Deviation 51.8 H Plt Count 86 L Neut % (Auto) 74 Lymph % (Auto) 11 Falls % (Auto) 9 Eos % (Auto) 5 Baso % (Auto) 1 Neut # (Auto) 2.8 Lymph # (Auto) 0.4 L Falls # (Auto) 0.3 Eos # (Auto) 0.2 Baso # (Auto) 0.0 Immature Gran # (Auto) 0.01 H Absolute Nucleated RBC 0.00 Immature Gran % 0 Nucleated RBC % 0 Sodium 139 Potassium 4.4 Chloride 111 H Carbon Dioxide 18.1 L Anion Gap 10 BUN 27 H Creatinine 1.3 Estim Creat Clear Calc 36.6 L eGFR 44 L BUN/Creatinine Ratio 21 H Glucose 104 D Calculated Osmolality 282 Calcium 10.2 Corrected Calcium 10.6 H Phosphorus 2.3 L Magnesium 2.1 Total Bilirubin 0.4 AST 14 ALT 10 Alkaline Phosphatase 108 Total Protein 6.6 Albumin 3.5 Globulin 3.1 Albumin/Globulin Ratio 1.1 L CA 19-9 Antigen 6 Vitamin B12 240 Folate 12.79 ABG Interpretation ABG results: 01/04/25 10:50 VBG pH 7.57 VBG pCO2 24 L VBG pO2 46 VBG Base Excess 1 Quality Measures Quality Measures VTE prophylaxis Advance care planning discussed with:: patient Assessment & Plan Assessment Current Active Medications: Generic Name Dose Route Start Last Admin Trade Name Freq PRN Reason Stop Dose Admin Al Hydrox/Mg Hydrox/Simethicone 15 ml 01/04/25 22:00 01/09/25 14:19 Mg Hyd/Al Hyd/Eryn (Maalox Reg) Susp 30 Ml Udc PO 02/03/25 21:59 15 ml TID YOAN Administration Apixaban 5 mg 01/04/25 21:00 01/09/25 08:30 Apixaban 2.5 Mg Tablet PO 01/25/25 20:59 5 mg BID YOAN Administration Protocol Atorvastatin Calcium 20 mg 01/05/25 21:00 01/08/25 20:04 Atorvastatin Calcium 20 Mg Tablet PO 02/04/25 20:59 20 mg HS YOAN Administration Calamine 0 ml 01/08/25 23:04 Calamine Lotion 120 Ml Btl TOP 02/07/25 23:03 UD PRN ITCHING Citric Acid/Sodium Citrate 30 ml 01/09/25 14:00 01/09/25 14:19 Citric Acid/Sodium Citr 15 Ml Udc (Bicitra) PO 02/08/25 13:59 30 ml BID YOAN Administration Cosyntropin 0.25 mg 01/10/25 07:30 Cosyntropin Inj 0.25 Mg Vial IVP 01/10/25 07:31 X1 ONE Fluconazole 400 mg 01/04/25 18:30 01/09/25 08:29 Fluconazole 100 Mg Tablet PO 01/11/25 18:29 400 mg QDAY YOAN Administration Fludrocortisone Acetate 0.1 mg 01/06/25 10:15 01/09/25 08:30 Fludrocortisone Acetate 0.1 Mg Tablet PO 02/05/25 10:14 0.1 mg QDAY YOAN Administration Levothyroxine Sodium 125 mcg 01/10/25 06:00 Levothyroxine Sodium 125 Mcg Tablet PO 02/09/25 05:59 ACBR YOAN Megestrol Acetate 200 mg 01/04/25 21:00 01/09/25 08:29 Megestrol Acet Susp 400 Mg/10 Ml Udc PO 02/03/25 20:59 200 mg BID YOAN Administration Midodrine 5 mg 01/09/25 10:15 01/09/25 14:20 Midodrine 5 Mg Tablet PO 02/08/25 10:14 Not Given TID YOAN Mirtazapine 15 mg 01/08/25 09:00 01/09/25 08:30 Mirtazapine 15 Mg Tablet PO 02/07/25 08:59 15 mg QDAY YOAN Administration Ondansetron HCl 4 mg 01/04/25 18:11 Ondansetron Inj 2 Mg/Ml Inj 2 Ml IV 02/03/25 18:10 Q6H PRN NAUSEA OR VOMITING Protocol Pantoprazole Sodium 40 mg 01/08/25 09:00 01/09/25 08:30 Pantoprazole 40 Mg Tablet PO 02/07/25 08:59 40 mg QDAY YOAN Administration Plan Ms. Headley is a 74 y/o lady who is a patient of Dr. 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, frequent paracentesis/thoracentesis, on diuretics presented to the emergency department with significant weakness, syncopal episode and admitted for acute kidney injury secondary to hypercalcemia likely from dehydration # Acute kidney injury, resolving Likely prerenal in the setting of decreased oral intake -Patient reported that she lost 40 pounds in the last 5 to 6 months and lost 9 pounds in the last 1 week -Patient was diagnosed with valley fever and is on fluconazole -At the time of admission, corrected calcium is 13 which could cause polyuria leading to dehydration and prerenal acute kidney injury -CT abdomen showed no hydronephrosis. -Patient was treated with IV fluids since the time of admission and creatinine levels continue to downtrend -As of 01/08, creat 1.5 >3/4, Creat 1.3 -25-hydroxy vitamin D found to be normal, PTH mildly decreased Plan -Encouraged to take plenty of oral fluids -Continue to monitor renal functions -Avoid nephrotoxic medications and renally dose medications # Hypercalcemia, resolving Ddx: Dehydration and TIAN versus immobilization versus granulomatous disease versus malignancy -Corrected calcium at the time of admission is 13 > 3/3 , 10.7 >3/4, 10.6 -25-hydroxy vitamin D is within normal limits, PTH 13.2 -1, 25 dihydroxy vitamin D, serum protein electrophoresis was ordered-pending results Plan -As the calcium levels continues to trend downward, will monitor for now -Will follow-up with pending lab values -Continue intake of plenty of oral fluids # Hypophosphatemia -Phosphorus as of 01/09/2025 is 2.3 -Neutra-Phos is given -Will monitor renal functions # Cachexia # Failure to thrive # Chronic normocytic normochromic anemia -Patient had history of poor oral intake and significant weight loss over last 6 to 8 months -Patient was diagnosed with valley fever, which could be causing this -CT abdomen and chest was done to rule out malignancy, did not see any findings suggestive of malignancy -Will follow-up with serum electrophoresis Plan -started on Megace and mirtazapine -Patient was already on midodrine for orthostatic hypotension, fludrocortisone is added -Recommended high-protein diet -Continue fluconazole #Syncope #History of orthostatic hypotension #Generalized weakness #History of valley fever #History of pulmonary mass, R lobe #History of pleural effusion #History of hypothyroidism #History of liver cirrhosis #History of bariatric surgery #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 Claudia Gill, PGY1 Attending Provider Attestation/Addendum Patient seen and examined with resident physician Dr. Landis. Note reviewed, agree with findings and recommendations. Spoke to Dr. Anton her primary care physician-requesting infectious disease consultation for a duration of valley fever and lung nodules. Creatinine, calcium levels improving. Recommended to increase p.o. intake. Spoke to Dr. Mcdonough.
[2025-01-09] MEDS: ATORVASTATIN CALCIUM 20 MG TABLET PO (20:34)
[2025-01-09] MEDS: oxyCODONE/APAP 5/325 TABLET 1 TAB PO (20:38)
--- NOTE | 2025-01-09 22:26 | ESCONSULT_ITS ---
HPI Pulmonology Consult Data of Consult Requesting Physician: Dale Robles DO Primary Care Provider: Ted Atnon MD Consult Narrative History of present illness: Ms. Headley is a 74 yo F with a past medical history significant for valley fever, hypothyroidism, GERD, liver cirrhosis, Hepatic vein thrombosis, s/p stenting of hepatic/splenic vein with recurrent stent failure, frequent paracentesis/thoracentesis, on diuretics. Since the procedure she had protracted wieght loss and fatigue. Returning from trip in September she developed coccidiodomycosis and was started on diflucan. Significant improvement in respiratory symptms but continued fatigue and weight loss. Exhausted by daily activities. No nausea/ vomiting but poor appetite as well. She had long standing diarrhea which improved after stent placement. She is less active though her trie sto motivate he rto workuput to maintain muscle mass. No night sweats, fever, chills otherwise. cc:: cc: Dale Robles DO Review of Systems Review of Systems Narrative Review of Systems: Pertinent review of systems was completed with relevant findings include din HPI above. Past Medical History Past Medical History Comments PMH COMMENT: PMH/ PSH reviewed,pertinent findings included in HPI above. FH noncontributory.. No smoking, ETOH, or substance use history. From [facility], moved here many years ago. No prior history of coccidiodomycosis until last year. Meds Home Medications and Allergies Home Medications ?Medication ?Instructions ?Recorded ?Confirmed ?Type apixaban 5 mg tablet (Eliquis) 5 mg PO BID 11/14/24 History SLOW FE See Rx Instructions .Route . COMPLEX 01/04/25 01/04/25 History spironolactone 50 mg tablet 25 mg PO .COMPLEX 01/04/25 01/04/25 History Held on 01/12/25. Instructions: Resume on 01/22/25. Hold until you discuss with your PCP at follow-up visit. Allergies Allergy/AdvReac Type Severity Reaction Status Date / Time Sulfa (Sulfonamide Allergy Intermediate Rash Verified 01/04/25 09:33 Antibiotics) Iodinated Contrast Media Allergy Verified 01/04/25 09:33 Exam Vital Signs Temp Pulse Resp BP Pulse Ox O2 Del Method 97.5 F 81 18 112/62 100 Room Air 01/09/25 20:00 01/09/25 22:18 01/09/25 20:00 01/09/25 22:18 01/09/25 20:00 01/09/25 20:00 Narrative Exam GEN: thin, elderly appearing femle, AAOx3 and good historian HEENT: mmm, EOMI, PERRL, hearing intact Neck: No JVD or gross goiter Chest: symmetric excursion Pulm: clear to auscultation CVS: S1/S2+ RRR Abd: soft/ ND/NT, BS+ Extremities: atrophy of muscles, no clubbing or cyanosis Neuro: nonfocal on gross examination Pyshc: appropriate mood/ affect Physical Exam Completion Physical Exam Complete?: Yes Results - [employer] Labs 01/16/25 07:48 01/16/25 04:48 Labs: Short CBC 01/09/25 Range/Units 05:00 WBC 3.8 (3.6-11.0) Thou/mm3 Hgb 8.2 L (12.0-16.0) g/dL Hct 25.4 L (36.0-46.0) % Plt Count 86 L (140-440) Thou/mm3 BMP 01/09/25 05:00 Sodium 139 Potassium 4.4 Chloride 111 H Carbon Dioxide 18.1 L BUN 27 H Creatinine 1.3 Glucose 104 D Calcium 10.2 Liver Function 01/09/25 Range/Units 05:00 Total Bilirubin 0.4 (0.3-1.2) mg/dL AST 14 (0-34) U/L ALT 10 (10-49) U/L Alkaline Phosphatase 108 (46-116) U/L Albumin 3.5 (3.4-4.8) gm/dL ABG Interpretation ABG results: 01/04/25 10:50 VBG pH 7.57 VBG pCO2 24 L VBG pO2 46 VBG Base Excess 1 Assessment & Plan Problem List (1) Acute kidney injury: Status: Acute (2) Acute dehydration: Status: Acute (3) Hypercalcemia: Status: Acute (4) Abnormal weight loss: Status: Acute (5) Postural hypotension: Status: Acute Additional Plan Additional Plan: Significant weight loss post procedure and infection with coccidiodomycosis. Diflucan however can cause adrenal insufficiency. Consider stim test to assess for cortisol release. 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 Should stay on diflucan as long as she is on prednisone. Consider supplements for meals as well as appetite stimulants to help increase PO intake. This may improve alone with steroids initiation. Consult nutrition for recommendations. ID consult about alternative antifungals given association of drug with adrenal insufficiency. May ultimately be related to her underlying GI disease and significant weight loss. I remain available for any questions/ needs should they arise. Provider Notation Provider Notation: Although this document has been carefully reviewed, there may still be some phonetic and other typographical errors. These errors are purely grammatical due to imperfections in the software program and should not be construed in any way to compromise the substance of the patient's medical care during this visit. Thank you for the opportunity and privilege in assisting you with this patient's care and management.
[2025-01-10] VITALS (13 sets, daily range): BP systolic 109–138; BP diastolic 60–86; PULSE 78–83; RESP 15–18; TEMP 36–36.3; O2SAT 95–100
[2025-01-10 06:06] LABS: Basophils % (Auto) 1 % (0-2.5); Eosinophils # (Auto) 0.2 Thou/mm3 (0.0-0.5); Eosinophils % (Auto) 5 % (0-10); Hematocrit 25.7 % (36.0-46.0); Immature Granulocytes % (Auto) 0 % (0-0); Lymphocytes # (Auto) 0.4 Thou/mm3 (1.0-4.8); Lymphocytes % (Auto) 9 % (10-50); Mean Corpuscular HGB Conc 31.5 g/dl (31.0-37.0); Mean Corpuscular Volume 82 fL (80-100); Monocytes # (Auto) 0.4 Thou/mm3 (0.0-0.8); Monocytes % (Auto) 9 % (0-12); Neutrophils # (Auto) 3.4 Thou/mm3 (1.8-7.7); Neutrophils % (Auto) 76 % (37-80); Nucleated Red Blood Cell % 0 /100 WBC (0); Platelet Count 94 Thou/mm3 (140-440); RDW Standard Deviation 53.5 fL (36.4-46.3); Red Blood Count 3.12 Miln/mm3 (4.00-5.20); White Blood Count 4.5 Thou/mm3 (3.6-11.0)
[2025-01-10 06:14] LABS: Hemoglobin 8.1 g/dL (12.0-16.0)
[2025-01-10] MEDS: MG HYD/AL HYD/SIME (Maalox Reg) SUSP 30 ML UDC 15 ML PO ×3 (06:14→21:06)
[2025-01-10] MEDS: LEVOTHYROXINE SODIUM 125 MCG TABLET PO (06:14)
[2025-01-10 06:44] LABS: Alanine Aminotransferase 16 U/L (10-49); Albumin, Serum 3.6 gm/dL (3.4-4.8); Albumin/Globulin Ratio 1.2 (1.2-2.2); Alkaline Phosphatase 119 U/L (46-116); Anion Gap 8 (7-16); Aspartate Amino Transferase 22 U/L (0-34); BUN/Creatinine Ratio 23 Ratio (12-20); Bilirubin,Total 0.4 mg/dL (0.3-1.2); Blood Urea Nitrogen 32 mg/dL (9-23); Calcium 10.1 mg/dL (8.3-10.6); Calcium (Corrected) 10.4 mg/dL (8.5-10.1); Carbon Dioxide 22.4 mMol/L (20.0-31.0); Chloride 110 mMol/L (98-107); Creatinine (Component) 1.4 mg/dL (0.6-1.3); Globulin 3.1 gm/dL (2.3-3.5); Glucose 109 mg/dL (74-106); Magnesium 2.1 mg/dL (1.6-2.6); Osmolality,Calculated 287 (275-295); Potassium 4.8 mMol/L (3.4-5.1); Sodium 140 mMol/L (136-145); Total Protein 6.7 gm/dL (5.7-8.2); eGFR 40 See Note
[2025-01-10 06:52] LABS: Kappa Light Chain, Free 116.5 mg/L (3.3-19.4)
[2025-01-10] MEDS: COSYNTROPIN INJ 0.25 MG VIAL IVP (07:37)
[2025-01-10] MEDS: SODIUM CHLORIDE 0.9% INJ 10 ML VIAL 5 ML IV (07:37)
[2025-01-10] MEDS: CITRIC ACID/SODIUM CITR 15 ML UDC (BICITRA) 30 ML PO ×2 (09:23→20:58)
[2025-01-10] MEDS: MEGESTROL ACET SUSP 400 MG/10 ML UDC 200 MG PO ×2 (09:23→20:59)
[2025-01-10] MEDS: SODIUM CHLORIDE 0.45 % 1,000 ML 100 ML IV ×2 (09:23→21:15)
[2025-01-10] MEDS: FLUCONAZOLE 100 MG TABLET 400 MG PO (09:24)
[2025-01-10] MEDS: PANTOPRAZOLE 40 MG TABLET PO (09:24)
[2025-01-10] MEDS: MIRTAZAPINE 15 MG TABLET PO (09:24)
[2025-01-10] MEDS: APIXABAN 2.5 MG TABLET 5 MG PO ×2 (09:24→20:58)
--- NOTE | 2025-01-10 10:17 | ESPR_ITS ---
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 Patient cortisol levels checked 30 min and 60 min later s/p cosyntropin this AM. Fludrocoritsone was held today, and will resume tomorrow. 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 Overnight, patient received Oxycodone which helped with her sleep. Will order 2.5mg PRN HS to aid in agitation/sleep/pain. I discussed with and supervised the procurement intern physician who took care of this patient. I personally saw and examined the patient and discussed the assessment and plan with the entire medicine team, including my attending Dr. Mcdonough, I agree with most of the assessment and plan as documented below Lorie Glasgow M.D. PGY-2 Disclaimer: Despite multiple revisions, due to the dictation software being used, the document bellow may not be free of grammatical errors including phonetic/typographic errors. However, this does not deter from our commitment to providing health care in the patient's best interest in mind. Documentation for date of: 01/10/25 Subjective Subjective Interval history: Patient seen today at the bedside fine awake, alert, oriented x 3. No overnight events reported. States improvement in sleep and appetite. Vital signs stable at this time. Labs significant for downtrending hemoglobin. Ordered renin aldosterone and a.m. cortisol levels. Fludrocortisone was held yesterday. Infectious disease specialist consulted regarding the patient's cocci and if able to give low-dose prednisone. Exam Vital Signs Temp Pulse Resp BP Pulse Ox O2 Del Method 97.3 F 79 16 109/66 99 Room Air 01/10/25 07:22 01/10/25 07:22 01/10/25 07:22 01/10/25 07:22 01/10/25 07:22 01/10/25 07:22 Narrative Exam Physical Exam GENERAL: NAD, AAOx3, temporal wasting HEENT: Moist mucosa. Eyes open, symmetrical, & clear CARDIO: Heart RRR, no obvious murmurs PULM: No noted coughing/dyspnea CTA B/L, no R/W/R GI: Abdomen soft, nondistended, no pain on palpation. BSx4 SKIN/MSK/EXT: No wounds/rashes/edema/amputations, no pain on palpation. Pedal pulses present B/L NEURO: AAOx3, no focal neuro deficits, able to move all 4 extremities Objective Labs 01/10/25 04:47 01/10/25 04:47 Labs: Laboratory Results - last 24 hr 01/05/25 01/09/25 01/10/25 04:41 05:00 04:47 WBC 4.5 RBC 3.12 L Hgb 8.1 L Hct 25.7 L MCV 82 MCH 26.0 MCHC 31.5 RDW Std Deviation 53.5 H Plt Count 94 L Neut % (Auto) 76 Lymph % (Auto) 9 L [place] % (Auto) 9 Eos % (Auto) 5 Baso % (Auto) 1 Neut # (Auto) 3.4 Lymph # (Auto) 0.4 L [place] # (Auto) 0.4 Eos # (Auto) 0.2 Baso # (Auto) 0.0 Immature Gran # (Auto) 0.00 Absolute Nucleated RBC 0.00 Immature Gran % 0 Nucleated RBC % 0 Sodium 140 Potassium 4.8 Chloride 110 H Carbon Dioxide 22.4 Anion Gap 8 BUN 32 H Creatinine 1.4 H Estim Creat Clear Calc 34.0 L eGFR 40 L BUN/Creatinine Ratio 23 H Glucose 109 H Calculated Osmolality 287 Calcium 10.1 Corrected Calcium 10.4 H Magnesium 2.1 Total Bilirubin 0.4 AST 22 ALT 16 Alkaline Phosphatase 119 H Total Protein 6.7 Albumin 3.6 Globulin 3.1 Albumin/Globulin Ratio 1.2 Vitamin B12 240 Folate 12.79 Free [place] LC, Quant 116.5 H ABG Interpretation ABG results: 01/04/25 10:50 VBG pH 7.57 VBG pCO2 24 L VBG pO2 46 VBG Base Excess 1 Quality Measures Quality Measures VTE prophylaxis Advance care planning discussed with:: patient Assessment & Plan Assessment Current Active Medications: Generic Name Dose Route Start Last Admin Trade Name Freq PRN Reason Stop Dose Admin Al Hydrox/Mg Hydrox/Simethicone 15 ml 01/04/25 22:00 01/10/25 06:14 Mg Hyd/Al Hyd/Eryn (Maalox Reg) Susp 30 Ml Udc PO 02/03/25 21:59 15 ml TID YOAN Administration Apixaban 5 mg 01/04/25 21:00 01/10/25 09:24 Apixaban 2.5 Mg Tablet PO 01/25/25 20:59 5 mg BID YOAN Administration Protocol Atorvastatin Calcium 20 mg 01/05/25 21:00 01/09/25 20:34 Atorvastatin Calcium 20 Mg Tablet PO 02/04/25 20:59 20 mg HS YOAN Administration Calamine 0 ml 01/08/25 23:04 Calamine Lotion 120 Ml Btl TOP 02/07/25 23:03 UD PRN ITCHING Citric Acid/Sodium Citrate 30 ml 01/09/25 14:00 01/10/25 09:23 Citric Acid/Sodium Citr 15 Ml Udc (Bicitra) PO 02/08/25 13:59 30 ml BID YOAN Administration Fluconazole 400 mg 01/04/25 18:30 01/10/25 09:24 Fluconazole 100 Mg Tablet PO 01/11/25 18:29 400 mg QDAY YOAN Administration Fludrocortisone Acetate 0.1 mg 01/06/25 10:15 01/09/25 08:30 Fludrocortisone Acetate 0.1 Mg Tablet PO 02/05/25 10:14 0.1 mg QDAY YOAN Administration Sodium Chloride 1,000 mls @ 100 mls/hr 01/10/25 07:52 01/10/25 09:23 Ns 0.45% IV 02/09/25 07:51 100 mls/hr .Q10H YOAN Administration Levothyroxine Sodium 125 mcg 01/10/25 06:00 01/10/25 06:14 Levothyroxine Sodium 125 Mcg Tablet PO 02/09/25 05:59 125 mcg ACBR YOAN Administration Megestrol Acetate 200 mg 01/04/25 21:00 01/10/25 09:23 Megestrol Acet Susp 400 Mg/10 Ml Udc PO 02/03/25 20:59 200 mg BID YOAN Administration Midodrine 5 mg 01/09/25 10:15 01/10/25 06:16 Midodrine 5 Mg Tablet PO 02/08/25 10:14 Not Given TID YOAN Mirtazapine 15 mg 01/08/25 09:00 01/10/25 09:24 Mirtazapine 15 Mg Tablet PO 02/07/25 08:59 15 mg QDAY YOAN Administration Ondansetron HCl 4 mg 01/04/25 18:11 Ondansetron Inj 2 Mg/Ml Inj 2 Ml IV 02/03/25 18:10 Q6H PRN NAUSEA OR VOMITING Protocol Pantoprazole Sodium 40 mg 01/08/25 09:00 01/10/25 09:24 Pantoprazole 40 Mg Tablet PO 02/07/25 08:59 40 mg QDAY YOAN Administration Plan Alma Rosa is a 74 y/o female with PMHx liver cirrhosis?, Hepatic vein thrombosis, 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 #Syncope #History of orthostatic hypotension #Generalized weakness #Cachexia #Failure to thrive Patient reports she has been having syncopal episodes mainly with getting up Endorses a history of orthostatic hypotension for which she takes midodrine 5mg TID as needed Patient reports that she has lost over 40 pounds within the past 5 months, attributes it to poor oral intake Syncope likely related to poor oral intake and orthostatic hypotension 01/05/2025: Orthostatics positive Echocardiogram unremarkable. Concern for adrenal insufficiency given orthostatic hypotension, potential causes include valley fever, malnutrition due to poor p.o. intake. 500 mL NS bolus given Vitamin B12 within normal limits, folate levels within normal limits Spoke to pneumatic tube repairer Dr. Head suspects adrenal insufficiency due to fluconazole, although rare considering starting low dose prednisone but will speak with ID -8 AM cortisol, renin, aldosterone ordered -Orthostatic vitals ordered -Encourage oral intake -Continue Megace -Mirtazapine 15 mg p.o. daily added -Midodrine 5 mg 3 times daily -Fludrocortisone 0.1 mg p.o. daily- on hold #TIAN #Hypercalcemia-improving Likely prerenal Patient endorses very poor oral intake and no desire to eat Patient has lost a lot of weight roughly 40 pounds in the past 5 months Given bolus in ED - Corrected calcium today is at 11.7. Calcium continues to improve. -Follow-up protein electrophoresis-pending -Avoid nephrotoxic agents -Renally dose medicines -Nephrology consulted, appreciate recommendations #History of valley fever Diagnosed on previous admission IgM and IgG positive Spoke to pneumatic tube repairer Dr. Head suspects adrenal insufficiency due to fluconazole, although rare considering starting low dose prednisone but will speak with ID -Resumed Diflucan for 400 mg daily - pneumatic tube repairer, Dr. Head consulted, appreciate recommendations - ID specialist Dr. Latham consulted, appreciate recommendations #History of pulmonary mass, R lobe #History of pleural effusion Seen on chest CTA in November 2024, This could be a culprit of hypercalcemia. Had thoracentesis on last admission and had 2000 cc removed, appears to be transudative in nature considering lights criteria 01/05: CT CAP reviewed subcentimeter pulmonary nodules but no determinate mass. Suspect infectious nodules due to cocci. -Follow up imaging if needed, possibly outpatient #History of hypothyroidism Takes levothyroxine 150mcg at home Free T4 elevated at 2.09. 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 Preciado hepatology at [facility] Was apparently on liver transplant list at some point, however is not getting a liver transplant at this point [facility] records requested and reviewed -Resumed home Eliquis 5 mg twice a day #Normocytic anemia Unsure if patient is having iron deficiency or anemia of chronic disease Patient does have history of bariatric surgery and also has poor oral intake Anemia is multifactorial at this point and will require further workup Hemoglobin is 8.5 -Trend CBC -Follow-up peripheral blood smear Case discussed with my senior Dr. Glasgow PGY-[address] Ceasar Garcia MD PGY-1 Disposition: Med telemetry DVT prophylaxis: Eliquis GI prophylaxis: Protonix Diet: Regular CODE STATUS: Full Attending Provider Attestation/Addendum Fern Hunter DO, attest that I was physically present for the rhoades portions of the service and evaluated the patient with the resident and I reviewed and discussed the case with the resident and agree with the resident's findings and plans of care as documented above Patient seen and evaluated this AM. Patient states she was able to get rest today after receiving pain medicine at night. Patient states that she has been tolerating diet more and motivated to do physical therapy. Per PT, patient was able to stand today. Cosyntropin stimulation test was done today, patient will ultimately need to f/u outpatient for results. OK to start steroids per ID. BP has been much improved with fludricortisone. Will start on prednisone 5mg PO daily in addition to fludricortisone. Continue with current management
--- NOTE | 2025-01-10 11:44 | PD.RESPRO ---
Documentation for date of: 01/10/25 Subjective Subjective Interval history: Ms. Headley is a 74 y/o lady who is a patient of Dr. 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 presented to the emergency department with significant weakness, syncopal episode. Patient stated since she got discharged a month ago she has been having trouble eating as she has no appetite, has been feeling extremely fatigued and tired with orthostatic hypotension-on midodrine as needed. She also stated because she is not able to eat anything lost 40 pounds in the last 6 months. Did fall few times in the last 1 month. In the emergency department blood sugar 143. Blood pressure 123/89, heart rate 86. WBC 6.7, hemoglobin 11.4, platelets 168. Sodium 133, potassium 4.4, BUN 74, creatinine 2.4, GFR 21, A1c 5.9, calcium 813, LFTs normal, albumin 4.6, globulin 4.1 urinalysis shows ketones. Urine protein/creatinine normal urine sodium 37.9 with a chloride less than 20. Urine tox screen negative. Chest x-ray negative. CT chest abdomen and pelvis showed pulmonary nodules (has history of valley fever), splenic vascular stent, cirrhosis, cystitis. Patient was given 2 L normal saline. Meds: Protonix 40 mg, Eliquis 5 mg twice daily, midodrine 5 mg 3 times daily, Synthroid 150 mcg daily, Lasix 40 mg once a day, Diflucan 200 mg twice a day, spironolactone 25 mg 3 times a day, Carafate 1 g 4 times a day, Slow Fe 45 mg Brother had heart attack. Patient had gastric bypass surgery 25 years ago. Admitted to medical team. Renal consultation requested for acute renal failure, hypercalcemia Spoke to primary team-will start workup for malignancy due to weight loss. 01/05/2025 patient currently seen in medical floor. More alert and awake. She is feeling much stronger today.Blood pressure acceptable. Patient started to make urine WBC 3.8, hemoglobin 9.6, platelets 129. Sodium 135, potassium 4.1, BUN 64, creatinine 1.9, calcium 11.7, phosphorus 3, LFTs normal, total cholesterol 214, LDL 147 so far tumor markers negative, vitamin D normal PTH significantly suppressed at 13.2 urine sodium 37.9 with a chloride less than 20 cocci IgM positive echocardiogram showed ejection fraction 60 to 65%. [address] chest abdomen pelvis showed pulmonary nodules consistent with her old valley fever. No malignancy noted on IV fluids. 01/06/2025 Patient patient was seen and examined with the physical therapy at bedside No acute overnight events Reported that she is feeling good. Physical therapy at bedside reported that she is not able to stand even for 5 seconds due to dizziness Vitals are stable. No orthostatic drop is noted on blood pressure monitoring Labs showed WBC 3.1, Hb 8.9, BUN 41, creatinine 1.5, corrected calcium 10.9, phosphorus 2.2 Encouraged to take plenty amount of oral fluids and continue megestrol 01/07/2025 patient currently seen in medical floor. Had a big bowel movement. Still having significant orthostasis with dizzy spells. Added fludrocortisone. On midodrine. Blood pressure 103/65, heart rate 72. Hemoglobin 8.6. Sodium 140, potassium 4.2, bicarbonate 22.8, BUN 33, creatinine 1.4, calcium 10.9, phosphorus 1.7, magnesium 2 01/09/2025 Patient was seen and examined at bedside in the [facility] Still complaining of generalized weakness and fatigue and dizziness Vitals are stable. Labs done showed marked improvement in renal functions with creatinine of 1.3, calcium 10.6 Cortisol levels, serum protein electrophoresis, 1, 25 dihydroxy vitamin D levels are still pending Will continue current management 01/10/2025 Patient was seen and examined at the bedside Stated that she is feeling overall well. Vitals are stable. Labs showed mild increase in the creatinine to 1.4. Started on 1/2 NS at 100 mL/h Will continue to monitor her renal functions Exam Vital Signs Temp Pulse Resp BP Pulse Ox O2 Del Method 96.9 F 80 18 122/63 97 Room Air 01/10/25 11:38 01/10/25 11:38 01/10/25 11:38 01/10/25 11:38 01/10/25 11:38 01/10/25 11:38 Narrative Exam General: Awake. cachectic HEENT: Normocephalic, atraumatic, mucous membranes moist. Heart: Regular rate and rhythm, no murmurs. Lungs: Clear to auscultation with no wheezing or crackles. Abdomen: Soft, nondistended, nontender, positive bowel sounds. ?No guarding or rebound tenderness. Neurologic: Alert and oriented x3, no gross neurological deficit, and patient able to move all 4 extremities. Extremities: No edema. Skin: No rash or ecchymoses. Objective Labs 01/11/25 05:31 01/11/25 05:31 Labs: Laboratory Results - last 24 hr 01/05/25 01/10/25 04:41 04:47 WBC 4.5 RBC 3.12 L Hgb 8.1 L Hct 25.7 L MCV 82 MCH 26.0 MCHC 31.5 RDW Std Deviation 53.5 H Plt Count 94 L Neut % (Auto) 76 Lymph % (Auto) 9 L [place] % (Auto) 9 Eos % (Auto) 5 Baso % (Auto) 1 Neut # (Auto) 3.4 Lymph # (Auto) 0.4 L [place] # (Auto) 0.4 Eos # (Auto) 0.2 Baso # (Auto) 0.0 Immature Gran # (Auto) 0.00 Absolute Nucleated RBC 0.00 Immature Gran % 0 Nucleated RBC % 0 Sodium 140 Potassium 4.8 Chloride 110 H Carbon Dioxide 22.4 Anion Gap 8 BUN 32 H Creatinine 1.4 H Estim Creat Clear Calc 34.0 L eGFR 40 L BUN/Creatinine Ratio 23 H Glucose 109 H Calculated Osmolality 287 Calcium 10.1 Corrected Calcium 10.4 H Magnesium 2.1 Total Bilirubin 0.4 AST 22 ALT 16 Alkaline Phosphatase 119 H Total Protein 6.7 Albumin 3.6 Globulin 3.1 Albumin/Globulin Ratio 1.2 Free [place] LC, Quant 116.5 H ABG Interpretation ABG results: 01/04/25 10:50 VBG pH 7.57 VBG pCO2 24 L VBG pO2 46 VBG Base Excess 1 Quality Measures Quality Measures VTE prophylaxis Advance care planning discussed with:: patient Assessment & Plan Assessment Current Active Medications: Generic Name Dose Route Start Last Admin Trade Name Freq PRN Reason Stop Dose Admin Al Hydrox/Mg Hydrox/Simethicone 15 ml 01/04/25 22:00 01/10/25 06:14 Mg Hyd/Al Hyd/Eryn (Maalox Reg) Susp 30 Ml Udc PO 02/03/25 21:59 15 ml TID YOAN Administration Apixaban 5 mg 01/04/25 21:00 01/10/25 09:24 Apixaban 2.5 Mg Tablet PO 01/25/25 20:59 5 mg BID YOAN Administration Protocol Atorvastatin Calcium 20 mg 01/05/25 21:00 01/09/25 20:34 Atorvastatin Calcium 20 Mg Tablet PO 02/04/25 20:59 20 mg HS YOAN Administration Calamine 0 ml 01/08/25 23:04 Calamine Lotion 120 Ml Btl TOP 02/07/25 23:03 UD PRN ITCHING Citric Acid/Sodium Citrate 30 ml 01/09/25 14:00 01/10/25 09:23 Citric Acid/Sodium Citr 15 Ml Udc (Bicitra) PO 02/08/25 13:59 30 ml BID YOAN Administration Fluconazole 400 mg 01/04/25 18:30 01/10/25 09:24 Fluconazole 100 Mg Tablet PO 01/11/25 18:29 400 mg QDAY YOAN Administration Fludrocortisone Acetate 0.1 mg 01/06/25 10:15 01/09/25 08:30 Fludrocortisone Acetate 0.1 Mg Tablet PO 02/05/25 10:14 0.1 mg QDAY YOAN Administration Sodium Chloride 1,000 mls @ 100 mls/hr 01/10/25 07:52 01/10/25 09:23 Ns 0.45% IV 02/09/25 07:51 100 mls/hr .Q10H YOAN Administration Levothyroxine Sodium 125 mcg 01/10/25 06:00 01/10/25 06:14 Levothyroxine Sodium 125 Mcg Tablet PO 02/09/25 05:59 125 mcg ACBR YOAN Administration Megestrol Acetate 200 mg 01/04/25 21:00 01/10/25 09:23 Megestrol Acet Susp 400 Mg/10 Ml Udc PO 02/03/25 20:59 200 mg BID YOAN Administration Midodrine 5 mg 01/09/25 10:15 01/10/25 06:16 Midodrine 5 Mg Tablet PO 02/08/25 10:14 Not Given TID YOAN Mirtazapine 15 mg 01/08/25 09:00 01/10/25 09:24 Mirtazapine 15 Mg Tablet PO 02/07/25 08:59 15 mg QDAY YOAN Administration Ondansetron HCl 4 mg 01/04/25 18:11 Ondansetron Inj 2 Mg/Ml Inj 2 Ml IV 02/03/25 18:10 Q6H PRN NAUSEA OR VOMITING Protocol Pantoprazole Sodium 40 mg 01/08/25 09:00 01/10/25 09:24 Pantoprazole 40 Mg Tablet PO 02/07/25 08:59 40 mg QDAY YOAN Administration Plan Ms. Headley is a 74 y/o lady who is a patient of Dr. 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, frequent paracentesis/thoracentesis, on diuretics presented to the emergency department with significant weakness, syncopal episode and admitted for acute kidney injury secondary to hypercalcemia likely from dehydration # Acute kidney injury, resolving Likely prerenal in the setting of decreased oral intake -Patient reported that she lost 40 pounds in the last 5 to 6 months and lost 9 pounds in the last 1 week -Patient was diagnosed with valley fever and is on fluconazole -At the time of admission, corrected calcium is 13 which could cause polyuria leading to dehydration and prerenal acute kidney injury -CT abdomen showed no hydronephrosis. -Patient was treated with IV fluids since the time of admission and creatinine levels continue to downtrend -As of 3, creat 1.5 >3/4, Creat 1.3 >3/5, Creat 1.4 -25-hydroxy vitamin D found to be normal, PTH mildly decreased Plan -Started on 12 NS 1L @ 100ml/hr -Encouraged to take plenty of oral fluids -Continue to monitor renal functions -Avoid nephrotoxic medications and renally dose medications # Hypercalcemia, resolving Ddx: Dehydration and TIAN versus immobilization versus granulomatous disease versus malignancy -Corrected calcium at the time of admission is 13 > 3/3 , 10.7 >3/4, 10.6 >3/5, 10.4 -25-hydroxy vitamin D is within normal limits, PTH 13.2 -1, 25 dihydroxy vitamin D, serum protein electrophoresis was ordered-pending results Plan -As the calcium levels continues to trend downward, will monitor for now -Will follow-up with pending lab values -Continue intake of plenty of oral fluids # Hypophosphatemia -Phosphorus as of 01/09/2025 is 2.3 -Neutra-Phos is given -Will monitor renal functions # Cachexia # Failure to thrive # Chronic normocytic normochromic anemia -Patient had history of poor oral intake and significant weight loss over last 6 to 8 months -Patient was diagnosed with valley fever, which could be causing this -CT abdomen and chest was done to rule out malignancy, did not see any findings suggestive of malignancy -Will follow-up with serum electrophoresis Plan -started on Megace and mirtazapine -Patient was already on midodrine for orthostatic hypotension, fludrocortisone is added -Recommended high-protein diet -Continue fluconazole #Syncope #History of orthostatic hypotension #Generalized weakness #History of valley fever #History of pulmonary mass, R lobe #History of pleural effusion #History of hypothyroidism #History of liver cirrhosis #History of bariatric surgery #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 Claudia Gill, PGY1 Attending Provider Attestation/Addendum Patient seen and examined with resident physician Dr. Landis. Note reviewed, agree with findings and recommendations. Calcium, creatinine improving.
--- NOTE | 2025-01-10 13:53 | ESPR_ITS ---
Subjective Subjective Interval history: hx of cocci. pos in november neg cf then. again pos 12/13. send out to [facility] pos 1:2. not that high, Exam Vital Signs Temp Pulse Resp BP Pulse Ox O2 Del Method 96.9 F 83 18 122/63 97 Room Air 01/10/25 11:38 01/10/25 11:54 01/10/25 11:38 01/10/25 11:38 01/10/25 11:38 01/10/25 11:38 Narrative Exam not ill appearing. blames problems on cocci but describes vaso-vagal sx that predate the cocci then she changed her story a bit. Objective - Internal Medicine Labs 01/10/25 04:47 01/10/25 04:47 Labs: Laboratory Results - last 24 hr 01/05/25 01/10/25 04:41 04:47 WBC 4.5 RBC 3.12 L Hgb 8.1 L Hct 25.7 L MCV 82 MCH 26.0 MCHC 31.5 RDW Std Deviation 53.5 H Plt Count 94 L Neut % (Auto) 76 Lymph % (Auto) 9 L [place] % (Auto) 9 Eos % (Auto) 5 Baso % (Auto) 1 Neut # (Auto) 3.4 Lymph # (Auto) 0.4 L [place] # (Auto) 0.4 Eos # (Auto) 0.2 Baso # (Auto) 0.0 Immature Gran # (Auto) 0.00 Absolute Nucleated RBC 0.00 Immature Gran % 0 Nucleated RBC % 0 Sodium 140 Potassium 4.8 Chloride 110 H Carbon Dioxide 22.4 Anion Gap 8 BUN 32 H Creatinine 1.4 H Estim Creat Clear Calc 34.0 L eGFR 40 L BUN/Creatinine Ratio 23 H Glucose 109 H Calculated Osmolality 287 Calcium 10.1 Corrected Calcium 10.4 H Magnesium 2.1 Total Bilirubin 0.4 AST 22 ALT 16 Alkaline Phosphatase 119 H Total Protein 6.7 Albumin 3.6 Globulin 3.1 Albumin/Globulin Ratio 1.2 Free [place] LC, Quant 116.5 H ABG Interpretation ABG results: 01/04/25 10:50 VBG pH 7.57 VBG pCO2 24 L VBG pO2 46 VBG Base Excess 1 Assessment & Plan A&P Narrative relatively recent cocci with neg IgM noted. possible adrenal insufficiency. unproven yet, but tests pending at least low plts, cause uncertain, may have liver disease from the hepatic vein blockage for yrs that eventually was cleared no objection to trial of steroids pending the levels ordered. if you want to try a different azole, that is ok, but generally itra is more costly and vori and posa are much more costly, so if you want to try something different, suggest itraconazole 100 mg 2 po bid. but the se's she is reporting are atypical for flucon, so I am relucant to change rx. spironolactone can cause adrenal linsufficiency as can her liver disease vori and posa also have quirky se's and her titer is not that high nor is she particularly symptomatic. Time Spent With Patient Time: Total time spent is greater than 50% in coordination of care (as documented) at patient's floor/unit and/or counseling patient:
--- NOTE | 2025-01-10 14:23 | PC.SS ---
Rounding note: 2-3 days before d/c. Patient worked with PT today.
[2025-01-10] MEDS: predniSONE 5 MG TABLET PO (14:58)
--- NOTE | 2025-01-10 15:59 | ESCONSULT_ITS ---
RE: WADE DEE : 1950 DATE OF CONSULTATION: 01/10/2025 REFERRING PHYSICIAN: Dr. Robles. REASON FOR CONSULTATION: Positive Valley fever test. 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 She has no alcohol use history and no prior history of hepatitis and her liver enzymes are normal. Liver is normal. Platelets are low. Her coags are a little bit off, but not striking. Her past history is notable for hypothyroidism. She has bypass surgery. She is G1, P1 with one delivery previously. She had subsequent hysterectomy, prior gastric bypass surgery years ago, and maybe one or two other surgeries. She had a procedure at [facility] some time ago that apparently cleared the blockage in the hepatic vein that was causing problems. She was being considered for a TIPS procedure, but they decided not to do that. She is a pleasant, non ill-appearing woman. Her imaging are noted. Her Valley fever test is not that striking. She has been on treatment since November. She had a positive test in November. It was verified at [facility], but the titer on 11/28 was negative. She had a positive IgG at [facility]. Her current test is positive 1:2 for IgG, which is still very low. Her imaging is not normal and primary team apparently feels that she has adrenal insufficiency on the basis of her fluconazole therapy, which would be very unusual. I used a lot of fluconazole and that would be an unusual feature if it did occur. It is even unusual with ketoconazole which is now off the market. Other azoles are not routinely used in this setting. Itraconazole is definitely an alternative. If you wish to change her medication, I have no objection to use of prednisone pending her cortisol levels that have been ordered. She definitely wants an answer, but it looks like she denies any presence of any liver disease, although. It looks like she may indeed have some chronic liver disease, her variable bp is also a feature noted with liver disease. Overall, I left her on fluconazole. I see no need for any other antibiotics at this time. I will check on her again Wednesday. DT: 14:29:59 TT: 15:33:00 Ref: [id number] - TID: [id number] MTDD
--- NOTE | 2025-01-10 19:11 | ESPR_ITS ---
<Statement entered by Austin Latham MD - 01/12/25 09:19> pt seen with resident. all findings confirmed. 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 Patient was found to have orthostatic hypotension and was admitted for further workup. Primary team's differential includes adrenal insufficiency due to fluconazole and ID was consulted regarding continuing valley fever management and steroids. Patient seen and evaluated today, BP stable on midodrine, denies headache, weakness. Exam Vital Signs Temp Pulse Resp BP Pulse Ox O2 Del Method 97.3 F 81 18 126/76 97 Room Air 01/10/25 15:20 01/10/25 16:00 01/10/25 15:20 01/10/25 15:20 01/10/25 15:20 01/10/25 15:20 Narrative Exam GENERAL: Awake, alert and oriented. No acute distress. Chornically ill appearing HEENT: Normocephalic, atraumatic and nontender.? Pupils are equal and reactive to light and accommodation.? Oral mucosa moist. NECK: Supple without adenopathy. Traquea midline. Nontender, carotid pulse 2+ bilaterally without bruits, no JVD.? CHEST: Heart rate and rythm normal, no murmurs, gallops auscultated. S1 & 2 normal insensity. Nontender on palpation, no deformity and no crepitus. LUNGS: Lung sounds are clear.? No wheezing, rales or ronchi.? No intercostal subcostal retraction. ABDOMEN: Soft,symmetric , nontender, no guarding or rebound tenderness. No abnormal masses palpated.? No pulsatile masses or bruits.? Bowel sounds are normoactive in all 4 quadrants. EXTREMITIES: Nontender.? No pitting edema.? No cyanosis.? Patient is able to move all 4 extremities. SKIN: No rashes noted. NEURO:? Cranial nerves intact.? There is no focalization.? GCS is 15. Objective Labs 01/12/25 05:40 01/12/25 05:40 Labs: Laboratory Results - last 24 hr 01/05/25 01/10/25 04:41 04:47 WBC 4.5 RBC 3.12 L Hgb 8.1 L Hct 25.7 L MCV 82 MCH 26.0 MCHC 31.5 RDW Std Deviation 53.5 H Plt Count 94 L Neut % (Auto) 76 Lymph % (Auto) 9 L [place] % (Auto) 9 Eos % (Auto) 5 Baso % (Auto) 1 Neut # (Auto) 3.4 Lymph # (Auto) 0.4 L [place] # (Auto) 0.4 Eos # (Auto) 0.2 Baso # (Auto) 0.0 Immature Gran # (Auto) 0.00 Absolute Nucleated RBC 0.00 Immature Gran % 0 Nucleated RBC % 0 Sodium 140 Potassium 4.8 Chloride 110 H Carbon Dioxide 22.4 Anion Gap 8 BUN 32 H Creatinine 1.4 H Estim Creat Clear Calc 34.0 L eGFR 40 L BUN/Creatinine Ratio 23 H Glucose 109 H Calculated Osmolality 287 Calcium 10.1 Corrected Calcium 10.4 H Magnesium 2.1 Total Bilirubin 0.4 AST 22 ALT 16 Alkaline Phosphatase 119 H Total Protein 6.7 Albumin 3.6 Globulin 3.1 Albumin/Globulin Ratio 1.2 [place] LC, Quant 116.5 H ABG Interpretation ABG results: 01/04/25 10:50 VBG pH 7.57 VBG pCO2 24 L VBG pO2 46 VBG Base Excess 1 Quality Measures Quality Measures VTE prophylaxis Advance care planning discussed with:: patient Assessment & Plan Assessment Current Active Medications: Generic Name Dose Route Start Last Admin Trade Name Freq PRN Reason Stop Dose Admin Al Hydrox/Mg Hydrox/Simethicone 15 ml 01/04/25 22:00 01/10/25 14:56 Mg Hyd/Al Hyd/Eryn (Maalox Reg) Susp 30 Ml Udc PO 02/03/25 21:59 15 ml TID YOAN Administration Apixaban 5 mg 01/04/25 21:00 01/10/25 09:24 Apixaban 2.5 Mg Tablet PO 01/25/25 20:59 5 mg BID YOAN Administration Protocol Atorvastatin Calcium 20 mg 01/05/25 21:00 01/09/25 20:34 Atorvastatin Calcium 20 Mg Tablet PO 02/04/25 20:59 20 mg HS YOAN Administration Calamine 0 ml 01/08/25 23:04 Calamine Lotion 120 Ml Btl TOP 02/07/25 23:03 UD PRN ITCHING Citric Acid/Sodium Citrate 30 ml 01/09/25 14:00 01/10/25 09:23 Citric Acid/Sodium Citr 15 Ml Udc (Bicitra) PO 02/08/25 13:59 30 ml BID YOAN Administration Fluconazole 400 mg 01/04/25 18:30 01/10/25 09:24 Fluconazole 100 Mg Tablet PO 01/11/25 18:29 400 mg QDAY YOAN Administration Fludrocortisone Acetate 0.1 mg 01/06/25 10:15 01/09/25 08:30 Fludrocortisone Acetate 0.1 Mg Tablet PO 02/05/25 10:14 0.1 mg QDAY YOAN Administration Sodium Chloride 1,000 mls @ 100 mls/hr 01/10/25 07:52 01/10/25 09:23 Ns 0.45% IV 02/09/25 07:51 100 mls/hr .Q10H YOAN Administration Levothyroxine Sodium 125 mcg 01/10/25 06:00 01/10/25 06:14 Levothyroxine Sodium 125 Mcg Tablet PO 02/09/25 05:59 125 mcg ACBR YOAN Administration Megestrol Acetate 200 mg 01/04/25 21:00 01/10/25 09:23 Megestrol Acet Susp 400 Mg/10 Ml Udc PO 02/03/25 20:59 200 mg BID YOAN Administration Melatonin 3 mg 01/10/25 21:00 Melatonin 3 Mg Tablet PO 02/09/25 20:59 HS YOAN Midodrine 5 mg 01/09/25 10:15 01/10/25 14:54 Midodrine 5 Mg Tablet PO 02/08/25 10:14 Not Given TID YOAN Mirtazapine 15 mg 01/08/25 09:00 01/10/25 09:24 Mirtazapine 15 Mg Tablet PO 02/07/25 08:59 15 mg QDAY YOAN Administration Ondansetron HCl 4 mg 01/04/25 18:11 Ondansetron Inj 2 Mg/Ml Inj 2 Ml IV 02/03/25 18:10 Q6H PRN NAUSEA OR VOMITING Protocol Oxycodone/Acetaminophen 0.5 tab 01/10/25 21:00 Oxycodone/Apap 5/325 Tablet PO 01/15/25 20:59 HS YOAN Pantoprazole Sodium 40 mg 01/08/25 09:00 01/10/25 09:24 Pantoprazole 40 Mg Tablet PO 02/07/25 08:59 40 mg QDAY YOAN Administration Prednisone 5 mg 01/10/25 14:45 01/10/25 14:58 Prednisone 5 Mg Tablet PO 02/09/25 14:44 5 mg QDAY YOAN Administration Plan 74 yo female with 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 Patient was found to have orthostatic hypotension and was admitted for further workup. Primary team differential includes adrenal insufficiency due to fluconazole and ID was consulted regarding continuing valley fever management and steroids. Patient seen and evaluated today, BP stable on midodrine, denies headache, weakness. 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
[2025-01-10] MEDS: ATORVASTATIN CALCIUM 20 MG TABLET PO (20:58)
[2025-01-10] MEDS: MELATONIN 3 MG TABLET PO (20:58)
[2025-01-10] MEDS: oxyCODONE/APAP 5/325 TABLET 0.5 TAB PO (21:02)
[2025-01-11] VITALS (11 sets, daily range): BP systolic 110–130; BP diastolic 59–73; PULSE 67–80; RESP 16–19; TEMP 36–36.5; O2SAT 99
--- NOTE | 2025-01-11 00:50 | PC.NURSE ---
patient c/o of nose bleed in right nare, per patient she has hx of occasional nose bleeds in the past but per patient this episode seems more extensive, some blood dripping out of nostril. Patient is also c/o neck pain and knee pain, Dr. Michaels at bed side to assess the patient, new orders received.
[2025-01-11] MEDS: LIDOCAINE 5% 1 PATCH TOP ×2 (01:05→16:32)
[2025-01-11] MEDS: ACETAMINOPHEN 325 MG TABLET 650 MG PO (01:05)
[2025-01-11 03:06] LABS: Albumin 3.7 g/dL (3.8-4.8); Alpha-1-Globulin 0.3 g/dL (0.2-0.3); Alpha-2-Globulin 0.7 g/dL (0.5-0.9); Beta-1-Globulin 0.4 g/dL (0.4-0.6); Beta-2-globulin 0.4 g/dL (0.2-0.5); Gamma Globulin 1.7 g/dL (0.8-1.7)
[2025-01-11 06:06] LABS: Basophils % (Auto) 1 % (0-2.5); Eosinophils # (Auto) 0.1 Thou/mm3 (0.0-0.5); Eosinophils % (Auto) 3 % (0-10); Hematocrit 23.8 % (36.0-46.0); Immature Granulocytes % (Auto) 0 % (0-0); Immature Granulocytes Auto 0.01 Thou/mm3 (0.00-0.00); Lymphocytes # (Auto) 0.4 Thou/mm3 (1.0-4.8); Lymphocytes % (Auto) 10 % (10-50); Mean Corpuscular HGB Conc 31.9 g/dl (31.0-37.0); Mean Corpuscular Hemoglobin 25.9 pg (25.0-35.0); Mean Corpuscular Volume 81 fL (80-100); Monocytes # (Auto) 0.4 Thou/mm3 (0.0-0.8); Monocytes % (Auto) 9 % (0-12); Neutrophils # (Auto) 3.3 Thou/mm3 (1.8-7.7); Neutrophils % (Auto) 77 % (37-80); Nucleated Red Blood Cell % 0 /100 WBC (0); Platelet Count 101 Thou/mm3 (140-440); RDW Standard Deviation 52.1 fL (36.4-46.3); Red Blood Count 2.93 Miln/mm3 (4.00-5.20); White Blood Count 4.3 Thou/mm3 (3.6-11.0)
[2025-01-11 06:15] LABS: Hemoglobin 7.6 g/dL (12.0-16.0)
[2025-01-11 06:41] LABS: Alanine Aminotransferase 13 U/L (10-49); Albumin, Serum 3.5 gm/dL (3.4-4.8); Albumin/Globulin Ratio 1.2 (1.2-2.2); Alkaline Phosphatase 110 U/L (46-116); Anion Gap 9 (7-16); Aspartate Amino Transferase 19 U/L (0-34); BUN/Creatinine Ratio 24 Ratio (12-20); Bilirubin,Total 0.3 mg/dL (0.3-1.2); Blood Urea Nitrogen 34 mg/dL (9-23); Calcium 9.4 mg/dL (8.3-10.6); Calcium (Corrected) 9.8 mg/dL (8.5-10.1); Carbon Dioxide 21.1 mMol/L (20.0-31.0); Chloride 108 mMol/L (98-107); Creatinine (Component) 1.4 mg/dL (0.6-1.3); Globulin 2.9 gm/dL (2.3-3.5); Glucose 102 mg/dL (74-106); Magnesium 2.2 mg/dL (1.6-2.6); Osmolality,Calculated 283 (275-295); Potassium 4.8 mMol/L (3.4-5.1); Sodium 138 mMol/L (136-145); Total Protein 6.4 gm/dL (5.7-8.2); eGFR 40 See Note
[2025-01-11] MEDS: LEVOTHYROXINE SODIUM 125 MCG TABLET PO (06:43)
[2025-01-11] MEDS: MG HYD/AL HYD/SIME (Maalox Reg) SUSP 30 ML UDC 15 ML PO ×3 (06:44→21:22)
[2025-01-11 07:09] LABS: Cortisol,total,LC/MS/MS* 10.9 mcg/dL; Protein, total, serum 7.3 g/dL (6.1-8.1); Vitamin D,1,25 (OH)2,Total 12 pg/mL (18-72); Vitamin D2, 1,25 (OH)2 <8 pg/mL; Vitamin D3, 1,25 (OH)2 12 pg/mL
[2025-01-11 07:16] LABS: Hepatitis A Antibody IgM Non Reactive (Non React); Hepatitis B Core Antibody IgM Non Reactive (Non React); Hepatitis B Surface Antigen Non Reactive (Non React); Hepatitis C Antibody Non Reactive (Non React)
[2025-01-11] MEDS: SODIUM CHLORIDE 0.45 % 1,000 ML 100 ML IV (08:39)
--- NOTE | 2025-01-11 08:41 | PD.RESPRO ---
Documentation for date of: 01/11/25 Subjective Subjective Interval history: Ms. Headley is a 74 y/o lady who is a patient of Dr. 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 presented to the emergency department with significant weakness, syncopal episode. Patient stated since she got discharged a month ago she has been having trouble eating as she has no appetite, has been feeling extremely fatigued and tired with orthostatic hypotension-on midodrine as needed. She also stated because she is not able to eat anything lost 40 pounds in the last 6 months. Did fall few times in the last 1 month. In the emergency department blood sugar 143. Blood pressure 123/89, heart rate 86. WBC 6.7, hemoglobin 11.4, platelets 168. Sodium 133, potassium 4.4, BUN 74, creatinine 2.4, GFR 21, A1c 5.9, calcium 813, LFTs normal, albumin 4.6, globulin 4.1 urinalysis shows ketones. Urine protein/creatinine normal urine sodium 37.9 with a chloride less than 20. Urine tox screen negative. Chest x-ray negative. CT chest abdomen and pelvis showed pulmonary nodules (has history of valley fever), splenic vascular stent, cirrhosis, cystitis. Patient was given 2 L normal saline. Meds: Protonix 40 mg, Eliquis 5 mg twice daily, midodrine 5 mg 3 times daily, Synthroid 150 mcg daily, Lasix 40 mg once a day, Diflucan 200 mg twice a day, spironolactone 25 mg 3 times a day, Carafate 1 g 4 times a day, Slow Fe 45 mg Brother had heart attack. Patient had gastric bypass surgery 25 years ago. Admitted to medical team. Renal consultation requested for acute renal failure, hypercalcemia Spoke to primary team-will start workup for malignancy due to weight loss. 01/05/2025 patient currently seen in medical floor. More alert and awake. She is feeling much stronger today.Blood pressure acceptable. Patient started to make urine WBC 3.8, hemoglobin 9.6, platelets 129. Sodium 135, potassium 4.1, BUN 64, creatinine 1.9, calcium 11.7, phosphorus 3, LFTs normal, total cholesterol 214, LDL 147 so far tumor markers negative, vitamin D normal PTH significantly suppressed at 13.2 urine sodium 37.9 with a chloride less than 20 cocci IgM positive echocardiogram showed ejection fraction 60 to 65%. [address] chest abdomen pelvis showed pulmonary nodules consistent with her old valley fever. No malignancy noted on IV fluids. 01/06/2025 Patient patient was seen and examined with the physical therapy at bedside No acute overnight events Reported that she is feeling good. Physical therapy at bedside reported that she is not able to stand even for 5 seconds due to dizziness Vitals are stable. No orthostatic drop is noted on blood pressure monitoring Labs showed WBC 3.1, Hb 8.9, BUN 41, creatinine 1.5, corrected calcium 10.9, phosphorus 2.2 Encouraged to take plenty amount of oral fluids and continue megestrol 01/07/2025 patient currently seen in medical floor. Had a big bowel movement. Still having significant orthostasis with dizzy spells. Added fludrocortisone. On midodrine. Blood pressure 103/65, heart rate 72. Hemoglobin 8.6. Sodium 140, potassium 4.2, bicarbonate 22.8, BUN 33, creatinine 1.4, calcium 10.9, phosphorus 1.7, magnesium 2 01/09/2025 Patient was seen and examined at bedside in the [facility] Still complaining of generalized weakness and fatigue and dizziness Vitals are stable. Labs done showed marked improvement in renal functions with creatinine of 1.3, calcium 10.6 Cortisol levels, serum protein electrophoresis, 1, 25 dihydroxy vitamin D levels are still pending Will continue current management 01/10/2025 Patient was seen and examined at the bedside Stated that she is feeling overall well. Vitals are stable. Labs showed mild increase in the creatinine to 1.4. Started on 1/2 NS at 100 mL/h Will continue to monitor her renal functions 01/11/2025 Patient was seen and examined at the bedside while having breakfast No acute overnight events. Patient endorsed that she is able to walk in the hallway without much difficulty. While coming back to the room and sitting on the bed she felt mild dizziness but it improved from the day of hospitalization Labs still showed creatinine of 1.4, BUN 34. Calcium levels are 9.8, trended to normal values. Recommended to intake plenty of oral fluids Total cortisol levels are still pending. Exam Vital Signs Temp Pulse Resp BP Pulse Ox O2 Del Method 97.4 F 71 18 114/61 99 Room Air 01/11/25 07:54 01/11/25 07:54 01/11/25 07:54 01/11/25 07:54 01/11/25 07:54 01/11/25 07:54 Narrative Exam General: Awake. Cachectic. HEENT: Normocephalic, atraumatic, mucous membranes dry.. Heart: Regular rate and rhythm, no murmurs. Lungs: Clear to auscultation with no wheezing or crackles. Abdomen: Soft, nondistended, nontender, positive bowel sounds. ?No guarding or rebound tenderness. Neurologic: Alert and oriented x3, no gross neurological deficit, and patient able to move all 4 extremities. Extremities: No edema. Skin: No rash or ecchymoses. Objective Labs 01/11/25 05:31 01/11/25 05:31 Labs: Laboratory Results - last 24 hr 01/05/25 01/11/25 04:41 05:31 WBC 4.3 RBC 2.93 L Hgb 7.6 L Hct 23.8 L MCV 81 MCH 25.9 MCHC 31.9 RDW Std Deviation 52.1 H Plt Count 101 L Neut % (Auto) 77 Lymph % (Auto) 10 [place] % (Auto) 9 Eos % (Auto) 3 Baso % (Auto) 1 Neut # (Auto) 3.3 Lymph # (Auto) 0.4 L [place] # (Auto) 0.4 Eos # (Auto) 0.1 Baso # (Auto) 0.0 Immature Gran # (Auto) 0.01 H Absolute Nucleated RBC 0.00 Immature Gran % 0 Nucleated RBC % 0 Sodium 138 Potassium 4.8 Chloride 108 H Carbon Dioxide 21.1 Anion Gap 9 BUN 34 H Creatinine 1.4 H Estim Creat Clear Calc 34.0 L eGFR 40 L BUN/Creatinine Ratio 24 H Glucose 102 Calculated Osmolality 283 Calcium 9.4 Corrected Calcium 9.8 Magnesium 2.2 Total Bilirubin 0.3 AST 19 ALT 13 Alkaline Phosphatase 110 Total Protein 7.3 6.4 Albumin 3.7 L 3.5 Globulin 2.9 Albumin/Globulin Ratio 1.2 Kdrdm-0-Tagxdpmpt 0.3 Uchuu-3-Lzbodizqk 0.7 [place]ree-1-[place] 0.4 Lbtp-4-Bncycrpj 0.4 Gamma Globulins 1.7 Abnorm Protein Band 1 TNP Abnorm Protein Band 2 TNP Abnorm Protein Band 3 TNP PEP Interpretation SEE NOTE Vit D 1,25-Dihyd Total 12 L 1,25 Dihydroxy Vit D2 <8 1,25 Dihydroxy Vit D3 12 Total Cortisol 10.9 Hepatitis A IgM Ab Non Reactive Hep Bs Antigen Non Reactive Hep B Core IgM Ab Non Reactive Hepatitis C Antibody Non Reactive ABG Interpretation ABG results: 01/04/25 10:50 VBG pH 7.57 VBG pCO2 24 L VBG pO2 46 VBG Base Excess 1 Quality Measures Quality Measures VTE prophylaxis Advance care planning discussed with:: patient Assessment & Plan Assessment Current Active Medications: Generic Name Dose Route Start Last Admin Trade Name Freq PRN Reason Stop Dose Admin Acetaminophen 650 mg 01/11/25 00:54 01/11/25 01:05 Acetaminophen 325 Mg Tablet PO 02/10/25 00:53 650 mg Q6HR PRN Administration FEVER >101 Al Hydrox/Mg Hydrox/Simethicone 15 ml 01/04/25 22:00 01/11/25 06:44 Mg Hyd/Al Hyd/Eryn (Maalox Reg) Susp 30 Ml Udc PO 02/03/25 21:59 15 ml TID YOAN Administration Apixaban 5 mg 01/04/25 21:00 01/10/25 20:58 Apixaban 2.5 Mg Tablet PO 01/25/25 20:59 5 mg BID YOAN Administration Protocol Atorvastatin Calcium 20 mg 01/05/25 21:00 01/10/25 20:58 Atorvastatin Calcium 20 Mg Tablet PO 02/04/25 20:59 20 mg HS YOAN Administration Calamine 0 ml 01/08/25 23:04 Calamine Lotion 120 Ml Btl TOP 02/07/25 23:03 UD PRN ITCHING Citric Acid/Sodium Citrate 30 ml 01/09/25 14:00 01/10/25 20:58 Citric Acid/Sodium Citr 15 Ml Udc (Bicitra) PO 02/08/25 13:59 30 ml BID YOAN Administration Fluconazole 400 mg 01/04/25 18:30 01/10/25 09:24 Fluconazole 100 Mg Tablet PO 01/11/25 18:29 400 mg QDAY YOAN Administration Fludrocortisone Acetate 0.1 mg 01/06/25 10:15 01/09/25 08:30 Fludrocortisone Acetate 0.1 Mg Tablet PO 02/05/25 10:14 0.1 mg QDAY YOAN Administration Sodium Chloride 1,000 mls @ 100 mls/hr 01/10/25 07:52 01/11/25 08:39 Ns 0.45% IV 02/09/25 07:51 100 mls/hr .Q10H YOAN Administration Levothyroxine Sodium 125 mcg 01/10/25 06:00 01/11/25 06:43 Levothyroxine Sodium 125 Mcg Tablet PO 02/09/25 05:59 125 mcg ACBR YOAN Administration Lidocaine 1 patch 01/11/25 00:54 01/11/25 01:05 Lidocaine 5% 1 Patch TOP 02/10/25 00:53 1 patch UD PRN Administration PAIN Megestrol Acetate 200 mg 01/04/25 21:00 01/10/25 20:59 Megestrol Acet Susp 400 Mg/10 Ml Udc PO 02/03/25 20:59 200 mg BID YOAN Administration Melatonin 3 mg 01/10/25 21:00 01/10/25 20:58 Melatonin 3 Mg Tablet PO 02/09/25 20:59 3 mg HS YOAN Administration Midodrine 5 mg 01/09/25 10:15 01/11/25 06:44 Midodrine 5 Mg Tablet PO 02/08/25 10:14 Not Given TID YOAN Mirtazapine 15 mg 01/08/25 09:00 01/10/25 09:24 Mirtazapine 15 Mg Tablet PO 02/07/25 08:59 15 mg QDAY YOAN Administration Ondansetron HCl 4 mg 01/04/25 18:11 Ondansetron Inj 2 Mg/Ml Inj 2 Ml IV 02/03/25 18:10 Q6H PRN NAUSEA OR VOMITING Protocol Oxycodone/Acetaminophen 0.5 tab 01/10/25 21:00 01/10/25 21:02 Oxycodone/Apap 5/325 Tablet PO 01/15/25 20:59 0.5 tab HS YOAN Administration Pantoprazole Sodium 40 mg 01/08/25 09:00 01/10/25 09:24 Pantoprazole 40 Mg Tablet PO 02/07/25 08:59 40 mg QDAY OYAN Administration Prednisone 5 mg 01/10/25 14:45 01/10/25 14:58 Prednisone 5 Mg Tablet PO 02/09/25 14:44 5 mg QDAY YOAN Administration Plan Ms. Headley is a 74 y/o lady who is a patient of Dr. 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, frequent paracentesis/thoracentesis, on diuretics presented to the emergency department with significant weakness, syncopal episode and admitted for acute kidney injury secondary to hypercalcemia likely from dehydration # Acute kidney injury, resolving Likely prerenal in the setting of decreased oral intake -Patient reported that she lost 40 pounds in the last 5 to 6 months and lost 9 pounds in the last 1 week -Patient was diagnosed with valley fever and is on fluconazole -At the time of admission, corrected calcium is 13 which could cause polyuria leading to dehydration and prerenal acute kidney injury -CT abdomen showed no hydronephrosis. -Patient was treated with IV fluids since the time of admission and creatinine levels continue to downtrend -As of 01/08, creat 1.5 >3/4, Creat 1.3 >3/5, Creat 1.4 >3/6, 1.4 -25-hydroxy vitamin D found to be normal, PTH mildly decreased Plan -Encouraged to take plenty of oral fluids -Continue to monitor renal functions -Avoid nephrotoxic medications and renally dose medications # Hypercalcemia, resolved Ddx: Dehydration and TIAN versus immobilization versus granulomatous disease versus malignancy -Corrected calcium at the time of admission is 13 > 3/3 , 10.7 >3/4, 10.6 >3/5, 10.4 >3/6, 9.8 -25-hydroxy vitamin D is within normal limits, PTH 13.2 -1, 25 dihydroxy vitamin D, serum protein electrophoresis was ordered-pending results Plan -As the calcium levels continues to trend downward, will monitor for now -Will follow-up with pending lab values -Continue intake of plenty of oral fluids # Hypophosphatemia -Phosphorus as of 01/09/2025 is 2.3 -Neutra-Phos is given -Will monitor renal functions # Cachexia # Failure to thrive # Chronic normocytic normochromic anemia -Patient had history of poor oral intake and significant weight loss over last 6 to 8 months -Patient was diagnosed with valley fever, which could be causing this -CT abdomen and chest was done to rule out malignancy, did not see any findings suggestive of malignancy -Will follow-up with serum electrophoresis Plan -started on Megace and mirtazapine -Patient was already on midodrine for orthostatic hypotension, fludrocortisone is added -Recommended high-protein diet -Continue fluconazole #Syncope #History of orthostatic hypotension #Generalized weakness #History of valley fever #History of pulmonary mass, R lobe #History of pleural effusion #History of hypothyroidism #History of liver cirrhosis #History of bariatric surgery #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 Claudia Gill, PGY1 Attending Provider Attestation/Addendum Patient seen and examined with resident physician Dr. Landis. Note reviewed, agree with findings and recommendations. Creatinine, calcium almost normalized. Noted cortisol levels low-suspect secondary Adrenal insufficiency. Spoke to Dr. Mcdonough-needs both mineralocorticoids and fludrocortisone until she follows up with endocrinology as an outpatient. Blood pressure acceptable.
[2025-01-11] MEDS: FLUCONAZOLE 100 MG TABLET 400 MG PO (09:39)
[2025-01-11] MEDS: MEGESTROL ACET SUSP 400 MG/10 ML UDC 200 MG PO ×2 (09:40→21:22)
[2025-01-11] MEDS: MIRTAZAPINE 15 MG TABLET PO (09:42)
[2025-01-11] MEDS: PANTOPRAZOLE 40 MG TABLET PO (09:43)
[2025-01-11] MEDS: predniSONE 5 MG TABLET PO (09:43)
[2025-01-11] MEDS: CITRIC ACID/SODIUM CITR 15 ML UDC (BICITRA) 30 ML PO ×2 (09:43→21:21)
[2025-01-11] MEDS: APIXABAN 2.5 MG TABLET 5 MG PO ×2 (09:43→21:20)
--- NOTE | 2025-01-11 11:43 | ESPR_ITS ---
<Statement entered by Silvina Gunter MD - 01/11/25 16:27> I discussed with and supervised the market research intern physician who took care of this patient. I personally saw and examined the patient and discussed the assessment and plan with the entire medicine team, including my attending Dr. Mcdonough, I agree with the assessment and plan as documented below Patient seen and examined at bedside today. Labs and imaging reviewed. Overnight patient presented an episode of epistaxis otherwise patient stated that is something that is not new for her. This morning at bedside patient stated feeling better, denied any acute complaints at the moment protein electrophoresis showed kappa light chain 116.5, patient will need to follow-up with heme-onc as an outpatient for further workup, cortisol 10.9 that showed adrenal insufficiency possibly secondary to fluconazole for coccidioidomycosis, we will continue fludrocortisone and prednisone p.o., case management is following up the case, would encourage patient to continue to work with physical therapy, patient stated that he will not would like to go to SNF upon discharge and that she will prefer to go home. Will continue to observe closely. Silvina Gunter MD PGY-3 Disclaimer: Despite multiple revisions, due to the dictation software being used, the document bellow may not be free of grammatical errors including phonetic/typographic errors. However, this does not deter from our commitment to providing health care in the patient's best interest in mind. Documentation for date of: 01/11/25 Subjective Subjective Interval history: Patient seen today at the bedside fine awake, alert, oriented x 3. No overnight events reported. States improvement with dizziness was able to work with PT and able to walk toward the door of her room and back. Vital signs stable at this time. Labs at this time unremarkable. Exam Vital Signs Temp Pulse Resp BP Pulse Ox O2 Del Method 97.5 F 75 18 130/73 99 Room Air 01/11/25 11:27 01/11/25 11:27 01/11/25 11:27 01/11/25 11:27 01/11/25 11:01/11/25 11:27 Narrative Exam Physical Exam GENERAL: NAD, AAOx3, temporal wasting HEENT: Moist mucosa. Eyes open, symmetrical, & clear CARDIO: Heart RRR, no obvious murmurs PULM: No noted coughing/dyspnea CTA B/L, no R/W/R GI: Abdomen soft, nondistended, no pain on palpation. BSx4 SKIN/MSK/EXT: No wounds/rashes/edema/amputations, no pain on palpation. Pedal pulses present B/L NEURO: AAOx3, no focal neuro deficits, able to move all 4 extremities Objective Labs 01/12/25 05:40 01/12/25 05:40 Labs: Laboratory Results - last 24 hr 01/05/25 01/11/25 04:41 05:31 WBC 4.3 RBC 2.93 L Hgb 7.6 L Hct 23.8 L MCV 81 MCH 25.9 MCHC 31.9 RDW Std Deviation 52.1 H Plt Count 101 L Neut % (Auto) 77 Lymph % (Auto) 10 [place] % (Auto) 9 Eos % (Auto) 3 Baso % (Auto) 1 Neut # (Auto) 3.3 Lymph # (Auto) 0.4 L [place] # (Auto) 0.4 Eos # (Auto) 0.1 Baso # (Auto) 0.0 Immature Gran # (Auto) 0.01 H Absolute Nucleated RBC 0.00 Immature Gran % 0 Nucleated RBC % 0 Sodium 138 Potassium 4.8 Chloride 108 H Carbon Dioxide 21.1 Anion Gap 9 BUN 34 H Creatinine 1.4 H Estim Creat Clear Calc 34.0 L eGFR 40 L BUN/Creatinine Ratio 24 H Glucose 102 Calculated Osmolality 283 Calcium 9.4 Corrected Calcium 9.8 Magnesium 2.2 Total Bilirubin 0.3 AST 19 ALT 13 Alkaline Phosphatase 110 Total Protein 7.3 6.4 Albumin 3.7 L 3.5 Globulin 2.9 Albumin/Globulin Ratio 1.2 Rrkyo-8-Ssaxbysix 0.3 Wxdwa-0-Eyhalufhg 0.7 Ubkp-3-Twbdfbyw 0.4 Depk-8-Pdnitqux 0.4 Gamma Globulins 1.7 Abnorm Protein Band 1 TNP Abnorm Protein Band 2 TNP Abnorm Protein Band 3 TNP PEP Interpretation SEE NOTE Vit D 1,25-Dihyd Total 12 L 1,25 Dihydroxy Vit D2 <8 1,25 Dihydroxy Vit D3 12 Total Cortisol 10.9 Hepatitis A IgM Ab Non Reactive Hep Bs Antigen Non Reactive Hep B Core IgM Ab Non Reactive Hepatitis C Antibody Non Reactive ABG Interpretation ABG results: 01/04/25 10:50 VBG pH 7.57 VBG pCO2 24 L VBG pO2 46 VBG Base Excess 1 Quality Measures Quality Measures VTE prophylaxis Advance care planning discussed with:: patient Assessment & Plan Assessment Current Active Medications: Generic Name Dose Route Start Last Admin Trade Name Freq PRN Reason Stop Dose Admin Acetaminophen 650 mg 01/11/25 00:54 01/11/25 01:05 Acetaminophen 325 Mg Tablet PO 02/10/25 00:53 650 mg Q6HR PRN Administration FEVER >101 Al Hydrox/Mg Hydrox/Simethicone 15 ml 01/04/25 22:00 01/11/25 06:44 Mg Hyd/Al Hyd/Eryn (Maalox Reg) Susp 30 Ml Udc PO 02/03/25 21:59 15 ml TID YOAN Administration Apixaban 5 mg 01/04/25 21:00 01/11/25 09:43 Apixaban 2.5 Mg Tablet PO 01/25/25 20:59 5 mg BID YOAN Administration Protocol Atorvastatin Calcium 20 mg 01/05/25 21:00 01/10/25 20:58 Atorvastatin Calcium 20 Mg Tablet PO 02/04/25 20:59 20 mg HS YOAN Administration Calamine 0 ml 01/08/25 23:04 Calamine Lotion 120 Ml Btl TOP 02/07/25 23:03 UD PRN ITCHING Citric Acid/Sodium Citrate 30 ml 01/09/25 14:00 01/11/25 09:43 Citric Acid/Sodium Citr 15 Ml Udc (Bicitra) PO 02/08/25 13:59 30 ml BID YOAN Administration Fluconazole 400 mg 01/04/25 18:30 01/11/25 09:39 Fluconazole 100 Mg Tablet PO 01/11/25 18:29 400 mg QDAY YOAN Administration Fludrocortisone Acetate 0.1 mg 01/06/25 10:15 01/09/25 08:30 Fludrocortisone Acetate 0.1 Mg Tablet PO 02/05/25 10:14 0.1 mg QDAY YOAN Administration Levothyroxine Sodium 125 mcg 01/10/25 06:00 01/11/25 06:43 Levothyroxine Sodium 125 Mcg Tablet PO 02/09/25 05:59 125 mcg ACBR YOAN Administration Lidocaine 1 patch 01/11/25 00:54 01/11/25 01:05 Lidocaine 5% 1 Patch TOP 02/10/25 00:53 1 patch UD PRN Administration PAIN Megestrol Acetate 200 mg 01/04/25 21:00 01/11/25 09:40 Megestrol Acet Susp 400 Mg/10 Ml Udc PO 02/03/25 20:59 200 mg BID YOAN Administration Melatonin 3 mg 01/10/25 21:00 01/10/25 20:58 Melatonin 3 Mg Tablet PO 02/09/25 20:59 3 mg HS YOAN Administration Midodrine 5 mg 01/09/25 10:15 01/11/25 06:44 Midodrine 5 Mg Tablet PO 02/08/25 10:14 Not Given TID YOAN Mirtazapine 15 mg 01/08/25 09:00 01/11/25 09:42 Mirtazapine 15 Mg Tablet PO 02/07/25 08:59 15 mg QDAY YOAN Administration Ondansetron HCl 4 mg 01/04/25 18:11 Ondansetron Inj 2 Mg/Ml Inj 2 Ml IV 02/03/25 18:10 Q6H PRN NAUSEA OR VOMITING Protocol Oxycodone/Acetaminophen 0.5 tab 01/10/25 21:00 01/10/25 21:02 Oxycodone/Apap 5/325 Tablet PO 01/15/25 20:59 0.5 tab HS YOAN Administration Pantoprazole Sodium 40 mg 01/08/25 09:00 01/11/25 09:43 Pantoprazole 40 Mg Tablet PO 02/07/25 08:59 40 mg QDAY YOAN Administration Prednisone 5 mg 01/10/25 14:45 01/11/25 09:43 Prednisone 5 Mg Tablet PO 02/09/25 14:44 5 mg QDAY YOAN Administration Plan Alma Rosa is a 74 y/o female with PMHx liver cirrhosis?, Hepatic vein thrombosis, 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 #Suspected Secondary Adrenal insufficiency #Orthostatic hypotension #Failure to thrive Patient reports she has been having syncopal episodes mainly with getting up Endorses a history of orthostatic hypotension for which she takes midodrine 5mg TID as needed Patient reports that she has lost over 40 pounds within the past 5 months, attributes it to poor oral intake Syncope likely related to poor oral intake and orthostatic hypotension 01/05/2025: Orthostatics positive Echocardiogram unremarkable. Concern for adrenal insufficiency given orthostatic hypotension, potential causes include valley fever, malnutrition due to poor p.o. intake. 500 mL NS bolus given Vitamin B12 within normal limits, folate levels within normal limits Spoke to bit sharpener Dr. Head suspects adrenal insufficiency due to fluconazole, although rare considering starting low dose prednisone but will speak with ID Syncope likely secondary to adrenal sufficiency B12 was found to be low mildly elevated ? B12 shot provided -pending renin, aldosterone, plasma acth -Encourage oral intake -Continue Megace -Mirtazapine 15 mg p.o. daily added -Midodrine 5 mg 3 times daily -Fludrocortisone 0.1 mg p.o. daily -prednisone 5mg PO qday #TIAN #Hypercalcemia-improving Likely prerenal Patient endorses very poor oral intake and no desire to eat Patient has lost a lot of weight roughly 40 pounds in the past 5 months Given bolus in ED - Corrected calcium today is at 11.7. Calcium continues to improve. 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 Head suspects adrenal insufficiency due to fluconazole, although rare considering starting low dose prednisone but will speak with ID -Resumed Diflucan for 400 mg daily - bit sharpener, Dr. Head consulted, appreciate recommendations - ID specialist Dr. Latham consulted, appreciate recommendations #History of pulmonary mass, R lobe #History of pleural effusion Seen on chest CTA in November 2024, This could be a culprit of hypercalcemia. Had thoracentesis on last admission and had 2000 cc removed, appears to be transudative in nature considering lights criteria 01/05: CT CAP reviewed subcentimeter pulmonary nodules but no determinate mass. Suspect infectious nodules due to cocci. -Follow up imaging if needed, possibly outpatient #History of hypothyroidism Takes levothyroxine 150mcg at home Free T4 elevated at 2.09. 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 Preciado hepatology at [facility] Was apparently on liver transplant list at some point, however is not getting a liver transplant at this point [facility] records requested and reviewed -Resumed home Eliquis 5 mg twice a day #Normocytic anemia Unsure if patient is having iron deficiency or anemia of chronic disease Patient does have history of bariatric surgery and also has poor oral intake Anemia is multifactorial at this point and will require further workup Hemoglobin is 8.5 -Trend CBC -Follow-up peripheral blood smear Case discussed with my senior Dr. Gunter PGY-[address] Ceasar Garcia MD PGY-1 Disposition: Med telemetry DVT prophylaxis: Eliquis GI prophylaxis: Protonix Diet: Regular CODE STATUS: Full Attending Provider Attestation/Addendum Fern Hunter, DO, attest that I was physically present for the rhoades portions of the service and evaluated the patient with the resident and I reviewed and discussed the case with the resident and agree with the resident's findings and plans of care as documented above Patient seen and evaluated this AM. Patient states she has some dizziness upon getting up from seated to standing position. BP has maintained within normal limits. Patient was started on prednisone 5mg PO daily yesterday once cosyntropin stim test was completed. Will f/u with cortisol levels after stim test. However, total cortisol obtained on 01/05 prior to start of fludrocortisone was 10.9, which is positive for adrenal insufficiency. Advised patient to f/u with endocrinology outpatient regarding taper of steroids and further testing. Explained to patient that steroids may lead to gastritis and will thus need GI ppx, particularly in the setting of chronic eliquis use. Edwards light chains are also noted to be elevated, suggest that patient follow up with hematology outpatient. Discussed discharge plans for home versus SNF with patient. Patient states she will not go to a SNF and much prefers home health. Will have physical therapy work with patient and anticipate DC within next 24-48h. Patient states appetite has much improved
[2025-01-11] MEDS: CYANOCOBALAMIN INJ 1,000 mCg/ML VIAL 1000 MCG IM (12:45)
--- NOTE | 2025-01-11 18:07 | PC.PT ---
Patient is safe to ambulate to the bathroom now with a FWW and 1 staff assist. RN made aware.
[2025-01-11] MEDS: ATORVASTATIN CALCIUM 20 MG TABLET PO (21:20)
[2025-01-11] MEDS: oxyCODONE/APAP 5/325 TABLET 0.5 TAB PO ×2 (21:20→21:21)
[2025-01-11] MEDS: MELATONIN 3 MG TABLET PO (21:20)
[2025-01-12] VITALS (10 sets, daily range): BP systolic 121–149; BP diastolic 66–73; PULSE 67–90; RESP 16–18; TEMP 36.2–36.6; O2SAT 98–100
[2025-01-12 06:36] LABS: Basophils % (Auto) 1 % (0-2.5); Eosinophils # (Auto) 0.2 Thou/mm3 (0.0-0.5); Eosinophils % (Auto) 4 % (0-10); Immature Granulocytes % (Auto) 0 % (0-0); Immature Granulocytes Auto 0.01 Thou/mm3 (0.00-0.00); Lymphocytes # (Auto) 0.4 Thou/mm3 (1.0-4.8); Lymphocytes % (Auto) 11 % (10-50); Mean Corpuscular HGB Conc 31.7 g/dl (31.0-37.0); Mean Corpuscular Hemoglobin 25.3 pg (25.0-35.0); Mean Corpuscular Volume 80 fL (80-100); Monocytes # (Auto) 0.4 Thou/mm3 (0.0-0.8); Monocytes % (Auto) 12 % (0-12); Neutrophils # (Auto) 2.6 Thou/mm3 (1.8-7.7); Neutrophils % (Auto) 72 % (37-80); Nucleated Red Blood Cell % 0 /100 WBC (0); Platelet Count 120 Thou/mm3 (140-440); White Blood Count 3.5 Thou/mm3 (3.6-11.0)
[2025-01-12 06:42] LABS: Hemoglobin 7.6 g/dL (12.0-16.0)
[2025-01-12 06:47] LABS: Alanine Aminotransferase 16 U/L (10-49); Albumin, Serum 3.4 gm/dL (3.4-4.8); Albumin/Globulin Ratio 1.1 (1.2-2.2); Alkaline Phosphatase 108 U/L (46-116); Anion Gap 9 (7-16); Aspartate Amino Transferase < 10 U/L (0-34); BUN/Creatinine Ratio 26 Ratio (12-20); Bilirubin,Total 0.2 mg/dL (0.3-1.2); Blood Urea Nitrogen 31 mg/dL (9-23); Calcium 9.1 mg/dL (8.3-10.6); Calcium (Corrected) 9.6 mg/dL (8.5-10.1); Carbon Dioxide 21.2 mMol/L (20.0-31.0); Chloride 112 mMol/L (98-107); Creatinine (Component) 1.2 mg/dL (0.6-1.3); Estimated Creatinine Clearance 39.7 mL/min (>60); Glucose 136 mg/dL (74-106); Magnesium 2.3 mg/dL (1.6-2.6); Osmolality,Calculated 291 (275-295); Sodium 142 mMol/L (136-145); Total Protein 6.4 gm/dL (5.7-8.2); eGFR 48 See Note
[2025-01-12] MEDS: MG HYD/AL HYD/SIME (Maalox Reg) SUSP 30 ML UDC 15 ML PO ×3 (06:47→22:14)
[2025-01-12] MEDS: LEVOTHYROXINE SODIUM 125 MCG TABLET PO (06:47)
[2025-01-12] MEDS: MIRTAZAPINE 15 MG TABLET PO (09:00)
[2025-01-12] MEDS: APIXABAN 2.5 MG TABLET 5 MG PO ×2 (09:00→22:15)
[2025-01-12] MEDS: PANTOPRAZOLE 40 MG TABLET PO (09:01)
[2025-01-12] MEDS: MEGESTROL ACET SUSP 400 MG/10 ML UDC 200 MG PO ×2 (09:01→22:13)
[2025-01-12] MEDS: predniSONE 5 MG TABLET PO (09:01)
[2025-01-12] MEDS: CITRIC ACID/SODIUM CITR 15 ML UDC (BICITRA) 30 ML PO ×2 (09:01→22:16)
[2025-01-12] MEDS: FLUDROCORTISONE ACETATE 0.1 MG TABLET PO (09:01)
--- NOTE | 2025-01-12 09:11 | PD.IDPROG ---
Subjective Subjective Interval history: pt static titer remains very low but she is on rx. that is ok as there are no studies favoring no rx for all pts. many will do well if titers remain low . initial neg in nov but repeat sl higher in Dec, Exam Vital Signs Temp Pulse Resp BP Pulse Ox O2 Del Method 97.9 F 71 16 124/72 100 Room Air 01/12/25 04:00 01/12/25 06:41 01/12/25 04:00 01/12/25 06:41 01/12/25 04:00 01/12/25 04:00 Narrative Exam limited eval. see that steroids started and flucon stopped. adrenal insufficiency from flucon is rare. I use a lot of flucon and never test for this concern of yours, but cxr is neg. so low cocci suggests not that much disease and not new. Objective - Internal Medicine Labs 01/12/25 05:40 01/12/25 05:40 Labs: Laboratory Results - last 24 hr 01/12/25 05:40 WBC 3.5 L RBC 3.00 L Hgb 7.6 L Hct 24.0 L MCV 80 MCH 25.3 MCHC 31.7 RDW Std Deviation 52.0 H Plt Count 120 L Neut % (Auto) 72 Lymph % (Auto) 11 [place] % (Auto) 12 Eos % (Auto) 4 Baso % (Auto) 1 Neut # (Auto) 2.6 Lymph # (Auto) 0.4 L [place] # (Auto) 0.4 Eos # (Auto) 0.2 Baso # (Auto) 0.0 Immature Gran # (Auto) 0.01 H Absolute Nucleated RBC 0.00 Immature Gran % 0 Nucleated RBC % 0 Sodium 142 Potassium 4.0 D Chloride 112 H Carbon Dioxide 21.2 Anion Gap 9 BUN 31 H Creatinine 1.2 Estim Creat Clear Calc 39.7 L eGFR 48 L BUN/Creatinine Ratio 26 H Glucose 136 H Calculated Osmolality 291 Calcium 9.1 Corrected Calcium 9.6 Magnesium 2.3 Total Bilirubin 0.2 L AST < 10 ALT 16 Alkaline Phosphatase 108 Total Protein 6.4 Albumin 3.4 Globulin 3.0 Albumin/Globulin Ratio 1.1 L ABG Interpretation ABG results: 01/04/25 10:50 VBG pH 7.57 VBG pCO2 24 L VBG pO2 46 VBG Base Excess 1 Assessment & Plan A&P Narrative relatively recent cocci with neg IgM noted. (usually takes 3-6 mo to disappear btw) possible adrenal insufficiency. unproven yet, but tests pending at least low plts, cause uncertain, may have liver disease from the hepatic vein blockage for yrs that eventually was cleared no objection to trial of steroids pending the cortisol levals. spironolactone can cause adrenal linsufficiency as can her liver disease joshua and joshua also have quirky se's and her titer is not that high nor is she particularly symptomatic. will check in again wednesday if she remains in house. if she is referred to me, please send the lab data and cxr report Time Spent With Patient Time: Total time spent is greater than 50% in coordination of care (as documented) at patient's floor/unit and/or counseling patient:
--- NOTE | 2025-01-12 10:10 | ESPR_ITS ---
Documentation for date of: 01/12/25 Subjective Subjective Interval history: Ms. Headley is a 74 y/o lady who is a patient of Dr. 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 presented to the emergency department with significant weakness, syncopal episode. Patient stated since she got discharged a month ago she has been having trouble eating as she has no appetite, has been feeling extremely fatigued and tired with orthostatic hypotension-on midodrine as needed. She also stated because she is not able to eat anything lost 40 pounds in the last 6 months. Did fall few times in the last 1 month. In the emergency department blood sugar 143. Blood pressure 123/89, heart rate 86. WBC 6.7, hemoglobin 11.4, platelets 168. Sodium 133, potassium 4.4, BUN 74, creatinine 2.4, GFR 21, A1c 5.9, calcium 813, LFTs normal, albumin 4.6, globulin 4.1 urinalysis shows ketones. Urine protein/creatinine normal urine sodium 37.9 with a chloride less than 20. Urine tox screen negative. Chest x- ray negative. CT chest abdomen and pelvis showed pulmonary nodules (has history of valley fever), splenic vascular stent, cirrhosis, cystitis. Patient was given 2 L normal saline. Meds: Protonix 40 mg, Eliquis 5 mg twice daily, midodrine 5 mg 3 times daily, Synthroid 150 mcg daily, Lasix 40 mg once a day, Diflucan 200 mg twice a day, spironolactone 25 mg 3 times a day, Carafate 1 g 4 times a day, Slow Fe 45 mg Brother had heart attack. Patient had gastric bypass surgery 25 years ago. Admitted to medical team. Renal consultation requested for acute renal failure, hypercalcemia Spoke to primary team-will start workup for malignancy due to weight loss. 01/05/2025 patient currently seen in medical floor. More alert and awake. She is feeling much stronger today.Blood pressure acceptable. Patient started to make urine WBC 3.8, hemoglobin 9.6, platelets 129. Sodium 135, potassium 4.1, BUN 64, creatinine 1.9, calcium 11.7, phosphorus 3, LFTs normal, total cholesterol 214, LDL 147 so far tumor markers negative, vitamin D normal PTH significantly suppressed at 13.2 urine sodium 37.9 with a chloride less than 20 cocci IgM positive echocardiogram showed ejection fraction 60 to 65%. [address] chest abdomen pelvis showed pulmonary nodules consistent with her old valley fever. No malignancy noted on IV fluids. 01/06/2025 Patient patient was seen and examined with the physical therapy at bedside No acute overnight events Reported that she is feeling good. Physical therapy at bedside reported that she is not able to stand even for 5 seconds due to dizziness Vitals are stable. No orthostatic drop is noted on blood pressure monitoring Labs showed WBC 3.1, Hb 8.9, BUN 41, creatinine 1.5, corrected calcium 10.9, phosphorus 2.2 Encouraged to take plenty amount of oral fluids and continue megestrol 01/07/2025 patient currently seen in medical floor. Had a big bowel movement. Still having significant orthostasis with dizzy spells. Added fludrocortisone. On midodrine. Blood pressure 103/65, heart rate 72. Hemoglobin 8.6. Sodium 140, potassium 4.2, bicarbonate 22.8, BUN 33, creatinine 1.4, calcium 10.9, phosphorus 1.7, magnesium 2 01/09/2025 Patient was seen and examined at bedside in the [facility] Still complaining of generalized weakness and fatigue and dizziness Vitals are stable. Labs done showed marked improvement in renal functions with creatinine of 1.3, calcium 10.6 Cortisol levels, serum protein electrophoresis, 1, 25 dihydroxy vitamin D levels are still pending Will continue current management 01/10/2025 Patient was seen and examined at the bedside Stated that she is feeling overall well. Vitals are stable. Labs showed mild increase in the creatinine to 1.4. Started on 1/2 NS at 100 mL/h Will continue to monitor her renal functions 01/11/2025 Patient was seen and examined at the bedside while having breakfast No acute overnight events. Patient endorsed that she is able to walk in the hallway without much difficulty. While coming back to the room and sitting on the bed she felt mild dizziness but it improved from the day of hospitalization Labs still showed creatinine of 1.4, BUN 34. Calcium levels are 9.8, trended to normal values. Recommended to intake plenty of oral fluids Total cortisol levels are still pending. 01/12/2025 Patient was seen and examined at the bedside Patient reported that last night when she was to get out of the bed she felt dizziness, denies any other acute overnight events. Vitals are stable. Physical examination remains unchanged Labs showed WBC 3.5, Hb 7.6, sodium 142, potassium 4, BUN 31, creatinine 1.2, calcium 9.6 Total cortisol levels as of 01/05/2025 is 10.9 which is within normal limits, repeat total cortisol on 01/10/2025 is pending SPEP - no myeloma, 1,25 OH Vit D3 - 12, low As patient's renal functions and calcium levels are stabilized, we will sign off from patient's care. Can reconsult if there is any variation in renal functions or calcium levels Exam Vital Signs Temp Pulse Resp BP Pulse Ox O2 Del Method 97.9 F 71 16 124/72 100 Room Air 01/12/25 04:00 01/12/25 06:41 01/12/25 04:00 01/12/25 06:41 01/12/25 04:00 01/12/25 04:00 Narrative Exam General: Awake. cachectic HEENT: Normocephalic, atraumatic, mucous membranes moist. Heart: Regular rate and rhythm, no murmurs. Lungs: Clear to auscultation with no wheezing or crackles. Abdomen: Soft, nondistended, nontender, positive bowel sounds. ?No guarding or rebound tenderness. Neurologic: Alert and oriented x3, no gross neurological deficit, and patient able to move all 4 extremities. Extremities: No edema. Skin: No rash or ecchymoses. Objective Labs 01/13/25 04:44 01/13/25 04:44 Labs: Laboratory Results - last 24 hr 01/12/25 05:40 WBC 3.5 L RBC 3.00 L Hgb 7.6 L Hct 24.0 L MCV 80 MCH 25.3 MCHC 31.7 RDW Std Deviation 52.0 H Plt Count 120 L Neut % (Auto) 72 Lymph % (Auto) 11 [place] % (Auto) 12 Eos % (Auto) 4 Baso % (Auto) 1 Neut # (Auto) 2.6 Lymph # (Auto) 0.4 L [place] # (Auto) 0.4 Eos # (Auto) 0.2 Baso # (Auto) 0.0 Immature Gran # (Auto) 0.01 H Absolute Nucleated RBC 0.00 Immature Gran % 0 Nucleated RBC % 0 Sodium 142 Potassium 4.0 D Chloride 112 H Carbon Dioxide 21.2 Anion Gap 9 BUN 31 H Creatinine 1.2 Estim Creat Clear Calc 39.7 L eGFR 48 L BUN/Creatinine Ratio 26 H Glucose 136 H Calculated Osmolality 291 Calcium 9.1 Corrected Calcium 9.6 Magnesium 2.3 Total Bilirubin 0.2 L AST < 10 ALT 16 Alkaline Phosphatase 108 Total Protein 6.4 Albumin 3.4 Globulin 3.0 Albumin/Globulin Ratio 1.1 L ABG Interpretation ABG results: 01/04/25 10:50 VBG pH 7.57 VBG pCO2 24 L VBG pO2 46 VBG Base Excess 1 Quality Measures Quality Measures VTE prophylaxis Advance care planning discussed with:: patient Assessment & Plan Assessment Current Active Medications: Generic Name Dose Route Start Last Admin Trade Name Freq PRN Reason Stop Dose Admin Acetaminophen 650 mg 01/11/25 00:54 01/11/25 01:05 Acetaminophen 325 Mg Tablet PO 02/10/25 00:53 650 mg Q6HR PRN Administration FEVER >101 Al Hydrox/Mg Hydrox/Simethicone 15 ml 01/04/25 22:00 01/12/25 06:47 Mg Hyd/Al Hyd/Eryn (Maalox Reg) Susp 30 Ml Udc PO 02/03/25 21:59 15 ml TID YOAN Administration Apixaban 5 mg 01/04/25 21:00 01/12/25 09:00 Apixaban 2.5 Mg Tablet PO 01/25/25 20:59 5 mg BID YOAN Administration Protocol Atorvastatin Calcium 20 mg 01/05/25 21:00 01/11/25 21:20 Atorvastatin Calcium 20 Mg Tablet PO 02/04/25 20:59 20 mg HS YOAN Administration Calamine 0 ml 01/08/25 23:04 Calamine Lotion 120 Ml Btl TOP 02/07/25 23:03 UD PRN ITCHING Citric Acid/Sodium Citrate 30 ml 01/09/25 14:00 01/12/25 09:01 Citric Acid/Sodium Citr 15 Ml Udc (Bicitra) PO 02/08/25 13:59 30 ml BID YOAN Administration Fludrocortisone Acetate 0.1 mg 01/06/25 10:15 01/12/25 09:01 Fludrocortisone Acetate 0.1 Mg Tablet PO 02/05/25 10:14 0.1 mg QDAY YOAN Administration Levothyroxine Sodium 125 mcg 01/10/25 06:00 01/12/25 06:47 Levothyroxine Sodium 125 Mcg Tablet PO 02/09/25 05:59 125 mcg ACBR YOAN Administration Lidocaine 1 patch 01/11/25 00:54 01/11/25 16:32 Lidocaine 5% 1 Patch TOP 02/10/25 00:53 0.5 patch UD PRN Administration PAIN Protocol Megestrol Acetate 200 mg 01/04/25 21:00 01/12/25 09:01 Megestrol Acet Susp 400 Mg/10 Ml Udc PO 02/03/25 20:59 200 mg BID YOAN Administration Melatonin 3 mg 01/10/25 21:00 01/11/25 21:20 Melatonin 3 Mg Tablet PO 02/09/25 20:59 3 mg HS YOAN Administration Midodrine 5 mg 01/09/25 10:15 01/12/25 06:41 Midodrine 5 Mg Tablet PO 02/08/25 10:14 Not Given TID YOAN Mirtazapine 15 mg 01/08/25 09:00 01/12/25 09:00 Mirtazapine 15 Mg Tablet PO 02/07/25 08:59 15 mg QDAY YOAN Administration Ondansetron HCl 4 mg 01/04/25 18:11 Ondansetron Inj 2 Mg/Ml Inj 2 Ml IV 02/03/25 18:10 Q6H PRN NAUSEA OR VOMITING Protocol Oxycodone/Acetaminophen 0.5 tab 01/10/25 21:00 01/11/25 21:21 Oxycodone/Apap 5/325 Tablet PO 01/15/25 20:59 0.5 tab HS YOAN Administration Pantoprazole Sodium 40 mg 01/08/25 09:00 01/12/25 09:01 Pantoprazole 40 Mg Tablet PO 02/07/25 08:59 40 mg QDAY YOAN Administration Prednisone 5 mg 01/10/25 14:45 01/12/25 09:01 Prednisone 5 Mg Tablet PO 02/09/25 14:44 5 mg QDAY YOAN Administration Plan Ms. Headley is a 74 y/o lady who is a patient of Dr. 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, frequent paracentesis/thoracentesis, on diuretics presented to the emergency department with significant weakness, syncopal episode and admitted for acute kidney injury secondary to hypercalcemia likely from dehydration # Acute kidney injury, resolving Likely prerenal in the setting of decreased oral intake -Patient reported that she lost 40 pounds in the last 5 to 6 months and lost 9 pounds in the last 1 week -Patient was diagnosed with valley fever and is on fluconazole -At the time of admission, corrected calcium is 13 which could cause polyuria leading to dehydration and prerenal acute kidney injury -CT abdomen showed no hydronephrosis. -Patient was treated with IV fluids since the time of admission and creatinine levels continue to downtrend -As of 01/08, creat 1.5 >3/4, Creat 1.3 >3/5, Creat 1.4 >3/6, 1.4 > 3/7, 1.2 -25-hydroxy vitamin D found to be normal, PTH mildly decreased Plan -Encouraged to take plenty of oral fluids -Continue to monitor renal functions -Avoid nephrotoxic medications and renally dose medications # Hypercalcemia, resolved Ddx: Dehydration and TIAN versus immobilization versus granulomatous disease versus malignancy -Corrected calcium at the time of admission is 13 > 3/3 , 10.7 >3/4, 10.6 >3/5, 10.4 >3/6, 9.8 > 3/7, 9.6 -25-hydroxy vitamin D is within normal limits, PTH 13.2 -1, 25 dihydroxy vitamin D3 - 12, low -serum protein electrophoresis was ordered- not suggestive of myeloma Plan -As the calcium levels came back to normal range, monitor for now -Continue intake of plenty of oral fluids # Hypophosphatemia -Phosphorus as of 01/09/2025 is 2.3 -Neutra-Phos is given -Will monitor renal functions # Cachexia # Failure to thrive # Chronic normocytic normochromic anemia -Patient had history of poor oral intake and significant weight loss over last 6 to 8 months -Patient was diagnosed with valley fever, which could be causing this -CT abdomen and chest was done to rule out malignancy, did not see any findings suggestive of malignancy -Will follow-up with serum electrophoresis Plan -started on Megace and mirtazapine -Patient was already on midodrine for orthostatic hypotension, fludrocortisone is added -Recommended high-protein diet -Continue fluconazole #Syncope #History of orthostatic hypotension #Generalized weakness #History of valley fever #History of pulmonary mass, R lobe #History of pleural effusion #History of hypothyroidism #History of liver cirrhosis #History of bariatric surgery #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 Claudia Gill, PGY1 Attending Provider Attestation/Addendum Patient seen and examined with resident physician Dr. Landis. Note reviewed, agree with findings and recommendations. Patient's creatinine, calcium markedly improved. Discharge planning per primary team. Renal will sign off. Thank you for the consult.
--- NOTE | 2025-01-12 13:35 | PC.SS ---
Bedside Commode Patient is physically incapable of utilizing regular toilet facilities because his or her diagnosis confines the patient to a single room. Patient is confined to a single level, and there is no toilet on that level; patient cannot access the toilet facilities in a timely manner due to lack of ambulation. Hospital Bed Patient?s diagnosis requires positioning of the head or upper body to be elevated more than 30 degrees. Also the diagnosis requires positioning in order to alleviate pain and if the patient requires frequent changes in the body positioning and/or has an immediate need for change in the body position. Pillows and wedges have been considered and ruled out.
--- NOTE | 2025-01-12 13:58 | PC.SS ---
Addendum entered by Alana Broussard 01/12/25 14:28: SS spoke to Santa at [facility] they will work on delivery of items today Original Note: DME for hospital bed and bsc submitted to [facility]. Pending response
--- NOTE | 2025-01-12 15:18 | ESPR_ITS ---
<Statement entered by Silvina Gunter MD - 01/12/25 16:48> I discussed with and supervised the continuous improvement intern physician who took care of this patient. I personally saw and examined the patient and discussed the assessment and plan with the entire medicine team, including my attending Dr. Mcdonough, I agree with the assessment and plan as documented below Patient seen and examined at bedside today. Labs and imaging reviewed. No overnight acute events This morning bedside patient is at mentation baseline, AOx4, respond to questions properly, denied any acute complaints at the moment otherwise she states she still feels weak and is not ready to go home yet, will continue upon discharge fludrocortisone and prednisone for 1 month and patient will need to follow-up with heme-onc and endocrinology as an outpatient. Patient will be discharged home with home health and we will anticipate discharge if patient remains stable in the next 24 to 48 hours. Silvina Gunter MD PGY-3 Disclaimer: Despite multiple revisions, due to the dictation software being used, the document bellow may not be free of grammatical errors including phonetic/typographic errors. However, this does not deter from our commitment to providing health care in the patient's best interest in mind. Documentation for date of: 01/12/25 Subjective Subjective Interval history: Patient seen today at the bedside fine awake, alert, oriented x 3. No overnight events reported. States continued dizziness when walking to the bathroom, however improving as she is now able to ambulate. Vital signs stable at this time. Labs unremarkable. Cortisol, renin, aldosterone lab still pending. Patient is working with physical therapy some improvement in ambulation noted. Exam Vital Signs Temp Pulse Resp BP Pulse Ox O2 Del Method 97.3 F 75 17 124/73 99 Room Air 01/12/25 12:00 01/12/25 13:52 01/12/25 12:00 01/12/25 13:52 01/12/25 12:00 01/12/25 12:00 Narrative Exam Physical Exam GENERAL: NAD, AAOx3, temporal wasting HEENT: Moist mucosa. Eyes open, symmetrical, & clear CARDIO: Heart RRR, no obvious murmurs PULM: No noted coughing/dyspnea CTA B/L, no R/W/R GI: Abdomen soft, nondistended, no pain on palpation. BSx4 SKIN/MSK/EXT: No wounds/rashes/edema/amputations, no pain on palpation. Pedal pulses present B/L NEURO: AAOx3, no focal neuro deficits, able to move all 4 extremities Objective Labs 01/13/25 04:44 01/13/25 04:44 Labs: Laboratory Results - last 24 hr 01/12/25 05:40 WBC 3.5 L RBC 3.00 L Hgb 7.6 L Hct 24.0 L MCV 80 MCH 25.3 MCHC 31.7 RDW Std Deviation 52.0 H Plt Count 120 L Neut % (Auto) 72 Lymph % (Auto) 11 [place] % (Auto) 12 Eos % (Auto) 4 Baso % (Auto) 1 Neut # (Auto) 2.6 Lymph # (Auto) 0.4 L [place] # (Auto) 0.4 Eos # (Auto) 0.2 Baso # (Auto) 0.0 Immature Gran # (Auto) 0.01 H Absolute Nucleated RBC 0.00 Immature Gran % 0 Nucleated RBC % 0 Sodium 142 Potassium 4.0 D Chloride 112 H Carbon Dioxide 21.2 Anion Gap 9 BUN 31 H Creatinine 1.2 Estim Creat Clear Calc 39.7 L eGFR 48 L BUN/Creatinine Ratio 26 H Glucose 136 H Calculated Osmolality 291 Calcium 9.1 Corrected Calcium 9.6 Magnesium 2.3 Total Bilirubin 0.2 L AST < 10 ALT 16 Alkaline Phosphatase 108 Total Protein 6.4 Albumin 3.4 Globulin 3.0 Albumin/Globulin Ratio 1.1 L ABG Interpretation ABG results: 01/04/25 10:50 VBG pH 7.57 VBG pCO2 24 L VBG pO2 46 VBG Base Excess 1 Quality Measures Quality Measures VTE prophylaxis Advance care planning discussed with:: patient Assessment & Plan Assessment Current Active Medications: Generic Name Dose Route Start Last Admin Trade Name Freq PRN Reason Stop Dose Admin Acetaminophen 650 mg 01/11/25 00:54 01/11/25 01:05 Acetaminophen 325 Mg Tablet PO 02/10/25 00:53 650 mg Q6HR PRN Administration FEVER >101 Al Hydrox/Mg Hydrox/Simethicone 15 ml 01/04/25 22:00 01/12/25 13:51 Mg Hyd/Al Hyd/Eryn (Maalox Reg) Susp 30 Ml Udc PO 02/03/25 21:59 15 ml TID YOAN Administration Apixaban 5 mg 01/04/25 21:00 01/12/25 09:00 Apixaban 2.5 Mg Tablet PO 01/25/25 20:59 5 mg BID YOAN Administration Protocol Atorvastatin Calcium 20 mg 01/05/25 21:00 01/11/25 21:20 Atorvastatin Calcium 20 Mg Tablet PO 02/04/25 20:59 20 mg HS YOAN Administration Calamine 0 ml 01/08/25 23:04 Calamine Lotion 120 Ml Btl TOP 02/07/25 23:03 UD PRN ITCHING Citric Acid/Sodium Citrate 30 ml 01/09/25 14:00 01/12/25 09:01 Citric Acid/Sodium Citr 15 Ml Udc (Bicitra) PO 02/08/25 13:59 30 ml BID YOAN Administration Fludrocortisone Acetate 0.1 mg 01/06/25 10:15 01/12/25 09:01 Fludrocortisone Acetate 0.1 Mg Tablet PO 02/05/25 10:14 0.1 mg QDAY YOAN Administration Levothyroxine Sodium 125 mcg 01/10/25 06:00 01/12/25 06:47 Levothyroxine Sodium 125 Mcg Tablet PO 02/09/25 05:59 125 mcg ACBR YOAN Administration Lidocaine 1 patch 01/11/25 00:54 01/11/25 16:32 Lidocaine 5% 1 Patch TOP 02/10/25 00:53 0.5 patch UD PRN Administration PAIN Protocol Megestrol Acetate 200 mg 01/04/25 21:00 01/12/25 09:01 Megestrol Acet Susp 400 Mg/10 Ml Udc PO 02/03/25 20:59 200 mg BID YOAN Administration Melatonin 3 mg 01/10/25 21:00 01/11/25 21:20 Melatonin 3 Mg Tablet PO 02/09/25 20:59 3 mg HS YOAN Administration Midodrine 5 mg 01/09/25 10:15 01/12/25 13:52 Midodrine 5 Mg Tablet PO 02/08/25 10:14 Not Given TID YOAN Mirtazapine 15 mg 01/08/25 09:00 01/12/25 09:00 Mirtazapine 15 Mg Tablet PO 02/07/25 08:59 15 mg QDAY YOAN Administration Ondansetron HCl 4 mg 01/04/25 18:11 Ondansetron Inj 2 Mg/Ml Inj 2 Ml IV 02/03/25 18:10 Q6H PRN NAUSEA OR VOMITING Protocol Oxycodone/Acetaminophen 0.5 tab 01/10/25 21:00 01/11/25 21:21 Oxycodone/Apap 5/325 Tablet PO 01/15/25 20:59 0.5 tab HS YOAN Administration Pantoprazole Sodium 40 mg 01/08/25 09:00 01/12/25 09:01 Pantoprazole 40 Mg Tablet PO 02/07/25 08:59 40 mg QDAY YOAN Administration Prednisone 5 mg 01/10/25 14:45 01/12/25 09:01 Prednisone 5 Mg Tablet PO 02/09/25 14:44 5 mg QDAY YOAN Administration Plan Alma Rosa is a 74 y/o female with PMHx liver cirrhosis?, Hepatic vein thrombosis, 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 #Suspected Secondary Adrenal insufficiency #Orthostatic hypotension #Failure to thrive Patient reports she has been having syncopal episodes mainly with getting up Endorses a history of orthostatic hypotension for which she takes midodrine 5mg TID as needed Patient reports that she has lost over 40 pounds within the past 5 months, attributes it to poor oral intake Syncope likely related to poor oral intake and orthostatic hypotension 01/05/2025: Orthostatics positive Echocardiogram unremarkable. Concern for adrenal insufficiency given orthostatic hypotension, potential causes include valley fever, malnutrition due to poor p.o. intake. 500 mL NS bolus given Vitamin B12 within normal limits, folate levels within normal limits Spoke to sheet manufacturing supervisor Dr. Head suspects adrenal insufficiency due to fluconazole, although rare considering starting low dose prednisone but will speak with ID Syncope likely secondary to adrenal sufficiency B12 was found to be low mildly elevated -pending renin, aldosterone, plasma acth -Encourage oral intake -Continue Megace -Mirtazapine 15 mg p.o. daily added -Midodrine 5 mg 3 times daily -Fludrocortisone 0.1 mg p.o. daily -prednisone 5mg PO qday #TIAN #Hypercalcemia-improving Likely prerenal Patient endorses very poor oral intake and no desire to eat Patient has lost a lot of weight roughly 40 pounds in the past 5 months Given bolus in ED - Corrected calcium today is at 11.7. Calcium continues to improve. 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 Head suspects adrenal insufficiency due to fluconazole, although rare considering starting low dose prednisone but will speak with ID -Resumed Diflucan for 400 mg daily - sheet manufacturing supervisor, Dr. Head consulted, appreciate recommendations - ID specialist Dr. Latham consulted, appreciate recommendations #History of pulmonary mass, R lobe #History of pleural effusion Seen on chest CTA in November 2024, This could be a culprit of hypercalcemia. Had thoracentesis on last admission and had 2000 cc removed, appears to be transudative in nature considering lights criteria 01/05: CT CAP reviewed subcentimeter pulmonary nodules but no determinate mass. Suspect infectious nodules due to cocci. -Follow up imaging if needed, possibly outpatient #History of hypothyroidism Takes levothyroxine 150mcg at home Free T4 elevated at 2.09. 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 Preciado hepatology at [facility] Was apparently on liver transplant list at some point, however is not getting a liver transplant at this point [facility] records requested and reviewed -Resumed home Eliquis 5 mg twice a day #Normocytic anemia Unsure if patient is having iron deficiency or anemia of chronic disease Patient does have history of bariatric surgery and also has poor oral intake Anemia is multifactorial at this point and will require further workup Hemoglobin is 8.5 -Trend CBC -Follow-up peripheral blood smear Case discussed with my senior Dr. Gunter PGY-[address] Ceasar Garcia MD PGY-1 Disposition: Med telemetry DVT prophylaxis: Eliquis GI prophylaxis: Protonix Diet: Regular CODE STATUS: Full Attending Provider Attestation/Addendum Fern Hunter DO, attest that I was physically present for the rhoades portions of the service and evaluated the patient with the resident and I reviewed and discussed the case with the resident and agree with the resident's findings and plans of care as documented above. Patient seen and eval this a.m. Patient states that she was able to walk out of the room today with physical therapy, but was very dizzy upon returning to her bed. Patient is much improved and recommended to follow-up with her outpatient PCP regarding the results of her cosyntropin stim test. She will need to be on prednisone and fludrocortisone on discharge. Patient states that she does not want to go to a correction facility. She does not feel confident in going home as she will be home alone with her . Will order DME for home and prepare patient for discharge. Patient is likely to be discharged within the next 24 to 48 hours. Continue with physical therapy at this time. No further syncopal episodes noted.
[2025-01-12] MEDS: ATORVASTATIN CALCIUM 20 MG TABLET PO (22:15)
[2025-01-12] MEDS: MELATONIN 3 MG TABLET PO (22:15)
[2025-01-13] VITALS (13 sets, daily range): BP systolic 112–140; BP diastolic 58–110; PULSE 67–91; RESP 16–18; TEMP 36.1–36.8; O2SAT 95–100
[2025-01-13] MEDS: LEVOTHYROXINE SODIUM 125 MCG TABLET PO (05:42)
[2025-01-13] MEDS: MG HYD/AL HYD/SIME (Maalox Reg) SUSP 30 ML UDC 15 ML PO ×3 (05:42→21:37)
[2025-01-13 06:27] LABS: Basophils % (Auto) 1 % (0-2.5); Eosinophils # (Auto) 0.2 Thou/mm3 (0.0-0.5); Eosinophils % (Auto) 5 % (0-10); Immature Granulocytes % (Auto) 0 % (0-0); Immature Granulocytes Auto 0.01 Thou/mm3 (0.00-0.00); Lymphocytes # (Auto) 0.4 Thou/mm3 (1.0-4.8); Lymphocytes % (Auto) 10 % (10-50); Mean Corpuscular Volume 81 fL (80-100); Monocytes # (Auto) 0.4 Thou/mm3 (0.0-0.8); Monocytes % (Auto) 11 % (0-12); Neutrophils # (Auto) 2.8 Thou/mm3 (1.8-7.7); Neutrophils % (Auto) 73 % (37-80); Nucleated Red Blood Cell % 0 /100 WBC (0); Platelet Count 140 Thou/mm3 (140-440); RDW Standard Deviation 51.7 fL (36.4-46.3); Red Blood Count 3.08 Miln/mm3 (4.00-5.20); White Blood Count 3.8 Thou/mm3 (3.6-11.0)
[2025-01-13 06:39] LABS: Alanine Aminotransferase 18 U/L (10-49); Albumin, Serum 3.6 gm/dL (3.4-4.8); Albumin/Globulin Ratio 1.2 (1.2-2.2); Alkaline Phosphatase 106 U/L (46-116); Anion Gap 9 (7-16); Aspartate Amino Transferase 20 U/L (0-34); BUN/Creatinine Ratio 23 Ratio (12-20); Bilirubin,Total 0.3 mg/dL (0.3-1.2); Blood Urea Nitrogen 27 mg/dL (9-23); Calcium 9.6 mg/dL (8.3-10.6); Calcium (Corrected) 9.9 mg/dL (8.5-10.1); Carbon Dioxide 20.9 mMol/L (20.0-31.0); Chloride 113 mMol/L (98-107); Creatinine (Component) 1.2 mg/dL (0.6-1.3); Estimated Creatinine Clearance 39.7 mL/min (>60); Glucose 85 mg/dL (74-106); Magnesium 2.3 mg/dL (1.6-2.6); Osmolality,Calculated 289 (275-295); Potassium 3.7 mMol/L (3.4-5.1); Sodium 143 mMol/L (136-145); Total Protein 6.6 gm/dL (5.7-8.2); eGFR 48 See Note
--- NOTE | 2025-01-13 07:25 | PD.RESPRO ---
Documentation for date of: 01/13/25 Subjective Subjective Interval history: No overnight acute events Team on the bedside patient is presenting labile mood and affect, crying she states that she is not feeling well that she is not ready to go home yet that she still feels very weak. patient this morning was mildly confused and later family members arrive and stated that she was not acting normally for which CT head without contrast was ordered. We will decrease prednisone dose to 2.5 p.o. daily and will continue to monitor closely Exam Vital Signs Temp Pulse Resp BP Pulse Ox O2 Del Method 97 F 86 16 114/65 100 Room Air 01/13/25 04:00 01/13/25 05:43 01/13/25 04:00 01/13/25 05:43 01/13/25 04:00 01/13/25 04:00 Narrative Exam General: Frail labile chronically ill-appearing, AOx 2 HEENT: NC/AT, PERRL, EOMI, Good conjugate gaze, moist mucous membranes, oropharynx clear. Neck: Supple, No masses, No adenopathy, carotid pulse 2+ bilaterally without bruits, No JVD, normal range of motion. Chest: Symmetrical, atraumatic, and with equal expansion , Nontender on palpation no deformity and no crepitus. CVS: S1 and S2 present, Regular rate and rhythm, No murmurs, rubs or gallops perceived during auscultation. Lungs: Normal respiratory effort, CTAB, no wheezing, rhonchi or rales perceived during auscultation, No intercostal or subcostal retraction. Abdomen : Soft, no tenderness to palpation, no guarding ,no rebound, +BS, no organomegaly. Extremities: No edema, warm well perfused, normal tone and ROM, strength and sensation intact, able to move all 4 extremities spontaneously. Skin: Intact, no rashes, no lesions, no erythema or jaundice noted Neuro: AO x 2, no focal neurologic deficits noted, Psych: Labile mood and affect Objective Labs 01/14/25 05:39 01/14/25 05:39 Labs: Laboratory Results - last 24 hr 01/13/25 04:44 WBC 3.8 RBC 3.08 L Hgb 8.0 L Hct 25.0 L MCV 81 MCH 26.0 MCHC 32.0 RDW Std Deviation 51.7 H Plt Count 140 Neut % (Auto) 73 Lymph % (Auto) 10 [place] % (Auto) 11 Eos % (Auto) 5 Baso % (Auto) 1 Neut # (Auto) 2.8 Lymph # (Auto) 0.4 L [place] # (Auto) 0.4 Eos # (Auto) 0.2 Baso # (Auto) 0.0 Immature Gran # (Auto) 0.01 H Absolute Nucleated RBC 0.00 Immature Gran % 0 Nucleated RBC % 0 Sodium 143 Potassium 3.7 Chloride 113 H Carbon Dioxide 20.9 Anion Gap 9 BUN 27 H Creatinine 1.2 Estim Creat Clear Calc 39.7 L eGFR 48 L BUN/Creatinine Ratio 23 H Glucose 85 D Calculated Osmolality 289 Calcium 9.6 Corrected Calcium 9.9 Magnesium 2.3 Total Bilirubin 0.3 AST 20 ALT 18 Alkaline Phosphatase 106 Total Protein 6.6 Albumin 3.6 Globulin 3.0 Albumin/Globulin Ratio 1.2 ABG Interpretation ABG results: 01/04/25 10:50 VBG pH 7.57 VBG pCO2 24 L VBG pO2 46 VBG Base Excess 1 Quality Measures Quality Measures VTE prophylaxis Advance care planning discussed with:: patient Assessment & Plan Assessment Current Active Medications: Generic Name Dose Route Start Last Admin Trade Name Freq PRN Reason Stop Dose Admin Acetaminophen 650 mg 01/11/25 00:54 01/11/25 01:05 Acetaminophen 325 Mg Tablet PO 02/10/25 00:53 650 mg Q6HR PRN Administration FEVER >101 Al Hydrox/Mg Hydrox/Simethicone 15 ml 01/04/25 22:00 01/13/25 05:42 Mg Hyd/Al Hyd/Eryn (Maalox Reg) Susp 30 Ml Udc PO 02/03/25 21:59 15 ml TID YOAN Administration Apixaban 5 mg 01/04/25 21:00 01/12/25 22:15 Apixaban 2.5 Mg Tablet PO 01/25/25 20:59 5 mg BID YOAN Administration Protocol Atorvastatin Calcium 20 mg 01/05/25 21:00 01/12/25 22:15 Atorvastatin Calcium 20 Mg Tablet PO 02/04/25 20:59 20 mg HS YOAN Administration Calamine 0 ml 01/08/25 23:04 Calamine Lotion 120 Ml Btl TOP 02/07/25 23:03 UD PRN ITCHING Citric Acid/Sodium Citrate 30 ml 01/09/25 14:00 01/12/25 22:16 Citric Acid/Sodium Citr 15 Ml Udc (Bicitra) PO 02/08/25 13:59 30 ml BID YOAN Administration Fludrocortisone Acetate 0.1 mg 01/06/25 10:15 01/12/25 09:01 Fludrocortisone Acetate 0.1 Mg Tablet PO 02/05/25 10:14 0.1 mg QDAY YOAN Administration Levothyroxine Sodium 125 mcg 01/10/25 06:00 01/13/25 05:42 Levothyroxine Sodium 125 Mcg Tablet PO 02/09/25 05:59 125 mcg ACBR YOAN Administration Lidocaine 1 patch 01/11/25 00:54 01/11/25 16:32 Lidocaine 5% 1 Patch TOP 02/10/25 00:53 0.5 patch UD PRN Administration PAIN Protocol Megestrol Acetate 200 mg 01/04/25 21:00 01/12/25 22:13 Megestrol Acet Susp 400 Mg/10 Ml Udc PO 02/03/25 20:59 200 mg BID YOAN Administration Melatonin 3 mg 01/10/25 21:00 01/12/25 22:15 Melatonin 3 Mg Tablet PO 02/09/25 20:59 3 mg HS YOAN Administration Midodrine 5 mg 01/09/25 10:15 01/13/25 05:43 Midodrine 5 Mg Tablet PO 02/08/25 10:14 Not Given TID YOAN Mirtazapine 15 mg 01/08/25 09:00 01/12/25 09:00 Mirtazapine 15 Mg Tablet PO 02/07/25 08:59 15 mg QDAY YOAN Administration Ondansetron HCl 4 mg 01/04/25 18:11 Ondansetron Inj 2 Mg/Ml Inj 2 Ml IV 02/03/25 18:10 Q6H PRN NAUSEA OR VOMITING Protocol Oxycodone/Acetaminophen 0.5 tab 01/12/25 17:27 Oxycodone/Apap 5/325 Tablet PO 01/15/25 20:59 HS PRN PAIN SCALE 4-6 (Moderate Pantoprazole Sodium 40 mg 01/08/25 09:00 01/12/25 09:01 Pantoprazole 40 Mg Tablet PO 02/07/25 08:59 40 mg QDAY YOAN Administration Prednisone 5 mg 01/10/25 14:45 01/12/25 09:01 Prednisone 5 Mg Tablet PO 02/09/25 14:44 5 mg QDAY YOAN Administration Plan Alma Rosa is a 74 y/o female with PMHx liver cirrhosis?, Hepatic vein thrombosis, 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 #Acute encephalopathy Possibly secondary to steroids vs opiates vs metabolic vs delirium vs rule out stroke? Patient stated came prednisone and fludrocortisone Patient endorse that she has not been sleeping well in the last couple of days she has been sleeping at all last night CT head without contrast did not show midline shift, hemorrhage or mass effect per my interpretation ? Follow-up head CT report #Suspected Secondary Adrenal insufficiency #Orthostatic hypotension #Failure to thrive Patient reports she has been having syncopal episodes mainly with getting up Endorses a history of orthostatic hypotension for which she takes midodrine 5mg TID as needed Patient reports that she has lost over 40 pounds within the past 5 months, attributes it to poor oral intake Syncope likely related to poor oral intake and orthostatic hypotension 01/05/2025: Orthostatics positive Echocardiogram unremarkable. Concern for adrenal insufficiency given orthostatic hypotension, potential causes include valley fever, malnutrition due to poor p.o. intake. 500 mL NS bolus given Vitamin B12 within normal limits, folate levels within normal limits Spoke to sales architect Dr. Head suspects adrenal insufficiency due to fluconazole, although rare considering starting low dose prednisone but will speak with ID Syncope likely secondary to adrenal sufficiency B12 was found to be low mildly elevated -pending renin, aldosterone, plasma acth -Encourage oral intake -Continue Megace -Mirtazapine 15 mg p.o. daily added -Midodrine 5 mg 3 times daily -Fludrocortisone 0.1 mg p.o. 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 Head suspects adrenal insufficiency due to fluconazole, although rare considering starting low dose prednisone but will speak with ID -Resumed Diflucan for 400 mg daily - sales architect, Dr. Head consulted, appreciate recommendations - ID specialist Dr. Latham consulted, appreciate recommendations #History of pulmonary mass, R lobe #History of pleural effusion Seen on chest CTA in November 2024, This could be a culprit of hypercalcemia. Had thoracentesis on last admission and had 2000 cc removed, appears to be transudative in nature considering lights criteria 01/05: CT CAP reviewed subcentimeter pulmonary nodules but no determinate mass. Suspect infectious nodules due to cocci. -Follow up imaging if needed, possibly outpatient #History of hypothyroidism Takes levothyroxine 150mcg at home Free T4 elevated at 2.09. 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 Preciado hepatology at [facility] Was apparently on liver transplant list at some point, however is not getting a liver transplant at this point [facility] records requested and reviewed -Resumed home Eliquis 5 mg twice a day #Normocytic anemia Unsure if patient is having iron deficiency or anemia of chronic disease Patient does have history of bariatric surgery and also has poor oral intake Anemia is multifactorial at this point and will require further workup Hemoglobin is 8.5 -Trend CBC -Follow-up peripheral blood smear Disposition: Med telemetry DVT prophylaxis: Eliquis GI prophylaxis: Protonix Diet: Regular CODE STATUS: Full Patient discussed with attending Dr Ceasar Gunter MD PGY-3 Disclaimer: Despite multiple revisions, due to the dictation software being used, the document bellow may not be free of grammatical errors including phonetic/typographic errors. However, this does not deter from our commitment to providing health care in the patient's best interest in mind. Attending Provider Attestation/Addendum I, Fern Mcdonough DO, attest that I was physically present for the rhoades portions of the service and evaluated the patient with the resident and I reviewed and discussed the case with the resident and agree with the resident's findings and plans of care as documented above Patient seen and evaluated this AM. , daughter and friend were at bedside and stated that the patient has been having trouble finding appropriate words while speaking. She has been more confused and unsteady today. Patient is very emotionally labile due to frustratrion with speech. Patient does not have any focal neurological deficits otherwise. CT head negative for any acute intracranial findings. Suspect that patient may have acute metabolic encephalopathy likely due to steroid use. Will decrease prednisone dose from 5mg to 2.5mg PO daily.
[2025-01-13] MEDS: MEGESTROL ACET SUSP 400 MG/10 ML UDC 200 MG PO ×2 (09:33→20:05)
[2025-01-13] MEDS: CITRIC ACID/SODIUM CITR 15 ML UDC (BICITRA) 30 ML PO ×2 (09:33→20:05)
[2025-01-13] MEDS: APIXABAN 2.5 MG TABLET 5 MG PO ×2 (09:35→20:57)
[2025-01-13] MEDS: PANTOPRAZOLE 40 MG TABLET PO (09:35)
[2025-01-13] MEDS: FLUDROCORTISONE ACETATE 0.1 MG TABLET PO (09:35)
[2025-01-13] MEDS: MIRTAZAPINE 15 MG TABLET PO (09:35)
[2025-01-13] MEDS: predniSONE 5 MG TABLET PO (09:35)
--- NOTE | 2025-01-13 10:11 | XR_ITS ---
Examination: CT brain head without contrast. 2-D sagittal coronal reconstructions Date and time of exam:January 13, 2025 1338 hrs. Indications: Encephalopathy altered mental status today CTDI: vol (mGy):47.6 DLP: (mGycm):1003 Technique: Multiple CT axial sections of the brain have been obtained, 5 mm slice thickness. Contrast has not been administered. 2-D sagittal, coronal reconstructions have been obtained Low dose protocols were performed. One or more of the following dose reduction techniques were used; automated exposure control, adjustment of the mA and/or KV according to patient size, use of iterative reconstruction technique. Findings: No significant ventricular enlargement. Intra-axial or extra-axial hemorrhage density is not seen. No mass effect or midline shift Basal cisterns are not remarkable. Fourth ventricle is midline. Cranial vault intact. Impression: Negative for acute hemorrhage, mass effect or midline shift Advise clinical correlation follow-up accordingly
--- NOTE | 2025-01-13 10:19 | PC.NURSE ---
pt's here, pt is disoriented, tearful then laughing, says she's not usually like this, notified Dr. Parker who says drs will be making rounds soon
[2025-01-13] MEDS: MIDODRINE 5 MG TABLET PO (15:45)
[2025-01-13] MEDS: oxyCODONE/APAP 5/325 TABLET 0.5 TAB PO (20:00)
[2025-01-13] MEDS: ATORVASTATIN CALCIUM 20 MG TABLET PO (20:05)
[2025-01-13] MEDS: MELATONIN 3 MG TABLET PO (21:37)
[2025-01-14] VITALS (12 sets, daily range): BP systolic 103–134; BP diastolic 61–82; PULSE 66–99; RESP 16–18; TEMP 36.2–36.8; O2SAT 99–100
[2025-01-14 06:13] LABS: Basophils % (Auto) 1 % (0-2.5); Eosinophils # (Auto) 0.2 Thou/mm3 (0.0-0.5); Eosinophils % (Auto) 5 % (0-10); Hematocrit 23.7 % (36.0-46.0); Immature Granulocytes % (Auto) 0 % (0-0); Immature Granulocytes Auto 0.01 Thou/mm3 (0.00-0.00); Lymphocytes # (Auto) 0.4 Thou/mm3 (1.0-4.8); Lymphocytes % (Auto) 13 % (10-50); Mean Corpuscular HGB Conc 32.1 g/dl (31.0-37.0); Mean Corpuscular Hemoglobin 25.7 pg (25.0-35.0); Mean Corpuscular Volume 80 fL (80-100); Monocytes # (Auto) 0.5 Thou/mm3 (0.0-0.8); Monocytes % (Auto) 15 % (0-12); Neutrophils # (Auto) 2.1 Thou/mm3 (1.8-7.7); Neutrophils % (Auto) 67 % (37-80); Nucleated Red Blood Cell % 0 /100 WBC (0); Platelet Count 154 Thou/mm3 (140-440); RDW Standard Deviation 51.2 fL (36.4-46.3); Red Blood Count 2.96 Miln/mm3 (4.00-5.20); White Blood Count 3.1 Thou/mm3 (3.6-11.0)
[2025-01-14 06:18] LABS: Hemoglobin 7.6 g/dL (12.0-16.0)
[2025-01-14] MEDS: MG HYD/AL HYD/SIME (Maalox Reg) SUSP 30 ML UDC 15 ML PO ×3 (06:26→21:45)
[2025-01-14] MEDS: LEVOTHYROXINE SODIUM 125 MCG TABLET PO (06:26)
[2025-01-14 06:37] LABS: Alanine Aminotransferase 16 U/L (10-49); Albumin, Serum 3.4 gm/dL (3.4-4.8); Albumin/Globulin Ratio 1.1 (1.2-2.2); Alkaline Phosphatase 101 U/L (46-116); Anion Gap 10 (7-16); Aspartate Amino Transferase 26 U/L (0-34); BUN/Creatinine Ratio 26 Ratio (12-20); Bilirubin,Total 0.3 mg/dL (0.3-1.2); Blood Urea Nitrogen 31 mg/dL (9-23); Calcium 9.2 mg/dL (8.3-10.6); Calcium (Corrected) 9.7 mg/dL (8.5-10.1); Chloride 113 mMol/L (98-107); Creatinine (Component) 1.2 mg/dL (0.6-1.3); Estimated Creatinine Clearance 39.7 mL/min (>60); Glucose 93 mg/dL (74-106); Magnesium 2.3 mg/dL (1.6-2.6); Osmolality,Calculated 295 (275-295); Phosphorous 2.7 mg/dL (2.4-5.1); Potassium 3.9 mMol/L (3.4-5.1); Sodium 145 mMol/L (136-145); Total Protein 6.4 gm/dL (5.7-8.2); eGFR 48 See Note
[2025-01-14] MEDS: PANTOPRAZOLE 40 MG TABLET PO (09:01)
[2025-01-14] MEDS: MEGESTROL ACET SUSP 400 MG/10 ML UDC 200 MG PO ×2 (09:01→21:45)
[2025-01-14] MEDS: predniSONE 5 MG TABLET 2.5 MG PO (09:01)
[2025-01-14] MEDS: APIXABAN 2.5 MG TABLET 5 MG PO ×2 (09:01→21:46)
[2025-01-14] MEDS: FLUDROCORTISONE ACETATE 0.1 MG TABLET PO (09:01)
[2025-01-14] MEDS: CITRIC ACID/SODIUM CITR 15 ML UDC (BICITRA) 30 ML PO ×2 (09:01→21:45)
[2025-01-14] MEDS: MIRTAZAPINE 15 MG TABLET PO (09:02)
[2025-01-14] MEDS: SODIUM CHLORIDE 0.9% 1000 ML 1,000 ML 75 ML IV ×2 (09:13→23:49)
--- NOTE | 2025-01-14 11:06 | PD.RESPRO ---
Documentation for date of: 01/14/25 Subjective Subjective Interval history: Patient seen today at the bedside fine awake, alert, oriented x 3 with some mild confusion. No overnight events. States no active complaints at this time wants to go home and take a shower. Will continue to monitor at this time. Exam Vital Signs Temp Pulse Resp BP Pulse Ox O2 Del Method 97.1 F 74 16 122/82 99 Room Air 01/14/25 08:00 01/14/25 08:00 01/14/25 08:00 01/14/25 08:00 01/14/25 08:00 01/14/25 08:00 Narrative Exam Physical Exam GENERAL: NAD, episodes of confusion, cachectic HEENT: Moist mucosa. Eyes open, symmetrical, & clear temporal wasting CARDIO: Heart RRR, no obvious murmurs PULM: No noted coughing/dyspnea CTA B/L, no R/W/R GI: Abdomen soft, nondistended, no pain on palpation. BSx4 SKIN/MSK/EXT: No wounds/rashes/edema/amputations, no pain on palpation. Pedal pulses present B/L Objective Labs 01/14/25 05:39 01/14/25 05:39 Labs: Laboratory Results - last 24 hr 01/14/25 05:39 WBC 3.1 L RBC 2.96 L Hgb 7.6 L Hct 23.7 L MCV 80 MCH 25.7 MCHC 32.1 RDW Std Deviation 51.2 H Plt Count 154 Neut % (Auto) 67 Lymph % (Auto) 13 Page % (Auto) 15 H Eos % (Auto) 5 Baso % (Auto) 1 Neut # (Auto) 2.1 Lymph # (Auto) 0.4 L Page # (Auto) 0.5 Eos # (Auto) 0.2 Baso # (Auto) 0.0 Immature Gran # (Auto) 0.01 H Absolute Nucleated RBC 0.00 Immature Gran % 0 Nucleated RBC % 0 Sodium 145 Potassium 3.9 Chloride 113 H Carbon Dioxide 22.0 Anion Gap 10 BUN 31 H Creatinine 1.2 Estim Creat Clear Calc 39.7 L eGFR 48 L BUN/Creatinine Ratio 26 H Glucose 93 Calculated Osmolality 295 Calcium 9.2 Corrected Calcium 9.7 Phosphorus 2.7 Magnesium 2.3 Total Bilirubin 0.3 AST 26 ALT 16 Alkaline Phosphatase 101 Total Protein 6.4 Albumin 3.4 Globulin 3.0 Albumin/Globulin Ratio 1.1 L ABG Interpretation ABG results: 01/04/25 10:50 VBG pH 7.57 VBG pCO2 24 L VBG pO2 46 VBG Base Excess 1 Quality Measures Quality Measures VTE prophylaxis Advance care planning discussed with:: patient Assessment & Plan Assessment Current Active Medications: Generic Name Dose Route Start Last Admin Trade Name Freq PRN Reason Stop Dose Admin Acetaminophen 650 mg 01/11/25 00:54 01/11/25 01:05 Acetaminophen 325 Mg Tablet PO 02/10/25 00:53 650 mg Q6HR PRN Administration FEVER >101 Al Hydrox/Mg Hydrox/Simethicone 15 ml 01/04/25 22:00 01/14/25 06:26 Mg Hyd/Al Hyd/Eryn (Maalox Reg) Susp 30 Ml Udc PO 02/03/25 21:59 15 ml TID YOAN Administration Apixaban 5 mg 01/04/25 21:00 01/14/25 09:01 Apixaban 2.5 Mg Tablet PO 01/25/25 20:59 5 mg BID YOAN Administration Protocol Atorvastatin Calcium 20 mg 01/05/25 21:00 01/13/25 20:05 Atorvastatin Calcium 20 Mg Tablet PO 02/04/25 20:59 20 mg HS YOAN Administration Calamine 0 ml 01/08/25 23:04 Calamine Lotion 120 Ml Btl TOP 02/07/25 23:03 UD PRN ITCHING Citric Acid/Sodium Citrate 30 ml 01/09/25 14:00 01/14/25 09:01 Citric Acid/Sodium Citr 15 Ml Udc (Bicitra) PO 02/08/25 13:59 30 ml BID YOAN Administration Fludrocortisone Acetate 0.1 mg 01/06/25 10:15 01/14/25 09:01 Fludrocortisone Acetate 0.1 Mg Tablet PO 02/05/25 10:14 0.1 mg QDAY YOAN Administration Sodium Chloride 1,000 mls @ 75 mls/hr 01/14/25 08:57 01/14/25 09:13 Ns IV 02/13/25 08:56 75 mls/hr .[id number] YOAN Administration Levothyroxine Sodium 125 mcg 01/10/25 06:00 01/14/25 06:26 Levothyroxine Sodium 125 Mcg Tablet PO 02/09/25 05:59 125 mcg ACBR YOAN Administration Lidocaine 1 patch 01/11/25 00:54 01/11/25 16:32 Lidocaine 5% 1 Patch TOP 02/10/25 00:53 0.5 patch UD PRN Administration PAIN Protocol Megestrol Acetate 200 mg 01/04/25 21:00 01/14/25 09:01 Megestrol Acet Susp 400 Mg/10 Ml Udc PO 02/03/25 20:59 200 mg BID YOAN Administration Melatonin 3 mg 01/10/25 21:00 01/13/25 21:37 Melatonin 3 Mg Tablet PO 02/09/25 20:59 3 mg HS YOAN Administration Midodrine 5 mg 01/14/25 07:37 Midodrine 5 Mg Tablet PO 02/08/25 10:14 TID PRN SBP <95 Mirtazapine 15 mg 01/08/25 09:00 01/14/25 09:02 Mirtazapine 15 Mg Tablet PO 02/07/25 08:59 15 mg QDAY YOAN Administration Ondansetron HCl 4 mg 01/04/25 18:11 Ondansetron Inj 2 Mg/Ml Inj 2 Ml IV 02/03/25 18:10 Q6H PRN NAUSEA OR VOMITING Protocol Oxycodone/Acetaminophen 0.5 tab 01/12/25 17:27 01/13/25 20:00 Oxycodone/Apap 5/325 Tablet PO 01/15/25 20:59 0.5 tab HS PRN Administration PAIN SCALE 4-6 (Moderate Pantoprazole Sodium 40 mg 01/08/25 09:00 01/14/25 09:01 Pantoprazole 40 Mg Tablet PO 02/07/25 08:59 40 mg QDAY YOAN Administration Prednisone 2.5 mg 01/14/25 09:00 01/14/25 09:01 Prednisone 5 Mg Tablet PO 02/13/25 08:59 2.5 mg QDAY YOAN Administration Plan Alma Rosa is a 74 y/o female with PMHx liver cirrhosis?, Hepatic vein thrombosis, 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 #Acute encephalopathy Possibly secondary to steroids vs opiates vs metabolic vs delirium vs rule out stroke? Patient stated came prednisone and fludrocortisone Patient endorse that she has not been sleeping well in the last couple of days she has been sleeping at all last night CT head without contrast did not show midline shift, hemorrhage or mass effect ?Continue to monitor at this time ? Prednisone dose adjusted to 2.5 mg daily. #Suspected Secondary Adrenal insufficiency #Orthostatic hypotension #Failure to thrive Patient reports she has been having syncopal episodes mainly with getting up Endorses a history of orthostatic hypotension for which she takes midodrine 5mg TID as needed Patient reports that she has lost over 40 pounds within the past 5 months, attributes it to poor oral intake Syncope likely related to poor oral intake and orthostatic hypotension 01/05/2025: Orthostatics positive Echocardiogram unremarkable. Concern for adrenal insufficiency given orthostatic hypotension, potential causes include valley fever, malnutrition due to poor p.o. intake. 500 mL NS bolus given Vitamin B12 within normal limits, folate levels within normal limits Spoke to mobile home set up person Dr. Head suspects adrenal insufficiency due to fluconazole, although rare considering starting low dose prednisone but will speak with ID Syncope likely secondary to adrenal sufficiency B12 was found to be low mildly elevated -pending renin, aldosterone, plasma acth -Encourage oral intake -Continue Megace -Mirtazapine 15 mg p.o. daily added -Midodrine 5 mg 3 times daily -Fludrocortisone 0.1 mg p.o. 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 Head suspects adrenal insufficiency due to fluconazole, although rare considering starting low dose prednisone but will speak with ID -Resumed Diflucan for 400 mg daily - mobile home set up person, Dr. Head consulted, appreciate recommendations - ID specialist Dr. Latham consulted, appreciate recommendations #History of pulmonary mass, R lobe #History of pleural effusion Seen on chest CTA in November 2024, This could be a culprit of hypercalcemia. Had thoracentesis on last admission and had 2000 cc removed, appears to be transudative in nature considering lights criteria 01/05: CT CAP reviewed subcentimeter pulmonary nodules but no determinate mass. Suspect infectious nodules due to cocci. -Follow up imaging if needed, possibly outpatient #History of hypothyroidism Takes levothyroxine 150mcg at home Free T4 elevated at 2.09. 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 Preciado hepatology at [facility] Was apparently on liver transplant list at some point, however is not getting a liver transplant at this point [facility] records requested and reviewed -Resumed home Eliquis 5 mg twice a day #Normocytic anemia Unsure if patient is having iron deficiency or anemia of chronic disease Patient does have history of bariatric surgery and also has poor oral intake Anemia is multifactorial at this point and will require further workup Hemoglobin is 8.5 -Trend CBC -Follow-up peripheral blood smear Case discussed with attending Dr Ceasar Garcia MD PGY-1 Disposition: Med telemetry DVT prophylaxis: Eliquis GI prophylaxis: Protonix Diet: Regular CODE STATUS: Full Disclaimer: Despite multiple revisions, due to the dictation software being used, the document bellow may not be free of grammatical errors including phonetic/typographic errors. However, this does not deter from our commitment to providing health care in the patient's best interest in mind. Attending Provider Attestation/Addendum Dale, Fern Mcdonough DO, attest that I was physically present for the rhoades portions of the service and evaluated the patient with the resident and I reviewed and discussed the case with the resident and agree with the resident's findings and plans of care as documented above Patient seen and evaluated this AM. Pt remains tearful and states that she has trouble finding her words. However, per patient's at bedside, she appears improved. He states that patient was able to sit up at edge of bed and ate a slice of cake. He had not seen her have such a good appetite or sit upright since November. Patient remains confused and forgetful. Will continue to monitor mental status and have patient work with PT. Midodrine switched to PRN as BP has improved. Will montior BP as prednisone dose has been decreased. Anticipate DC within next 24-48h if patient's mental status improves
[2025-01-14 13:52] LABS: Collection Type, Urine Clean Catch; Squamous Epithelial Cell,Urine 0 /hpf (0-5)
[2025-01-14 14:35] LABS: Bilirubin,Urine Negative (Negative); Blood,Urine 1+ (Negative); Budding Yeast,Urine Present; Color,Urine Yellow (Lt Yel-Yel); Glucose, Urine Negative (Negative); Ketones,Urine Negative (Negative); Leukocyte Esterase,Urine Positive (Negative); Nitrite,Urine Negative (Negative); Protein,Urine 1+ (Neg - Trace); RBC,Urine 129 /hpf (0-3); Specific Gravity,Urine 1.025 (1.001-1.035); Urobilinogen,Urine Negative mg/dL (0.0-1.0); WBC,Urine 2279 /hpf (0-5)
[2025-01-14 14:36] LABS: Clarity,Urine Turbid (Clear/Hazy)
[2025-01-14] MEDS: ATORVASTATIN CALCIUM 20 MG TABLET PO (21:46)
[2025-01-14] MEDS: MELATONIN 3 MG TABLET PO (21:46)
[2025-01-14] MEDS: oxyCODONE/APAP 5/325 TABLET 0.5 TAB PO (23:16)
[2025-01-15] VITALS (7 sets, daily range): BP systolic 116–132; BP diastolic 60–70; PULSE 68–84; RESP 18–19; TEMP 36.3–36.9; O2SAT 95–100; BMI 13.0
[2025-01-15] MEDS: LEVOTHYROXINE SODIUM 125 MCG TABLET PO (06:05)
[2025-01-15] MEDS: MG HYD/AL HYD/SIME (Maalox Reg) SUSP 30 ML UDC 15 ML PO ×3 (06:05→22:23)
[2025-01-15 06:27] LABS: Basophils % (Auto) 1 % (0-2.5); Eosinophils # (Auto) 0.2 Thou/mm3 (0.0-0.5); Eosinophils % (Auto) 6 % (0-10); Hematocrit 22.9 % (36.0-46.0); Immature Granulocytes % (Auto) 0 % (0-0); Immature Granulocytes Auto 0.01 Thou/mm3 (0.00-0.00); Lymphocytes # (Auto) 0.4 Thou/mm3 (1.0-4.8); Lymphocytes % (Auto) 14 % (10-50); Mean Corpuscular HGB Conc 31.4 g/dl (31.0-37.0); Mean Corpuscular Hemoglobin 25.8 pg (25.0-35.0); Mean Corpuscular Volume 82 fL (80-100); Monocytes # (Auto) 0.4 Thou/mm3 (0.0-0.8); Monocytes % (Auto) 13 % (0-12); Neutrophils % (Auto) 66 % (37-80); Nucleated Red Blood Cell % 0 /100 WBC (0); Platelet Count 155 Thou/mm3 (140-440); Red Blood Count 2.79 Miln/mm3 (4.00-5.20); White Blood Count 3.1 Thou/mm3 (3.6-11.0)
[2025-01-15 06:39] LABS: Alanine Aminotransferase 19 U/L (10-49); Albumin, Serum 3.2 gm/dL (3.4-4.8); Albumin/Globulin Ratio 1.1 (1.2-2.2); Alkaline Phosphatase 91 U/L (46-116); Anion Gap 11 (7-16); Aspartate Amino Transferase 24 U/L (0-34); BUN/Creatinine Ratio 30 Ratio (12-20); Bilirubin,Total 0.3 mg/dL (0.3-1.2); Blood Urea Nitrogen 30 mg/dL (9-23); Calcium 9.1 mg/dL (8.3-10.6); Calcium (Corrected) 9.7 mg/dL (8.5-10.1); Carbon Dioxide 20.1 mMol/L (20.0-31.0); Chloride 115 mMol/L (98-107); Estimated Creatinine Clearance 47.6 mL/min (>60); Globulin 2.9 gm/dL (2.3-3.5); Glucose 94 mg/dL (74-106); Magnesium 2.2 mg/dL (1.6-2.6); Osmolality,Calculated 296 (275-295); Potassium 3.8 mMol/L (3.4-5.1); Sodium 146 mMol/L (136-145); Total Protein 6.1 gm/dL (5.7-8.2); eGFR 60 See Note
[2025-01-15 06:45] LABS: Hemoglobin 7.2 g/dL (12.0-16.0)
--- NOTE | 2025-01-15 09:04 | ESPR_ITS ---
Subjective Subjective Interval history: off fluconazole.on prednisone. same thoughts as before. Exam Vital Signs Temp Pulse Resp BP Pulse Ox O2 Del Method 98.2 F 71 18 132/61 H 96 Room Air 01/15/25 08:00 01/15/25 08:00 01/15/25 08:00 01/15/25 08:00 01/15/25 08:00 01/15/25 08:00 Narrative Exam limited eval Objective - Internal Medicine Labs 01/15/25 05:12 01/15/25 05:12 Labs: Laboratory Results - last 24 hr 01/14/25 01/15/25 12:15 05:12 WBC 3.1 L RBC 2.79 L Hgb 7.2 L Hct 22.9 L MCV 82 MCH 25.8 MCHC 31.4 RDW Std Deviation 53.0 H Plt Count 155 Neut % (Auto) 66 Lymph % (Auto) 14 [place] % (Auto) 13 H Eos % (Auto) 6 Baso % (Auto) 1 Neut # (Auto) 2.0 Lymph # (Auto) 0.4 L [place] # (Auto) 0.4 Eos # (Auto) 0.2 Baso # (Auto) 0.0 Immature Gran # (Auto) 0.01 H Absolute Nucleated RBC 0.00 Immature Gran % 0 Nucleated RBC % 0 Sodium 146 H Potassium 3.8 Chloride 115 H Carbon Dioxide 20.1 Anion Gap 11 BUN 30 H Creatinine 1.0 Estim Creat Clear Calc 47.6 L eGFR 60 BUN/Creatinine Ratio 30 H Glucose 94 Calculated Osmolality 296 H Calcium 9.1 Corrected Calcium 9.7 Phosphorus 2.0 L Magnesium 2.2 Total Bilirubin 0.3 AST 24 ALT 19 Alkaline Phosphatase 91 Total Protein 6.1 Albumin 3.2 L Globulin 2.9 Albumin/Globulin Ratio 1.1 L Ur Collection Type Clean Catch Urine Color Yellow Urine Clarity Turbid A Urine pH 8.0 H Ur Specific [place] 1.025 Urine Protein 1+ A Urine Glucose (UA) Negative Urine Ketones Negative Urine Blood 1+ A Urine Nitrite Negative Urine Bilirubin Negative Urine Urobilinogen (Auto) Negative Ur Leukocyte Esterase Positive Urine RBC 129 H Urine WBC 2279 H Ur Squamous Epith Cells 0 Urine Bacteria None Urine Yeast (Budding) Present A ABG Interpretation ABG results: 01/04/25 10:50 VBG pH 7.57 VBG pCO2 24 L VBG pO2 46 VBG Base Excess 1 Assessment & Plan A&P Narrative relatively recent cocci with neg IgM noted. (usually takes 3-6 mo to disappear btw) possible adrenal insufficiency. unproven yet, but tests pending at least low plts, cause uncertain, may have liver disease from the hepatic vein blockage for yrs that eventually was cleared no objection to trial of steroids pending the cortisol levals. spironolactone can cause adrenal linsufficiency as can her liver disease vori and joshua also have quirky se's and her titer is not that high nor is she particularly symptomatic. will check in again wednesday am if she remains in house. if she is referred to me, please send the lab data and cxr report will see again prn Time Spent With Patient Time: Total time spent is greater than 50% in coordination of care (as documented) at patient's floor/unit and/or counseling patient:
[2025-01-15] MEDS: CITRIC ACID/SODIUM CITR 15 ML UDC (BICITRA) 30 ML PO ×2 (09:45→20:21)
[2025-01-15] MEDS: NAPH,KPH MBDB 1 PACKET (1.5 GM) PO (09:45)
[2025-01-15] MEDS: APIXABAN 2.5 MG TABLET 5 MG PO ×2 (09:45→20:20)
[2025-01-15] MEDS: MEGESTROL ACET SUSP 400 MG/10 ML UDC 200 MG PO ×2 (09:45→20:21)
[2025-01-15] MEDS: PANTOPRAZOLE 40 MG TABLET PO (09:46)
[2025-01-15] MEDS: FLUDROCORTISONE ACETATE 0.1 MG TABLET PO (09:46)
[2025-01-15] MEDS: MIRTAZAPINE 15 MG TABLET PO (09:46)
[2025-01-15] MEDS: predniSONE 5 MG TABLET 2.5 MG PO (09:46)
[2025-01-15] MEDS: SODIUM CHLORIDE 0.9% 1000 ML 1,000 ML 75 ML IV (13:24)
[2025-01-15] MEDS: FLUCONAZOLE 100 MG TABLET 400 MG PO (15:42)
--- NOTE | 2025-01-15 16:21 | ESPR_ITS ---
<Statement entered by Lorie Glasgow MD - 01/15/25 18:19> Patient seen and examined at bedside. No acute overnight events reported. Despite patient's persistence and going home, patient has been waxing and waning in terms of labile mood, and seen sleeping/resting at bedside. Patient's spouse is on board with halfway facility, however did explain thoroughly with patient's spouse that patient will have to be on low-dose prednisone for a while and will continue to monitor changes in her mentation and mood. Patient would most likely benefit from going home, anticipate discharge within 24 hours. Repeat UA was clear of any infectious source. I discussed with and supervised the commissioner of internal revenue physician who took care of this patient. I personally saw and examined the patient and discussed the assessment and plan with the entire medicine team, including my attending Dr. Mcdonough, I agree with most of the assessment and plan as documented below Lorie Glasgow M.D. PGY-2 Disclaimer: Despite multiple revisions, due to the dictation software being used, the document bellow may not be free of grammatical errors including phonetic/typographic errors. However, this does not deter from our commitment to providing health care in the patient's best interest in mind. Documentation for date of: 01/15/25 Subjective Subjective Interval history: Patient seen today at the bedside fine awake, alert, oriented x 3. No overnight events reported. States she wants to go home and continues to have a labile mood changes. Vital signs stable at this time. Labs unremarkable. Anticipate discharge in the next 24-48 hours. Exam Vital Signs Temp Pulse Resp BP Pulse Ox O2 Del Method 98.5 F 74 18 131/68 H 99 Room Air 01/15/25 12:00 01/15/25 12:00 01/15/25 12:00 01/15/25 12:00 01/15/25 12:00 01/15/25 12:00 Narrative Exam Physical Exam GENERAL: NAD, episodes of confusion, cachectic HEENT: Moist mucosa. Eyes open, symmetrical, & clear temporal wasting CARDIO: Heart RRR, no obvious murmurs PULM: No noted coughing/dyspnea CTA B/L, no R/W/R GI: Abdomen soft, nondistended, no pain on palpation. BSx4 SKIN/MSK/EXT: No wounds/rashes/edema/amputations, no pain on palpation. Pedal pulses present B/L Objective Labs 01/16/25 07:48 01/16/25 04:48 Labs: Laboratory Results - last 24 hr 01/15/25 05:12 WBC 3.1 L RBC 2.79 L Hgb 7.2 L Hct 22.9 L MCV 82 MCH 25.8 MCHC 31.4 RDW Std Deviation 53.0 H Plt Count 155 Neut % (Auto) 66 Lymph % (Auto) 14 [place] % (Auto) 13 H Eos % (Auto) 6 Baso % (Auto) 1 Neut # (Auto) 2.0 Lymph # (Auto) 0.4 L [place] # (Auto) 0.4 Eos # (Auto) 0.2 Baso # (Auto) 0.0 Immature Gran # (Auto) 0.01 H Absolute Nucleated RBC 0.00 Immature Gran % 0 Nucleated RBC % 0 Sodium 146 H Potassium 3.8 Chloride 115 H Carbon Dioxide 20.1 Anion Gap 11 BUN 30 H Creatinine 1.0 Estim Creat Clear Calc 47.6 L eGFR 60 BUN/Creatinine Ratio 30 H Glucose 94 Calculated Osmolality 296 H Calcium 9.1 Corrected Calcium 9.7 Phosphorus 2.0 L Magnesium 2.2 Total Bilirubin 0.3 AST 24 ALT 19 Alkaline Phosphatase 91 Total Protein 6.1 Albumin 3.2 L Globulin 2.9 Albumin/Globulin Ratio 1.1 L ABG Interpretation ABG results: 01/04/25 10:50 VBG pH 7.57 VBG pCO2 24 L VBG pO2 46 VBG Base Excess 1 Quality Measures Quality Measures VTE prophylaxis Advance care planning discussed with:: patient Assessment & Plan Assessment Current Active Medications: Generic Name Dose Route Start Last Admin Trade Name Evangelist PRN Reason Stop Dose Admin Acetaminophen 650 mg 01/11/25 00:54 01/11/25 01:05 Acetaminophen 325 Mg Tablet PO 02/10/25 00:53 650 mg Q6HR PRN Administration FEVER >101 Al Hydrox/Mg Hydrox/Simethicone 15 ml 01/04/25 22:00 01/15/25 13:24 Mg Hyd/Al Hyd/Eryn (Maalox Reg) Susp 30 Ml Udc PO 02/03/25 21:59 15 ml TID YOAN Administration Apixaban 5 mg 01/04/25 21:00 01/15/25 09:45 Apixaban 2.5 Mg Tablet PO 01/25/25 20:59 5 mg BID YOAN Administration Protocol Atorvastatin Calcium 20 mg 01/05/25 21:00 01/14/25 21:46 Atorvastatin Calcium 20 Mg Tablet PO 02/04/25 20:59 20 mg HS YOAN Administration Calamine 0 ml 01/08/25 23:04 Calamine Lotion 120 Ml Btl TOP 02/07/25 23:03 UD PRN ITCHING Citric Acid/Sodium Citrate 30 ml 01/09/25 14:00 01/15/25 09:45 Citric Acid/Sodium Citr 15 Ml Udc (Bicitra) PO 02/08/25 13:59 30 ml BID YOAN Administration Fluconazole 400 mg 01/15/25 13:45 01/15/25 15:42 Fluconazole 100 Mg Tablet PO 01/22/25 13:44 400 mg QDAY YOAN Administration Fludrocortisone Acetate 0.1 mg 01/06/25 10:15 01/15/25 09:46 Fludrocortisone Acetate 0.1 Mg Tablet PO 02/05/25 10:14 0.1 mg QDAY YOAN Administration Sodium Chloride 1,000 mls @ 75 mls/hr 01/14/25 08:57 01/15/25 13:24 Ns IV 02/13/25 08:56 75 mls/hr .[id number] YOAN Administration Levothyroxine Sodium 125 mcg 01/10/25 06:00 01/15/25 06:05 Levothyroxine Sodium 125 Mcg Tablet PO 02/09/25 05:59 125 mcg ACBR YOAN Administration Lidocaine 1 patch 01/11/25 00:54 01/11/25 16:32 Lidocaine 5% 1 Patch TOP 02/10/25 00:53 0.5 patch UD PRN Administration PAIN Protocol Megestrol Acetate 200 mg 01/04/25 21:00 01/15/25 09:45 Megestrol Acet Susp 400 Mg/10 Ml Udc PO 02/03/25 20:59 200 mg BID YOAN Administration Melatonin 3 mg 01/10/25 21:00 01/14/25 21:46 Melatonin 3 Mg Tablet PO 02/09/25 20:59 3 mg HS YOAN Administration Midodrine 5 mg 01/14/25 07:37 Midodrine 5 Mg Tablet PO 02/08/25 10:14 TID PRN SBP <95 Mirtazapine 15 mg 01/08/25 09:00 01/15/25 09:46 Mirtazapine 15 Mg Tablet PO 02/07/25 08:59 15 mg QDAY YOAN Administration Ondansetron HCl 4 mg 01/04/25 18:11 Ondansetron Inj 2 Mg/Ml Inj 2 Ml IV 02/03/25 18:10 Q6H PRN NAUSEA OR VOMITING Protocol Oxycodone/Acetaminophen 0.5 tab 01/12/25 17:27 01/14/25 23:16 Oxycodone/Apap 5/325 Tablet PO 01/15/25 20:59 0.5 tab HS PRN Administration PAIN SCALE 4-6 (Moderate Pantoprazole Sodium 40 mg 01/08/25 09:00 01/15/25 09:46 Pantoprazole 40 Mg Tablet PO 02/07/25 08:59 40 mg QDAY YOAN Administration Prednisone 2.5 mg 01/14/25 09:00 01/15/25 09:46 Prednisone 5 Mg Tablet PO 02/13/25 08:59 2.5 mg QDAY YOAN Administration Plan Alma Rosa is a 74 y/o female with PMHx liver cirrhosis?, Hepatic vein thrombosis, 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 #Acute encephalopathy Possibly secondary to steroids vs opiates vs metabolic vs delirium vs rule out stroke? Patient stated came prednisone and fludrocortisone Patient endorse that she has not been sleeping well in the last couple of days she has been sleeping at all last night CT head without contrast did not show midline shift, hemorrhage or mass effect ?Continue to monitor at this time ? Prednisone dose adjusted to 2.5 mg daily. #Suspected Secondary Adrenal insufficiency #Orthostatic hypotension #Failure to thrive Patient reports she has been having syncopal episodes mainly with getting up Endorses a history of orthostatic hypotension for which she takes midodrine 5mg TID as needed Patient reports that she has lost over 40 pounds within the past 5 months, attributes it to poor oral intake Syncope likely related to poor oral intake and orthostatic hypotension 01/05/2025: Orthostatics positive Echocardiogram unremarkable. Concern for adrenal insufficiency given orthostatic hypotension, potential causes include valley fever, malnutrition due to poor p.o. intake. 500 mL NS bolus given Vitamin B12 within normal limits, folate levels within normal limits Spoke to retail security professional Dr. Head suspects adrenal insufficiency due to fluconazole, although rare considering starting low dose prednisone but will speak with ID Syncope likely secondary to adrenal sufficiency B12 was found to be low mildly elevated -pending renin, aldosterone, plasma acth -Encourage oral intake -Continue Megace -Mirtazapine 15 mg p.o. daily added -Midodrine 5 mg 3 times daily -Fludrocortisone 0.1 mg p.o. 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 Head suspects adrenal insufficiency due to fluconazole, although rare considering starting low dose prednisone but will speak with ID -Resumed Diflucan for 400 mg daily - retail security professional, Dr. Head consulted, appreciate recommendations - ID specialist Dr. Latham consulted, appreciate recommendations #History of pulmonary mass, R lobe #History of pleural effusion Seen on chest CTA in November 2024, This could be a culprit of hypercalcemia. Had thoracentesis on last admission and had 2000 cc removed, appears to be transudative in nature considering lights criteria 01/05: CT CAP reviewed subcentimeter pulmonary nodules but no determinate mass. Suspect infectious nodules due to cocci. -Follow up imaging if needed, possibly outpatient #History of hypothyroidism Takes levothyroxine 150mcg at home Free T4 elevated at 2.09. 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 Preciado hepatology at [facility] Was apparently on liver transplant list at some point, however is not getting a liver transplant at this point [facility] records requested and reviewed -Resumed home Eliquis 5 mg twice a day #Normocytic anemia Unsure if patient is having iron deficiency or anemia of chronic disease Patient does have history of bariatric surgery and also has poor oral intake Anemia is multifactorial at this point and will require further workup Hemoglobin is 8.5 -Trend CBC Case discussed with my senior Dr. Glasgow PGY-[address] Ceasar Garcia MD PGY-1 Disposition: Med telemetry DVT prophylaxis: Eliquis GI prophylaxis: Protonix Diet: Regular CODE STATUS: Full Disclaimer: Despite multiple revisions, due to the dictation software being used, the document bellow may not be free of grammatical errors including phonetic/typographic errors. However, this does not deter from our commitment to providing health care in the patient's best interest in mind. Attending Provider Attestation/Addendum I, Fern Mcdonough DO, attest that I was physically present for the rhoades portions of the service and evaluated the patient with the resident and I reviewed and discussed the case with the resident and agree with the resident's findings and plans of care as documented above Patient seen and evaluated this AM. Patient is much more coherent and oriented. She continues to have emotional lability, but appears to be tolerating prednisone 2.5mg PO daily. Patient is depressed and is likely to do much better at home. is undecided about SNF versus home, although the patient has been adamant about going home. If patient mental status is improved in AM, anticipate DC in AM depending on family's decision regarding dispo.
[2025-01-15] MEDS: MELATONIN 3 MG TABLET PO (20:20)
[2025-01-15] MEDS: ATORVASTATIN CALCIUM 20 MG TABLET PO (20:21)
--- NOTE | 2025-01-15 22:55 | PC.NURSE ---
Redness and swelling to left wrist, MD aware seen and examined patient, cold application for 20 min and elevation to wrist area patient tolerated well.
[2025-01-16] VITALS: BP 124/73; PULSE 74; PULSE 76; RESP 21; TEMP 36.6; O2SAT 99
[2025-01-16 01:27] LABS: Hematocrit 24.8 % (36.0-46.0)
[2025-01-16] MEDS: SODIUM CHLORIDE 0.9% 1000 ML 1,000 ML 75 ML IV (03:00)
[2025-01-16] MEDS: ACETAMINOPHEN 325 MG TABLET 650 MG PO (03:05)
[2025-01-16 03:58] VITALS: BP 124/71; PULSE 67; RESP 19; TEMP 36.6; O2SAT 99
[2025-01-16 04:00] VITALS: PULSE 75
[2025-01-16] MEDS: MG HYD/AL HYD/SIME (Maalox Reg) SUSP 30 ML UDC 15 ML PO (05:31)
[2025-01-16] MEDS: LEVOTHYROXINE SODIUM 125 MCG TABLET PO (05:31)
[2025-01-16 06:07] LABS: Basophils % (Auto) 1 % (0-2.5); Eosinophils # (Auto) 0.1 Thou/mm3 (0.0-0.5); Eosinophils % (Auto) 3 % (0-10); Immature Granulocytes % (Auto) 0 % (0-0); Immature Granulocytes Auto 0.01 Thou/mm3 (0.00-0.00); Lymphocytes # (Auto) 0.5 Thou/mm3 (1.0-4.8); Lymphocytes % (Auto) 12 % (10-50); Mean Corpuscular HGB Conc 31.9 g/dl (31.0-37.0); Mean Corpuscular Hemoglobin 25.5 pg (25.0-35.0); Mean Corpuscular Volume 80 fL (80-100); Monocytes # (Auto) 0.4 Thou/mm3 (0.0-0.8); Monocytes % (Auto) 11 % (0-12); Neutrophils # (Auto) 2.8 Thou/mm3 (1.8-7.7); Neutrophils % (Auto) 73 % (37-80); Nucleated Red Blood Cell % 0 /100 WBC (0); Platelet Count 173 Thou/mm3 (140-440); RDW Standard Deviation 51.8 fL (36.4-46.3); Red Blood Count 2.67 Miln/mm3 (4.00-5.20); White Blood Count 3.9 Thou/mm3 (3.6-11.0)
[2025-01-16 06:19] LABS: Hemoglobin 6.8 g/dL (12.0-16.0)
[2025-01-16 06:20] LABS: Hematocrit 21.3 % (36.0-46.0)
[2025-01-16 06:29] LABS: Alanine Aminotransferase 20 U/L (10-49); Albumin, Serum 3.4 gm/dL (3.4-4.8); Albumin/Globulin Ratio 1.2 (1.2-2.2); Alkaline Phosphatase 93 U/L (46-116); Anion Gap 10 (7-16); Aspartate Amino Transferase 21 U/L (0-34); BUN/Creatinine Ratio 28 Ratio (12-20); Bilirubin,Total 0.3 mg/dL (0.3-1.2); Blood Urea Nitrogen 28 mg/dL (9-23); Calcium 8.5 mg/dL (8.3-10.6); Carbon Dioxide 20.4 mMol/L (20.0-31.0); Chloride 115 mMol/L (98-107); Estimated Creatinine Clearance 47.6 mL/min (>60); Globulin 2.8 gm/dL (2.3-3.5); Glucose 92 mg/dL (74-106); Magnesium 2.2 mg/dL (1.6-2.6); Osmolality,Calculated 294 (275-295); Phosphorous 2.5 mg/dL (2.4-5.1); Potassium 3.7 mMol/L (3.4-5.1); Sodium 145 mMol/L (136-145); Total Protein 6.2 gm/dL (5.7-8.2); eGFR 60 See Note
[2025-01-16 06:39] LABS: Aldosterone* 5 ng/dL
[2025-01-16 08:00] VITALS: BP 128/63; PULSE 72; PULSE 78; RESP 18; TEMP 36.7; O2SAT 93
[2025-01-16 08:21] LABS: Hematocrit 22.9 % (36.0-46.0)
[2025-01-16 08:22] LABS: Hemoglobin 7.2 g/dL (12.0-16.0)
[2025-01-16] MEDS: CITRIC ACID/SODIUM CITR 15 ML UDC (BICITRA) 30 ML PO (08:51)
[2025-01-16] MEDS: MEGESTROL ACET SUSP 400 MG/10 ML UDC 200 MG PO (08:51)
[2025-01-16] MEDS: MIRTAZAPINE 15 MG TABLET PO (08:51)
[2025-01-16] MEDS: FLUDROCORTISONE ACETATE 0.1 MG TABLET PO (08:52)
[2025-01-16] MEDS: PANTOPRAZOLE 40 MG TABLET PO (08:52)
[2025-01-16] MEDS: FLUCONAZOLE 100 MG TABLET 400 MG PO (08:52)
[2025-01-16] MEDS: predniSONE 5 MG TABLET 2.5 MG PO (08:53)
--- NOTE | 2025-01-16 11:47 | ESDS_ITS ---
<Statement entered by Fern Mcdonough DO - 01/16/25 17:21> I, Fern Mcdonough DO, attest that I was physically present for the rhoades portions of the service and evaluated the patient with the resident and I reviewed and discussed the case with the resident and agree with the resident's findings and plans of care as documented above <Statement entered by Silvina Gunter MD - 01/16/25 15:44> I discussed with and supervised the network intern physician who took care of this patient. I personally saw and examined the patient and discussed the assessment and plan with the entire medicine team, including my attending Dr. Mcdonough, I agree with the assessment and plan as documented below Patient seen and examined at bedside today. Labs and imaging reviewed. Fludrocortisone 0.1 mg for one month Levothyroxine 125mcg early in the morning prior to other medications, Mirtazepine for appetite stimulation daily, and prednisone 2.5 mg daily. Please get weekly B12 shots for another three weeks. Please repeat your CBC, B12 and TSH/T4 levels in 4-6 weeks. Please see your PCP within 1-2 weeks and have your PCP refer you to endocrinology and hematology. Please take your other home medications as prescribed, and hold your home Spironolactone. All questions were answered and recommendations given, if your symptoms worsen and reoccur, please return to the ED. Silvina Gunter MD PGY-3 Disclaimer: Despite multiple revisions, due to the dictation software being used, the document bellow may not be free of grammatical errors including phonetic/typographic errors. However, this does not deter from our commitment to providing health care in the patient's best interest in mind. Planned Discharge Date 01/16/25 DS: Providers Provider Date of admission: 01/04/25 17:21 Primary care physician: Ted Anton MD Admitting Provider: Dale Robles DO Attending Provider on Admission: Fern Mcdonough DO Consults: 01/04/25 18:15 Consult to Nephrology Stat Comment: Consulting Provider: Makeda Taylor 01/04/25 18:17 Referral Registered Dietitian Routine Comment: 01/04/25 18:51 Referral Physical Therapy Routine Comment: Physician Instructions: 01/04/25 20:22 Referral Registered Dietitian Routine Comment: 01/09/25 13:56 Consult to Infectious Diseases Stat Comment: Consulting Provider: Austin Latham 01/09/25 15:04 Consult to Pulmonology Stat Comment: cocci Consulting Provider: Atif Head I 01/16/25 05:54 Referral Wound Care Routine Comment: Attending Provider on DC: Fern Mcdonough DO Discharging Provider: Lane Garcia MD Anticipated date of discharge: 01/16/25 DS: Diagnosis Problem List Completed Was Problem List Reviewed/Reconciled?: Yes Hospital Course Hospital Course Hospital course: 74 y/o female with PMHx liver cirrhosis?, Hepatic vein thrombosis, 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 Patient was admitted for syncope. During hospital stay patient was found to be positive for orthostatic hypotension likely secondary to decreased po intake as patient has lost about 40lbs of weight within 5 months vs secondary adrenal insufficiency possibly due to fluconazole that the patient was taking for treatment of valley fever. ID and commuter train operator were consulted and recommended starting the patient on low dose prednisone with fludrocortisone and showed remarkable improvement with regards to orthostatic hypotension. Patient developed acute encephalopathy likely secondary to steroid medication which resolved after adjusting the dose of steroid medication. Patient was encouraged to increase po intake and was started on appetite stimulant and mirtazipine which showed improvement with patients poor oral intake. Patient also was provided with daily physical therapy and was adviced to continue physical therapy to increase her strength. Patient during hospitalization developed acute kidney injury likely due to dehydration in setting of poor oral intake IVF were provided with improvement in kidney function and orthostatics. At this time patient is medically stable for discharge. Please take your new medications as follows: Fludrocortisone 0.1mg for one month, Levothyroxine 125mcg early in the morning prior to other medications, Mirtazepine for appetite stimulation daily, and prednisone 2.5 mg daily. Please get weekly B12 shots for another three weeks. Please repeat your CBC, B12 and TSH/T4 levels in 4-6 weeks. Please see your PCP within 1-2 weeks and have your PCP refer you to endocrinology and hematology. Please take your other home medications as prescribed, and hold your home Spironolactone. All questions were answered and recommendations given, if your symptoms worsen and reoccur, please return to the ED. Problem List: #Acute encephalopathy-resolved #Suspected Secondary Adrenal insufficiency #Orthostatic hypotension-improving #Failure to thrive #TIAN resolved #Hypercalcemia resolved #History of valley fever #Pulmonary nodules #History of pleural effusion #History of hypothyroidism #History of liver cirrhosis #History of bariatric surgery #History of hepatic vein thrombosis status post failed hepatic and splenic vein stenting #History of recurrent paracentesis and thoracentesis #Normocytic anemia Case discussed with my senior Dr. Gunter PGY-[address] Ceasar Garcia MD PGY-1 Status at Discharge Functional status at discharge: uses cane/walker Overall status at discharge: patient is back to baseline Time Spent with Patient Time attestation: Total time spent providing and/or coordinating discharge services: Time spent: Greater than 30 minutes Exam Vital Signs Temp Pulse Resp BP Pulse Ox O2 Del Method 98.0 F 72 18 128/63 93 L Room Air 01/16/25 08:00 01/16/25 08:00 01/16/25 08:00 01/16/25 08:00 01/16/25 08:00 01/16/25 08:00 Narrative Exam Physical Exam GENERAL: NAD, AAOx3, cachectic HEENT: Moist mucosa. Eyes open, symmetrical, & clear, temporal wasting CARDIO: Heart RRR, no obvious murmurs PULM: No noted coughing/dyspnea CTA B/L, no R/W/R GI: Abdomen soft, nondistended, no pain on palpation. BSx4 SKIN/MSK/EXT: No wounds/rashes/edema/amputations, no pain on palpation. Pedal pulses present B/L NEURO: AAOx3, no focal neuro deficits, able to move all 4 extremities Discharge Plan Plan Patient Disposition: Home w/HOME HEALTH Patient condition on transfer: Stable Care Plan Goals: Please take your new medications as follows: Fludrocortisone 0.1mg for one month, Levothyroxine 125mcg early in the morning prior to other medications, Mirtazepine for appetite stimulation daily, and prednisone 2.5 mg daily. Please get weekly B12 shots for another three weeks. Please repeat your CBC, B12 and TSH/T4 levels in 4-6 weeks. Please see your PCP within 1-2 weeks and have your PCP refer you to endocrinology and hematology. Please take your other home medications as prescribed, and hold your home Spironolactone. All questions were answered and recommendations given, if your symptoms worsen and reoccur, please return to the ED. Prescriptions/Referrals Prescriptions/Med Rec: New levothyroxine 125 mcg Tablet 125 mcg PO ACBR 30 Days Qty: 30 0RF mirtazapine 15 mg Tablet 15 mg PO QDAY 30 Days Qty: 30 0RF fludrocortisone 0.1 mg Tablet 0.1 mg PO QDAY 30 Days Qty: 30 0RF prednisone 2.5 mg tablet 2.5 mg PO QDAY 30 Days Qty: 30 0RF Continued SLOW FE See Rx Instructions .ROUTE .COMPLEX Rx Instructions: 45 MG PO QDAY; pantoprazole 40 mg tablet,delayed release (DR/EC) 40 mg PO QDAY 30 Days Qty: 60 1RF Eliquis 5 mg Tablet 5 mg PO BID fluconazole 200 mg tablet 400 mg PO QDAY 30 Days Qty: 60 3RF alum-mag hydroxide-simeth [Mag-Al Plus] 200-200-20 mg/5 mL Suspension 15 ml PO TID Qty: 1800 0RF sucralfate 100 mg/mL Suspension 1 g PO QID Qty: 1000 2RF Held spironolactone 50 mg tablet 25 mg PO .COMPLEX Hold Instructions: Resume on 01/22/25. Hold until you discuss with your PCP at follow-up visit. Rx Instructions: 25 mg orally 2 TABS IN AM, 1 25MG TAB IN AFTERNOON Discontinued HYDROCODONE BITARTRATE/APAP (VICODIN 5/500) 1 TAB tablet 1 tab GT Q4-6HRPRN Qty: 1 levothyroxine 150 mcg tablet 150 mcg PO QDAY Patient Comments: TAKE 1 TABLET BY MOUTH EVERY DAY IN THE MORNING ON EMPTY STOMACH FOR 90 DAYS midodrine 5 mg tablet 5 mg PO TID Patient Comments: TAKE 1 TABLET ORALLY TWICE A DAY FOR LOW BLOOD PRESSURE 30 DAYS Referrals: Ted Anton MD [Primary Care Provider] - Patient/Caregiver Discharge Instructions Print Language: Mongolian Stand Alone Forms: [facility] Award Info., Patient Portal Info Letter Discharge Order Discharge Orders: Discharge (Routine); Ordered 01/16/25 Ordered By: Silvina Gunter Quality Discharge Quality Measures VTE prophylaxis
[2025-01-16 12:00] VITALS: BP 116/89; PULSE 74; RESP 18; TEMP 37.1; O2SAT 94
--- NOTE | 2025-01-16 15:46 | PC.SS ---
Follow up note: SS met with patient's spouse today at bedside. Discussed d/c plans in detail. SS discussed with spouse yesterday to provide additional 24 hours time to set up additional help. Today, followed up and spouse has already hired [facility] to assist in private care. Patient declined SNF numerous times. Plan is to d/c home with [facility]. All DME has been confirmed delivered to the home. SS set up gurney transport. Ambulance picked up at 2p.m.
--- NOTE | 2025-01-16 17:49 | PC.CM ---
Patient opened to [facility]. I sent referral today.
[2025-01-17 06:43] LABS: Zinc, Plasma* 54 mcg/dL (60-130)
[2025-01-17 06:44] LABS: ACTH, Plasma* 8 pg/mL (6-50); Renin Activity, Plasma* 7.75 ng/mL/h (0.25-5.82)
--- NOTE | 2025-01-17 10:45 | PC.CC ---
Pt is booked with [facility], SOC will be 01/18/25
[2025-01-18 06:49] LABS: Cortisol,total,LC/MS/MS* 16.3 mcg/dL
[2025-01-18 06:49] LABS: Cortisol,total,LC/MS/MS* 12.3 mcg/dL
== END 2025-01-16 13:57 | disposition home health service (06) | DRG 312 ==
LOC: SERX 15:55 → SERHOLD 17:29 → S3NX 18:54 → S3SX 01-09 18:14
PROVIDERS: Internal Medicine; Internal Medicine Infectious Disease; Student in an Organized Health Care Education/Training Program; Admitting Provider Student in an Organized Health Care Education/Training Program; Emergency Provider Emergency Medicine; PCP Family Medicine; Visit Provider Internal Medicine
DX: I95.1 Orthostatic hypotension (principal); G92.8 Other toxic encephalopathy; B38.0 Acute pulmonary coccidioidomycosis; N17.9 Acute kidney failure, unspecified; E27.40 Unspecified adrenocortical insufficiency; R64 Cachexia; E03.9 Hypothyroidism, unspecified; R62.7 Adult failure to thrive; E83.52 Hypercalcemia; R91.8 Other nonspecific abnormal finding of lung field; D64.9 Anemia, unspecified; J44.9 Chronic obstructive pulmonary disease, unspecified; R04.0 Epistaxis; E83.39 Other disorders of phosphorus metabolism; F32.A Depression, unspecified; K74.60 Unspecified cirrhosis of liver; E86.0 Dehydration; Z98.84 Bariatric surgery status; Z90.710 Acquired absence of both cervix and uterus; Z79.899 Other long term (current) drug therapy; Z79.890 Hormone replacement therapy; Z86.718 Personal history of other venous thrombosis and embolism; Z79.01 Long term (current) use of anticoagulants; Z79.52 Long term (current) use of systemic steroids; Z76.82 Awaiting organ transplant status; Z63.4 Disappearance and death of family member; T38.0X5A Adverse effect of glucocorticoids and synthetic analogues, initial encounter; Z88.2 Allergy status to sulfonamides
CPT/HCPCS: 36415; 70450; 71045; 71250; 74176; 80053; 80061; 80074; 80307; 81001; 82024; 82088; 82105; 82140; 82306; 82378; 82436; 82533; 82570; 82607; 82652; 82746; 82803; 83036; 83605; 83690; 83735; 83880; 83883; 83970; 84100; 84133; 84155; 84156; 84165; 84244; 84300; 84439; 84443; 84484; 84630; 85014; 85018; 85025; 85610; 85730; 86301; 86304; 86850; 86900; 86901; 86923; 87040; 87077; 87086; 87186; 93005; 93225; 93306; 96361; 96374; 97162; 99291; A4216; J0834; J2470; J3420; J3490; J7030; J7040; J7120; J7512; A9270

== ENCOUNTER 2025-01-22 10:19 | Emergency (ER) | payer MEDICARE, BC, SELFPAY ==
[2025-01-22 10:30] VITALS: BP 134/81; PULSE 94; RESP 18; TEMP 36.7; O2SAT 98; BMI 25.9
--- NOTE | 2025-01-22 10:32 | XR_ITS ---
Examination: PA lateral chest 2 views TECHNIQUE: Upright PA lateral chest 2 views Exam date and time: January 22, 2025 1003 hours Comparison January 04, 2025 INDICATIONS: Difficulty breathing this week. FINDINGS: Large right pleural effusion Pneumonia and atelectasis in the right lung Normal heart size The osseous structures are intact IMPRESSION: Large right pleural effusion
--- NOTE | 2025-01-22 10:34 | PD.EDRME ---
Rapid Medical Screening Exam [facility] Arrival date/time: 01/22/25 10:19 74-year-old female with a history of cirrhosis, acute kidney injury, pleural effusions presents to the emergency room with a chief complaint of shortness of breath while at rest and with exertion x 3 days. Patient states she was sent over by her primary care provider to rule out a pleural effusion. Patient was admitted to the hospital with hypercalcemia on 01/18/2025 I have greeted and performed a focused initial assessment of this patient. A comprehensive ED assessment and evaluation of the patient, analysis of all test results, and completion of the medical decision making process will be conducted by additional ED providers. Chief Complaint: Shortness of Breath/Dyspnea Time Seen by Provider: 01/22/25 10:25 Vital signs: Vital Signs Temperature 98.0 F 01/22/25 10:30 Pulse Rate 94 01/22/25 10:30 Respiratory Rate 18 01/22/25 10:30 Blood Pressure 134/81 H 01/22/25 10:30 Pulse Oximetry (%) 98 01/22/25 10:30 Oxygen Delivery Method Room Air 01/22/25 10:30 Vital signs reviewed by provider: Yes
[2025-01-22 11:03] LABS: Basophils # (Auto) 0.1 Thou/mm3 (0.0-0.2); Basophils % (Auto) 1 % (0-2.5); Eosinophils # (Auto) 0.2 Thou/mm3 (0.0-0.5); Eosinophils % (Auto) 3 % (0-10); Immature Granulocytes % (Auto) 1 % (0-0); Immature Granulocytes Auto 0.03 Thou/mm3 (0.00-0.00); Lymphocytes # (Auto) 0.7 Thou/mm3 (1.0-4.8); Lymphocytes % (Auto) 12 % (10-50); Mean Corpuscular Hemoglobin 25.4 pg (25.0-35.0); Mean Corpuscular Volume 85 fL (80-100); Monocytes # (Auto) 0.5 Thou/mm3 (0.0-0.8); Monocytes % (Auto) 8 % (0-12); Neutrophils % (Auto) 77 % (37-80); Nucleated Red Blood Cell % 0 /100 WBC (0); Platelet Count 294 Thou/mm3 (140-440); RDW Standard Deviation 56.5 fL (36.4-46.3); Red Blood Count 2.95 Miln/mm3 (4.00-5.20); White Blood Count 6.4 Thou/mm3 (3.6-11.0)
[2025-01-22 11:04] LABS: Hemoglobin 7.5 g/dL (12.0-16.0)
[2025-01-22 11:14] LABS: INR 1.1 (0.9-1.3); Partial Thromboplastin Time 22.6 Seconds (22.0-36.0); Prothrombin Time 12.2 Seconds (9.0-12.2)
[2025-01-22 11:18] LABS: Alanine Aminotransferase 27 U/L (10-49); Albumin, Serum 3.8 gm/dL (3.4-4.8); Albumin/Globulin Ratio 1.2 (1.2-2.2); Alkaline Phosphatase 99 U/L (46-116); Anion Gap 12 (7-16); Aspartate Amino Transferase 31 U/L (0-34); BUN/Creatinine Ratio 20 Ratio (12-20); Bilirubin,Total 0.6 mg/dL (0.3-1.2); Blood Urea Nitrogen 22 mg/dL (9-23); Calcium 8.8 mg/dL (8.3-10.6); Carbon Dioxide 18.4 mMol/L (20.0-31.0); Chloride 113 mMol/L (98-107); Creatinine (Component) 1.1 mg/dL (0.6-1.3); Estimated Creatinine Clearance 47.3 mL/min (>60); Globulin 3.3 gm/dL (2.3-3.5); Glucose 98 mg/dL (74-106); Osmolality,Calculated 288 (275-295); Sodium 143 mMol/L (136-145); Total Protein 7.1 gm/dL (5.7-8.2); eGFR 53 See Note
--- NOTE | 2025-01-22 13:50 | PD.EDSOB ---
ED SOB =RME/HPI General Chief Complaint: Shortness of Breath/Dyspnea Stated Complaint: VERY SOB, R/O PLEURAL EFFUSION. SENT BY MD Time Seen by Provider: 01/22/25 10:25 Arrival date/time: 01/22/25 10:19 RME / HPI RME / HPI Narrative: 01/22/25 10:19 74-year-old female with a history of cirrhosis, acute kidney injury, pleural effusions presents to the emergency room with a chief complaint of shortness of breath while at rest and with exertion x 3 days. Patient states she was sent over by her primary care provider to rule out a pleural effusion. Patient was admitted to the hospital with hypercalcemia on 01/18/2025 I have greeted and performed a focused initial assessment of this patient. A comprehensive ED assessment and evaluation of the patient, analysis of all test results, and completion of the medical decision making process will be conducted by additional ED providers. DR. KAYE MAIN ED EVALUATION 74 year old female with history of bariatric surgery 20 years ago, hepatic vein thrombosis, s/p stenting of hepatic/splenic vein, frequent paracentesis/thoracentesis, presents to the ED sent by PCP for evaluation of her shortness of breath today. Patient described feeling she is not getting enough air in that is aggravated with exertion. No known modifying factors reported. States she has experienced similar symptoms before and during that time diagnosed with pleural effusion. States she consulted her PCP today who advised she come in to rule out pleural effusion. Denies fevers, chills, chest pain, abdominal pain, n/v, or other associated symptoms. Related Data Home Medications ?Medication ?Instructions ?Recorded ?Confirmed apixaban 5 mg tablet (Eliquis) 5 mg PO BID 11/14/24 01/04/25 SLOW FE See Rx Instructions .Route .COMPLEX 01/04/25 01/04/25 spironolactone 50 mg tablet 25 mg PO .COMPLEX 01/04/25 01/04/25 Held on 01/12/25. Instructions: Resume on 01/22/25. Hold until you discuss with your PCP at follow-up visit. Previous Rx's ?Medication ?Instructions ?Recorded aluminum-mag hydroxide-simethicone 15 ml PO TID #1,800 mL 11/20/24 200 mg-200 mg-20 mg/5 mL oral susp (Mag-Al Plus) fluconazole 200 mg tablet 400 mg (2 x 200 mg) PO QDAY 30 11/20/24 days #60 tabs sucralfate 100 mg/mL oral 1 g (10 mL) PO QID #1,000 mL 11/20/24 suspension fludrocortisone 0.1 mg tablet 0.1 mg PO QDAY 30 days #30 tabs 01/12/25 levothyroxine 125 mcg tablet 125 mcg PO ACBR 30 days #30 tabs 01/12/25 mirtazapine 15 mg tablet 15 mg PO QDAY 30 days #30 tabs 01/12/25 pantoprazole 40 mg tablet,delayed 40 mg PO QDAY 30 days #60 tabs 01/12/25 release prednisone 2.5 mg tablet 2.5 mg PO QDAY 1 month #30 tabs 01/16/25 Allergies Allergy/AdvReac Type Severity Reaction Status Date / Time Sulfa (Sulfonamide Allergy Intermediate Rash Verified 01/22/25 10:24 Antibiotics) Iodinated Contrast Media Allergy Verified 01/22/25 10:24 Review of Systems Review of Systems Narrative Review of Systems: Gen: No fever, no chills, no weight loss EYES: No discharge, no visual changes, no pain HEENT: No ear pain, no congestion, no sore throat PULM: +shortness of breath, +cough CV: No chest pain, no palpitations GI: No nausea, no vomiting, no diarrhea, no pain, no constipation : No frequency, no urgency,? no dysuria Musc/skel: No joint pain, no back pain Skin: No rash. Psyc: No hallucinations, no depression Heme/Lymph: No easy bleeding or bruising tendencies Neuro: No weakness, no headache Past Medical History Past Medical History RESPIRATORY: Positive Pneumonia GASTROINTESTINAL: Positive Gastrointestinal Disorders GENITOURINARY: Positive Genitourinary Disorders ENDOCRINE: Positive Endocrine Disorders and Hypothyroidism HEMATOLOGIC: Positive Blood Disorders and Anemia PSYCHO/SOCIAL: Positive Depression and Anxiety OTHER HISTORY: Positive Blood Transfusion Reaction Surgical History SURGICAL: Positive Abdominal Surgery and Gastric Bypass Surgery Social History SMOKING STATUS: Never smoker SECOND HAND EXPOSURE: No Course Quality Measures none Orders Category Date Time Status US thoracentesis Stat Exams 01/22/25 14:46 Ordered XR chest 2V Stat Exams 01/22/25 10:32 Completed CBC Stat Lab 01/22/25 10:46 Completed CMP [Comprehensive Metabolic Panel] Stat Lab 01/22/25 10:46 Completed PT [Prothrombin Time with INR] Stat Lab 01/22/25 10:46 Completed PTT [Partial Thromboplastin Time] Stat Lab 01/22/25 10:46 Completed Type and Screen Stat Lab 01/22/25 10:46 Completed UA, C/S IF [Urinalysis, C/S if Indicated] Stat Lab 01/22/25 10:33 Ordered Vital Signs Vital signs: Vital Signs Temperature 98.0 F 01/22/25 10:30 Pulse Rate 94 01/22/25 10:30 Respiratory Rate 18 01/22/25 10:30 Blood Pressure 134/81 H 01/22/25 10:30 Pulse Oximetry (%) 98 01/22/25 10:30 Oxygen Delivery Method Room Air 01/22/25 10:30 Pulse ox is 98% on room air which is adequate. Shortness of Breath / Dyspnea MDM Narrative MDM Narrative:: Jaci Hunter am scribing for and in the presence of Dr. Kaye. 1600: Patient signed out AMA. I discussed a great length that without further evaluation and monitoring there may be unforeseen circumstances and deterioration causing permanent bodily harm or as a result of their choice. The patient is alert, oriented and competent at this time. The patient states that they are aware of the serious risks as explained, but they continue to wish to leave against medical advice. Patient data External records reviewed:: [facility] previous records (I reviewed admission from 01/04/2025 through 01/16/2025) Clinical information provided by:: patient Social determinants that could affect healthcare access:: none Patient has the following chronic illnesses:: bariatric surgery 20 years ago, hepatic vein thrombosis, s/p stenting of hepatic/splenic vein, frequent paracentesis/thoracentesis How is presenting disease/condition affected by chronic disease/condition?: exacerbated by Evaluation data The following diagnostics were reviewed and interpreted by me:: lab results and radiology exam(s) Lab and/or radiology exams considered but not ordered:: None Interpretation Summary: Ordering Physician: Fuentes Lund Date of Service: 01/22/25 Procedure(s): XR chest 2V Accession Number(s): [id number] cc: Fuentes Lund; Meño Cortes MD~ Examination: PA lateral chest 2 views TECHNIQUE: Upright PA lateral chest 2 views Exam date and time: January 22, 2025 1003 hours Comparison January 04, 2025 INDICATIONS: Difficulty breathing this week. FINDINGS: Large right pleural effusion Pneumonia and atelectasis in the right lung Normal heart size The osseous structures are intact IMPRESSION: Large right pleural effusion Dictated By: Meño Cortes MD Signed By: <Electronically signed by Meño Cortes MD in OV> 01/22/25 1107 Medications / Prescriptions Medications or Prescriptions considered but not ordered:: None Medication administrations:: none Consultations Consultation(s) initiated? (list below): No Diagnosis Shortness of Breath Differential Diagnosis: acute exacerbation of chronic obstructive airways disease, congestive heart failure, community acquired pneumonia, asthma with exacerbation and other (pleural effusion ) Admission Indicated Admission indicated?: not indicated Explain why admission is indicated or not indicated:: Patient signed out against medical advise Admission Request Was there a request for admission?: No Disposition Plan Disposition Plan: other (specify) (Patient left against medical advise ) Discharge Plan Prescriptions/Referrals Prescriptions/Med Rec: No Action SLOW FE See Rx Instructions .ROUTE .COMPLEX Rx Instructions: 45 MG PO QDAY; spironolactone 50 mg tablet 25 mg PO .COMPLEX Rx Instructions: 25 mg orally 2 TABS IN AM, 1 25MG TAB IN AFTERNOON levothyroxine 125 mcg Tablet 125 mcg PO ACBR 30 Days Qty: 30 0RF mirtazapine 15 mg Tablet 15 mg PO QDAY 30 Days Qty: 30 0RF fludrocortisone 0.1 mg Tablet 0.1 mg PO QDAY 30 Days Qty: 30 0RF pantoprazole 40 mg tablet,delayed release (DR/EC) 40 mg PO QDAY 30 Days Qty: 60 1RF prednisone 2.5 mg tablet 2.5 mg PO QDAY 30 Days Qty: 30 0RF Eliquis 5 mg Tablet 5 mg PO BID fluconazole 200 mg tablet 400 mg PO QDAY 30 Days Qty: 60 3RF alum-mag hydroxide-simeth [Mag-Al Plus] 200-200-20 mg/5 mL Suspension 15 ml PO TID Qty: 1800 0RF sucralfate 100 mg/mL Suspension 1 g PO QID Qty: 1000 2RF Referrals: Ted Anton MD [Primary Care Provider] - In 1 week Patient/Caregiver Discharge Instructions Education Materials: Thoracentesis Dc Print Language: Persian
[2025-01-22 14:56] VITALS: BP 153/77; PULSE 77; RESP 20; TEMP 37; O2SAT 98
--- NOTE | 2025-01-22 16:13 | PD.EDADDENDU ---
Emergency Room Addendum Addendum Narrative: Patient is a 74 year old female with history of bariatric surgery 20 years ago, hepatic vein thrombosis, s/p stenting of hepatic/splenic vein, frequent paracentesis/thoracentesis, presents to the ED sent by PCP Dr. Anton for evaluation of her shortness of breath today. I was notified by RN at 16:00 hours that the patient is very upset and wanting to leave against medical advise. I discussed a great length that without further evaluation and monitoring there may be unforeseen circumstances and deterioration causing permanent bodily harm or as a result of their choice. The patient is alert, oriented and competent at this time. The patient states that they are aware of the serious risks as explained, but they continue to wish to leave against medical advice. I was not able to obtain an HPI or perform a physical exam on the patient.
== END 2025-01-22 16:04 | disposition left against medical advice (07) ==
LOC: SERX 11:25
PROVIDERS: Nurse Practitioner Family; Emergency Provider Emergency Medicine; PCP Family Medicine
DX: R06.02 Shortness of breath (principal); Z53.29 Procedure and treatment not carried out because of patient's decision for other reasons
CPT/HCPCS: 36415; 71046; 80053; 81001; 85025; 85610; 85730; 86850; 86900; 86901; 99283

== ENCOUNTER → 2025-01-23 | Outpatient (CLI) | payer MEDICARE, BC, SELFPAY ==
--- NOTE | 2025-01-23 | XR_ITS ---
Examination: PA lateral chest 2 views TECHNIQUE: Upright PA lateral chest 2 views Exam date and time: January 23, 2025 12:51 PM INDICATIONS: Post thoracentesis FINDINGS: Marked decrease in right pleural fluid Atelectasis versus pneumonia right base No pneumothorax Normal heart size IMPRESSION: Marked decrease in right pleural fluid
--- NOTE | 2025-01-23 10:08 | XR_ITS ---
Examination: Ultrasound-guided right thoracentesis Ultrasound right hemithorax Ultrasound left hemithorax Exam date and time: January 23, 2025 1213 hours INDICATIONS: Chest pain shortness of breath this week with large right pleural effusion on chest x-ray January 22, 2025 TECHNIQUE AND FINDINGS: Informed consent provided. Timeout performed. Sonographic images right and left hemithorax demonstrate large right pleural effusion Skin prepped over the right hemithorax and sterile drape applied hand hygiene ultrasound sterile technique Utilizing ultrasonographic guidance after obtaining local anesthesia with 1% lidocaine, 5 Albanian catheter placed in the right pleural space 3050 cc pleural fluid removed IMPRESSION: Successful ultrasound-guided right thoracentesis, 3050 cc pleural fluid removed
== END | disposition home or self-care (01) ==
LOC: SDIM 10:33 → SIRX 12:06
PROVIDERS: PCP Family Medicine; Referring Provider Family Medicine; Visit Provider Family Medicine
DX: R06.02 Shortness of breath (principal)
CPT/HCPCS: 32555; C1729

== ENCOUNTER → 2025-02-20 | Outpatient (CLI) | payer MEDICARE, BC, SELFPAY ==
[2025-02-20 13:10] LABS: Basophils % (Auto) 1 % (0-2.5); Eosinophils # (Auto) 0.1 Thou/mm3 (0.0-0.5); Eosinophils % (Auto) 2 % (0-10); Hematocrit 32.1 % (36.0-46.0); Immature Granulocytes % (Auto) 0 % (0-0); Immature Granulocytes Auto 0.01 Thou/mm3 (0.00-0.00); Lymphocytes # (Auto) 0.6 Thou/mm3 (1.0-4.8); Lymphocytes % (Auto) 11 % (10-50); Mean Corpuscular HGB Conc 31.2 g/dl (31.0-37.0); Mean Corpuscular Hemoglobin 27.5 pg (25.0-35.0); Mean Corpuscular Volume 88 fL (80-100); Monocytes # (Auto) 0.4 Thou/mm3 (0.0-0.8); Monocytes % (Auto) 8 % (0-12); Neutrophils % (Auto) 78 % (37-80); Nucleated Red Blood Cell % 0 /100 WBC (0); Platelet Count 155 Thou/mm3 (140-440); RDW Standard Deviation 65.6 fL (36.4-46.3); Red Blood Count 3.63 Miln/mm3 (4.00-5.20); White Blood Count 5.1 Thou/mm3 (3.6-11.0)
[2025-02-20 13:20] LABS: Albumin, Serum 4.2 gm/dL (3.4-4.8); Anion Gap 10 (7-16); BUN/Creatinine Ratio 23 Ratio (12-20); Blood Urea Nitrogen 27 mg/dL (9-23); Calcium 9.7 mg/dL (8.3-10.6); Calcium (Corrected) 9.7 mg/dL (8.5-10.1); Carbon Dioxide 21.4 mMol/L (20.0-31.0); Chloride 111 mMol/L (98-107); Creatinine (Component) 1.2 mg/dL (0.6-1.3); Glucose 105 mg/dL (74-106); Osmolality,Calculated 288 (275-295); Phosphorous 2.7 mg/dL (2.4-5.1); Potassium 4.8 mMol/L (3.4-5.1); Sodium 142 mMol/L (136-145); eGFR 48 See Note
== END | disposition home or self-care (01) ==
LOC: COPL 11:54
PROVIDERS: PCP Family Medicine; Referring Provider Family Medicine; Visit Provider Family Medicine
DX: J91.8 Pleural effusion in other conditions classified elsewhere (principal)
CPT/HCPCS: 36415; 80069; 85025